=== PATIENT | female | born 1960 | race Caucasian/White ===

== ENCOUNTER → 2024-09-12 | Outpatient (CLI) | payer MEDICAID, SELFPAY | END | disposition home or self-care (01) | LOC: SWHD 13:15 | PROVIDERS: PCP Family Medicine; Referring Provider Family Medicine; Visit Provider Student in an Organized Health Care Education/Training Program | DX: E11.621 Type 2 diabetes mellitus with foot ulcer (principal); L97.514 Non-pressure chronic ulcer of other part of right foot with necrosis of bone; E11.40 Type 2 diabetes mellitus with diabetic neuropathy, unspecified; M86.68 Other chronic osteomyelitis, other site | CPT/HCPCS: 11044; A9270 ==

== ENCOUNTER → 2024-09-26 | Outpatient (CLI) | payer MEDICAID, SELFPAY | END | disposition home or self-care (01) | LOC: SWHD 13:15 | PROVIDERS: PCP Family Medicine; Referring Provider Family Medicine; Visit Provider Surgery | DX: E11.621 Type 2 diabetes mellitus with foot ulcer (principal); T81.89XA Other complications of procedures, not elsewhere classified, initial encounter; L97.512 Non-pressure chronic ulcer of other part of right foot with fat layer exposed; E11.40 Type 2 diabetes mellitus with diabetic neuropathy, unspecified; M86.68 Other chronic osteomyelitis, other site | CPT/HCPCS: 11042; A9270 ==

== ENCOUNTER → 2024-10-09 | Outpatient (CLI) | payer MEDICAID, SELFPAY | END | disposition home or self-care (01) | PROVIDERS: PCP Family Medicine; Referring Provider Family Medicine; Visit Provider Student in an Organized Health Care Education/Training Program | DX: E11.621 Type 2 diabetes mellitus with foot ulcer (principal); L97.514 Non-pressure chronic ulcer of other part of right foot with necrosis of bone; T81.89XA Other complications of procedures, not elsewhere classified, initial encounter; E11.40 Type 2 diabetes mellitus with diabetic neuropathy, unspecified; M86.68 Other chronic osteomyelitis, other site | CPT/HCPCS: 11044; A9270 ==

== ENCOUNTER → 2024-10-18 | Outpatient (CLI) | payer MEDICAID, SELFPAY | END | disposition home or self-care (01) | PROVIDERS: PCP Family Medicine; Referring Provider Family Medicine; Visit Provider Student in an Organized Health Care Education/Training Program | DX: E11.621 Type 2 diabetes mellitus with foot ulcer (principal); L97.514 Non-pressure chronic ulcer of other part of right foot with necrosis of bone; E11.40 Type 2 diabetes mellitus with diabetic neuropathy, unspecified; T81.89XA Other complications of procedures, not elsewhere classified, initial encounter; M86.68 Other chronic osteomyelitis, other site | CPT/HCPCS: 11042; A9270 ==

== ENCOUNTER → 2024-11-01 | Outpatient (CLI) | payer MEDICAID, SELFPAY | END | disposition home or self-care (01) | LOC: SWHD 13:26 | PROVIDERS: PCP Family Medicine; Referring Provider Family Medicine; Visit Provider Surgery | DX: E11.621 Type 2 diabetes mellitus with foot ulcer (principal); L97.514 Non-pressure chronic ulcer of other part of right foot with necrosis of bone; T81.89XA Other complications of procedures, not elsewhere classified, initial encounter; E11.40 Type 2 diabetes mellitus with diabetic neuropathy, unspecified; M86.68 Other chronic osteomyelitis, other site | CPT/HCPCS: 11042; A9270 ==

== ENCOUNTER → 2024-11-08 | Outpatient (CLI) | payer MEDICAID, SELFPAY | END | disposition home or self-care (01) | LOC: SWHD 13:30 | PROVIDERS: PCP Family Medicine; Referring Provider Family Medicine; Visit Provider Student in an Organized Health Care Education/Training Program | DX: T81.89XA Other complications of procedures, not elsewhere classified, initial encounter (principal); L97.514 Non-pressure chronic ulcer of other part of right foot with necrosis of bone; E11.40 Type 2 diabetes mellitus with diabetic neuropathy, unspecified; M86.68 Other chronic osteomyelitis, other site | CPT/HCPCS: 11042; A9270 ==

== ENCOUNTER → 2024-11-27 | Outpatient (CLI) | payer MEDICAID, SELFPAY | END | disposition home or self-care (01) | LOC: SWHD 13:29 | PROVIDERS: PCP Family Medicine; Referring Provider Family Medicine; Visit Provider Student in an Organized Health Care Education/Training Program | DX: E11.621 Type 2 diabetes mellitus with foot ulcer (principal); T81.89XA Other complications of procedures, not elsewhere classified, initial encounter; L97.514 Non-pressure chronic ulcer of other part of right foot with necrosis of bone; M86.68 Other chronic osteomyelitis, other site; E11.40 Type 2 diabetes mellitus with diabetic neuropathy, unspecified | CPT/HCPCS: 11044; A9270 ==

== ENCOUNTER → 2024-12-18 | Outpatient (CLI) | payer MEDICAID, SELFPAY | END | disposition home or self-care (01) | LOC: SWHD 13:13 | PROVIDERS: PCP Family Medicine; Referring Provider Family Medicine; Visit Provider Surgery | DX: E11.621 Type 2 diabetes mellitus with foot ulcer (principal); T81.89XA Other complications of procedures, not elsewhere classified, initial encounter; L97.514 Non-pressure chronic ulcer of other part of right foot with necrosis of bone; M86.68 Other chronic osteomyelitis, other site; E11.40 Type 2 diabetes mellitus with diabetic neuropathy, unspecified | CPT/HCPCS: 11042; A9270 ==

== ENCOUNTER 2025-01-04 11:08 | Inpatient (IN) | payer MEDICAID, SELFPAY ==
[2025-01-04] VITALS (9 sets, daily range): BP systolic 121–162; BP diastolic 72–99; PULSE 81–94; RESP 16–24; TEMP 36.7–37.1; O2SAT 85–97; BMI 32.9
--- NOTE | 2025-01-04 11:26 | XR_ITS ---
EXAMINATION: XR chest 2V ORDERING PROVIDER: Bari Cortes NP HISTORY: Chest Pain TECHNIQUE: PA and Lateral radiographs of the chest. COMPARISON: 04/16/2024, CT aortoiliac angiography with runoff. FINDINGS: Lungs: Extensive multi lobar airspace opacities with left lower lobe consolidation. Mildly increased interstitial markings. Pleura: Mild blunting left costophrenic angle. No pneumothorax. Cardiomediastinal Silhouette: Calcifications aortic arch. Cardiac silhouette normal in size. Soft Tissues/Bones: Mild bony degenerative changes. Calcific atherosclerotic changes bilateral axilla. Calcifications left neck, likely within the carotid artery. IMPRESSION: 1. Extensive multi lobar opacities with left lower lobe consolidation and small left pleural effusion. Differential includes severe multi lobar pneumonia, atypical infection, and developing acute respiratory distress syndrome. 2. Positive fluid balance.
--- NOTE | 2025-01-04 11:26 | EKG_ITS ---
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
--- NOTE | 2025-01-04 11:27 | PD.EDRME ---
Rapid Medical Screening Exam [facility] Arrival date/time: 01/04/25 11:08 CC: Shortness of breath HPI ongoing for the past 6 days now sleeping upright. Significant smoking history stopped smoking cigarettes 5 days ago. Denies any chest pain. 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 Chief Complaint: Shortness of Breath/Dyspnea
[2025-01-04 11:58] LABS: Basophils % (Auto) 0 % (0-2.5); Eosinophils % (Auto) 0 % (0-10); Hematocrit 42.7 % (36.0-46.0); Hemoglobin 14.7 g/dL (12.0-16.0); Immature Granulocytes % (Auto) 2 % (0-0); Immature Granulocytes Auto 0.12 Thou/mm3 (0.00-0.00); Lymphocytes % (Auto) 11 % (10-50); Mean Corpuscular HGB Conc 34.4 g/dl (31.0-37.0); Mean Corpuscular Hemoglobin 29.8 pg (25.0-35.0); Mean Corpuscular Volume 86 fL (80-100); Monocytes # (Auto) 0.3 Thou/mm3 (0.0-0.8); Monocytes % (Auto) 4 % (0-12); Neutrophils # (Auto) 6.8 Thou/mm3 (1.8-7.7); Neutrophils % (Auto) 84 % (37-80); Nucleated Red Blood Cell % 0 /100 WBC (0); Platelet Count 215 Thou/mm3 (140-440); Red Blood Count 4.94 Miln/mm3 (4.00-5.20); White Blood Count 8.1 Thou/mm3 (3.6-11.0)
--- NOTE | 2025-01-04 12:07 | EDNOTE_ITS ---
ED SOB =RME/HPI General Chief Complaint: Shortness of Breath/Dyspnea Stated Complaint: SOB, COUGH, BACK PAIN Time Seen by Provider: 01/04/25 11:28 Arrival date/time: 01/04/25 11:08 RME / HPI RME / HPI Narrative: 64-year-old female patient with significant history of hypertension, chronic smoking, for several years, quit smoking 5 days ago, came in for evaluation regarding worsening cough shortness of breath and not feeling well. Severity of symptoms moderate. Patient came in with family. In the triage patient was noted to be satting 85% on room air. Patient denies any chest pain. Denies any fever. Denies any other complaints. Cardiac history with 2 stents seen by Jerald in [place], assistant in nursing. Related Data Home Medications ?Medication ?Instructions ?Recorded ?Confirmed metformin 1,000 mg tablet 1,000 mg PO BID #0 tabs 04/0802/02/24 (Glucophage) losartan 50 mg tablet 50 mg PO QDAY 01/21/1902/01 Previous Rx's ?Medication ?Instructions ?Recorded amlodipine 5 mg tablet 10 mg (2 x 5 mg) PO QDAY #30 tabs 11/29/23 aspirin 81 mg tablet,delayed 81 mg PO QDAY #30 tabs release atorvastatin 80 mg tablet 80 mg PO QPM #30 tabs carvedilol 3.125 mg tablet 3.125 mg PO BIDWM #60 tabs 11/29/23 empagliflozin 10 mg tablet 10 mg PO QAM #30 tabs 11/29 (Jardiance) oxycodone-acetaminophen 5 mg-325 1 tab PO Q6H PRN Pain Scale 11/29/23 mg tablet 4-10(Mod-Sev #14 tabs tramadol 50 mg tablet 50 mg PO Q8H PRN pain #30 ta bs 12/29/23 doxycycline monohydrate 100 mg 100 mg PO BID #20 caps 03/23/24 capsule Allergies Allergy/AdvReac Type Severity Reaction Status Date / Time ofloxacin Allergy Severe THROAT Verified 05/19/24 14:55 CLOSING Review of Systems Review of Systems Narrative Review of Systems: Review of system reviewed and within normal limits except mentioned in HPI ED Exam Narrative Physical exam: VITAL SIGNS: Reviewed. GENERAL APPEARANCE: Alert and interactive, follows commands, in mild acute distress, HEAD AND FACE: Non-traumatic. ENT: PERRL, pink conjunctivitis, eyelid no trauma, Mucous membrane moist. NECK: Supple, nontender, no nuchal rigidity. CHEST: No tenderness, no crepitus, no paradoxical movement, no retractions. LUNGS: Symmetric, no rales, no wheezing,+ ronchi, no stridor, decreased breath sounds bilaterally. HEART: Regular rate, regular rhythm, no murmur, no gallops. ABDOMEN: Soft, positive bowel sounds, nondistended, no guarding, nontender, no rebound, no masses, RECTAL: Deferred. GENITAL: Deferred. NEUROLOGICAL: Gross motor function intact sensory function intact, Appropriate for age. MUSCULOSKELETAL: low back nontender, full range of motion. EXTREMITIES: Right foot wrapped in a with a gauze and on an Ortho shoe, nontender, full range of motion. SKIN: Color pink, dry, no rash, no lacerations, no abrasions, no contusions. LYMPHATICS: Deferred. Course Quality Measures none Orders Category Date Time Status Admit to Inpatient Status Routine Admission 01/04/25 15:44 Active Patient Condition Routine Admission 01/04/25 15:44 Ordered Bedside Influenza A&B Antigen Test NOW Care 01/04/25 11:27 Completed COVID-19 Screening Questionnaire NOW Care 01/04/25 14:29 Active Decision to Admit X1 Care 01/04/25 14:29 Active EKG (ED ONLY) *Do not use* NOW Care 01/04/25 11:26 Completed Notify provider NEEDED Care 01/04/25 15:44 Active Strict Intake and Output Routine Care 01/04/25 15:45 Ordered Diet Cardiac Diet 01/04/[address] chest wo con Stat Exams 01/04/25 12:16 Completed EKG (ED Only) Stat Exams 01/04/25 11:26 Ordered XR chest 2V Stat Exams 01/04/25 11:26 Completed B-Type Natriuretic Peptide Stat Lab 01/04/25 11:42 Completed Blood Culture (Lab) Stat Lab 01/04/25 12:56 Received CBC Stat Lab 01/04/25 11:42 Completed Comprehensive Metabolic Panel Stat Lab 01/04/25 11:42 Completed Drug Screen,Urine Stat Lab 01/04/25 11:26 Ordered LDH (Lactate Dehydrogenase) Stat Lab 01/04/25 11:42 Completed Lactate (Lactic Acid) Stat Lab 01/04/25 12:56 Completed Magnesium Stat Lab 01/04/25 11:42 Completed Partial Thromboplastin Time Stat Lab 01/04/25 11:42 Completed Procalcitonin Stat Lab 01/04/25 11:42 Completed Prothrombin Time with INR Stat Lab 01/04/25 11:42 Completed Troponin I Stat Lab 01/04/25 11:42 Completed Urinalysis Stat Lab 01/04/25 11:26 Ordered VBG [Venous Blood Gas] Stat Lab 01/04/25 12:56 Completed Acetaminophen Tab [Tylenol Tab] Med 01/04/25 15:43 Active 650 mg PO Q6H PRN Albuterol/Ipratr Rt Melania [Duoneb Rt Melania] Med 01/04/25 12:11 Discontinued 3 ml INH X1 ONE Azithromycin Inj [Zithromax Inj] 500 mg Med 01/04/25 12:06 Discontinued Sodium Chloride 0.9% 250 ml [Ns] 250 ml IV X1 Oseltamivir [Tamiflu] Med 01/04/25 13:38 Discontinued 75 mg PO X1 ONE POTASSIUM CHL 10 mEq IVPB [Kcl Ivpb] Med 01/04/25 12:36 Discontinued 10 meq in 100 ml IV X1 Potassium Chloride [K-Dur] Med 01/04/25 12:36 Discontinued 40 meq PO X1 ONE cefTRIAXone [Rocephin] 1,000 mg Med 01/04/25 12:06 Discontinued SODIUM CHLORIDE 0.9% (Popper) [Ns 0.9% (P)] 50 ml IV X1 Code Status Routine Oth 01/04/25 15:43 Ordered Oxygen Delivery PRN RT 01/04/25 15:43 Active Vital Signs Vital signs: Vital Signs Temperature 98.1 F 01/04/25 11:28 Pulse Rate 84 01/04/25 11:28 Respiratory Rate 24 H 01/04/25 11:28 Blood Pressure 121/76 01/04/25 11:28 Pulse Oximetry (%) 85 L 01/04/25 11:28 Oxygen Delivery Method Room Air 01/04/25 11:28 Shortness of Breath / Dyspnea MDM Narrative MDM Narrative:: 64-year-old female patient with significant history of hypertension, chronic smoking, for several years, quit smoking 5 days ago, came in for evaluation regarding worsening cough shortness of breath and not feeling well. Severity of symptoms moderate. Patient came in with family. In the triage patient was noted to be satting 85% on room air. Patient denies any chest pain. Denies any fever. Denies any other complaints. Cardiac history with 2 stents seen by Jerald in [place], assistant in nursing. Patient does not want me to rewrap the foot. Patient told me that she is not worried about his foot right now. Patient tested positive for influenza A. Laboratory workup no leukocytosis noted, VBG showed O2 sat of 55 percent Potassium was noted to be 2.3, sodium of 134. CT scan of the chest showed 1. Multilobar groundglass airspace opacities, consolidations, mediastinal lymphadenopathy, interstitial thickening, and small bilateral pleural effusions with nodular thickening. Findings are concerning for metastatic disease, including possible lymphangitic carcinomatosis, with superimposed multi lobar pneumonia. 2. Background pulmonary fibrosis and emphysema. 3. Severe vasculopathic changes, including heavy coronary artery calcifications. 4. Small pericardial effusion. 5. Focal outpouching left common carotid artery may represent a small aneurysm. 6. Cirrhotic liver. 7. Anasarca, including pulmonary vascular congestion. 8. Thickening bilateral breast skin and subcutaneous soft tissue may be from volume overload, though breast cancer could have a similar appearance. Recommend correlation with physical exam and any prior mammograms. 9. Severe bilateral perinephric fat stranding. Findings could be seen with urinary tract infection. 10. Subacute right anterolateral fifth rib fracture. 11. Sequela of prior granulomatous disease. Patient received Zithromax IV, ceftriaxone IV IV fluid, potassium replacement and other breathing treatment with significant progress symptoms. Currently patient is satting 97% on 4 L. Discussed case with family regarding admission for further management, but obtain agrees with the plan. Discussed the case with hospitalist admitted the patient. Patient data External records reviewed:: None Clinical information provided by:: patient and family Social determinants that could affect healthcare access:: none Patient has the following chronic illnesses:: Cigarette smoker How is presenting disease/condition affected by chronic disease/condition?: exacerbated by Evaluation data The following diagnostics were reviewed and interpreted by me:: lab results, radiology exam(s) and EKG tracing(s) Lab and/or radiology exams considered but not ordered:: None Interpretation Summary: See results in MDM plan Medications / Prescriptions Medications or Prescriptions considered but not ordered:: None Medication administrations:: Medication Administration History Acetaminophen (Acetaminophen 325 Mg Tablet) 650 mg PO Q6H PRN PRN Reason: PAIN OR FEVER > 100.4 Stop: 02/03/25 15:42 Hydrocodone Bitart/Acetaminophen (Hydrocodone/Apap 5/325 Tablet) 1 tab PO Q6HR PRN PRN Reason: PAIN SCALE 4-6 (Moderate Stop: 01/09/25 15:47 Amlodipine Besylate (Amlodipine Besylate 5 Mg Tablet) 10 mg PO QDAY [facility] Stop: 02/04/25 08:59 Aspirin (Aspirin Ec 81 Mg Tabec) 81 mg PO QDAY [facility] Stop: 02/04/25 08:59 Atorvastatin Calcium (Atorvastatin Calcium 20 Mg Tablet) 40 mg PO HS [facility] Stop: 02/03/25 20:59 Azithromycin (Azithromycin 250 Mg Tablet) 250 mg PO QDAY [facility] Stop: 01/09/25 08:59 Dextrose (Dextrose 50%-Water Inj 50 Ml Syringe) 25 ml IV Q15MIN PRN PRN Reason: BG 50-70 responsive npo pt Stop: 02/03/25 15:52 Dextrose (Dextrose 50%-Water Inj 50 Ml Syringe) 50 ml IV Q15MIN PRN PRN Reason: BG <50 OR BG <70 & pt unresponsive Stop: 02/03/25 15:52 Glucagon (Glucagon Inj 1 Mg Vial) 1 mg IM Q15MIN PRN PRN Reason: BG <70, and no IV access Heparin Sodium (Porcine) (Heparin Sod Inj 5000 Unit/Ml Vial) 5,000 unit SC Q12HR [facility] Stop: 01/18/25 20:59 Ceftriaxone Sodium 1,000 mg/ (Sodium Chloride) 50 mls @ 100 mls/hr IV QDAY [facility] Stop: 01/09/25 08:59 Insulin Human Lispro (Insulin Lispro (Admelog) 1 Unit/0.01 Ml Unit) 0 unit SC [facility]; Protocol Stop: 02/03/25 16:59 Ipratropium [place] (Ipratropium Rt 0.5 Mg/ 2.5 Ml Nebu) 0.5 mg INH Q6HRRT [facility] Stop: 02/03/25 18:59 Levalbuterol HCl (Levalbuterol Rt 1.25 Mg/0.5 Ml Nebu) 1.25 mg INH Q6HRRT [facility] Stop: 02/03/25 18:59 Losartan Potassium (Losartan Potassium 25 Mg Tablet) 100 mg PO QDAY [facility] Stop: 02/03/25 16:24 Ondansetron HCl (Ondansetron Inj 2 Mg/Ml Inj 2 Ml) 4 mg IV Q6H PRN; Protocol PRN Reason: NAUSEA OR VOMITING Stop: 02/03/25 15:47 Oseltamivir Phosphate (Oseltamivir 75 Mg Capsule) 75 mg PO BID SUNDAY Stop: 01/12/25 08:59 Oseltamivir Phosphate (Oseltamivir 75 Mg Capsule) 75 mg PO X1 ONE Stop: 01/04/25 21:01 Sodium Chloride (Sodium Chloride Rt Melania 0.9% 3 Ml Nebu) 3 ml INH PRN PRN PRN Reason: SOLN Stop: 02/03/25 16:01 Ticagrelor (Ticagrelor 90 Mg Tablet) 90 mg PO BID [facility] Stop: 02/03/25 20:59 Discontinued Medications Albuterol/Ipratropium (Albuterol/Ipratropium (Duoneb) Rt Melania 3 Ml Nebu) 3 ml INH X1 ONE Stop: 01/04/25 12:12 Last Admin: 01/04/25 12:44 Dose: 3 ml Documented By: TAURUS Ceftriaxone Sodium 1,000 mg/ (Sodium Chloride) 50 mls @ 100 mls/hr IV X1 ONE Stop: 01/04/25 12:35 Last Infusion: 01/04/25 13:20 Dose: Infused Documented By: Admin: 01/04/25 12:47 Dose: 100 mls/hr Documented By: GEOVANY Azithromycin 500 mg/ Sodium (Chloride) 250 mls @ 250 mls/hr IV X1 ONE Stop: 01/04/25 13:05 Last Infusion: 01/04/25 15:57 Dose: Infused Documented By: Admin: 01/04/25 14:55 Dose: 250 mls/hr Documented By: GEOVANY Potassium Chloride (Kcl Ivpb) 10 meq in 100 mls @ 100 mls/hr IV X1 ONE Stop: 01/04/25 13:35 Last Infusion: 01/04/25 14:43 Dose: Infused Documented By: Admin: 01/04/25 13:31 Dose: 100 mls/hr Documented By: GEOVANY Oseltamivir Phosphate (Oseltamivir 75 Mg Capsule) 75 mg PO X1 ONE Stop: 01/04/25 13:39 Last Admin: 01/04/25 14:55 Dose: 75 mg Documented By: GEOVANY Potassium Chloride (Potassium Chloride 20 Meq Tabcr) 40 meq PO X1 ONE Stop: 01/04/25 12:37 Last Admin: 01/04/25 12:46 Dose: 40 meq Documented By: GEOVANY Potassium Chloride (Potassium Chloride 20 Meq Tabcr) 40 meq PO X1 ONE Stop: 01/04/25 15:54 Ceftriaxone IV IV, Zithromax IV, IV fluid hydration, Consultations Consultation(s) initiated? (list below): No Diagnosis Shortness of Breath Differential Diagnosis: acute exacerbation of chronic obs tructive airways disease and community acquired pneumonia Most likely diagnosis given after review of the tests above:: Community acquired pneumonia, hypoxia Admission Indicated Admission indicated?: indicated Admission Request Was there a request for admission?: Yes Admission Attestation Admission request attestation: Discussed case with [Dr Vargas] from Hospitalist service regarding admission. Discussed patients ED course, exam findings, labs, and radiology results. The Hospitalist [agree] to accept the patient for admission. Disposition Plan Disposition Plan: Admit Discharge Plan Plan Patient Disposition: Admit Acute Care w/in Hospital Disposition Comment: Stable Problem List Clinical Impression: Hypoxia, Pneumonia, Influenza, Current smoker
[2025-01-04 12:16] LABS: Partial Thromboplastin Time 29.5 Seconds (22.0-36.0); Prothrombin Time 10.5 Seconds (9.0-12.2)
--- NOTE | 2025-01-04 12:16 | XR_ITS ---
EXAMINATION: CT chest wo con ORDERING PROVIDER: ELFEGO Alarcon HISTORY: Shortness of breath TECHNIQUE: Without intravenous or oral contrast, CT was used in the volumetric, helical imaging acquisition of the chest with 2-D and 3-D reformats generated on a separate workstation and submitted for interpretation. Institutional dose reducing protocols were utilized. RADIATION DOSE: DLP 592 mGy-cm COMPARISON: 01/04/2025, 10/09/2004, chest radiographs. 04/16/2024, CT abdomen pelvis angioma with runoff. FINDINGS: Multilobar groundglass opacities. Right middle lobe, lingular, left lower lobe consolidations with air bronchograms. Small bilateral pleural effusions. Interlobular septal thickening. Multiple bilateral subcentimeter calcified granulomas. Background emphysematous changes and pulmonary fibrosis most severe in the right upper lobe and superior segment right lower lobe. Nodularity to right-sided pleural effusion/pleura, most pronounced series 2 image 108. Heavy coronary artery calcifications. Small pericardial effusion. Mediastinal lymphadenopathy. Mitral annular calcifications. Calcifications aortic arch. Calcifications aortic valve. Moderate narrowing left common carotid artery. Focal outpouching of the left common carotid artery, series 2 image 37. Peripherally calcified 1.1 cm right hemithyroid nodule. Cirrhotic liver. Adenomyomatosis. Moderate fatty atrophy of the pancreas. Calcifications spleen, likely sequela of old granulomatous disease. Moderate calcifications abdominal vasculature. Severe left greater than right bilateral perinephric fat stranding. Anasarca. Thickening of bilateral breast tissue. Diffuse osteopenia. Right anterolateral healing fifth rib fracture. IMPRESSION: This is a very abnormal examination. 1. Multilobar groundglass airspace opacities, consolidations, mediastinal lymphadenopathy, interstitial thickening, and small bilateral pleural effusions with nodular thickening. Findings are concerning for metastatic disease, including possible lymphangitic carcinomatosis, with superimposed multi lobar pneumonia. 2. Background pulmonary fibrosis and emphysema. 3. Severe vasculopathic changes, including heavy coronary artery calcifications. 4. Small pericardial effusion. 5. Focal outpouching left common carotid artery may represent a small aneurysm. 6. Cirrhotic liver. 7. Anasarca, including pulmonary vascular congestion. 8. Thickening bilateral breast skin and subcutaneous soft tissue may be from volume overload, though breast cancer could have a similar appearance. Recommend correlation with physical exam and any prior mammograms. 9. Severe bilateral perinephric fat stranding. Findings could be seen with urinary tract infection. 10. Subacute right anterolateral fifth rib fracture. 11. Sequela of prior granulomatous disease.
[2025-01-04 12:19] LABS: B-Type Natriuretic Peptide 198 pg/mL (0-100)
[2025-01-04 12:24] LABS: Alanine Aminotransferase 19 U/L (10-49); Albumin, Serum 2.9 gm/dL (3.4-4.8); Albumin/Globulin Ratio 1.1 (1.2-2.2); Alkaline Phosphatase 120 U/L (46-116); Anion Gap 9 (7-16); Aspartate Amino Transferase 55 U/L (0-34); BUN/Creatinine Ratio 19 Ratio (12-20); Bilirubin,Total 0.6 mg/dL (0.3-1.2); Blood Urea Nitrogen 15 mg/dL (9-23); Calcium (Corrected) 8.9 mg/dL (8.5-10.1); Carbon Dioxide 26.7 mMol/L (20.0-31.0); Chloride 98 mMol/L (98-107); Creatinine (Component) 0.8 mg/dL (0.6-1.3); Estimated Creatinine Clearance 70.3 mL/min (>60); Globulin 2.6 gm/dL (2.3-3.5); Glucose 237 mg/dL (74-106); LDH (Lactate Dehydrogenase) 585 U/L (120-246); Lymphocytes # (Auto) 0.9 Thou/mm3 (1.0-4.8); Magnesium 1.9 mg/dL (1.6-2.6); Osmolality,Calculated 277 (275-295); Sodium 134 mMol/L (136-145); Total Protein 5.5 gm/dL (5.7-8.2); Troponin I 0.022 ng/mL (0.0-0.045); eGFR > 60 See Note
[2025-01-04 12:26] LABS: Potassium 2.3 mMol/L (3.4-5.1)
[2025-01-04] MEDS: ALBUTEROL/IPRATROPIUM (Duoneb) RT SOL 3 ML NEBU INH (12:44)
[2025-01-04] MEDS: POTASSIUM CHLORIDE 20 mEq TABCR 40 MEQ PO ×3 (12:46→21:44)
[2025-01-04] MEDS: cefTRIAXone 1,000 MG in SODIUM CHLORIDE 0.9% (Popper) 50 ML 100 MG IV (12:47)
[2025-01-04 13:01] LABS: Base Excess, Venous 5 (-3-3); O2 Saturation, Venous 55 % (96-97); PCO2, Venous 36 mmHg (36-56); PO2, Venous 29 mmHg (15-58); pH, Venous 7.49 (7.33-7.66)
[2025-01-04 13:02] LABS: Lactate (Lactic Acid) 1.4 mMol/L (0.4-2.0)
[2025-01-04] MEDS: POTASSIUM CHL 10 mEq IVPB 10 MEQ/100 ML BAG 100 MEQ IV ×3 (13:31→19:22)
[2025-01-04 13:36] LABS: Procalcitonin 0.18 ng/ml (0.0-0.49)
[2025-01-04] MEDS: AZITHROMYCIN INJ 500 MG in SODIUM CHLORIDE 0.9% 250 ML 250 ML 250 MG IV (14:55)
[2025-01-04] MEDS: OSELTAMIVIR 75 MG CAPSULE PO (14:55)
--- NOTE | 2025-01-04 16:19 | PC.CC ---
Patient is a 64 year old female who presents to the Emergency Department for shortness of breath and cough. [employer] student introduced self, role and reason for visit. Limits of confidentiality were discussed. Patient appears to be alert and oriented to self, location and situation. Patient was pleasant and engaged in initial assessment. Patient confirmed information on demographics. Patient is retired and lives with her boyfriend, Ilia, and her daughter. Patient stated her medical surrogate decision maker is her son, Wagner Omalley . Her primary care physician is Dr. Ghanshyam Gaviria and pharmacy of preference is [facility]. Patient is able to ambulate and complete ADLs independently. Upon discharge patient plans to return home. 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
--- NOTE | 2025-01-04 16:27 | ESHP_ITS ---
<Statement entered by Surendra Romero MD - 01/04/25 18:12> Patient was seen and examined at the bedside. This patient is a 64-year-old female with past medical history of CAD post stents on aspirin and Brilinta, type 2 diabetes, hypertension, hyperlipidemia and COPD not on home oxygen presented with shortness of breath and cough from last 4 to 5 days. She presented the hospital and was hypoxic on room air around 85% was placed on nasal cannula 4 L which improved her oxygen status. Patient was afebrile and denied any chest pain. Patient was found to be positive for flu and CT chest was significant for pneumonia. We started the patient on ceftriaxone and azithromycin along with Tamiflu. Patient was also started on breathing treatments with Solu-Medrol. Labs were significant for critical hypokalemia of 2.3 there for 40 mEq potassium x 1, 30 mEq KCl IV x 1 was ordered as repeat potassium was still low. repeated potassium at 8 PM. Additional potassium 40M EQ x 1 was ordered At 6 PM. 2 g of magnesium was given x 1. Kidney functions were stable. Patient had wheezing on examination. She has a history of smoking in the past and was found to have pulmonary fibrosis on the CT chest. Follow-up with blood cultures and MRSA screen. Home medications were reconciled. All labs and orders were reviewed I saw and examined the patient, and I agree with current management stated by Dr Tez MD,PGY1. Plan of care was discussed with the attending physician and resident physician. Disclaimer: Despite multiple revisions, due to the dictation software being used, the document bellow may not be free of grammatical errors including phonetic/typographic errors. However, this does not deter from our commitment to providing health care in the patient's best interest in mind. Dr. Nick MD, PGY 2 Documentation for date of: 01/04/25 HPI History of Present Illness History of present illness: Paige King is a 64-year-old female with a history of CAD status post cardiac stentson Brilinta and aspirin, type 2 diabetes mellitus, hypertension, hypelipidemia, and COPD (not on home O2) who presented that 01/04 with progressive shortness of breath and cough for 4 days. States that she woke up last night short of breath and decided to come to the ED, states that she does not commonly wake up in the middle the night short of breath but does endorse orthopnea. No associated fever, chills, sore throat, or muscle pain. No recent travel but does state that her grandchild has influenza. Otherwise, denies chest pain, bilateral lower extremity edema, dysuria, hematoma hematuria, diarrhea/constipation. In ED, noted to be influenza A positive. Vitals showed O2 at 85% on room air, RR 24, afebrile. VBG within normal limits. No leukocytosis, Pro-Hi negative, lactate 1.4, LDH 585. Potassium 2.3, AST 55, ALP 120, troponin negative, BNP 198. CT chest showed multilobar pneumonia, small effusions bilaterally, mediastinal lymphadenopathy, underlying pulmonary fibrosis/emphysema, and severe bilateral perinephric fat stranding. Given ceftriaxone and azithromycin x 1, DuoNeb x 1, 50 mEq of potassium, and oseltamavir x 1. Admitted for management of AHRF secondary to influenza pneumonia in setting of underlying COPD. PMHx: CAD, type 2 diabetes mellitus, hypertension, hyperlipidemia, COPD Medications: Jardiance 10 mg daily, metformin 500 mg twice daily, losartan 125 mg daily, amlodipine 10 mg daily, atorvastatin 40 mg at bedtime, Brilinta 90 mg twice daily, aspirin 81 mg, albuterol as needed, Singulair SHx: Smoked 1.5 packs of cigarettes per day for 40+ years (last cigarette 5 days ago), no alcohol or illicit drug use Exam Vital Signs Temp Pulse Resp BP Pulse Ox O2 Del Method O2 Flow Rate 98.2 F 88 19 162/89 H 94 L Nasal Cannula 4 01/04/25 15:10 01/04/25 15:10 01/04/25 15:10 01/04/25 15:10 01/04/25 15:10 01/04/25 15:10 01/04/25 15:10 Narrative Exam General: AOx3, on 4.5 L NC, no respiratory distress but mildly uncomfortable HEENT: NC/AT, mucous membranes moist, bilateral sclera anicteric Cardiovascular: regular rate and rhythm, S1/S2 present, no murmurs appreciated Pulmonary: coarse lung sounds bilaterally and diffuse, wheezing appreciate in upper airways Abdominal: soft, non-tender, non-distended, no rebound/guarding, normal bowel sounds present Musculoskeletal: 1+ pitting edema in RLE, right foot wrapped and in boot Skin: warm and dry, intact, no rashes Neuro: CN II-XII intact, no focal deficits Results: Labs 01/07/25 05:19 01/07/25 05:19 Labs: Short CBC 01/04/25 Range/Units 11:42 WBC 8.1 (3.6-11.0) Thou/mm3 Hgb 14.7 (12.0-16.0) g/dL Hct 42.7 (36.0-46.0) % Plt Count 215 (140-440) Thou/mm3 BMP 01/04/25 11:42 Sodium 134 L Potassium 2.3 L* Chloride 98 Carbon Dioxide 26.7 BUN 15 Creatinine 0.8 Glucose 237 H Calcium 8.0 L Cardiac Enzymes 01/04/25 Range/Units 11:42 Troponin I 0.022 (0.0-0.045) ng/mL Liver Function 01/04/25 Range/Units 11:42 Total Bilirubin 0.6 (0.3-1.2) mg/dL AST 55 H (0-34) U/L ALT 19 (10-49) U/L Alkaline Phosphatase 120 H (46-116) U/L Albumin 2.9 L (3.4-4.8) gm/dL ABG Interpretation ABG results: 01/04/25 12:56 VBG pH 7.49 VBG pCO2 36 VBG pO2 29 VBG Base Excess 5 H Quality Measures Quality Measures VTE prophylaxis Medications Home Medications and Allergies Home Medications ?Medication ?Instructions ?Recorded ?Confirmed ?Type metformin 1,000 mg tablet 1,000 mg PO BID #0 tabs 04/0 16 01/05/25 History (Glucophage) losartan 50 mg tablet 100 mg PO QDAY 01/21/1912/22 History atorvastatin 80 mg tablet 40 mg PO QPM 01/05/25 History montelukast 10 mg tablet 10 mg PO QDAY 01/05/2501/05 History (Singulair) Allergies Allergy/AdvReac Type Severity Reaction Status Date / Time ofloxacin Allergy Severe THROAT Verified 05/19/24 14:55 CLOSING Visit Medications Acetaminophen (Acetaminophen 325 Mg Tablet) 650 mg PO Q6H PRN PRN Reason: PAIN OR FEVER > 100.4 Stop: 02/03/25 15:42 Hydrocodone Bitart/Acetaminophen (Hydrocodone/Apap 5/325 Tablet) 1 tab PO Q6HR PRN PRN Reason: PAIN SCALE 4-6 (Moderate Stop: 01/09/25 15:47 Amlodipine Besylate (Amlodipine Besylate 5 Mg Tablet) 10 mg PO QDAY [facility] Stop: 02/04/25 08:59 Aspirin (Aspirin Ec 81 Mg Tabec) 81 mg PO QDAY [facility] Stop: 02/04/25 08:59 Atorvastatin Calcium (Atorvastatin Calcium 20 Mg Tablet) 40 mg PO HS [facility] Stop: 02/03/25 20:59 Azithromycin (Azithromycin 250 Mg Tablet) 250 mg PO QDAY [facility] Stop: 01/09/25 08:59 Dextrose (Dextrose 50%-Water Inj 50 Ml Syringe) 25 ml IV Q15MIN PRN PRN Reason: BG 50-70 responsive npo pt Stop: 02/03/25 15:52 Dextrose (Dextrose 50%-Water Inj 50 Ml Syringe) 50 ml IV Q15MIN PRN PRN Reason: BG <50 OR BG <70 & pt unresponsive Stop: 02/03/25 15:52 Glucagon (Glucagon Inj 1 Mg Vial) 1 mg IM Q15MIN PRN PRN Reason: BG <70, and no IV access Heparin Sodium (Porcine) (Heparin Sod Inj 5000 Unit/Ml Vial) 5,000 unit SC Q12HR [facility] Stop: 01/18/25 20:59 Ceftriaxone Sodium 1,000 mg/ (Sodium Chloride) 50 mls @ 100 mls/hr IV QDAY [facility] Stop: 01/09/25 08:59 Insulin Human Lispro (Insulin Lispro (Admelog) 1 Unit/0.01 Ml Unit) 0 unit SC [facility]; Protocol Stop: 02/03/25 16:59 Ipratropium [place] (Ipratropium Rt 0.5 Mg/ 2.5 Ml Nebu) 0.5 mg INH Q6HRRT [facility] Stop: 02/03/25 18:59 Levalbuterol HCl (Levalbuterol Rt 1.25 Mg/0.5 Ml Nebu) 1.25 mg INH Q6HRRT [facility] Stop: 02/03/25 18:59 Losartan Potassium (Losartan Potassium 25 Mg Tablet) 100 mg PO QDAY [facility] Stop: 02/03/25 16:24 Ondansetron HCl (Ondansetron Inj 2 Mg/Ml Inj 2 Ml) 4 mg IV Q6H PRN; Protocol PRN Reason: NAUSEA OR VOMITING Stop: 02/03/25 15:47 Oseltamivir Phosphate (Oseltamivir 75 Mg Capsule) 75 mg PO BID SUNDAY Stop: 01/12/25 08:59 Oseltamivir Phosphate (Oseltamivir 75 Mg Capsule) 75 mg PO X1 ONE Stop: 01/04/25 21:01 Sodium Chloride (Sodium Chloride Rt Melania 0.9% 3 Ml Nebu) 3 ml INH PRN PRN PRN Reason: SOLN Stop: 02/03/25 16:01 Ticagrelor (Ticagrelor 90 Mg Tablet) 90 mg PO BID SUNDAY Stop: 02/03/25 20:59 Discontinued Medications Albuterol/Ipratropium (Albuterol/Ipratropium (Duoneb) Rt Melania 3 Ml Nebu) 3 ml INH X1 ONE Stop: 01/04/25 12:12 Last Admin: 01/04/25 12:44 Dose: 3 ml Ceftriaxone Sodium 1,000 mg/ (Sodium Chloride) 50 mls @ 100 mls/hr IV X1 ONE Stop: 01/04/25 12:35 Last Infusion: 01/04/25 13:20 Dose: Infused Azithromycin 500 mg/ Sodium (Chloride) 250 mls @ 250 mls/hr IV X1 ONE Stop: 01/04/25 13:05 Last Infusion: 01/04/25 15:57 Dose: Infused Potassium Chloride (Kcl Ivpb) 10 meq in 100 mls @ 100 mls/hr IV X1 ONE Stop: 01/04/25 13:35 Last Infusion: 01/04/25 14:43 Dose: Infused Oseltamivir Phosphate (Oseltamivir 75 Mg Capsule) 75 mg PO X1 ONE Stop: 01/04/25 13:39 Last Admin: 01/04/25 14:55 Dose: 75 mg Potassium Chloride (Potassium Chloride 20 Meq Tabcr) 40 meq PO X1 ONE Stop: 01/04/25 12:37 Last Admin: 01/04/25 12:46 Dose: 40 meq Potassium Chloride (Potassium Chloride 20 Meq Tabcr) 40 meq PO X1 ONE Stop: 01/04/25 15:54 Assessment & Plan Plan Paige King is a 64-year-old female with a history of CAD status post cardiac stentson Brilinta and aspirin, type 2 diabetes mellitus, hypertension, hypelipidemia, and COPD (not on home O2) who presented that 01/04 with progressive shortness of breath and cough for 4 days and admitted for management of AHRF secondary to influenza pneumonia in setting of underlying COPD. #Acute hypoxic respiratory failure secondary to influenza pneumonia with underlying COPD #Influenza pneumonia #? Community-acquired pneumonia Presents with progressive shortness of breath with associated cough. Found to be flu positive and initial O2 85% on room air. Afebrile, no leukocytosis, Pro-Hi negative, lactate within normal limits, though LDH elevated at 585. CT chest showed multilobar pneumonia with small effusions. ? Oseltamavir 75 mg p.o. twice daily ? Levalbuterol/ipratropium every 6 hours scheduled ? Supplemental oxygen, wean as tolerated #COPD exacerbation Smokes 1.5 cigarettes/day for 40+ years and CT chest showed underlying pulmonary fibrosis/emphysema. No home O2. ? Azithromycin and ceftriaxone (01/04-) ? Solu-Medrol 40 mg IV every 8 hours (01/04-) ? Maintain O2 saturation between 88 and 92% ? Physical therapy to evaluate for home O2 #Hypokalemia Initial K of 2.3, given 50 mEq and only increased to 2.4. ? 40 mEq p.o. and 20 mEq IV K ? Follow-up repeat potassium at 8:00 PM #Unilateral/right lower extremity edema #S/p amputation of toe in RLE ? Follow-up Doppler of right lower extremity ? Wound care #Type 2 diabetes mellitus ? Follow-up A1c ? SSI step 1 #CAD status post cardiac stents ? Continue home Brilinta and aspirin #Hypertension ? Losartan 125 mg daily and amlodipine 10 mg daily #Hyperlipidemia ? Atorvastatin 40 mg p.o. at bedtime Hospital management: Disposition: AHRF secondary to influenza pneumonia in setting COPD Fluids: None Diet: Cardiac Lines: PIV DVT prophylaxis: heparin SC BID GI prophylaxis: not indicated Damon: none CODE STATUS: full code ----- Plan discussed with attending physician Dr. Hawkins and senior resident physician Dr. Nick Reagan MD PGY-1 Internal Medicine Attending Provider Attestation/Addendum I have examined the patient, reviewed labs and imaging findings, discussed the case with the resident(s), and reviewed entered orders. I agree with the plan of care as outlined in this note, with these additional summaries/recommendations: Patient seen at bedside. Patient will be admitted for acute hypoxic respiratory failure secondary to community-acquired pneumonia, influenza, and COPD exacerbation. Start Tamiflu and IV antibiotics. Breathing treatments as needed & IV solu-medrol. Wean O2 supplementation as tolerated. CT scan on admission did reveal multilobar groundglass opacities which is likely due to pneumonia versus carcinoma. Of note CT also revealed thickening bilateral breasts which may be volume overload or related to possible breast cancer. We will follow-up with patient in regards to her cancer screening and oncology history if any. Potassium low to 2.3 on admission and replacement given. Follow-up repeat level. Start insulin sliding scale for history of diabetes mellitus type 2. Previous A1c on file 8.6%. Continue home antihypertensives and statin medication. Repeat hematology and chemistry panel in AM. Dr. Ross MD
[2025-01-04 17:12] LABS: Potassium 2.4 mMol/L (3.4-5.1)
[2025-01-04] MEDS: INSULIN LISPRO (AdmeLOG) 1 UNIT/0.01 ML UNIT SC ×2 (18:15→21:59)
[2025-01-04] MEDS: LOSARTAN POTASSIUM 25 MG TABLET 100 MG PO (18:15)
--- NOTE | 2025-01-04 19:16 | EKG_ITS ---
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
[2025-01-04] MEDS: IPRATROPIUM RT 0.5 MG/ 2.5 ML NEBU INH (19:36)
[2025-01-04] MEDS: LEVALBUTEROL RT 1.25 MG/0.5 ML NEBU INH (19:36)
--- NOTE | 2025-01-04 20:31 | PC.NURSE ---
report called to meenu padilla
[2025-01-04 20:51] LABS: Potassium 2.7 mMol/L (3.4-5.1)
[2025-01-04] MEDS: Magnesium Sulfate 2 GM Ivpb 2 GM/50 ML BAG IV (21:23)
--- NOTE | 2025-01-04 21:30 | PC.NURSE ---
Dr. Hernandez made aware patient received Mag IV late, see medication list. Orders received, read back and carried out.
[2025-01-04] MEDS: ATORVASTATIN CALCIUM 20 MG TABLET 40 MG PO (21:45)
[2025-01-04] MEDS: TICAGRELOR 90 MG TABLET PO (21:45)
[2025-01-04] MEDS: HEPARIN SOD INJ 5000 UNIT/ML VIAL SC (22:00)
[2025-01-04] MEDS: guaiFENesin SYRUP 200 MG/10 ML UDC 100 MG PO (22:12)
[2025-01-05] VITALS (13 sets, daily range): BP systolic 144–186; BP diastolic 84–119; PULSE 78–91; RESP 18–23; TEMP 36.3–36.8; O2SAT 91–100; BMI 25.9; BMI 25.7
--- NOTE | 2025-01-05 | PC.NURSE ---
Pt c/o SOB, blood pressure 174/86 and 184/96, HR 80's, Dr. Julian made aware, RT called for a nebulizer treatment, orders received, read back, and carried out.
--- NOTE | 2025-01-05 | XR_ITS ---
Examination: Duplex scan of the lower extremity, unilateral right complete Date and time of exam: January 05, 2025 0219 hrs. Indications: Right leg and edema this week Technique: Duplex scan of the extremity veins using B-mode/grayscale imaging and Doppler spectral analysis and color flow Attention is directed to internal echogenicity, compression and augmentation involving these veins, color flow assessment, spectral analysis Findings: Major deep venous structures in the extremity demonstrate normal course and caliber. There is no evidence of deep vein thrombosis. Normal color flow and spectral analysis Impression: Negative for DVT..
[2025-01-05] MEDS: LEVALBUTEROL RT 1.25 MG/0.5 ML NEBU INH ×3 (00:12→19:46)
[2025-01-05] MEDS: IPRATROPIUM RT 0.5 MG/ 2.5 ML NEBU INH ×3 (00:12→19:46)
[2025-01-05] MEDS: ACETAMINOPHEN 325 MG TABLET 650 MG PO (01:34)
[2025-01-05] MEDS: OSELTAMIVIR 75 MG CAPSULE PO ×3 (01:36→21:42)
[2025-01-05 03:22] LABS: Albumin, Serum 2.7 gm/dL (3.4-4.8); Anion Gap 9 (7-16); BUN/Creatinine Ratio 16 Ratio (12-20); Blood Urea Nitrogen 13 mg/dL (9-23); Calcium 7.7 mg/dL (8.3-10.6); Calcium (Corrected) 8.7 mg/dL (8.5-10.1); Carbon Dioxide 24.5 mMol/L (20.0-31.0); Chloride 101 mMol/L (98-107); Creatinine (Component) 0.8 mg/dL (0.6-1.3); Estimated Creatinine Clearance 72.5 mL/min (>60); Glucose 283 mg/dL (74-106); Osmolality,Calculated 278 (275-295); Potassium 3.1 mMol/L (3.4-5.1); Sodium 134 mMol/L (136-145); eGFR > 60 See Note
--- NOTE | 2025-01-05 03:35 | PC.NURSE ---
Potassium 3.1, Dr. Hernandez was made aware. No new orders at this time.
--- NOTE | 2025-01-05 03:46 | PRELIM_ITS ---
Right lower extremity venous Doppler ultrasound. January 05, 2025 0219 hours Clinical history: Unilateral RLE edema in setting of amputation Findings: Arguello scale, color flow and spectral Doppler evaluation of the right lower extremity deep veins were performed. The common femoral, superficial femoral, popliteal, posterior tibial, peroneal veins are patent and compressible. Normal respiratory variation is noted. The great saphenous vein is patent and compressible at the level of the saphenofemoral junction. There is right lower leg subcutaneous edema. Impression: No evidence of deep venous thrombosis in the right lower extremity. Report Electronically Signed By: Mane Shaw 01/05/2025 3:45:46 AM [EST]
[2025-01-05] MEDS: amLODIPine BESYLATE 5 MG TABLET 10 MG PO (04:44)
[2025-01-05 06:07] LABS: Basophils % (Auto) 0 % (0-2.5); Eosinophils % (Auto) 0 % (0-10); Hematocrit 38.9 % (36.0-46.0); Hemoglobin 13.3 g/dL (12.0-16.0); Immature Granulocytes % (Auto) 2 % (0-0); Immature Granulocytes Auto 0.13 Thou/mm3 (0.00-0.00); Lymphocytes % (Auto) 12 % (10-50); Mean Corpuscular HGB Conc 34.2 g/dl (31.0-37.0); Mean Corpuscular Hemoglobin 29.6 pg (25.0-35.0); Mean Corpuscular Volume 86 fL (80-100); Monocytes # (Auto) 0.2 Thou/mm3 (0.0-0.8); Monocytes % (Auto) 2 % (0-12); Neutrophils % (Auto) 84 % (37-80); Nucleated Red Blood Cell % 0 /100 WBC (0); Platelet Count 191 Thou/mm3 (140-440); RDW Standard Deviation 42.9 fL (36.4-46.3); White Blood Count 8.3 Thou/mm3 (3.6-11.0)
[2025-01-05 06:25] LABS: Glucose Estimated Average 266 mg/dL (80-131); Hemoglobin A1C 10.9 % Hgb (4.8-6.0)
[2025-01-05 06:36] LABS: Alanine Aminotransferase 16 U/L (10-49); Albumin, Serum 2.6 gm/dL (3.4-4.8); Albumin/Globulin Ratio 1.1 (1.2-2.2); Alkaline Phosphatase 117 U/L (46-116); Anion Gap 9 (7-16); Aspartate Amino Transferase 40 U/L (0-34); BUN/Creatinine Ratio 16 Ratio (12-20); Bilirubin,Total 0.4 mg/dL (0.3-1.2); Blood Urea Nitrogen 13 mg/dL (9-23); Calcium 7.8 mg/dL (8.3-10.6); Calcium (Corrected) 8.9 mg/dL (8.5-10.1); Carbon Dioxide 24.5 mMol/L (20.0-31.0); Cardiac Risk Estimate 6.6 RATIO (3.7-5.6); Chloride 101 mMol/L (98-107); Cholesterol 164 mg/dL (132-200); Creatinine (Component) 0.8 mg/dL (0.6-1.3); Estimated Creatinine Clearance 72.5 mL/min (>60); Globulin 2.4 gm/dL (2.3-3.5); Glucose 315 mg/dL (74-106); HDL Cholesterol 25 mg/dL (40-60); LDL Cholesterol,Calculated 101 mg/dL (0-130); Magnesium 2.2 mg/dL (1.6-2.6); Osmolality,Calculated 280 (275-295); Phosphorous 2.4 mg/dL (2.4-5.1); Potassium 3.3 mMol/L (3.4-5.1); Sodium 134 mMol/L (136-145); Thyroid Stimulating Hormone 0.54 uIU/mL (0.55-4.78); Triglycerides 192 mg/dL (30-150); eGFR > 60 See Note
[2025-01-05] MEDS: INSULIN LISPRO (AdmeLOG) 1 UNIT/0.01 ML UNIT SC ×4 (07:19→21:41)
[2025-01-05] MEDS: cefTRIAXone 1,000 MG in SODIUM CHLORIDE 0.9% (Popper) 50 ML 100 MG IV (08:01)
[2025-01-05] MEDS: ASPIRIN EC 81 MG TABEC PO (08:02)
[2025-01-05] MEDS: AZITHROMYCIN 250 MG TABLET PO (08:02)
[2025-01-05] MEDS: TICAGRELOR 90 MG TABLET PO ×2 (08:02→21:42)
[2025-01-05] MEDS: LOSARTAN POTASSIUM 25 MG TABLET 100 MG PO (08:02)
[2025-01-05] MEDS: HEPARIN SOD INJ 5000 UNIT/ML VIAL SC ×2 (08:03→21:40)
[2025-01-05] MEDS: POT PHOS 15 mMol in NS 250 ML 15 MMOL/250 ML BAG 62.5 MMOL IV (09:28)
[2025-01-05 09:39] LABS: Collection Type, Urine Clean Catch
[2025-01-05 10:11] LABS: Free T4 (Free Thyroxine) 1.27 ng/dL (0.89-1.76)
[2025-01-05 10:23] LABS: Bilirubin,Urine Negative (Negative); Blood,Urine 1+ (Negative); Clarity,Urine Clear (Clear/Hazy); Color,Urine Yellow (Lt Yel-Yel); Glucose, Urine 4+ (Negative); Ketones,Urine Negative (Negative); Leukocyte Esterase,Urine Negative (Negative); Nitrite,Urine Negative (Negative); Protein,Urine 3+ (Neg - Trace); RBC,Urine 1 /hpf (0-3); Specific Gravity,Urine 1.024 (1.001-1.035); Squamous Epithelial Cell,Urine 1 /hpf (0-5); Urobilinogen,Urine Negative mg/dL (0.0-1.0); WBC,Urine 3 /hpf (0-5)
[2025-01-05 10:33] LABS: Amphetamine/Methamp Scrn,U Negative (Negative); Barbiturate Screen,Urine Negative (Negative); Benzodiazepines Screen,Urine Negative (Negative); Benzoylecgonine Screen, Ur Negative (Negative); Fentanyl Screen,Urine Positive (Negative); Opiate Screen,Urine Positive (Negative); THC Screen,Urine Negative (Negative)
[2025-01-05] MEDS: INSULIN LISPRO (AdmeLOG) 1 UNIT/0.01 ML UNIT 3 UNIT SC ×2 (11:36→17:05)
[2025-01-05] MEDS: HYDROcodone/APAP 5/325 TABLET 1 TAB PO (12:08)
--- NOTE | 2025-01-05 12:21 | PD.RESPRO ---
Documentation for date of: 01/05/25 Subjective Subjective Interval history: Paige King is a 64-year-old female with a history of CAD status post cardiac stents on Brilinta and aspirin, type 2 diabetes mellitus, hypertension, hypelipidemia, and COPD (not on home O2) who was admitted on 01/04 for management of AHRF secondary to influenza pneumonia in setting of underlying COPD. 01/05: Seen and examined at bedside on medical floor. No acute overnight events noted. States that her wheezing and shortness of breath have improved and was saturating 94% on 5 L nasal cannula. Patient was lowered to 1.5 L nasal cannula and continues to saturate at 94%. Otherwise, she denied any chest pain, fever, chills, nausea/vomiting. Exam Vital Signs Temp Pulse Resp BP Pulse Ox O2 Del Method O2 Flow Rate 97.8 F 78 18 149/96 H 95 Nasal Cannula 5 01/05/25 12:00 01/05/25 12:00 01/05/25 12:00 01/05/25 12:00 01/05/25 12:00 01/05/25 12:01/05/25 12:00 Narrative Exam General: AOx3, on 1.5 L NC, no respiratory distress, laying comfortably in bed HEENT: NC/AT, mucous membranes moist, bilateral sclera anicteric Cardiovascular: regular rate and rhythm, S1/S2 present, no murmurs appreciated Pulmonary: Mild expiratory wheezes heard in left lung bertrand but overall improved compared to prior Abdominal: soft, non-tender, non-distended, no rebound/guarding, normal bowel sounds present Musculoskeletal: 1+ pitting edema in RLE, right foot wrapped and in boot Skin: warm and dry, intact, no rashes Neuro: CN II-XII intact, no focal deficits Objective Labs 01/05/25 05:14 01/05/25 05:14 Labs: Laboratory Results - last 24 hr 01/04/25 01/04/25 01/04/25 11:42 12:56 16:30 WBC RBC Hgb Hct MCV MCH MCHC RDW Std Deviation Plt Count Neut % (Auto) Lymph % (Auto) [place] % (Auto) Eos % (Auto) Baso % (Auto) Neut # (Auto) Lymph # (Auto) 0.9 L [place] # (Auto) Eos # (Auto) Baso # (Auto) Immature Gran # (Auto) Absolute Nucleated RBC Immature Gran % Nucleated RBC % VBG pH 7.49 VBG pCO2 36 VBG pO2 29 VBG O2 Sat (Nic) 55 L VBG Base Excess 5 H Sodium 134 L Potassium 2.3 L* 2.4 L* Chloride 98 Carbon Dioxide 26.7 Anion Gap 9 BUN 15 Creatinine 0.8 Estim Creat Clear Calc 70.3 eGFR > 60 BUN/Creatinine Ratio [address] Glu mg/dL Hemoglobin A1c Calculated Osmolality 277 Lactic Acid 1.4 Calcium 8.0 L Corrected Calcium 8.9 Phosphorus Magnesium 1.9 Total Bilirubin 0.6 AST 55 H ALT 19 Alkaline Phosphatase 120 H Lactate Dehydrogenase 585 H Troponin I 0.022 Total Protein 5.5 L Albumin 2.9 L Globulin 2.6 Albumin/Globulin Ratio 1.1 L Triglycerides Cholesterol LDL Cholesterol, Calc HDL Cholesterol Cholesterol/HDL Ratio Procalcitonin 0.18 TSH Free T4 Ur Collection Type Urine Color Urine Clarity Urine pH Ur Specific [place] Urine Protein Urine Glucose (UA) Urine Ketones Urine Blood Urine Nitrite Urine Bilirubin Urine Urobilinogen (Auto) Ur Leukocyte Esterase Urine RBC Urine WBC Ur Squamous Epith Cells Urine Bacteria Urine Opiates Screen Urine Fentanyl Screen Ur Barbiturates Screen U Amphetamin/Meth Scrn U Benzodiazepines Scrn U Cocaine Metab Screen U Marijuana (THC) Screen 01/04/25 01/05/25 01/05/25 20:27 02:36 05:14 WBC 8.3 RBC 4.50 Hgb 13.3 Hct 38.9 MCV 86 MCH 29.6 MCHC 34.2 RDW Std Deviation 42.9 Plt Count 191 Neut % (Auto) 84 H Lymph % (Auto) 12 [place] % (Auto) 2 Eos % (Auto) 0 Baso % (Auto) 0 Neut # (Auto) 7.0 Lymph # (Auto) 1.0 [place] # (Auto) 0.2 Eos # (Auto) 0.0 Baso # (Auto) 0.0 Immature Gran # (Auto) 0.13 H Absolute Nucleated RBC 0.00 Immature Gran % 2 H Nucleated RBC % 0 VBG pH VBG pCO2 VBG pO2 VBG O2 Sat (Nic) VBG Base Excess Sodium 134 L 134 L Potassium 2.7 L* 3.1 L 3.3 L Chloride 101 101 Carbon Dioxide 24.5 24.5 Anion Gap 9 9 BUN 13 13 Creatinine 0.8 0.8 Estim Creat Clear Calc 72.5 72.5 eGFR > 60 > 60 BUN/Creatinine Ratio 16 16 Glucose [address] Glu mg/dL 266 H Hemoglobin A1c 10.9 H Calculated Osmolality 278 280 Lactic Acid Calcium 7.7 L 7.8 L Corrected Calcium 8.7 8.9 Phosphorus 2.0 L 2.4 Magnesium 2.2 Total Bilirubin 0.4 AST 40 H ALT 16 Alkaline Phosphatase 117 H Lactate Dehydrogenase Troponin I Total Protein 5.0 L Albumin 2.7 L 2.6 L Globulin 2.4 Albumin/Globulin Ratio 1.1 L Triglycerides 192 H Cholesterol 164 LDL Cholesterol, Calc 101 HDL Cholesterol 25 L Cholesterol/HDL Ratio 6.6 H Procalcitonin TSH 0.54 L Free T4 1.27 Ur Collection Type Urine Color Urine Clarity Urine pH Ur Specific [place] Urine Protein Urine Glucose (UA) Urine Ketones Urine Blood Urine Nitrite Urine Bilirubin Urine Urobilinogen (Auto) Ur Leukocyte Esterase Urine RBC Urine WBC Ur Squamous Epith Cells Urine Bacteria Urine Opiates Screen Urine Fentanyl Screen Ur Barbiturates Screen U Amphetamin/Meth Scrn U Benzodiazepines Scrn U Cocaine Metab Screen U Marijuana (THC) Screen 01/05/25 09:30 WBC RBC Hgb Hct MCV MCH MCHC RDW Std Deviation Plt Count Neut % (Auto) Lymph % (Auto) [place] % (Auto) Eos % (Auto) Baso % (Auto) Neut # (Auto) Lymph # (Auto) [place] # (Auto) Eos # (Auto) Baso # (Auto) Immature Gran # (Auto) Absolute Nucleated RBC Immature Gran % Nucleated RBC % VBG pH VBG pCO2 VBG pO2 VBG O2 Sat (Nic) VBG Base Excess Sodium Potassium Chloride Carbon Dioxide Anion Gap BUN Creatinine Estim Creat Clear Calc eGFR BUN/Creatinine Ratio Glucose Estimated Ave Glu mg/dL Hemoglobin A1c Calculated Osmolality Lactic Acid Calcium Corrected Calcium Phosphorus Magnesium Total Bilirubin AST ALT Alkaline Phosphatase Lactate Dehydrogenase Troponin I Total Protein Albumin Globulin Albumin/Globulin Ratio Triglycerides Cholesterol LDL Cholesterol, Calc HDL Cholesterol Cholesterol/HDL Ratio Procalcitonin TSH Free T4 Ur Collection Type Clean Catch Urine Color Yellow Urine Clarity Clear Urine pH 7.0 Ur Specific [place] 1.024 Urine Protein 3+ A Urine Glucose (UA) 4+ A Urine Ketones Negative Urine Blood 1+ A Urine Nitrite Negative Urine Bilirubin Negative Urine Urobilinogen (Auto) Negative Ur Leukocyte Esterase Negative Urine RBC 1 Urine WBC 3 Ur Squamous Epith Cells 1 Urine Bacteria None Urine Opiates Screen Positive A Urine Fentanyl Screen Positive A Ur Barbiturates Screen Negative U Amphetamin/Meth Scrn Negative U Benzodiazepines Scrn Negative U Cocaine Metab Screen Negative U Marijuana (THC) Screen Negative ABG Interpretation ABG results: 01/04/25 12:56 VBG pH 7.49 VBG pCO2 36 VBG pO2 29 VBG Base Excess 5 H Quality Measures Quality Measures VTE prophylaxis Assessment & Plan Assessment Current Active Medications: Generic Name Dose Route Start Last Admin Trade Name Freq PRN Reason Stop Dose Admin Acetaminophen 650 mg 01/04/25 15:43 01/05/25 01:34 Acetaminophen 325 Mg Tablet PO 02/03/25 15:42 650 mg Q6H PRN Administration PAIN OR FEVER > 100.4 Protocol Hydrocodone Bitart/Acetaminophen 1 tab 01/04/25 15:48 01/05/25 12:08 Hydrocodone/Apap 5/325 Tablet PO 01/09/25 15:47 1 tab Q6HR PRN Administration PAIN SCALE 4-6 (Moderate Amlodipine Besylate 10 mg 01/06/25 09:00 Amlodipine Besylate 5 Mg Tablet PO 02/05/25 08:59 QDAY SUNDAY Aspirin 81 mg 01/05/25 09:00 01/05/25 08:02 Aspirin Ec 81 Mg Tabec PO 02/04/25 08:59 81 mg QDAY SUNDAY Administration Atorvastatin Calcium 40 mg 01/04/25 21:00 01/04/25 21:45 Atorvastatin Calcium 20 Mg Tablet PO 02/03/25 20:59 40 mg HS SUNDAY Administration Azithromycin 250 mg 01/05/25 09:00 01/05/25 08:02 Azithromycin 250 Mg Tablet PO 01/09/25 08:59 250 mg QDAY SUNDAY Administration Dextrose 25 ml 01/04/25 15:53 Dextrose 50%-Water Inj 50 Ml Syringe IV 02/03/25 15:52 Q15MIN PRN BG 50-70 responsive npo pt Dextrose 50 ml 01/04/25 15:53 Dextrose 50%-Water Inj 50 Ml Syringe IV 02/03/25 15:52 Q15MIN PRN BG <50 OR BG <70 & pt unresponsive Glucagon 1 mg 01/04/25 15:53 Glucagon Inj 1 Mg Vial IM Q15MIN PRN BG <70, and no IV access Heparin Sodium (Porcine) 5,000 unit 01/04/25 21:00 01/05/25 08:03 Heparin Sod Inj 5000 Unit/Ml Vial SC 01/18/25 20:59 5,000 unit Q12HR SUNDAY Administration Hydralazine HCl 10 mg 01/05/25 11:21 Hydralazine Inj 20 Mg/Ml Vial IV 02/04/25 11:29 Q6H PRN SBP > 180 Ceftriaxone Sodium 1,000 mg/ 50 mls @ 100 mls/hr 01/05/25 09:00 01/05/25 08:01 Sodium Chloride IV 01/09/25 08:59 100 mls/hr QDAY SUNDAY Administration Potassium Phosphate 15 mmol in 250 mls @ 62.5 mls/hr 01/05/25 08:34 01/05/25 09:28 Pot Phos 15 Mmol In Ns 250 Ml IV 01/05/25 12:33 62.5 mls/hr X1 ONE Administration Insulin Glargine 10 unit 01/05/25 21:00 Insulin Glargine (Lantus) 5 Unit/0.05 Ml (Per 5 Units) [place] 02/04/25 20:59 HS [facility] Insulin Human Lispro 0 unit 01/05/25 08:43 01/05/25 11:35 Insulin Lispro (Admelog) 1 Unit/0.01 Ml Unit SC 02/03/25 16:59 6 unit ACHS [facility] Administration Protocol Insulin Human Lispro 3 unit 01/05/25 11:30 01/05/25 11:36 Insulin Lispro (Admelog) 1 Unit/0.01 Ml Unit SC 02/04/25 11:29 3 unit ACHS [facility] Administration Ipratropium [place] 0.5 mg 01/04/25 19:00 01/05/25 06:27 Ipratropium Rt 0.5 Mg/ 2.5 Ml Nebu INH 02/03/25 18:59 Not Given Q6HRRT [facility] Levalbuterol HCl 1.25 mg 01/04/25 19:00 01/05/25 06:27 Levalbuterol Rt 1.25 Mg/0.5 Ml Nebu INH 02/03/25 18:59 Not Given Q6HRRT [facility] Losartan Potassium 100 mg 01/04/25 16:25 01/05/25 08:02 Losartan Potassium 25 Mg Tablet PO 02/03/25 16:24 100 mg QDAY SUNDAY Administration Methylprednisolone Sodium Succinate 40 mg 01/04/25 22:00 01/05/25 05:53 Methylprednisolone Sod Succ 40 Mg Vial IV 01/11/25 21:59 40 mg Q8HR SUNDAY Administration Ondansetron HCl 4 mg 01/04/25 15:48 Ondansetron Inj 2 Mg/Ml Inj 2 Ml IV 02/03/25 15:47 Q6H PRN NAUSEA OR VOMITING Protocol Oseltamivir Phosphate 75 mg 01/05/25 09:00 01/05/25 08:02 Oseltamivir 75 Mg Capsule PO 01/12/25 08:59 75 mg BID SUNDAY Administration Sodium Chloride 3 ml 01/04/25 16:02 Sodium Chloride Rt [place] 0.9% 3 Ml Nebu INH 02/03/25 16:01 PRN PRN SOLN Ticagrelor 90 mg 01/04/25 21:00 01/05/25 08:02 Ticagrelor 90 Mg Tablet PO 02/03/25 20:59 90 mg BID SUNDAY Administration Plan Paige King is a 64-year-old female with a history of CAD status post cardiac stentson Brilinta and aspirin, type 2 diabetes mellitus, hypertension, hypelipidemia, and COPD (not on home O2) who presented that 01/04 with progressive shortness of breath and cough for 4 days and admitted for management of AHRF secondary to influenza pneumonia in setting of underlying COPD. #Acute hypoxic respiratory failure secondary to influenza pneumonia with underlying COPD #Influenza pneumonia #? Community-acquired pneumonia Presents with progressive shortness of breath with associated cough. Found to be flu positive and initial O2 85% on room air. Afebrile, no leukocytosis, Pro-Hi negative, lactate within normal limits, though LDH elevated at 585. CT chest showed multilobar pneumonia with small effusions. ? Oseltamavir 75 mg p.o. twice daily ? Levalbuterol/ipratropium every 6 hours scheduled ? Supplemental oxygen, wean as tolerated #COPD exacerbation Smokes 1.5 cigarettes/day for 40+ years and CT chest showed underlying pulmonary fibrosis/emphysema. No home O2. ? Azithromycin and ceftriaxone (01/04-) ? Solu-Medrol 40 mg IV every 8 hours (01/04-) ? Maintain O2 saturation between 88 and 92% ? Physical therapy to evaluate for home O2 #Hypokalemia, improving Initial K of 2.3, given 150 mEq and improved to 3.1. Given additional 20 mEq IV. ? Follow-up a.m. labs #Unilateral/right lower extremity edema #S/p amputation of toe in RLE Doppler negative for DVT. ? Wound care #Type 2 diabetes mellitus A1c 10.9%. ? SSI increased from step 1 to step 3 ? 10 units glargine at bedtime ? Mealtime insulin increased with 3 to 6 units ACHS given elevated blood sugars throughout the day #CAD status post cardiac stents ? Continue home Brilinta and aspirin #Hypertension ? Losartan 125 mg daily and amlodipine 10 mg daily #Hyperlipidemia ? Atorvastatin 40 mg p.o. at bedtime Hospital management: Disposition: AHRF secondary to influenza pneumonia in setting COPD Fluids: None Diet: Cardiac Lines: PIV DVT prophylaxis: heparin SC BID GI prophylaxis: not indicated Damon: none CODE STATUS: full code ----- Plan discussed with attending physician Dr. Hawkins and senior resident physician Dr. Nick Reagan MD PGY-1 Internal Medicine Attending Provider Attestation/Addendum I have examined the patient, reviewed labs and imaging findings, discussed the case with the resident(s), and reviewed entered orders. I agree with the plan of care as outlined in this note, with these additional summaries/recommendations: Patient's breathing and mentation appear to be improving today. Will continue patient on course of antibiotics and steroids and titrate O2 as able. Anticipate discharge in next 24 to 48 hours, may require home O2 at the time of discharge. Gbae Camp MD
--- NOTE | 2025-01-05 14:31 | PC.PT ---
PT arrived for evaluation and pt gave history but she refused to work or get up with PT today. Will attempt in the future
--- NOTE | 2025-01-05 15:11 | PC.SS ---
Rounding: Pending ECHO and blood cultures
[2025-01-05] MEDS: INSULIN GLARGINE (Lantus) 5 UNIT/0.05 ML (PER 5 UNITS) 10 UNIT SC (21:41)
[2025-01-05] MEDS: INSULIN LISPRO (AdmeLOG) 1 UNIT/0.01 ML UNIT 6 UNIT SC (21:42)
[2025-01-05] MEDS: ATORVASTATIN CALCIUM 20 MG TABLET 40 MG PO (21:43)
[2025-01-06] VITALS (13 sets, daily range): BP systolic 132–177; BP diastolic 67–100; PULSE 71–88; RESP 17–21; TEMP 36.1–36.6; O2SAT 92–98
[2025-01-06] MEDS: LEVALBUTEROL RT 1.25 MG/0.5 ML NEBU INH ×4 (01:18→18:45)
[2025-01-06] MEDS: IPRATROPIUM RT 0.5 MG/ 2.5 ML NEBU INH ×4 (01:18→18:45)
--- NOTE | 2025-01-06 04:49 | PC.NURSE ---
Pts BP is 160/88, MD Guerrero made aware, no new order made at this time.
[2025-01-06 05:41] LABS: Basophils % (Auto) 0 % (0-2.5); Eosinophils % (Auto) 0 % (0-10); Hematocrit 38.9 % (36.0-46.0); Hemoglobin 13.3 g/dL (12.0-16.0); Immature Granulocytes % (Auto) 2 % (0-0); Immature Granulocytes Auto 0.27 Thou/mm3 (0.00-0.00); Lymphocytes # (Auto) 1.1 Thou/mm3 (1.0-4.8); Lymphocytes % (Auto) 8 % (10-50); Mean Corpuscular HGB Conc 34.2 g/dl (31.0-37.0); Mean Corpuscular Hemoglobin 29.4 pg (25.0-35.0); Mean Corpuscular Volume 86 fL (80-100); Monocytes # (Auto) 0.5 Thou/mm3 (0.0-0.8); Monocytes % (Auto) 4 % (0-12); Neutrophils # (Auto) 11.8 Thou/mm3 (1.8-7.7); Neutrophils % (Auto) 87 % (37-80); Nucleated Red Blood Cell % 0 /100 WBC (0); Platelet Count 257 Thou/mm3 (140-440); RDW Standard Deviation 44.2 fL (36.4-46.3); Red Blood Count 4.52 Miln/mm3 (4.00-5.20); White Blood Count 13.6 Thou/mm3 (3.6-11.0)
[2025-01-06 05:55] LABS: Alanine Aminotransferase 15 U/L (10-49); Albumin, Serum 2.7 gm/dL (3.4-4.8); Alkaline Phosphatase 121 U/L (46-116); Anion Gap 8 (7-16); Aspartate Amino Transferase 33 U/L (0-34); BUN/Creatinine Ratio 23 Ratio (12-20); Bilirubin,Total 0.4 mg/dL (0.3-1.2); Blood Urea Nitrogen 16 mg/dL (9-23); Calcium 7.8 mg/dL (8.3-10.6); Calcium (Corrected) 8.8 mg/dL (8.5-10.1); Carbon Dioxide 23.6 mMol/L (20.0-31.0); Chloride 102 mMol/L (98-107); Creatinine (Component) 0.7 mg/dL (0.6-1.3); Estimated Creatinine Clearance 82.9 mL/min (>60); Globulin 2.7 gm/dL (2.3-3.5); Glucose 336 mg/dL (74-106); Magnesium 2.2 mg/dL (1.6-2.6); Osmolality,Calculated 282 (275-295); Phosphorous 2.8 mg/dL (2.4-5.1); Potassium 3.1 mMol/L (3.4-5.1); Sodium 134 mMol/L (136-145); Total Protein 5.4 gm/dL (5.7-8.2); eGFR > 60 See Note
[2025-01-06] MEDS: INSULIN LISPRO (AdmeLOG) 1 UNIT/0.01 ML UNIT SC ×4 (07:14→20:25)
[2025-01-06] MEDS: INSULIN LISPRO (AdmeLOG) 1 UNIT/0.01 ML UNIT 6 UNIT SC (07:15)
[2025-01-06] MEDS: LOSARTAN POTASSIUM 25 MG TABLET 100 MG PO (08:34)
[2025-01-06] MEDS: AZITHROMYCIN 250 MG TABLET PO (08:35)
[2025-01-06] MEDS: OSELTAMIVIR 75 MG CAPSULE PO ×2 (08:35→20:24)
[2025-01-06] MEDS: ASPIRIN EC 81 MG TABEC PO (08:35)
[2025-01-06] MEDS: cefTRIAXone 1,000 MG in SODIUM CHLORIDE 0.9% (Popper) 50 ML 100 MG IV (08:35)
[2025-01-06] MEDS: amLODIPine BESYLATE 5 MG TABLET 10 MG PO (08:35)
[2025-01-06] MEDS: TICAGRELOR 90 MG TABLET PO ×2 (08:35→20:24)
[2025-01-06] MEDS: POTASSIUM CHLORIDE 20 mEq TABCR 40 MEQ PO ×2 (08:38→10:15)
[2025-01-06] MEDS: HEPARIN SOD INJ 5000 UNIT/ML VIAL SC ×2 (08:39→20:24)
[2025-01-06] MEDS: INSULIN LISPRO (AdmeLOG) 1 UNIT/0.01 ML UNIT 9 UNIT SC (11:11)
--- NOTE | 2025-01-06 13:09 | PD.RESPRO ---
Documentation for date of: 01/06/25 Subjective Subjective Interval history: Patient was seen and examined at the bedside. No acute overnight events were reported. Patient reported that she has generalized weakness and feels short of breath while ambulating. PT recommended daily PT treatment until discharge. She was maintaining oxygen saturation at 88-90% on ambulation. Labs showed leukocytosis likely due to steroids. Chemistry panel showed hypokalemia and potassium was given x 1. Blood glucose was elevated therefore basal bolus regimen was addressed. Blood cultures, negative x 48 hours. MRSA screen negative. We switched patient's Solu-Medrol to prednisone 50 mg once daily. Continuing breathing treatments, ceftriaxone and azithromycin. Blood sugars likely uncontrolled due to steroids. Increased Lantus 15 units at night and 12 units ACHS. All labs and orders were reviewed. Exam Vital Signs Temp Pulse Resp BP Pulse Ox O2 Del Method O2 Flow Rate 97.7 F 88 21 H 177/80 H 98 Nasal Cannula 3 01/06/25 08:00 01/06/25 12:53 01/06/25 12:53 01/06/25 08:35 01/06/25 12:53 01/06/25 08:00 01/06/25 12:53 Narrative Exam General: AOx3, on 3 L NC, no respiratory distress, laying comfortably in bed HEENT: NC/AT, mucous membranes moist, bilateral sclera anicteric Cardiovascular: regular rate and rhythm, S1/S2 present, no murmurs appreciated Pulmonary: Mild expiratory wheezes heard in left lung bertrand but overall improved compared to prior Abdominal: soft, non-tender, non-distended, no rebound/guarding, normal bowel sounds present Musculoskeletal: 1+ pitting edema in RLE, right foot wrapped and in boot Skin: warm and dry, intact, no rashes Neuro: CN II-XII intact, no focal deficits Objective Labs 01/07/25 05:19 01/07/25 05:19 Labs: Laboratory Results - last 24 hr 01/06/25 05:04 WBC 13.6 H D RBC 4.52 Hgb 13.3 Hct 38.9 MCV 86 MCH 29.4 MCHC 34.2 RDW Std Deviation 44.2 Plt Count 257 D Neut % (Auto) 87 H Lymph % (Auto) 8 L [place] % (Auto) 4 Eos % (Auto) 0 Baso % (Auto) 0 Neut # (Auto) 11.8 H Lymph # (Auto) 1.1 [place] # (Auto) 0.5 Eos # (Auto) 0.0 Baso # (Auto) 0.0 Immature Gran # (Auto) 0.27 H Absolute Nucleated RBC 0.00 Immature Gran % 2 H Nucleated RBC % 0 Sodium 134 L Potassium 3.1 L Chloride 102 Carbon Dioxide 23.6 Anion Gap 8 BUN 16 Creatinine 0.7 Estim Creat Clear Calc 82.9 eGFR > 60 BUN/Creatinine Ratio 23 H Glucose 336 H Calculated Osmolality 282 Calcium 7.8 L Corrected Calcium 8.8 Phosphorus 2.8 Magnesium 2.2 Total Bilirubin 0.4 AST 33 ALT 15 Alkaline Phosphatase 121 H Total Protein 5.4 L Albumin 2.7 L Globulin 2.7 Albumin/Globulin Ratio 1.0 L ABG Interpretation ABG results: 01/04/25 12:56 VBG pH 7.49 VBG pCO2 36 VBG pO2 29 VBG Base Excess 5 H Quality Measures Quality Measures VTE prophylaxis (Heparin subcut) Assessment & Plan Assessment Current Active Medications: Generic Name Dose Route Start Last Admin Trade Name Freq PRN Reason Stop Dose Admin Acetaminophen 650 mg 01/04/25 15:43 01/05/25 01:34 Acetaminophen 325 Mg Tablet PO 02/03/25 15:42 650 mg Q6H PRN Administration PAIN OR FEVER > 100.4 Protocol Hydrocodone Bitart/Acetaminophen 1 tab 01/04/25 15:48 01/05/25 12:08 Hydrocodone/Apap 5/325 Tablet PO 01/09/25 15:47 1 tab Q6HR PRN Administration PAIN SCALE 4-6 (Moderate Aspirin 81 mg 01/05/25 09:00 01/06/25 08:35 Aspirin Ec 81 Mg Tabec PO 02/04/25 08:59 81 mg QDAY SUNDAY Administration Atorvastatin Calcium 40 mg 01/04/25 21:00 01/05/25 21:43 Atorvastatin Calcium 20 Mg Tablet PO 02/03/25 20:59 40 mg HS SUNDAY Administration Azithromycin 250 mg 01/05/25 09:00 01/06/25 08:35 Azithromycin 250 Mg Tablet PO 01/09/25 08:59 250 mg QDAY SUNDAY Administration Dextrose 25 ml 01/04/25 15:53 Dextrose 50%-Water Inj 50 Ml Syringe IV 02/03/25 15:52 Q15MIN PRN BG 50-70 responsive npo pt Dextrose 50 ml 01/04/25 15:53 Dextrose 50%-Water Inj 50 Ml Syringe IV 02/03/25 15:52 Q15MIN PRN BG <50 OR BG <70 & pt unresponsive Glucagon 1 mg 01/04/25 15:53 Glucagon Inj 1 Mg Vial IM Q15MIN PRN BG <70, and no IV access Heparin Sodium (Porcine) 5,000 unit 01/04/25 21:00 01/06/25 08:39 Heparin Sod Inj 5000 Unit/Ml Vial SC 01/18/25 20:59 5,000 unit Q12HR SUNDAY Administration Hydralazine HCl 10 mg 01/05/25 11:21 Hydralazine Inj 20 Mg/Ml Vial IV 02/04/25 11:29 Q6H PRN SBP > 180 Ceftriaxone Sodium 1,000 mg/ 50 mls @ 100 mls/hr 01/05/25 09:00 01/06/25 08:35 Sodium Chloride IV 01/09/25 08:59 100 mls/hr QDAY SUNDAY Administration Insulin Glargine 15 unit 01/06/25 21:00 Insulin Glargine (Lantus) 5 Unit/0.05 Ml (Per 5 Units) [place] 02/05/25 20:59 HS SUNDAY Insulin Human Lispro 0 unit 01/05/25 08:43 01/06/25 11:11 Insulin Lispro (Admelog) 1 Unit/0.01 Ml Unit [place] 02/03/25 16:59 5 unit ACHS [facility] Administration Protocol Insulin Human Lispro 12 unit 01/06/25 17:00 Insulin Lispro (Admelog) 1 Unit/0.01 Ml Unit [place] 02/05/25 16:59 ACHS [facility] Ipratropium [place] 0.5 mg 01/04/25 19:00 01/06/25 12:51 Ipratropium Rt 0.5 Mg/ 2.5 Ml Nebu INH 02/03/25 18:59 0.5 mg Q6HRRT SUNDAY Administration Levalbuterol HCl 1.25 mg 01/04/25 19:00 01/06/25 12:52 Levalbuterol Rt 1.25 Mg/0.5 Ml Nebu INH 02/03/25 18:59 1.25 mg Q6HRRT SUNDAY Administration Losartan Potassium 100 mg 01/04/25 16:25 01/06/25 08:34 Losartan Potassium 25 Mg Tablet PO 02/03/25 16:24 100 mg QDAY SUNDAY Administration Nifedipine 30 mg 01/06/25 14:00 Nifedipine Xl 30 Mg Tabcr PO 02/05/25 13:59 QDAY SUNDAY Ondansetron HCl 4 mg 01/04/25 15:48 Ondansetron Inj 2 Mg/Ml Inj 2 Ml IV 02/03/25 15:47 Q6H PRN NAUSEA OR VOMITING Protocol Oseltamivir Phosphate 75 mg 01/05/25 09:00 01/06/25 08:35 Oseltamivir 75 Mg Capsule PO 01/12/25 08:59 75 mg BID SUNDAY Administration Prednisone 50 mg 01/07/25 09:00 Prednisone 20 Mg Tablet PO 02/06/25 08:59 QDAY SUNDAY Sodium Chloride 3 ml 01/04/25 16:02 Sodium Chloride Rt [place] 0.9% 3 Ml Nebu INH 02/03/25 16:01 PRN PRN SOLN Ticagrelor 90 mg 01/04/25 21:00 01/06/25 08:35 Ticagrelor 90 Mg Tablet PO 02/03/25 20:59 90 mg BID SUNDAY Administration Plan Paige King is a 64-year-old female with a history of CAD status post cardiac stentson Brilinta and aspirin, type 2 diabetes mellitus, hypertension, hypelipidemia, and COPD (not on home O2) who presented that 01/04 with progressive shortness of breath and cough for 4 days and admitted for management of AHRF secondary to influenza pneumonia in setting of underlying COPD. #Acute hypoxic respiratory failure secondary to influenza pneumonia with underlying COPD #Influenza pneumonia #? Community-acquired pneumonia Presents with progressive shortness of breath with associated cough. Found to be flu positive and initial O2 85% on room air. Afebrile, no leukocytosis, Pro-Hi negative, lactate within normal limits, though LDH elevated at 585. CT chest showed multilobar pneumonia with small effusions. ? Oseltamavir 75 mg p.o. twice daily for 3 more days ? Levalbuterol/ipratropium every 6 hours scheduled ? Supplemental oxygen, wean as tolerated #COPD exacerbation Smokes 1.5 cigarettes/day for 40+ years and CT chest showed underlying pulmonary fibrosis/emphysema. No home O2. ? Blood cultures coming negative x 48 hours ? Azithromycin and ceftriaxone (01/04-) ?Switched IV Solu-Medrol to prednisone 50 mg once daily ? Maintain O2 saturation between 88 and 92% ? Physical therapy to evaluate for home O2 #Hypokalemia, improving Initial K of 2.3, given 150 mEq and improved to 3.1. Given additional 20 mEq IV. ?Repleted KCl 40M EQ x 1 #Unilateral/right lower extremity edema #S/p amputation of toe in RLE Doppler negative for DVT. ? Wound care #Type 2 diabetes mellitus A1c 10.9%. ? Increase Lantus 15 units at night and increased mealtime lispro insulin 12 units AC at bedtime ? SSI increased from step 1 to step 3 ? 10 units glargine at bedtime #CAD status post cardiac stents ? Continue home Brilinta and aspirin #Hypertension ?DC'd amlodipine and start nifedipine 30 mg once daily ? Losartan 100 mg once daily #Hyperlipidemia ? Atorvastatin 40 mg p.o. at bedtime Hospital management: Disposition: AHRF secondary to influenza pneumonia in setting COPD switched IV Solu-Medrol to p.o. steroids. Weaning off oxygen as needed. Patient will need daily physical therapy. Fluids: None Diet: Cardiac with carb consistent Lines: PIV DVT prophylaxis: heparin SC BID GI prophylaxis: not indicated Damon: none CODE STATUS: full code Patient was seen and discussed with attending physician, Dr. Conrado Romero MD, PGY 2 Attending Provider Attestation/Addendum Patient seen and examined at bedside with resident. I have reviewed all relevant parts of the case with the team and agree with the assessment and plan as dictated above. Gabe Camp MD
[2025-01-06] MEDS: NIFEdipine XL 30 MG TABCR PO (13:20)
[2025-01-06] MEDS: INSULIN LISPRO (AdmeLOG) 1 UNIT/0.01 ML UNIT 12 UNIT SC (16:10)
[2025-01-06] MEDS: HYDROcodone/APAP 5/325 TABLET 1 TAB PO (17:35)
--- NOTE | 2025-01-06 20:11 | PC.NURSE ---
MD Dickey made aware of pts BS 155, pt has a sliding scale insulin and scheduled insulin 12 units for tonight, per MD to hold the scheduled insulin 12 units tonight and give the sliding scale per protocol and administer also the Lantus tonight.
[2025-01-06] MEDS: ATORVASTATIN CALCIUM 20 MG TABLET 40 MG PO (20:24)
[2025-01-06] MEDS: INSULIN GLARGINE (Lantus) 5 UNIT/0.05 ML (PER 5 UNITS) 18 UNIT SC (20:24)
[2025-01-07] VITALS (11 sets, daily range): BP systolic 136–162; BP diastolic 68–90; PULSE 78–95; RESP 17–20; TEMP 36.3–36.5; O2SAT 92–97
[2025-01-07] MEDS: LEVALBUTEROL RT 1.25 MG/0.5 ML NEBU INH ×2 (01:48→06:48)
[2025-01-07] MEDS: IPRATROPIUM RT 0.5 MG/ 2.5 ML NEBU INH ×2 (01:48→06:49)
--- NOTE | 2025-01-07 04:53 | PC.NURSE ---
S[employer]onation Equipment Operator called me regarding pt having V tach 16 beats with HR 155, but pt is back at SR with occasional PVC's with HR 84, MD Harris made aware, no new order made at this time.
[2025-01-07 06:01] LABS: Basophils % (Auto) 0 % (0-2.5); Eosinophils % (Auto) 0 % (0-10); Hematocrit 38.6 % (36.0-46.0); Hemoglobin 13.2 g/dL (12.0-16.0); Immature Granulocytes % (Auto) 2 % (0-0); Immature Granulocytes Auto 0.33 Thou/mm3 (0.00-0.00); Lymphocytes # (Auto) 1.8 Thou/mm3 (1.0-4.8); Lymphocytes % (Auto) 13 % (10-50); Mean Corpuscular HGB Conc 34.2 g/dl (31.0-37.0); Mean Corpuscular Hemoglobin 29.9 pg (25.0-35.0); Mean Corpuscular Volume 87 fL (80-100); Monocytes % (Auto) 7 % (0-12); Neutrophils # (Auto) 11.1 Thou/mm3 (1.8-7.7); Neutrophils % (Auto) 78 % (37-80); Nucleated Red Blood Cell % 0 /100 WBC (0); Platelet Count 317 Thou/mm3 (140-440); RDW Standard Deviation 45.1 fL (36.4-46.3); Red Blood Count 4.42 Miln/mm3 (4.00-5.20); White Blood Count 14.2 Thou/mm3 (3.6-11.0)
[2025-01-07 06:46] LABS: Anion Gap 9 (7-16); BUN/Creatinine Ratio 21 Ratio (12-20); Blood Urea Nitrogen 15 mg/dL (9-23); Calcium 7.7 mg/dL (8.3-10.6); Carbon Dioxide 21.6 mMol/L (20.0-31.0); Chloride 104 mMol/L (98-107); Creatinine (Component) 0.7 mg/dL (0.6-1.3); Estimated Creatinine Clearance 82.9 mL/min (>60); Glucose 185 mg/dL (74-106); Osmolality,Calculated 275 (275-295); Phosphorous 2.4 mg/dL (2.4-5.1); Potassium 3.5 mMol/L (3.4-5.1); Sodium 135 mMol/L (136-145); eGFR > 60 See Note
[2025-01-07 06:47] LABS: Alanine Aminotransferase 14 U/L (10-49); Albumin, Serum 2.6 gm/dL (3.4-4.8); Alkaline Phosphatase 117 U/L (46-116); Aspartate Amino Transferase 35 U/L (0-34); Bilirubin,Total 0.5 mg/dL (0.3-1.2); Calcium (Corrected) 8.8 mg/dL (8.5-10.1); Globulin 2.7 gm/dL (2.3-3.5); Magnesium 1.9 mg/dL (1.6-2.6); Total Protein 5.3 gm/dL (5.7-8.2)
[2025-01-07] MEDS: INSULIN LISPRO (AdmeLOG) 1 UNIT/0.01 ML UNIT 12 UNIT SC (08:19)
[2025-01-07] MEDS: HEPARIN SOD INJ 5000 UNIT/ML VIAL SC (08:21)
[2025-01-07] MEDS: cefTRIAXone 1,000 MG in SODIUM CHLORIDE 0.9% (Popper) 50 ML 100 MG IV (08:22)
[2025-01-07] MEDS: OSELTAMIVIR 75 MG CAPSULE PO (08:25)
[2025-01-07] MEDS: predniSONE 20 MG TABLET 50 MG PO (08:25)
[2025-01-07] MEDS: LOSARTAN POTASSIUM 25 MG TABLET 100 MG PO (08:27)
[2025-01-07] MEDS: TICAGRELOR 90 MG TABLET PO (08:27)
[2025-01-07] MEDS: ASPIRIN EC 81 MG TABEC PO (08:28)
[2025-01-07] MEDS: AZITHROMYCIN 250 MG TABLET PO (08:28)
[2025-01-07] MEDS: POTASSIUM CHLORIDE 20 mEq TABCR PO (08:42)
--- NOTE | 2025-01-07 13:00 | PC.NURSE ---
Patient 94% on 0.5L NC at rest, patient saturation at 88%-90% on room air while ambulating, HR went up to 120's, placed patient back in bed and 0.5L NC HR went down to 89 and oxygentation to 94%. Dr. Benavides made aware.
--- NOTE | 2025-01-07 13:44 | ESDS_ITS ---
<Statement entered by Delio Soto MD - 01/07/25 19:24> Patient was seen and examined by me personally. I agree with the discharge plan as discussed with the promotions intern physician, and my attending, Dr. Arora. Delio Soto MD, PGY-3 Planned Discharge Date 01/07/25 DS: Providers Provider Date of admission: 01/04/25 15:44 Primary care physician: Ghanshyam Gaviria MD Admitting Provider: Anam Hawkins MD Attending Provider on Admission: Malik Arora DO Consults: 01/04/25 16:26 Referral Physical Therapy Routine Comment: Physician Instructions: 01/05/25 01:19 Referral Smoking Cessation Counseling Routine Comment: Smoking Cessation Education Needed 01/05/25 08:44 Referral Registered Dietitian Routine Comment: Attending Provider on DC: Ata Reagan MD Discharging Provider: Ata Reagan MD DS: Diagnosis Problem List Completed Was Problem List Reviewed/Reconciled?: Yes Hospital Course Hospital Course Hospital course: Paige King is a 64-year-old female with a history of CAD status post cardiac stentson Brilinta and aspirin, type 2 diabetes mellitus, hypertension, hypelipidemia, and COPD (not on home O2) who presented that 01/04 with progressive shortness of breath and cough for 4 days. States that she woke up last night short of breath and decided to come to the ED, states that she does not commonly wake up in the middle the night short of breath but does endorse orthopnea. No associated fever, chills, sore throat, or muscle pain. No recent travel but does state that her grandchild has influenza. Otherwise, denies chest pain, bilateral lower extremity edema, dysuria, hematoma hematuria, diarrhea/constipation. In ED, noted to be influenza A positive. Vitals showed O2 at 85% on room air, RR 24, afebrile. VBG within normal limits. No leukocytosis, Pro-Hi negative, lactate 1.4, LDH 585. Potassium 2.3, AST 55, ALP 120, troponin negative, BNP 198. CT chest showed multilobar pneumonia, small effusions bilaterally, mediastinal lymphadenopathy, underlying pulmonary fibrosis/emphysema, and severe bilateral perinephric fat stranding. Given ceftriaxone and azithromycin x 1, DuoNeb x 1, 50 mEq of potassium, and oseltamavir x 1. Admitted for management of AHRF secondary to influenza pneumonia in setting of underlying COPD. Throughout hospital stay, no acute events noted. She was started on ceftriaxone and azithromycin, tamiflu, and IV solumedrol 40 mg q8hr. Blood sugars noted to be elevated in 300s and insulin adjusted to glargine 18 units at bedtime and 12 units lispro TIDWM. However, IV solumedrol eventually transitioned to prednisone and glargine decreased from 18 to 12. Otherwise, oxygen requirements decreased from 5 L on admission to no longer requiring supplemental oxygen upon discharge, which was patient's baseline. She was walked by physical therapy and nursing staff and although was noted to be fatigued afterwards, O2 saturations remained above 88%. Labs significant for leukocytosis attributed to steroids as patient remained afebrile and otherwise she was stable for discharge. Plan for one more day of prednisone 40 mg, one more day of tamiflu, and DC'd antibiotics as unlikely presented with superimposed pneumonia. Additionally, blood pressure elevated and amlodipine switched to nifedipine for improved control. Given that A1c was 10.9%, patient also sent home on glargine, at least until she can follow-up with her PCP. Otherwise, instructed to return to the ED if symptoms worsen or recur. Diagnoses during admission: #Acute hypoxic respiratory failure secondary to influenza pneumonia with underlying COPD #Influenza pneumonia #COPD exacerbation #Hypokalemia, improving #Unilateral/right lower extremity edema #S/p amputation of toe in RLE #Type 2 diabetes mellitus #CAD status post cardiac stents #Hypertension #Hyperlipidemia Discharge instructions: - Stop taking atorvastatin 40 mg and start taking 80 mg daily - Amlodipine changed to nifedipine 30 mg daily for blood pressure control - Report readings to PCP to adjust regimen - Start taking insulin glargine 12 units at night every night - Check your fasting blood sugar daily, and report readings to PCP to adjust insulin regimen - Continue taking prednisone 20 mg twice daily for one more day - Continue taking oseltamivir 75 mg twice daily for one more day - Continue taking all other home medications as prescribed - Follow-up with your PCP within 1 week of discharge - Return to the ED if symptoms worsen or recur ----- Plan discussed with attending physician Dr. Arora and senior resident physician Dr. Charles Reagan MD PGY-1 Internal Medicine Time Spent with Patient Time attestation: Total time spent providing and/or coordinating discharge services: Exam Vital Signs Temp Pulse Resp BP Pulse Ox O2 Del Method O2 Flow Rate 97.3 F 95 18 146/75 H 95 Nasal Cannula 2 01/07/25 08:00 01/07/25 12:35 01/07/25 12:35 01/07/25 08:29 01/07/25 12:35 01/07/25 08:00 01/07/25 12:35 Narrative Exam General: AOx3, on room air saturating 94%, no respiratory distress, laying comfortably in bed HEENT: NC/AT, mucous membranes moist, bilateral sclera anicteric Cardiovascular: regular rate and rhythm, S1/S2 present, no murmurs appreciated Pulmonary: clear to auscultation bilaterally Abdominal: soft, non-tender, non-distended, no rebound/guarding, normal bowel sounds present Musculoskeletal: 1+ pitting edema in RLE, right foot wrapped and in boot Skin: warm and dry, intact, no rashes Neuro: CN II-XII intact, no focal deficits Discharge Plan Plan Patient Disposition: HOME (Self Care) Disposition Comment: Stable Care Plan Goals: - Stop taking atorvastatin 40 mg and start taking 80 mg daily - Amlodipine changed to nifedipine 30 mg daily for blood pressure control - Report readings to PCP to adjust regimen - Start taking insulin glargine 12 units at night every night - Check your fasting blood sugar daily, and report readings to PCP to adjust insulin regimen - Continue taking prednisone 20 mg twice daily for one more day - Continue taking oseltamivir 75 mg twice daily for one more day - Continue taking all other home medications as prescribed - Follow-up with your PCP within 1 week of discharge - Return to the ED if symptoms worsen or recur Prescriptions/Referrals Prescriptions/Med Rec: New prednisone 20 mg tablet 20 mg PO BID Qty: 2 0RF Taper: Prednisone Taper 20 mg TWICE A DAY for 1 Day and 24 Hours Brilinta 90 mg Tablet 90 mg PO BID 30 Days Qty: 60 0RF insulin glargine 100 unit/mL (3 mL) insulin pen 12 unit subcut QPM Qty: 15 0RF atorvastatin 80 mg tablet 80 mg PO QPM Qty: 30 0RF nifedipine 30 mg Tablet Extended Release 24hr 30 mg PO QDAY 30 Days Qty: 30 0RF (DME) blood-glucose meter Kit See Rx Instructions .Route Qty: 1 0RF Rx Instructions: Used to check blood sugars at least three times per day, with meals. (DME) Blood Glucose Test Strip See Rx Instructions .Route Qty: 50 0RF Rx Instructions: Used to check blood sugars at least three times daily, with meals. (DME) pen needle, diabetic 29 gauge x 1/2 needle See Rx Instructions .Route Qty: 100 0RF Rx Instructions: Used to administer insulin. (DME) lancets 30 gauge misc See Rx Instructions .Route Qty: 100 0RF Rx Instructions: Used to check blood sugars three times daily, with meals. Continued metformin [Glucophage] 1,000 MG tablet 1,000 mg PO BID Qty: 0 Jardiance 10 mg tablet 10 mg PO QAM Qty: 30 0RF aspirin 81 mg tablet,delayed release (DR/EC) 81 mg PO QDAY Qty: 30 0RF montelukast [Singulair] 10 mg tablet 10 mg PO QDAY losartan 50 mg tablet 100 mg PO QDAY 30 Days Qty: 60 0RF Discontinued amlodipine 5 mg Tablet 10 mg PO QDAY Qty: 30 0RF atorvastatin 80 mg tablet 40 mg PO QPM Referrals: Ghanshyam Gaviria MD [Primary Care Provider] - Patient/Caregiver Discharge Instructions Print Language: Tuvaluan Stand Alone Forms: [employer] Award Info., Patient Portal Info Letter Discharge Order Discharge Orders: Discharge (Routine); Ordered 01/07/25 Ordered By: Ata Reagan Quality Discharge Quality Measures VTE prophylaxis Attestestation Attestation I have discussed and was present for the essential components of the discharge history, physical examination, diagnosis, and discharge treatment plan with the resident. I agree with the patient's discharge care as documented by the resident and amended herein by me. Morteza Arora DO. The patient understood all discharge instructions, all questions were answered satisfactorily. The patient was instructed to return to the Emergency Department is symptoms worsened or persisted. Although this document has been carefully reviewed, there may still be some phonetic and other typographical errors. These errors are purely grammatical due to imperfections in the software program and should not be construed in any way to compromise the substance of the patient's medical care during this visit.
== END 2025-01-07 17:29 | disposition home or self-care (01) | DRG 113 ==
LOC: SERX 15:07 → SERHOLD 16:02 → S3SX 20:49
PROVIDERS: Nurse Practitioner Family; Registered Nurse General Practice; Admitting Provider Student in an Organized Health Care Education/Training Program; Emergency Provider Emergency Medicine; PCP Family Medicine; Visit Provider Student in an Organized Health Care Education/Training Program
DX: J10.01 Influenza due to other identified influenza virus with the same other identified influenza virus pneumonia (principal); J96.01 Acute respiratory failure with hypoxia; J44.1 Chronic obstructive pulmonary disease with (acute) exacerbation; E87.6 Hypokalemia; E78.5 Hyperlipidemia, unspecified; I10 Essential (primary) hypertension; I25.10 Atherosclerotic heart disease of native coronary artery without angina pectoris; F17.210 Nicotine dependence, cigarettes, uncomplicated; J44.0 Chronic obstructive pulmonary disease with (acute) lower respiratory infection; R60.0 Localized edema; K74.60 Unspecified cirrhosis of liver; J84.10 Pulmonary fibrosis, unspecified; I31.39 Other pericardial effusion (noninflammatory); E11.65 Type 2 diabetes mellitus with hyperglycemia; T38.0X5A Adverse effect of glucocorticoids and synthetic analogues, initial encounter; J43.9 Emphysema, unspecified; Z95.5 Presence of coronary angioplasty implant and graft; Z79.899 Other long term (current) drug therapy; Z79.4 Long term (current) use of insulin; Z89.421 Acquired absence of other right toe(s)
CPT/HCPCS: 36415; 71046; 71250; 80053; 80061; 80069; 80307; 81001; 82803; 83036; 83605; 83615; 83735; 83880; 84100; 84132; 84145; 84439; 84443; 84484; 85025; 85610; 85730; 87040; 87081; 87400; 87811; 93005; 93225; 93971; 94640; 94664; 96365; 96367; 96372; 97162; 99285; A9270; J0456; J0696; J1643; J1815; J2919; J3475; J3480; J7050; J7512; J7999

== ENCOUNTER → 2025-01-24 | Outpatient (CLI) | payer MEDICAID, SELFPAY | END | disposition home or self-care (01) | LOC: SWHD 13:50 | PROVIDERS: PCP Family Medicine; Referring Provider Family Medicine; Visit Provider Student in an Organized Health Care Education/Training Program | DX: E11.621 Type 2 diabetes mellitus with foot ulcer (principal); T81.89XA Other complications of procedures, not elsewhere classified, initial encounter; L97.514 Non-pressure chronic ulcer of other part of right foot with necrosis of bone; M86.68 Other chronic osteomyelitis, other site; E11.40 Type 2 diabetes mellitus with diabetic neuropathy, unspecified | CPT/HCPCS: 11044; A9270 ==

== ENCOUNTER → 2025-02-12 | Outpatient (CLI) | payer MEDICAID, SELFPAY | END | disposition home or self-care (01) | LOC: SWHD 14:07 | PROVIDERS: PCP Family Medicine; Referring Provider Family Medicine; Visit Provider Surgery | DX: E11.621 Type 2 diabetes mellitus with foot ulcer (principal); T81.89XA Other complications of procedures, not elsewhere classified, initial encounter; L97.512 Non-pressure chronic ulcer of other part of right foot with fat layer exposed; M86.68 Other chronic osteomyelitis, other site; E11.40 Type 2 diabetes mellitus with diabetic neuropathy, unspecified; E11.52 Type 2 diabetes mellitus with diabetic peripheral angiopathy with gangrene | CPT/HCPCS: 11042; A9270 ==

== ENCOUNTER 2025-03-11 16:14 | Inpatient (IN) | payer MEDICAID, SELFPAY ==
[2025-03-11] VITALS (7 sets, daily range): BP systolic 117–179; BP diastolic 68–96; PULSE 76–96; RESP 15–95; TEMP 37–37.2; O2SAT 95–98; BMI 28.2
--- NOTE | 2025-03-11 17:00 | XR_ITS ---
Examination: Foot, left, 3 views Technique: AP, oblique, lateral views foot, 3 views Date and time of exam: March 11, 2025 1726 hours INDICATIONS: Nonhealing ulcer left heel noticed beginning one week ago. FINDINGS: Severe osteopenia Large soft tissue defect posterior heel Early cortical erosion posterior plantar surface of the calcaneus IMPRESSION: Early osteomyelitis posterior plantar surface of the calcaneus, consider MRI foot without contrast followed
--- NOTE | 2025-03-11 17:02 | PD.EDRME ---
Rapid Medical Screening Exam E Arrival date/time: 03/11/25 16:14 64-year-old female with a history of hyperlipidemia, type 2 diabetes, presents to the emergency room with a chief complaint of diabetic foot ulcers to the left heel and the left foot near the fifth digit. Patient states these wounds are new and have turned black. I have greeted and performed a focused initial assessment of this patient. A comprehensive ED assessment and evaluation of the patient, analysis of all test results, and completion of the medical decision making process will be conducted by additional ED providers. Chief Complaint: Wound/Laceration Time Seen by Provider: 03/11/25 16:54 Vital signs: Vital Signs Temperature 99.0 F 03/11/25 16:54 Pulse Rate 86 03/11/25 16:54 Respiratory Rate 20 03/11/25 16:54 Blood Pressure 117/68 03/11/25 16:54 Pulse Oximetry (%) 96 03/11/25 16:54 Oxygen Delivery Method Room Air 03/11/25 16:54 Vital signs reviewed by provider: Yes
[2025-03-11 17:30] LABS: Lactate (Lactic Acid) 1.3 mMol/L (0.4-2.0)
[2025-03-11 17:33] LABS: Basophils % (Auto) 0 % (0-2.5); Eosinophils % (Auto) 0 % (0-10); Hematocrit 36.5 % (36.0-46.0); Hemoglobin 12.7 g/dL (12.0-16.0); Immature Granulocytes % (Auto) 1 % (0-0); Immature Granulocytes Auto 0.13 Thou/mm3 (0.00-0.00); Lymphocytes # (Auto) 1.8 Thou/mm3 (1.0-4.8); Lymphocytes % (Auto) 8 % (10-50); Mean Corpuscular HGB Conc 34.8 g/dl (31.0-37.0); Mean Corpuscular Hemoglobin 29.5 pg (25.0-35.0); Mean Corpuscular Volume 85 fL (80-100); Monocytes # (Auto) 0.7 Thou/mm3 (0.0-0.8); Monocytes % (Auto) 3 % (0-12); Neutrophils # (Auto) 18.6 Thou/mm3 (1.8-7.7); Neutrophils % (Auto) 87 % (37-80); Nucleated Red Blood Cell % 0 /100 WBC (0); Platelet Count 298 Thou/mm3 (140-440); RDW Standard Deviation 43.1 fL (36.4-46.3); White Blood Count 21.3 Thou/mm3 (3.6-11.0)
[2025-03-11 17:47] LABS: Sed Rate (ESR) 107 mm/hr (0-30)
[2025-03-11 18:20] LABS: Alanine Aminotransferase 11 U/L (10-49); Albumin, Serum 2.5 gm/dL (3.4-4.8); Albumin/Globulin Ratio 0.9 (1.2-2.2); Alkaline Phosphatase 190 U/L (46-116); Anion Gap 7 (7-16); Aspartate Amino Transferase 21 U/L (0-34); BUN/Creatinine Ratio 11 Ratio (12-20); Bilirubin,Total 0.5 mg/dL (0.3-1.2); Blood Urea Nitrogen 9 mg/dL (9-23); C-Reactive Protein > 10.0 mg/dL (0.0-0.9); Calcium 7.5 mg/dL (8.3-10.6); Calcium (Corrected) 8.7 mg/dL (8.5-10.1); Carbon Dioxide 26.8 mMol/L (20.0-31.0); Chloride 97 mMol/L (98-107); Creatinine (Component) 0.8 mg/dL (0.6-1.3); Estimated Creatinine Clearance 75.5 mL/min (>60); Globulin 2.8 gm/dL (2.3-3.5); Glucose 246 mg/dL (74-106); Osmolality,Calculated 269 (275-295); Procalcitonin 0.41 ng/ml (0.0-0.49); Sodium 131 mMol/L (136-145); Total Protein 5.3 gm/dL (5.7-8.2); eGFR > 60 See Note
[2025-03-11 18:23] LABS: Potassium 1.8 mMol/L (3.4-5.1)
--- NOTE | 2025-03-11 20:21 | PD.EDWOUND ---
ED Wound/Laceration-RME/HPI General Chief Complaint: Wound/Laceration Stated Complaint: L HEEL DIABETIC ULCER X3 DAYS Time Seen by Provider: 03/11/25 16:54 Arrival date/time: 03/11/25 16:14 RME / HPI RME / HPI narrative: 03/11/25 16:14 64-year-old female with a history of hyperlipidemia, type 2 diabetes, presents to the emergency room with a chief complaint of diabetic foot ulcers to the left heel and the left foot near the fifth digit. Patient states these wounds are new and have turned black. I have greeted and performed a focused initial assessment of this patient. A comprehensive ED assessment and evaluation of the patient, analysis of all test results, and completion of the medical decision making process will be conducted by additional ED providers. -------- Dr. Diggs?s Main ED Evaluation: 64yo female with a history of DM, HLD presents to the ED for a chief complaint of wounds to her left foot. Patient states she noticed 2 separate wounds developing to her left heel and near her left big toe 2-3 days ago, reporting she's developed significant pain to those areas since. Patient reports associated decreased appetite. She denies any fever, chills, cough, chest pain, shortness of breath, N/V/D or any other associated symptoms. Related Data Home Medications ?Medication ?Instructions ?Recorded ?Confirmed metformin 1,000 mg tablet 1,000 mg PO BID #0 tabs 01/28/16 01/05/25 (Glucophage) montelukast 10 mg tablet 10 mg PO QDAY 01/05/25 01/05/25 (Singulair) Previous Rx's ?Medication ?Instructions ?Recorded aspirin 81 mg tablet,delayed 81 mg PO QDAY #30 tabs 11/29/23 release empagliflozin 10 mg tablet 10 mg PO QAM #30 tabs 11/29/23 (Jardiance) atorvastatin 80 mg tablet 80 mg PO QPM #30 tabs 01/07/25 blood sugar diagnostic (Blood #50 ea 01/07/25 Glucose Test strips) blood-glucose meter #1 ea 01/07/25 insulin glargine 100 unit/mL (3 12 unit (0.12 mL) subcut QPM #15 mL 01/07/25 mL) subcutaneous pen lancets 30 gauge #100 ea 01/07/25 losartan 50 mg tablet 100 mg (2 x 50 mg) PO QDAY 30 days 01/07/25 #60 tabs pen needle, diabetic 29 gauge x #100 ea 01/07/25 1/2 prednisone 20 mg tablet 20 mg PO BID #2 tabs 01/07/25 Allergies Allergy/AdvReac Type Severity Reaction Status Date / Time ofloxacin Allergy Severe THROAT Verified 03/11/25 16:19 CLOSING Review of Systems Review of Systems Systems Reviewed: All systems reviewed, normal except as documented Past Medical History Past Medical History NEUROLOGIC: Negative Seizures CARDIAC: Negative Congestive Heart Failure RESPIRATORY: Positive Chronic Obstructive Pulmonary Disease (COPD) GENITOURINARY: Negative Renal Disease REPRODUCTIVE: Negative Endometriosis, Pelvic Inflammatory Disease, Previous Pregnancies or Uterine Prolapse MUSCULOSKELETAL: Positive Fractures (lumbar fx, left ankle ORIF, collar bones and both arms) ENT: Positive Ear Infection (as a child); Negative Cataracts, Glaucoma, Blind, Retinal Detachment, Macular Degeneration, Deafness or Eye Prosthesis ENDOCRINE: Positive Diabetes Mellitus Type 2 (pills and insulin); Negative Diabetes Mellitus Type 1 PSYCHO/SOCIAL: Positive Depression (no medication) OTHER HISTORY: Negative Hospitalization, Autoimmune Disease, Down Syndrome, Developmental Delay, Shingles, Falls, Blood Transfusions, Anesthesia Reactions, MRSA, VRSA or Vancomycin-Resistant Enterococci Family History FAMILY HISTORY: Positive Family Cardiac Disorders (father htn and mother pacemaker); Negative Family Psychiatric Problems, Family Respiratory Disorders, Family Gastrointestinal Problems, Family Cancer, Family Surgery or Family Anesthesia Reaction Surgical History SURGICAL: Positive Coronary Stent and Amputation Social History SMOKING STATUS: Light (< 1 pack/day) SECOND HAND EXPOSURE: Yes ED Exam Narrative Physical exam: GENERAL APPEARANCE: alert and oriented x 4, well-developed, well-nourished, no acute distress VITALS: All vitals were reviewed and the pulse ox is 98% on room air, which is normal according to my interpretation. HEENT: Normocephalic, atraumatic; pupils equal, round, reactive to light; EOMI; mucous membranes pink, moist; oropharynx clear NECK: Supple LUNGS: CTABL; no wheezes, no rales, no rhonchi HEART: Regular rate, regular rhythm; normal S1, S2; no murmurs ABDOMEN: non distended; normal BS; soft, no tenderness, no guarding, no rebound; no masses, no organomegaly, no hernia BACK: no CVA tenderness EXTREMITIES: erythema at the left mid salomon including the foot that is hot to touch, 3 cm eschar open wound to the left heel, 3 cm macerated eschar over the lateral left MTP joint, 2 cm open wound to the lateral left great toe, ecchymotic lesions to the dorsum of the left foot, right great toe is amputated NEUROLOGIC: awake; alert and oriented x4; cranial nerves II-XII grossly intact; no focal sensory or motor deficits PSYCHIATRIC: appropriate mood and affect SKIN: warm, dry, normal color; no rashes Course Quality Measures none Orders Category Date Time Status COVID-19 Screening Questionnaire NOW Care 03/11/25 19:59 Active Program Coordinator NOW Care 03/11/25 20:07 Active Continuous Pulse Oximetry NOW Care 03/11/25 20:07 Completed IV [Insert IV] STAT Care 03/11/25 20:00 Active XR foot comp LT min 3V Stat Exams 03/11/25 17:00 Completed BMP [Basic Metabolic Panel] Stat Lab 03/11/25 20:28 Completed Blood Culture (Lab) Stat Lab 03/11/25 17:09 Received CBC Stat Lab 03/11/25 17:09 Completed CMP [Comprehensive Metabolic Panel] Stat Lab 03/11/25 17:09 Completed CRP [C-Reactive Protein] Stat Lab 03/11/25 17:09 Completed ESR [Sed Rate (ESR)] Stat Lab 03/11/25 17:09 Completed Lactic Acid [Lactate (Lactic Acid)] Stat Lab 03/11/25 17:09 Completed Magnesium Stat Lab 03/11/25 20:28 Completed Procalcitonin Stat Lab 03/11/25 17:09 Completed Doxycycline Inj [Vibramycin Inj] 100 mg Med 03/11/25 20:07 Discontinued Sodium Chloride 0.9% (Pop) [NS 0.9% mini bag] 100 ml IV X1 HYDROmorphone INJ [Dilaudid Inj] Med 03/11/25 20:30 Active 0.5 mg IVP Q30MIN PRN Ondansetron Inj [Zofran Inj] Med 03/11/25 20:23 Discontinued 4 mg IV X1 ONE POTASSIUM CHL 10 mEq IVPB [Kcl Ivpb] Med 03/11/25 21:19 Discontinued 10 meq in 100 ml IV Q1H Piper/Tazo 3.375 gm Premix [Zosyn] Med 03/11/25 20:08 Discontinued 3.375 gm in 50 ml IV X1 Potassium Chloride [K-Dur] Med 03/11/25 21:19 Discontinued 40 meq PO X1 ONE Vital Signs Vital signs: Vital Signs Temperature 99.0 F 03/11/25 16:54 Pulse Rate 86 03/11/25 16:54 Respiratory Rate 20 03/11/25 16:54 Blood Pressure 117/68 03/11/25 16:54 Pulse Oximetry (%) 96 03/11/25 16:54 Oxygen Delivery Method Room Air 03/11/25 16:54 Wound / Laceration MDM Narrative MDM Narrative:: Scribe Attestation: 03/11/25 - Meredith Hester am scribing for and in the presence of Dr. Diggs. Repeat BMP ordered to confirm the potassium level. Zosyn and Doxycycline ordered due to the patient's left foot wounds. 2116: Potassium Chloride ordered due to the patient's repeat Potassium level being 1.9. 2121: Discussed case with the resident physician, attending Dr. Maldonado from Hospitalist service regarding admission. Discussed patients ED course, exam findings, labs, and radiology results. The Hospitalist agrees to accept the patient for admission. Patient data External records reviewed:: [facility] previous records (Per chart review, patient was admitted here on 01/04/25 for AHRF.) Clinical information provided by:: patient Social determinants that could affect healthcare access:: none Patient has the following chronic illnesses:: DM, COPD, HLD How is presenting disease/condition affected by chronic disease/condition?: exacerbated by Evaluation data The following diagnostics were reviewed and interpreted by me:: lab results and radiology exam(s) Lab and/or radiology exams considered but not ordered:: none Interpretation Summary: WBC count is elevated at 21.3, ESR is elevated at 107, Potassium is low at 1.8, Glucose is 246, CRP is greater than 10.0, Lactic Acid is normal, Procalcitonin is normal, according to my interpretation. Repeat BMP shows a potassium of 1.9. ----- [facility] Report Signed Patient: JONNY ANN [facility]. Record#: [id number] Birthdate: 1960 Age/Sex: 64 / F Location: [facility] Attending Dr: Ordering Physician: Eliu VelasquezP Date of Service: 03/11/25 Procedure(s): XR foot comp LT min 3V Accession Number(s): [id number] cc: Eliu Velasquez; Rico Rush MD~ Examination: Foot, left, 3 views Technique: AP, oblique, lateral views foot, 3 views Date and time of exam: March 11, 2025 1726 hours INDICATIONS: Nonhealing ulcer left heel noticed beginning one week ago. FINDINGS: Severe osteopenia Large soft tissue defect posterior heel Early cortical erosion posterior plantar surface of the calcaneus IMPRESSION: Early osteomyelitis posterior plantar surface of the calcaneus, consider MRI foot without contrast followed Dictated By: Rico Rush MD Signed By: <Electronically signed by Rico Rush MD in OV> 03/11/25 1821 Medications / Prescriptions Medications or Prescriptions considered but not ordered:: none Medication administrations:: Medication Administration History Acetaminophen (Acetaminophen 325 Mg Tablet) 650 mg PO Q6H PRN PRN Reason: Fever >100.3 or pain Stop: 04/10/25 22:40 Albuterol/Ipratropium (Albuterol/Ipratropium (Duoneb) Rt Melania 3 Ml Nebu) 3 ml INH Q4HRRT PRN PRN Reason: SHORTNESS OF BREATH Stop: 04/10/25 22:59 Atorvastatin Calcium (Atorvastatin Calcium 20 Mg Tablet) 80 mg PO QPM SUNDAY Stop: 04/11/25 20:59 Dextrose (Dextrose 50%-Water Inj 50 Ml Syringe) 25 ml IV Q15MIN PRN PRN Reason: BG 50-70 responsive npo pt Stop: 04/11/25 00:03 Dextrose (Dextrose 50%-Water Inj 50 Ml Syringe) 50 ml IV Q15MIN PRN PRN Reason: BG <50 OR BG <70 & pt unresponsive Stop: 04/11/25 00:03 Enoxaparin Sodium (Enoxaparin Sod Inj 40 Mg/0.4 Ml Syringe) 40 mg SC QDAY SUNDAY Stop: 03/26/25 08:59 Glucagon (Glucagon Inj 1 Mg Vial) 1 mg IM Q15MIN PRN PRN Reason: BG <70, and no IV access Hydromorphone HCl (Hydromorphone Inj 2 Mg/Ml Vial) 0.5 mg IVP Q30MIN PRN PRN Reason: PAIN Stop: 03/12/25 06:00 Last Admin: 03/11/25 20:45 Dose: 0.5 mg Documented By: IAN Piperacillin/Tazobactam/Dextrose (Zosyn) 3.375 gm in 50 mls @ 12.5 mls/hr IV Q6HR SUNDAY Stop: 03/19/25 00:01 Insulin Glargine (Insulin Glargine (Lantus) 5 Unit/0.05 Ml (Per 5 Units)) 20 unit SC QDAY SUNDAY Stop: 04/11/25 08:59 Insulin Human Lispro (Insulin Lispro (Admelog) 1 Unit/0.01 Ml Unit) 0 unit SC ACHS [facility]; Protocol Stop: 04/11/25 07:29 Losartan Potassium (Losartan Potassium 25 Mg Tablet) 100 mg PO QDAY SUNDAY Stop: 04/11/25 08:59 Ondansetron HCl (Ondansetron Inj 2 Mg/Ml Inj 2 Ml) 4 mg IV Q6H PRN; Protocol PRN Reason: NAUSEA OR VOMITING Stop: 04/10/25 22:40 Pharmacy Consult (Vancomycin Pharmacy To Dose 1 Each Each) 1 each IV QDAY [facility] Stop: 04/11/25 08:59 Sennosides (Senna Tablet) 1 tab PO QDAY PRN; Protocol PRN Reason: constipation Stop: 04/10/25 22:40 Discontinued Medications Piperacillin/Tazobactam/Dextrose (Zosyn) 3.375 gm in 50 mls @ 100 mls/hr IV X1 ONE Stop: 03/11/25 20:37 Last Infusion: 03/11/25 20:55 Dose: Infused Documented By: Admin: 03/11/25 20:25 Dose: 100 mls/hr Documented By: IAN Doxycycline Hyclate 100 mg/ (Sodium Chloride) 100 mls @ 100 mls/hr IV X1 ONE Stop: 03/11/25 21:06 Last Infusion: 03/11/25 22:34 Dose: Infused Documented By: Admin: 03/11/25 20:44 Dose: 100 mls/hr Documented By: IAN Potassium Chloride (Kcl Ivpb) 10 meq in 100 mls @ 100 mls/hr IV Q1H SUNDAY Stop: 03/11/25 23:18 Last Admin: 05/19/25 23:01 Dose: 100 mls/hr Documented By: Infusion: 03/11/25 22:39 Dose: Infused Documented By: Admin: 03/11/25 21:39 Dose: 100 mls/hr Documented By: IAN Ondansetron HCl (Ondansetron Inj 2 Mg/Ml Inj 2 Ml) 4 mg IV X1 ONE; Protocol Stop: 03/11/25 20:24 Last Admin: 03/11/25 20:45 Dose: 4 mg Documented By: IAN Potassium Chloride (Potassium Chloride 20 Meq Tabcr) 40 meq PO X1 ONE Stop: 03/11/25 21:20 Last Admin: 03/11/25 21:38 Dose: 40 meq Documented By: IAN see above Consultations Consultation(s) initiated? (list below): Yes Diagnosis Wound Differential Diagnosis: other (diabetic foot wound, osteomyelitis, necrotizing fasciitis) Most likely diagnosis given after review of the tests above:: diabetic foot wound, hypokalemia, early osteomyelitis Admission Indicated Admission indicated?: indicated Admission Request Was there a request for admission?: Yes Admission Attestation Admission request attestation: Discussed case with [] from Hospitalist service regarding admission. Discussed patients ED course, exam findings, labs, and radiology results. The Hospitalist [agrees,declines] to accept the patient for admission. Disposition Plan Disposition Plan: Admit Discharge Plan Plan Patient Disposition: Admit Acute Care w/in Hospital Problem List Clinical Impression: Diabetic infection of left foot, Osteomyelitis, Hypokalemia
[2025-03-11] MEDS: PIPER/TAZO 3.375 GM PREMIX 3.375 GM/50 ML BAG IV (20:25)
[2025-03-11] MEDS: DOXYCYCLINE INJ 100 MG in SODIUM CHLORIDE 0.9% (POP) 100 ML IV (20:44)
[2025-03-11] MEDS: ONDANSETRON INJ 2 MG/ML INJ 2 ML 4 MG IV (20:45)
[2025-03-11] MEDS: HYDROmorphone INJ 2 MG/ML VIAL 0.5 MG IVP (20:45)
[2025-03-11 21:14] LABS: Anion Gap 7 (7-16); BUN/Creatinine Ratio 13 Ratio (12-20); Blood Urea Nitrogen 10 mg/dL (9-23); Calcium 7.5 mg/dL (8.3-10.6); Carbon Dioxide 27.9 mMol/L (20.0-31.0); Chloride 96 mMol/L (98-107); Creatinine (Component) 0.8 mg/dL (0.6-1.3); Estimated Creatinine Clearance 75.5 mL/min (>60); Glucose 217 mg/dL (74-106); Magnesium 1.6 mg/dL (1.6-2.6); Osmolality,Calculated 268 (275-295); Sodium 131 mMol/L (136-145); eGFR > 60 See Note
[2025-03-11 21:16] LABS: Potassium 1.9 mMol/L (3.4-5.1)
[2025-03-11] MEDS: POTASSIUM CHLORIDE 20 mEq TABCR 40 MEQ PO (21:38)
[2025-03-11] MEDS: POTASSIUM CHL 10 mEq IVPB 10 MEQ/100 ML BAG 100 MEQ IV ×2 (21:39→23:01)
[2025-03-12] VITALS (12 sets, daily range): BP systolic 119–176; BP diastolic 56–93; PULSE 58–89; RESP 14–97; TEMP 35.8–36.8; O2SAT 92–97; BMI 31.8; BMI 31.6
[2025-03-12 01:45] LABS: Potassium 2.1 mMol/L (3.4-5.1)
[2025-03-12] MEDS: HYDROmorphone INJ 2 MG/ML VIAL 0.5 MG IVP ×2 (01:52→05:47)
--- NOTE | 2025-03-12 02:05 | ESHP_ITS ---
<Statement entered by Ajay Maldonado MD - 03/12/25 13:28> I have discussed and was present for the essential components of the history, physical examination, diagnosis, and treatment plan with the resident. I agree with the patient's care as documented by the resident and amended herein by me. Ajay Maldonado MD FACP. Documentation for date of: 03/12/25 HPI History of Present Illness Chief complaint: foot infection History of present illness: Paige King is 64 yr female with PMH of hypertension, CAD with stents, insulin-dependent type 2 diabetes, COPD, current smoker presenting to ED due to left foot infection. Wound appeared about 1 week ago in the heel area has a small crack. She applied daily Vaseline. However area expanded and worsened now necrotic in appearance. Proximately the size of a quarter. Dates that she was unable to bear any weight, pain 8/10, has nausea, decreased appetite. Dates that she takes 20 units Lantus twice daily, Jardiance, metformin for diabetes at home. Checks sugars 3 times a day ranging 150?250. Denies ever seeing supervisor fitting in the past. Has sensation in lower extremity with erythema. Denied fever or chills. Patient is unsure how initial lesion started. She does not recall any trauma. In ED, BP 153/96, HR 76, RR 15, afebrile. Leukocytosis 21, sodium 130, hypokalemia 1.9, creatinine 0.8, glucose 217. Lactic acid normal, CRP elevated, magnesium 1.6. X-ray foot showed Early osteomyelitis on posterior plantar surface of heel. Recommended to follow-up with MRI foot. Patient was given Zosyn, doxycycline, IV Dilaudid 0.5 mg, Zofran, potassium total of 50 mEq while in ED. General surgery Dr Napier consulted and patient to be admitted for diabetic foot infection, osteomyelitis left foot. PMH: As noted above PSH: Right big toe amputation, hysterectomy, left ankle ORIF, 4 stents FamHx: All siblings have diabetes with amputation of some extremity. Social: Lives in [place] with daughter. Used to smoke 2 packs/day for 50 years. Trying to cut back with smoking half pack per day recently. Denies drinking, denies drug use. Meds: rec pending Allergies: Ofloxacin Review of Systems Review of Systems Systems Reviewed: All systems reviewed, normal except as documented Exam Vital Signs Temp Pulse Resp BP Pulse Ox O2 Del Method 98.8 F 96 16 174/92 H 96 Room Air 03/11/25 23:14 03/11/25 23:14 03/11/25 23:14 03/11/25 23:14 03/11/25 23:14 03/11/25 23:14 Narrative Exam General: Elderly female, No acute distress, cooperative HEENT: NCAT, No JVD noted. Mucosa dry. Pupils are equal and reactive to light bilaterally Cardiovascular: Normal S1 and S2. Regular rate and rhythm. Respiratory: Lungs are clear to auscultation bilaterally. No wheezing or crackles heard. Abdomen: Soft, nontender, not distended, normal bowel sounds. Skin: Warm to touch, dry, left foot later wound, heel wound appears necrotic Musculoskeletal: Right big toe amputated, right foot in kerlix roll. Able to move all 4 extremities. +1 pitting edema, unable to palpate pedal pulses Neuro: Alert and oriented x3. No focal neuro deficits. Psych: Normal affect and mood Results: Labs 03/11/25 17:09 03/12/25 01:19 Labs: Short CBC 03/11/25 Range/Units 17:09 WBC 21.3 H (3.6-11.0) Thou/mm3 Hgb 12.7 (12.0-16.0) g/dL Hct 36.5 (36.0-46.0) % Plt Count 298 (140-440) Thou/mm3 BMP 03/11/25 03/11/25 03/12/25 17:09 20:28 01:19 Sodium 131 L 131 L Potassium 1.8 L* 1.9 L* 2.1 L* Chloride 97 L 96 L Carbon Dioxide 26.8 27.9 BUN 9 10 Creatinine 0.8 0.8 Glucose 246 H 217 H Calcium 7.5 L 7.5 L Liver Function 03/11/25 Range/Units 17:09 Total Bilirubin 0.5 (0.3-1.2) mg/dL AST 21 (0-34) U/L ALT 11 (10-49) U/L Alkaline Phosphatase 190 H (46-116) U/L Albumin 2.5 L (3.4-4.8) gm/dL Quality Measures Quality Measures none Medications Home Medications and Allergies Home Medications ?Medication ?Instructions ?Recorded ?Confirmed ?Type metformin 1,000 mg tablet 1,000 mg PO BID #0 tabs 04/0 16 01/05/25 History (Glucophage) montelukast 10 mg tablet 10 mg PO QDAY 01/05/2501/05 History (Singulair) Allergies Allergy/AdvReac Type Severity Reaction Status Date / Time ofloxacin Allergy Severe THROAT Verified 03/11/25 16:19 CLOSING Visit Medications Acetaminophen (Acetaminophen 325 Mg Tablet) 650 mg PO Q6H PRN PRN Reason: Fever >100.3 or pain Stop: 04/10/25 22:40 Albuterol/Ipratropium (Albuterol/Ipratropium (Duoneb) Rt Melania 3 Ml Nebu) 3 ml INH Q4HRRT PRN PRN Reason: SHORTNESS OF BREATH Stop: 04/10/25 22:59 Atorvastatin Calcium (Atorvastatin Calcium 20 Mg Tablet) 80 mg PO QPM SUNDAY Stop: 04/11/25 20:59 Dextrose (Dextrose 50%-Water Inj 50 Ml Syringe) 25 ml IV Q15MIN PRN PRN Reason: BG 50-70 responsive npo pt Stop: 04/11/25 00:03 Dextrose (Dextrose 50%-Water Inj 50 Ml Syringe) 50 ml IV Q15MIN PRN PRN Reason: BG <50 OR BG <70 & pt unresponsive Stop: 04/11/25 00:03 Enoxaparin Sodium (Enoxaparin Sod Inj 40 Mg/0.4 Ml Syringe) 40 mg SC QDAY SUNDAY Stop: 03/26/25 08:59 Glucagon (Glucagon Inj 1 Mg Vial) 1 mg IM Q15MIN PRN PRN Reason: BG <70, and no IV access Hydromorphone HCl (Hydromorphone Inj 2 Mg/Ml Vial) 0.5 mg IVP Q30MIN PRN PRN Reason: PAIN Stop: 03/12/25 06:00 Last Admin: 03/12/25 01:52 Dose: 0.5 mg Piperacillin/Tazobactam/Dextrose (Zosyn) 3.375 gm in 50 mls @ 12.5 mls/hr IV Q6HR SUNDAY Stop: 03/19/25 02:59 Insulin Glargine (Insulin Glargine (Lantus) 5 Unit/0.05 Ml (Per 5 Units)) 20 unit SC QDAY SUNDAY Stop: 04/11/25 08:59 Insulin Human Lispro (Insulin Lispro (Admelog) 1 Unit/0.01 Ml Unit) 0 unit SC [facility]; Protocol Stop: 04/11/25 07:29 Losartan Potassium (Losartan Potassium 25 Mg Tablet) 100 mg PO QDAY SUNDAY Stop: 04/11/25 08:59 Ondansetron HCl (Ondansetron Inj 2 Mg/Ml Inj 2 Ml) 4 mg IV Q6H PRN; Protocol PRN Reason: NAUSEA OR VOMITING Stop: 04/10/25 22:40 Pharmacy Consult (Vancomycin Pharmacy To Dose 1 Each Each) 1 each IV QDAY SUNDAY Stop: 04/11/25 08:59 Sennosides (Senna Tablet) 1 tab PO QDAY PRN; Protocol PRN Reason: constipation Stop: 04/10/25 22:40 Discontinued Medications Piperacillin/Tazobactam/Dextrose (Zosyn) 3.375 gm in 50 mls @ 100 mls/hr IV X1 ONE Stop: 03/11/25 20:37 Last Infusion: 03/11/25 20:55 Dose: Infused Doxycycline Hyclate 100 mg/ (Sodium Chloride) 100 mls @ 100 mls/hr IV X1 ONE Stop: 03/11/25 21:06 Last Infusion: 03/11/25 22:34 Dose: Infused Potassium Chloride (Kcl Ivpb) 10 meq in 100 mls @ 100 mls/hr IV Q1H [facility] Stop: 03/11/25 23:18 Last Infusion: 03/12/25 00:35 Dose: Infused Piperacillin/Tazobactam/Dextrose (Zosyn) 3.375 gm in 50 mls @ 12.5 mls/hr IV Q6HR [facility] Stop: 03/19/25 00:01 Ondansetron HCl (Ondansetron Inj 2 Mg/Ml Inj 2 Ml) 4 mg IV X1 ONE; Protocol Stop: 03/11/25 20:24 Last Admin: 03/11/25 20:45 Dose: 4 mg Potassium Chloride (Potassium Chloride 20 Meq Tabcr) 40 meq PO X1 ONE Stop: 03/11/25 21:20 Last Admin: 03/11/25 21:38 Dose: 40 meq Assessment & Plan Plan Paige King is 64 yr female with PMH of hypertension, CAD with stents, insulin-dependent type 2 diabetes, COPD, current smoker presenting to ED due to left foot infection. Wound appeared about 1 week ago in the heel area has a small crack. General surgery Dr Napier consulted and patient to be admitted for diabetic foot infection, osteomyelitis left foot. #Osteomyelitis #Diabetic foot infection Wound appeared about 1 week ago in the heel area has a small crack. She applied daily Vaseline. However area expanded and worsened now necrotic in appearance. Proximately the size of a quarter. Denies ever seeing supervisor fitting in the past. -surgery Dr. Napier was consulted, appreciate recs -NPO -blood culture pending -wound care -vancomycin -IV Zosyn 3.375 QID -MRI left foot pending #Electrolyte abnormalities #Hypokalemia Potassium 1.9 on admission. Ddx: insulin, medication, inhaler use -replete as needed -daily CMP #History of insulin dependent type 2 diabetes, poorly controlled On admission initial glucose 217. Last A1c 10.9 on 12/2024. Patient takes 20 units Lantus twice daily, Jardiance, metformin for diabetes at home. -Held home medications -Bedside blood glucose checks ACHS (q6hr while NPO) -Insulin lispro sliding scale -Carb consistent low diet -A1c pending #Hx HLD #Hx HTN -med rec pending Health maintenance: Dispo: tele, hypokalemia, OM FEN: NPO DVT prophylaxis: Subcu heparin CODE STATUS: Full code The patient's management plan was discussed with my attending physician Dr. Maldonado. Lorenza Douglas, PGY-1
[2025-03-12] MEDS: PIPER/TAZO 3.375 GM PREMIX 3.375 GM/50 ML BAG IV ×4 (02:11→21:18)
[2025-03-12] MEDS: POTASSIUM CHLORIDE 20 mEq TABCR 40 MEQ PO ×3 (02:27→21:18)
[2025-03-12] MEDS: POTASSIUM CHL 10 mEq IVPB 10 MEQ/100 ML BAG 100 MEQ IV ×4 (02:34→06:35)
[2025-03-12] MEDS: INSULIN LISPRO (AdmeLOG) 1 UNIT/0.01 ML UNIT SC (05:31)
[2025-03-12 05:37] LABS: Basophils % (Auto) 0 % (0-2.5); Eosinophils % (Auto) 0 % (0-10); Hematocrit 35.8 % (36.0-46.0); Hemoglobin 12.5 g/dL (12.0-16.0); Immature Granulocytes % (Auto) 1 % (0-0); Immature Granulocytes Auto 0.16 Thou/mm3 (0.00-0.00); Lymphocytes # (Auto) 2.3 Thou/mm3 (1.0-4.8); Lymphocytes % (Auto) 11 % (10-50); Mean Corpuscular HGB Conc 34.9 g/dl (31.0-37.0); Mean Corpuscular Hemoglobin 29.7 pg (25.0-35.0); Mean Corpuscular Volume 85 fL (80-100); Monocytes % (Auto) 5 % (0-12); Neutrophils % (Auto) 83 % (37-80); Nucleated Red Blood Cell % 0 /100 WBC (0); Platelet Count 304 Thou/mm3 (140-440); RDW Standard Deviation 43.6 fL (36.4-46.3); Red Blood Count 4.21 Miln/mm3 (4.00-5.20); White Blood Count 20.5 Thou/mm3 (3.6-11.0)
[2025-03-12 06:20] LABS: Alanine Aminotransferase 9 U/L (10-49); Albumin, Serum 2.4 gm/dL (3.4-4.8); Alkaline Phosphatase 194 U/L (46-116); Anion Gap 10 (7-16); Aspartate Amino Transferase 18 U/L (0-34); BUN/Creatinine Ratio 13 Ratio (12-20); Bilirubin,Total 0.4 mg/dL (0.3-1.2); Blood Urea Nitrogen 10 mg/dL (9-23); Calcium 7.3 mg/dL (8.3-10.6); Calcium (Corrected) 8.6 mg/dL (8.5-10.1); Carbon Dioxide 24.9 mMol/L (20.0-31.0); Chloride 98 mMol/L (98-107); Creatinine (Component) 0.8 mg/dL (0.6-1.3); Estimated Creatinine Clearance 84.2 mL/min (>60); Globulin 2.5 gm/dL (2.3-3.5); Glucose 221 mg/dL (74-106); Magnesium 1.5 mg/dL (1.6-2.6); Osmolality,Calculated 272 (275-295); Phosphorous 2.8 mg/dL (2.4-5.1); Sodium 133 mMol/L (136-145); Total Protein 4.9 gm/dL (5.7-8.2); eGFR > 60 See Note
[2025-03-12 06:25] LABS: Glucose Estimated Average 278 mg/dL (80-131); Hemoglobin A1C 11.3 % Hgb (4.8-6.0)
[2025-03-12 06:29] LABS: Potassium 2.3 mMol/L (3.4-5.1)
[2025-03-12] MEDS: ENOXAPARIN SOD INJ 40 MG/0.4 ML SYRINGE SC (08:20)
[2025-03-12] MEDS: Vancomycin Inj 2,000 MG in SODIUM CHLORIDE 0.9% 500 ML 500 ML 150 MG IV (08:20)
[2025-03-12] MEDS: INSULIN GLARGINE (Lantus) 5 UNIT/0.05 ML (PER 5 UNITS) 20 UNIT SC (08:20)
[2025-03-12] MEDS: LOSARTAN POTASSIUM 25 MG TABLET 100 MG PO (08:21)
--- NOTE | 2025-03-12 08:26 | PC.NURSE ---
BS 187, 20units agustin scheduled, pt npo, Dr. Hernandez ordered to still give.
[2025-03-12 09:44] LABS: Potassium 2.4 mMol/L (3.4-5.1)
--- NOTE | 2025-03-12 09:44 | ECHO_ITS ---
Transthoracic Echo Report Ht (in): 66 Wt (lb): 197 Exam Location: Echo Lab Status: Inpatient Industrial Renderer: Deana Barth Indications: Procedure Performed: BP: 119 / 66 HR: 83 Technical Quality: Technically difficult study MEASUREMENTS (Male / Female) Normal Values 2D ECHO LV Diastolic Diameter PLAX 4.2 cm 4.2 - 5.9 / 3.9 - 5.3 cm LV Systolic Diameter PLAX 2.6 cm IVS Diastolic Thickness 1.1 cm 0.6 - 1.0 / 0.6 - 0.9 cm LVPW Diastolic Thickness 1.1 cm 0.6 - 1.0 / 0.6 - 0.9 cm LV Relative Wall Thickness 0.5 LVOT Diameter 1.7 cm Aortic Root Diameter 3.1 cm LA Systolic Diameter LX 2.7 cm 3.0 - 4.0 / 2.7 - 3.8 cm LA Volume Index 21.6 cm?/m? 16 - 28 cm?/m? M-MODE AV Cusp Separation MM 0.9 cm DOPPLER AV Peak Velocity 260.0 cm/s AV Peak Gradient 27.0 mmHg AV Mean Gradient 15.3 mmHg AV Velocity Time Integral 63.1 cm AI Peak Velocity 378.0 cm/s AI Peak Gradient 57.2 mmHg AI Pressure Half Time 1211.0 ms LVOT Peak Velocity 131.0 cm/s LVOT Peak Gradient 6.9 mmHg LVOT Velocity Time Integral 31.4 cm LVOT Cardiac Index 2857.3 cm?/min?m? AV Area Cont Eq vti 1.1 cm? AV Area Cont Eq pk 1.1 cm? MV Area PHT 2.6 cm? Mitral E Point Velocity 82.5 cm/s Mitral A Point Velocity 91.2 cm/s Mitral E to A Ratio 0.9 LV E' Lateral Velocity 5.0 cm/s Mitral E to LV E' Lateral Ratio 16.5 LV E' Septal Velocity 6.2 cm/s Mitral E to LV E' Septal Ratio 13.3 TR Peak Velocity 256.5 cm/s TR Peak Gradient 26.3 mmHg PV Peak Velocity 247.0 cm/s PV Peak Gradient 24.4 mmHg FINDINGS Left Ventricle Normal left ventricular size, systolic function with no obvious regional wall motion abnormalities. Mild LVH. Normal left ventricular diastolic filling pattern for age. The ejection fraction is visually estimated at 55- 60%. Right Ventricle The right ventricle is normal in size and systolic function. The estimated right ventricular systolic pressure, 45 mmHg. RAP 15. Left Atrium The left atrium is normal by two-dimensional, color flow and Doppler imaging with no structural abnormalities, no thrombus formation present. Right Atrium The right atrium is normal by two-dimensional imaging, color flow and Doppler imaging with no structural abnormalities, no thrombus formation present. Atrial Septum The interatrial septum appears normal with no evidence of a shunt. Aorta The aorta is normal by two-dimensional, color flow and Doppler interrogation. Mitral Valve The mitral valve is normal by two-dimensional, color flow and Doppler interrogation. There is no significant mitral valve regurgitation, stenosis or prolapse. Aortic Valve Moderate thickening of the aortic valve leaflets. [id number] aortic valve regurgitation. Mild aortic valve stenosis. Tricuspid Valve There is mild tricuspid valve regurgitation. Pulmonic Valve The pulmonic valve is not well visualized. There is no significant pulmonic valve regurgitation. Vessels Dilated inferior vena cava. Pericardium There is a tiny, hemodynamically insignificant pericardial effusion. CONCLUSIONS Indication: Bilateral LE swelling Normal LV size and function. Mild LVH. Grade 1 diastolic dysfunction. Estimated EF 55-60%. Normal RV size and systolic function. Estimated RVSP, 45 mmHg - mild to moderately elevated. Moderate thickening and calcification of the AV. Mild Vmax 2.8 m/s, mean PG of 18 mm hg and KALPESH 1.2 sq cm. [id number] AI. Mild TR. Mild MAC and trace MR. Dilated IVC. Small pericardial effusion without any tamponade. Fibrogenous echogenic material noted on RV wall indcating possible chronic effusion. Naga Smith (Electronically Signed) Final Date: 13 Mar 2025 19:59
[2025-03-12] MEDS: FUROSEMIDE INJ 10 MG/ML 4ML VIAL 40 MG IVP (10:36)
[2025-03-12] MEDS: HYDROcodone/APAP 5/325 TABLET 1 TAB PO ×2 (10:37→21:17)
[2025-03-12] MEDS: Magnesium Sulfate 4 GM Ivpb 4 GM/50 ML BAG IV (10:37)
--- NOTE | 2025-03-12 11:01 | PC.SS ---
Patient Paige King is a 64 year old female admitted for Osteomyelitis. SS met with patient at bedside to discuss discharge plan. Patient reports she lives at home with family. Patient was able to confirm information on demographics. Patient stated her medical surrogate decision maker is her son, Wagner Omalley . Her primary care physician is Dr. Ghanshyam Gaviria and pharmacy of preference is [facility]. Patient is able to ambulate and complete ADLs independently. Patient does not utilize any source of DME to assist with ambulation. Upon discharge patient plans to return home. However Team A reported that patient will possible need IV ABX and if needed patient will need to discharge with [facility]. Patient reported she could discharge home and her daughter Teri [phone] or sister, Hali could administer medication. Discharge plan: Home with HH, No preference in HH agency Surrogate decision maker: SonWagner [phone] or [phone]
--- NOTE | 2025-03-12 11:49 | PD.RESPRO ---
Documentation for date of: 03/12/25 Subjective Subjective Interval history: Patient was seen and examined at bedside this morning. No acute overnight events. Patient's potassium was still 2.4 this morning on repeat and magnesium was 1.5. Patient had no other complaints at this time just some pain on her foot. Exam Vital Signs Temp Pulse Resp BP Pulse Ox O2 Del Method 98.2 F 78 14 133/80 H 96 Room Air 03/12/25 08:00 03/12/25 10:36 03/12/25 08:00 03/12/25 10:36 03/12/25 08:00 03/12/25 08:00 Narrative Exam General: A/O x3, no acute distress Eyes: PERRL, EOMI. Anicteric, vision grossly intact. Ears: No ear pain, no ear discharge, Hearing grossly intact. Nose: No nasal discharge. Mouth/Throat: Moist mucous membranes, no redness, no lesions. Neck: Neck supple, non-tender, no cervical lymphadenopathy. Lungs: Clear DANAY to auscultation and percussion, No accessory muscle use. Cardio: Normal S1/S2, regular rhythm, no murmurs, no JVD Abdomen: Soft, non-tender, no palpable masses, peristalsis present, no guarding or rebound. Extremities: Symmetrical, no significant deformities, 2+ peripheral edema , non-tender, peripheral pulses presents bilateral foot culture with clean dressing. Skin: No rashes, no lesions, warm to touch. Neuro: No focal neurological deficits. motor and sensory intact Psych: Cooperative, appropriate mood and effect. Objective Labs 03/12/25 04:23 03/12/25 08:52 Labs: Laboratory Results - last 24 hr 03/11/25 03/11/25 03/12/25 17:09 20:28 01:19 WBC 21.3 H RBC 4.30 Hgb 12.7 Hct 36.5 MCV 85 MCH 29.5 MCHC 34.8 RDW Std Deviation 43.1 Plt Count 298 Neut % (Auto) 87 H Lymph % (Auto) 8 L Mellette % (Auto) 3 Eos % (Auto) 0 Baso % (Auto) 0 Neut # (Auto) 18.6 H Lymph # (Auto) 1.8 Mellette # (Auto) 0.7 Eos # (Auto) 0.0 Baso # (Auto) 0.0 Immature Gran # (Auto) 0.13 H Absolute Nucleated RBC 0.00 Immature Gran % 1 H Nucleated RBC % 0 ESR 107 H Sodium 131 L 131 L Potassium 1.8 L* 1.9 L* 2.1 L* Chloride 97 L 96 L Carbon Dioxide 26.8 27.9 Anion Gap 7 7 BUN 9 10 Creatinine 0.8 0.8 Estim Creat Clear Calc 75.5 75.5 eGFR > 60 > 60 BUN/Creatinine Ratio 11 L 13 Glucose [address] Glu mg/dL Hemoglobin A1c Calculated Osmolality 269 L 268 L Lactic Acid 1.3 Calcium 7.5 L 7.5 L Corrected Calcium 8.7 Phosphorus Magnesium 1.6 Total Bilirubin 0.5 AST 21 ALT 11 Alkaline Phosphatase 190 H C-Reactive Prot, Quant > 10.0 H Total Protein 5.3 L Albumin 2.5 L Globulin 2.8 Albumin/Globulin Ratio 0.9 L Procalcitonin 0.41 03/12/25 03/12/25 04:23 08:52 WBC 20.5 H RBC 4.21 Hgb 12.5 Hct 35.8 L MCV 85 MCH 29.7 MCHC 34.9 RDW Std Deviation 43.6 Plt Count 304 Neut % (Auto) 83 H Lymph % (Auto) 11 Mellette % (Auto) 5 Eos % (Auto) 0 Baso % (Auto) 0 Neut # (Auto) 17.0 H Lymph # (Auto) 2.3 Mellette # (Auto) 1.0 H Eos # (Auto) 0.0 Baso # (Auto) 0.0 Immature Gran # (Auto) 0.16 H Absolute Nucleated RBC 0.00 Immature Gran % 1 H Nucleated RBC % 0 ESR Sodium 133 L Potassium 2.3 L* 2.4 L* Chloride 98 Carbon Dioxide 24.9 Anion Gap 10 BUN 10 Creatinine 0.8 Estim Creat Clear Calc 84.2 eGFR > 60 BUN/Creatinine Ratio [address] Glu mg/dL 278 H Hemoglobin A1c 11.3 H Calculated Osmolality 272 L Lactic Acid Calcium 7.3 L Corrected Calcium 8.6 Phosphorus 2.8 Magnesium 1.5 L Total Bilirubin 0.4 AST 18 ALT 9 L Alkaline Phosphatase 194 H C-Reactive Prot, Quant Total Protein 4.9 L Albumin 2.4 L Globulin 2.5 Albumin/Globulin Ratio 1.0 L Procalcitonin Quality Measures Quality Measures none Assessment & Plan Assessment Current Active Medications: Generic Name Dose Route Start Last Admin Trade Name Freq PRN Reason Stop Dose Admin Acetaminophen 650 mg 03/12/25 06:00 Acetaminophen 325 Mg Tablet PO 04/11/25 05:59 Q6H PRN Fever >100.3 or pain Hydrocodone Bitart/Acetaminophen 1 tab 03/12/25 09:53 03/12/25 10:37 Hydrocodone/Apap 5/325 Tablet PO 03/17/25 09:52 1 tab Q6HR PRN Administration PAIN SCALE 4-10(Mod-Sev Albuterol/Ipratropium 3 ml 03/11/25 22:41 Albuterol/Ipratropium (Duoneb) Rt Melania 3 Ml Nebu INH 04/10/25 22:59 Q4HRRT PRN SHORTNESS OF BREATH Atorvastatin Calcium 80 mg 03/12/25 21:00 Atorvastatin Calcium 20 Mg Tablet PO 04/11/25 20:59 QPM SUNDAY Dextrose 25 ml 03/12/25 00:04 Dextrose 50%-Water Inj 50 Ml Syringe IV 04/11/25 00:03 Q15MIN PRN BG 50-70 responsive npo pt Dextrose 50 ml 03/12/25 00:04 Dextrose 50%-Water Inj 50 Ml Syringe IV 04/11/25 00:03 Q15MIN PRN BG <50 OR BG <70 & pt unresponsive Enoxaparin Sodium 40 mg 03/12/25 09:00 03/12/25 08:20 Enoxaparin Sod Inj 40 Mg/0.4 Ml Syringe SC 03/26/25 08:59 40 mg QDAY SUNDAY Administration Glucagon 1 mg 03/12/25 00:04 Glucagon Inj 1 Mg Vial IM Q15MIN PRN BG <70, and no IV access Vancomycin/Sodium Chloride 750 mg in 150 mls @ 120 mls/hr 03/12/25 22:00 Vancomycin/Ns 750 Mg Ivpb IV 03/19/25 21:59 Q12H SUNDAY Protocol Magnesium Sulfate 4 gm in 50 mls @ 12.5 mls/hr 03/12/25 09:11 03/12/25 10:37 Magnesium Sulfate Ivpb IV 03/12/25 13:10 12.5 mls/hr X1 ONE Administration Piperacillin/Tazobactam/Dextrose 3.375 gm in 50 mls @ 12.5 mls/hr 03/12/25 14:00 Zosyn IV 03/19/25 13:59 Q8HR SUNDAY Protocol Insulin Glargine 20 unit 03/12/25 09:00 03/12/25 08:20 Insulin Glargine (Lantus) 5 Unit/0.05 Ml (Per 5 Units) SC 04/11/25 08:59 20 unit QDAY SUNDAY Administration Insulin Human Lispro 0 unit 03/12/25 06:00 03/12/25 05:31 Insulin Lispro (Admelog) 1 Unit/0.01 Ml Unit SC 04/11/25 05:59 2 unit Q6HR SUNDAY Administration Protocol Losartan Potassium 100 mg 03/12/25 09:00 03/12/25 08:21 Losartan Potassium 25 Mg Tablet PO 04/11/25 08:59 100 mg QDAY SUNDAY Administration Ondansetron HCl 4 mg 03/11/25 22:41 Ondansetron Inj 2 Mg/Ml Inj 2 Ml IV 04/10/25 22:40 Q6H PRN NAUSEA OR VOMITING Protocol Pharmacy Consult 1 each 03/12/25 09:00 Vancomycin Pharmacy To Dose 1 Each Each IV 04/11/25 08:59 QDAY PRN PROTOCOL Sennosides 1 tab 03/11/25 22:41 Senna Tablet PO 04/10/25 22:40 QDAY PRN constipation Protocol Plan 64-year-old female with past medical history of hypertension, CAD status post stents, DM2, COPD, and current smoker was admitted to the hospital on 03/12/2025 due to diabetic foot with possible osteomyelitis. #Diabetic foot #Osteomyelitis posterior calcaneus #Leukocytosis #Hx of DM2 Patient came in with complaints of heel wound that progressively got worse. A1c 7.3 on 02/2025 Patient had a foot x-ray that showed early osteomyelitis of posterior plantar surface of the calcaneus Patient's WBCs were elevated at 21.3 and downtrending now ESR was 107 and CRP greater than 10. Procalcitonin and lactic acid were negative. Orthopedic stated no intervention from their standpoint Plan: Will continue with vancomycin and Zosyn (03/11/2025?) ISS and hypoglycemia protocol ordered Blood cultures pending Wound care ordered General surgery consulted, appreciate recommendations ID consulted, appreciate recommendations #Electrolyte imbalance #Hypokalemia #Hypomagnesemia Patient came in with a potassium of 1.8 Patient received a total of 110 mEq of potassium since admission Potassium was 2.4 and magnesium 1.5 this morning Plan: 4 g of magnesium and 40 mEq of potassium today Will replete as necessary Repeat renal panel and magnesium levels at 2 PM #Bilateral lower extremity swelling #Concern for CHF Patient has bilateral lower extremity swelling 2+ and given history of heart disease patient could have some underlying heart failure There is no echo on file Plan: Lasix 40 IV x 1 Echo ordered Will continue to monitor #Hx of hypertension #Hx of hyperlipidemia Continue atorvastatin 80 mg at bedtime and losartan 100 mg daily Hospital Maintenance: Disposition: Pending general surgery and ID recs Diet: Carb low, cardiac DVT ppx: lovenox GI ppx: not indicated Code status: Full. Case disclosed with Attending Dr. Avis Stern PGY1 Disclaimer: This note was dictated by speech recognition and even though it was carefully revised there may still be minor errors in gang punch operator due to voice recognition software. Attending Provider Attestation/Addendum I attest that I was physically present for the evaluation, physical examination, lab and imaging review of the patient with the residents. I discussed the case with the residents and agree with the findings and plans of care as documented above. At bedside today, patient is states she is feeling well and denies any new complaints. Pain has been controlled with analgesics. Noted to have low potassium of 2.4 and magnesium 1.5 this morning, we will continue with repletion. Continues to be on IV vancomycin and Zosyn for osteomyelitis of posterior calcaneus and diabetic foot. Discussed with general surgery, recommended CT angio with iliofemoral runoff. Discussed with orthopedics, stated no intervention from orthopedics standpoint. Infectious disease consulted. Wound care have been following, cultures are pending. Patient also noted to have bilateral lower extremity swelling, ordered Lasix 40 x 1 and echocardiography. Charissa Albarran MD
--- NOTE | 2025-03-12 11:56 | PD.SURCONS ---
HPI Consult details Consult date: 03/12/25 Reason for consultation narrative: Left foot osteomyelitis History of present illness: 64-year-old female with history of diabetes, hypertension, hyperlipidemia and tobacco use was admitted with worsening left foot pain. She states that she has had a small opening in her left heel that has been getting progressively worse. She denies history of trauma. X-ray was obtained that revealed osteomyelitis of left calcaneus Review of Systems Constitutional Constitutional: Denies chills and Denies fever(s) Cardiovascular Cardiovascular: Denies chest pain Respiratory Respiratory: Denies cough Gastrointestinal Gastrointestinal: Denies nausea and Denies vomiting Hematologic/Lymphatic Hematologic/Lymphatic: Denies easy bleeding and Denies easy bruising Past Medical History Surgical History OTHER SURGICAL HX: Right first toe amputation, hysterectomy, ORIF left ankle Social History SMOKING STATUS: Current every day smoker SUBSTANCE USE: does not use ALCOHOL: Former Meds Home Medications and Allergies Home Medications ?Medication ?Instructions ?Recorded ?Confirmed ?Type metformin 1,000 mg tablet 1,000 mg PO BID #0 tabs 01/28/16 01/05/25 History (Glucophage) montelukast 10 mg tablet 10 mg PO QDAY 01/05/25 01/05/25 History (Singulair) Allergies Allergy/AdvReac Type Severity Reaction Status Date / Time ofloxacin Allergy Severe THROAT Verified 03/11/25 16:19 CLOSING Exam Vital Signs Temp Pulse Resp BP Pulse Ox O2 Del Method 98.2 F 78 14 133/80 H 96 Room Air 03/12/25 08:00 03/12/25 10:36 03/12/25 08:00 03/12/25 10:36 03/12/25 08:00 03/12/25 08:00 Constitutional Constitutional: no acute distress Routine Extremities Exam Comments: She does not have palpable PT or DP pulses on the left side. Left foot appears to be ischemic with purpleish discolorations of all toes and skin necrosis of left heel Assessment & Plan Problem List (1) Diabetic infection of left foot: Status: Acute Plan She has ischemic left foot that may require BKA. Recommend ordering CTA with bilateral lower extremity runoffs for further evaluation and possible vascular intervention
--- NOTE | 2025-03-12 12:58 | XR_ITS ---
Examination: CTA abdominal aorta iliofemoral runoff. 2-D sagittal coronal reconstructions. 3-D reconstructions, vascular March 12, 2025 1520 hours INDICATIONS: Lower leg swelling and pain with nonhealing wounds one week Technique: Multiple CTA images of the abdominal aorta iliofemoral runoff arterial vessels, 2.0 mm slice thickness, post intravenous administration 130 cc [id number] 2-D sagittal coronal reconstructions. 3-D reconstructions, vascular 3-D postprocessing, including vascular maximum intensity projection images, 3-D volume rendering Low dose protocols were performed. One or more of the following dose reduction techniques were used; automated exposure control, adjustment of the mA and/or KV according to patient size, use of iterative reconstruction technique. Findings: Mild to moderate bilateral pleural effusions Mild enlargement cardiac contour Pericardial effusion anteriorly measures up to 8 mm Liver is irregular in contour,. 18 mm enhancing lesion lateral margin of the liver axial image 85 No gallstones Mild ascites Anasarca No pancreatic mass No hydronephrosis Normal appendix No bowel obstruction No bladder mass or bladder calculi No pelvic mass Heavy abdominal aortic calcification 50% stenosis origin celiac axis 70% stenosis origin superior mesenteric axis No renal artery stenoses No abdominal aortic aneurysm dilatation Suspicious for dissection in the right common iliac artery axial image 149 50% stenosis proximal left common iliac artery 60% stenosis distal right common iliac artery Significantly attenuated external iliac arteries bilaterally 50% stenosis right common iliac artery Heavy calcification right superficial femoral artery Patent right distal superficial femoral artery stent Diffusely attenuated right popliteal artery with occlusions multiple in its proximal and midportion Right anterior tibial artery fills to the ankle Multiple short segment occlusions in the main continuation trunk and right posterior tibial artery Heavy calcification left superficial femoral artery Occlusion of the distal left superficial femoral stent axial image 386 Multiple occlusions of the distal left superficial femoral artery Severely attenuated popliteal artery Severely attenuated left anterior tibial artery which does fill to the ankle Multiple occlusions in the proximal and mid and distal left posterior tibial artery IMPRESSION: 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
[2025-03-12 14:43] LABS: Albumin, Serum 2.1 gm/dL (3.4-4.8); Anion Gap 7 (7-16); BUN/Creatinine Ratio 13 Ratio (12-20); Blood Urea Nitrogen 10 mg/dL (9-23); Calcium 7.1 mg/dL (8.3-10.6); Calcium (Corrected) 8.6 mg/dL (8.5-10.1); Carbon Dioxide 27.5 mMol/L (20.0-31.0); Chloride 101 mMol/L (98-107); Creatinine (Component) 0.8 mg/dL (0.6-1.3); Glucose 75 mg/dL (74-106); Magnesium 2.1 mg/dL (1.6-2.6); Osmolality,Calculated 268 (275-295); Phosphorous 2.1 mg/dL (2.4-5.1); Sodium 135 mMol/L (136-145); eGFR > 60 See Note
[2025-03-12 14:50] LABS: Potassium 2.4 mMol/L (3.4-5.1)
--- NOTE | 2025-03-12 17:01 | PC.DIETICIAN ---
Nutrition recommendations: 1. Cardiac, Consistent Carb Low w/ 2-3oz extra protein per meal. 2. ProStat 30ml BID with breakfast and lunch (can be mixed with water/juice). 3. Consider: Vitamin C 500 mg BID, zinc sulfate 220 mg once daily for 14 days, multivit/minerals.
[2025-03-12] MEDS: DEXTROSE 50%-WATER INJ 50 ML SYRINGE IV (17:54)
[2025-03-12 18:19] LABS: Anion Gap 7 (7-16); BUN/Creatinine Ratio 11 Ratio (12-20); Blood Urea Nitrogen 9 mg/dL (9-23); Calcium 7.8 mg/dL (8.3-10.6); Carbon Dioxide 24.3 mMol/L (20.0-31.0); Chloride 100 mMol/L (98-107); Creatinine (Component) 0.8 mg/dL (0.6-1.3); Osmolality,Calculated 258 (275-295); Sodium 131 mMol/L (136-145); eGFR > 60 See Note
[2025-03-12 18:22] LABS: Glucose 48 mg/dL (74-106); Potassium 2.5 mMol/L (3.4-5.1)
--- NOTE | 2025-03-12 19:26 | PC.NURSE ---
Bs checked from lab draw from phleb at bedside, results showing 43. Finger stick checked twice 43 value both times as well. Dr. Hernandez notified and 50 amp of dextrose given. Repeat BS 118. Dr. Hernandez ordered to keep checking BS in 30 min due to blood sugar continuing to drop. BS at handoff 98, pt ate dinner tray and snacks with orange juice, and night nurse notified to repeat BS check.
[2025-03-12] MEDS: ATORVASTATIN CALCIUM 20 MG TABLET 80 MG PO (21:17)
[2025-03-12] MEDS: VANCOMYCIN/NS 750 MG IVPB 750 MG/150 ML BAG 120 MG IV (21:30)
[2025-03-12] MEDS: KETOROLAC 10 MG TABLET PO (23:00)
[2025-03-13] VITALS (10 sets, daily range): BP systolic 119–167; BP diastolic 71–92; PULSE 72–96; RESP 13–96; TEMP 36–36.7; O2SAT 95–99; BMI 31.6
[2025-03-13] MEDS: HYDROcodone/APAP 5/325 TABLET 1 TAB PO ×5 (02:10→22:26)
[2025-03-13] MEDS: PIPER/TAZO 3.375 GM PREMIX 3.375 GM/50 ML BAG IV ×3 (05:07→22:01)
[2025-03-13] MEDS: INSULIN LISPRO (AdmeLOG) 1 UNIT/0.01 ML UNIT SC (07:31)
[2025-03-13 08:11] LABS: Basophils % (Auto) 0 % (0-2.5); Eosinophils % (Auto) 0 % (0-10); Hematocrit 32.9 % (36.0-46.0); Hemoglobin 11.2 g/dL (12.0-16.0); Immature Granulocytes % (Auto) 1 % (0-0); Immature Granulocytes Auto 0.14 Thou/mm3 (0.00-0.00); Lymphocytes # (Auto) 2.1 Thou/mm3 (1.0-4.8); Lymphocytes % (Auto) 14 % (10-50); Mean Corpuscular Hemoglobin 29.6 pg (25.0-35.0); Mean Corpuscular Volume 87 fL (80-100); Monocytes # (Auto) 0.7 Thou/mm3 (0.0-0.8); Monocytes % (Auto) 5 % (0-12); Neutrophils % (Auto) 80 % (37-80); Nucleated Red Blood Cell % 0 /100 WBC (0); Platelet Count 308 Thou/mm3 (140-440); RDW Standard Deviation 46.5 fL (36.4-46.3); Red Blood Count 3.79 Miln/mm3 (4.00-5.20)
[2025-03-13] MEDS: POTASSIUM CHLORIDE 20 mEq TABCR 40 MEQ PO ×2 (08:28→20:29)
[2025-03-13] MEDS: LOSARTAN POTASSIUM 25 MG TABLET 100 MG PO (08:28)
[2025-03-13] MEDS: INSULIN GLARGINE (Lantus) 5 UNIT/0.05 ML (PER 5 UNITS) 20 UNIT SC (08:29)
[2025-03-13] MEDS: ENOXAPARIN SOD INJ 40 MG/0.4 ML SYRINGE SC (08:29)
[2025-03-13 08:42] LABS: Alanine Aminotransferase 11 U/L (10-49); Albumin, Serum 2.3 gm/dL (3.4-4.8); Albumin/Globulin Ratio 0.9 (1.2-2.2); Alkaline Phosphatase 325 U/L (46-116); Anion Gap 8 (7-16); Aspartate Amino Transferase 24 U/L (0-34); BUN/Creatinine Ratio 14 Ratio (12-20); Bilirubin,Total 0.2 mg/dL (0.3-1.2); Blood Urea Nitrogen 11 mg/dL (9-23); Calcium (Corrected) 8.4 mg/dL (8.5-10.1); Carbon Dioxide 27.1 mMol/L (20.0-31.0); Chloride 98 mMol/L (98-107); Creatinine (Component) 0.8 mg/dL (0.6-1.3); Globulin 2.5 gm/dL (2.3-3.5); Glucose 177 mg/dL (74-106); Osmolality,Calculated 269 (275-295); Sodium 133 mMol/L (136-145); Total Protein 4.8 gm/dL (5.7-8.2); eGFR > 60 See Note
[2025-03-13 08:46] LABS: Potassium 2.7 mMol/L (3.4-5.1)
--- NOTE | 2025-03-13 09:00 | PC.SS ---
SS follow up note; Pending Dr. Napier's rec's, possible surgery of the leg. Patient will discharge home once medically cleared.
[2025-03-13 09:30] LABS: Sed Rate (ESR) 78 mm/hr (0-30)
[2025-03-13 09:39] LABS: C-Reactive Protein 18.2 mg/dL (0.0-0.9)
[2025-03-13] MEDS: VANCOMYCIN/NS 750 MG IVPB 750 MG/150 ML BAG 120 MG IV ×2 (09:39→23:33)
[2025-03-13] MEDS: POTASSIUM CHL 10 mEq IVPB 10 MEQ/100 ML BAG 100 MEQ IV ×4 (10:40→14:33)
[2025-03-13 10:53] LABS: Magnesium 1.9 mg/dL (1.6-2.6)
--- NOTE | 2025-03-13 11:40 | PD.SURPROG ---
Documentation for date of: 03/13/25 Subjective Subjective Narrative: Patient is seen and examined. She is resting comfortably, complaining of pain in left foot Exam Vital Signs Temp Pulse Resp BP Pulse Ox O2 Del Method O2 Flow Rate 97.5 F 96 16 145/73 H 96 Room Air 1 03/13/25 08:00 03/13/25 09:33 03/13/25 09:33 03/13/25 08:28 03/13/25 09:33 03/13/25 08:00 03/12/25 20:34 Constitutional Constitutional: no acute distress Routine Extremities Exam Comments: Ischemic changes of left foot Assessment & Plan Assessment Additional comments: Discussed with vascular surgeon Dr. Simpson who kindly evaluated patient CTA and recommended peripheral angiogram to further assess if intervention is indicated prior below the knee amputation. Plan Patient was discussed with Dr. Bruce Mcdaniel who will evaluate the patient for possible peripheral angiogram tomorrow
--- NOTE | 2025-03-13 13:09 | PD.RESPRO ---
Documentation for date of: 03/13/25 Subjective Subjective Interval history: Overnight, no acute events reported. Patient seen and examined at bedside. Patient denies any complaints at this time. Patient is concerned about possible amputation of her left foot. Patient is very against possible procedure as patient has had family members with similar situations, and quality life has been poor. Informed patient that most likely general surgery and vascular surgery will have to be involved in terms of treatment plan. CTA showed 50% stenosis of proximal left common neck artery, 60% stenosis of distal right common iliac artery, patent distal right superficial femoral artery stent, occlusion of the distal left superficial femoral artery at the distal femoral stem, multiple occlusions of the distal superficial, artery and severe bilateral trifurcation vessel arterial disease. General surgery spoke with Dr. Simpson, patient's vascular surgeon who is very familiar with patient, and has had right stents placed in her lower leg last year. Vascular surgeon recommended patient to have a peripheral angiogram, and will reach out to cardiology for further evaluation for angiogram tomorrow. Exam Vital Signs Temp Pulse Resp BP Pulse Ox O2 Del Method O2 Flow Rate 97.2 F 76 20 149/71 H 96 Room Air 1 03/13/25 12:00 03/13/25 12:00 03/13/25 12:00 03/13/25 12:00 03/13/25 12:00 03/13/25 12:00 03/12/25 20:34 Narrative Exam General Appearance: Patient appears older than stated age, in no apparent distress, laying in bed. HEENT: NC/AT, no scleral icterus, no conjunctival pallor, MMM Lungs: CTAB, no wheezes or crackles appreciated CVS: RRR, S1/S2 heard, no murmurs or rubs appreciated ABD: Soft, non-tender, non-distended, BS + in all 4 quadrants EXT: Radial pulses felt bilaterally 2+, dorsalis pedis not felt on the left lower extremity, left foot is currently seen with dressing with no discharge noted SKIN: Skin exam normal without any rashes. Neuro: A&O x 3. No gross neurological deficits. Motor and sensory grossly intact in B/L UL and LL. Psych: Appropriate mood and affect Objective Labs 03/13/25 07:39 03/13/25 07:39 Labs: Laboratory Results - last 24 hr 03/12/25 03/12/25 03/13/25 14:15 17:39 07:39 WBC 15.0 H D RBC 3.79 L Hgb 11.2 L Hct 32.9 L MCV 87 MCH 29.6 MCHC 34.0 RDW Std Deviation 46.5 H Plt Count 308 Neut % (Auto) 80 Lymph % (Auto) 14 Sullivan % (Auto) 5 Eos % (Auto) 0 Baso % (Auto) 0 Neut # (Auto) 12.0 H Lymph # (Auto) 2.1 Sullivan # (Auto) 0.7 Eos # (Auto) 0.0 Baso # (Auto) 0.0 Immature Gran # (Auto) 0.14 H Absolute Nucleated RBC 0.00 Immature Gran % 1 H Nucleated RBC % 0 ESR 78 H Sodium 135 L 131 L 133 L Potassium 2.4 L* 2.5 L* 2.7 L* Chloride 101 100 98 Carbon Dioxide 27.5 24.3 27.1 Anion Gap 7 7 8 BUN 10 9 11 Creatinine 0.8 0.8 0.8 Estim Creat Clear Calc 80.0 80.0 80.0 eGFR > 60 > 60 > 60 BUN/Creatinine Ratio 13 11 L 14 Glucose 75 D 48 L* 177 H D Calculated Osmolality 268 L 258 L 269 L Calcium 7.1 L 7.8 L 7.0 L Corrected Calcium 8.6 8.4 L Phosphorus 2.1 L Magnesium 2.1 1.9 Total Bilirubin 0.2 L AST 24 ALT 11 Alkaline Phosphatase 325 H D C-Reactive Prot, Quant 18.2 H Total Protein 4.8 L Albumin 2.1 L 2.3 L Globulin 2.5 Albumin/Globulin Ratio 0.9 L Quality Measures Quality Measures none Assessment & Plan Assessment Current Active Medications: Generic Name Dose Route Start Last Admin Trade Name Freq PRN Reason Stop Dose Admin Acetaminophen 650 mg 03/12/25 23:35 Acetaminophen 325 Mg Tablet PO 04/11/25 05:59 Q6H PRN Fever >100.3 or pain 1-5 Hydrocodone Bitart/Acetaminophen 1 tab 03/12/25 23:38 03/13/25 06:40 Hydrocodone/Apap 5/325 Tablet PO 03/17/25 09:52 1 tab Q4HR PRN Administration Pain Scale 6-10(Mod-Sev Albuterol/Ipratropium 3 ml 03/11/25 22:41 Albuterol/Ipratropium (Duoneb) Rt Melania 3 Ml Nebu INH 04/10/25 22:59 Q4HRRT PRN SHORTNESS OF BREATH Atorvastatin Calcium 80 mg 03/12/25 21:00 03/12/25 21:17 Atorvastatin Calcium 20 Mg Tablet PO 04/11/25 20:59 80 mg QPM SUNDAY Administration Dextrose 25 ml 03/12/25 00:04 Dextrose 50%-Water Inj 50 Ml Syringe IV 04/11/25 00:03 Q15MIN PRN BG 50-70 responsive npo pt Dextrose 50 ml 03/12/25 00:04 03/12/25 17:54 Dextrose 50%-Water Inj 50 Ml Syringe IV 04/11/25 00:03 50 ml Q15MIN PRN Administration BG <50 OR BG <70 & pt unresponsive Enoxaparin Sodium 40 mg 03/12/25 09:00 03/13/25 08:29 Enoxaparin Sod Inj 40 Mg/0.4 Ml Syringe SC 03/26/25 08:59 40 mg QDAY SUNDAY Administration Glucagon 1 mg 03/12/25 00:04 Glucagon Inj 1 Mg Vial IM Q15MIN PRN BG <70, and no IV access Vancomycin/Sodium Chloride 750 mg in 150 mls @ 120 mls/hr 03/12/25 22:00 03/13/25 09:39 Vancomycin/Ns 750 Mg Ivpb IV 03/19/25 21:59 120 mls/hr Q12H SUNDAY Administration Protocol Piperacillin/Tazobactam/Dextrose 3.375 gm in 50 mls @ 12.5 mls/hr 03/12/25 14:00 03/13/25 13:01 Zosyn IV 03/19/25 13:59 12.5 mls/hr Q8HR SUNDAY Administration Protocol Potassium Chloride 10 meq in 100 mls @ 100 mls/hr 03/13/25 10:15 03/13/25 13:01 Kcl Ivpb IV 03/13/25 14:14 100 mls/hr Q1H SUNDAY Administration Insulin Glargine 20 unit 03/12/25 09:00 03/13/25 08:29 Insulin Glargine (Lantus) 5 Unit/0.05 Ml (Per 5 Units) SC 04/11/25 08:59 20 unit QDAY SUNDAY Administration Insulin Human Lispro 0 unit 03/12/25 21:00 03/13/25 11:19 Insulin Lispro (Admelog) 1 Unit/0.01 Ml Unit SC 04/11/25 20:59 Not Given ACHS SUNDAY Protocol Losartan Potassium 100 mg 03/12/25 09:00 03/13/25 08:28 Losartan Potassium 25 Mg Tablet PO 04/11/25 08:59 100 mg QDAY SUNDAY Administration Ondansetron HCl 4 mg 03/11/25 22:41 Ondansetron Inj 2 Mg/Ml Inj 2 Ml IV 04/10/25 22:40 Q6H PRN NAUSEA OR VOMITING Protocol Pharmacy Consult 1 each 03/12/25 09:00 Vancomycin Pharmacy To Dose 1 Each Each IV 04/11/25 08:59 QDAY PRN PROTOCOL Potassium Chloride 40 meq 03/12/25 21:00 03/13/25 08:28 Potassium Chloride 20 Meq Tabcr PO 04/11/25 20:59 40 meq BID SUNADY Administration Sennosides 1 tab 03/11/25 22:41 Senna Tablet PO 04/10/25 22:40 QDAY PRN constipation Protocol Plan 64-year-old female with past medical history of hypertension, CAD status post stents, DM2, COPD, and current smoker was admitted to the hospital on 03/12/2025 due to diabetic foot with possible osteomyelitis. #Diabetic foot #Osteomyelitis posterior calcaneus #Leukocytosis #Hx of DM2 #Severe peripheral arterial disease Patient came in with complaints of heel wound that progressively got worse. A1c 7.3 on 02/2025 Patient had a foot x-ray that showed early osteomyelitis of posterior plantar surface of the calcaneus Patient's WBCs were elevated at 21.3 and downtrending now ESR was 107 and CRP greater than 10. Procalcitonin and lactic acid were negative. Orthopedic stated no intervention from their standpoint CTA showed CTA showed 50% stenosis of proximal left common neck artery, 60% stenosis of distal right common iliac artery, patent distal right superficial femoral artery stent, occlusion of the distal left superficial femoral artery at the distal femoral stem, multiple occlusions of the distal superficial, artery and severe bilateral trifurcation vessel arterial disease. Plan: Will continue with vancomycin and Zosyn (03/11/2025?) ISS and hypoglycemia protocol ordered Blood cultures pending Wound care ordered General surgery consulted, recommended peripheral angiogram after discussion with vascular surgery ID consulted, appreciate recommendations Cardiology consulted, appreciate recommendations #Electrolyte imbalance #Hypokalemia #Hypomagnesemia Patient came in with a potassium of 1.8 Patient received a total of 110 mEq of potassium since admission Plan: Will replete as necessary #Bilateral lower extremity swelling #Concern for CHF Patient has bilateral lower extremity swelling 2+ and given history of heart disease patient could have some underlying heart failure There is no echo on file Plan: Echo ordered Will continue to monitor #Hx of hypertension #Hx of hyperlipidemia Continue atorvastatin 80 mg at bedtime and losartan 100 mg daily Hospital Maintenance: Disposition: Pending general surgery, cardiology, and ID recs Diet: Carb low, cardiac DVT ppx: lovenox GI ppx: not indicated Code status: Full. Case disclosed with Attending Dr. Avis Vargas, PGY-2 Disclaimer: This note was dictated by speech recognition and even though it was carefully revised there may still be minor errors in dba developer due to voice recognition software. Attending Provider Attestation/Addendum I attest that I was physically present for the evaluation, physical examination, lab and imaging review of the patient with the residents. I discussed the case with the residents and agree with the findings and plans of care as documented above. Today, patient states he is feeling well and does not have new complaints. Her pain has been well-controlled with analgesics. Continues to be on IV vancomycin and Zosyn, cultures are pending. CT angio with iliofemoral runoff showed severe PAD. General surgery had discussion with vascular surgery who recommended peripheral angiogram to further assess if intervention is indicated prior to below-knee amputation. Cardiology have been consulted for possible peripheral angiogram. Infectious disease have also been consulted regarding antibiotic choice and duration, appreciate recommendations. Vital signs have been stable except for mild hypertension. Lab results show improving WBC. Potassium level continues to improve slowly, 2.7 this morning. Received 40 mill equivalent p.o. and 40 mill equivalent IV. Magnesium level is within normal limits. ESR and CRP remains elevated. Charissa Albarran MD
--- NOTE | 2025-03-13 14:27 | ESCONSULT_ITS ---
<Statement entered by Danny Mcdaniel MD - 03/14/25 13:04> I personally evaluated patient examined reviewed with general surgery Dr. Napier and also Dr. Simpson patient has significant peripheral artery disease previous intervention right femoral artery has a nonhealing wound left lower extremity and gangrene required given amputation question was whether patient benefit from any angioplasty I reviewed the CTA there was decent flow below the knee though there is some disease in the popliteal artery distal SFA I am expecting patient to heal if the patient has nonhealing wound will consider doing angioplasty later on but proceed with below-knee amputation as scheduled after further discussion no need for any angiogram will not probably benefit at this point. Evaluated patient with the resident physician Dr. Crocker and agree with the treatment plan recommendation as documented.[facility] Data of Consult Requesting Physician: Charissa Albarran MD Admitting Provider: Ajay Maldonado MD Attending Provider: Charissa Albarran MD Primary Care Provider: Ghanshyam Gaviria MD Consult Narrative History of present illness: 64-year-old female with past medical history of coronary artery disease with multiple stents last year, hypertension, diabetes type 2, COPD current history of cerebral, peripheral artery disease with stent placed in the left leg by Dr. Simpson was admitted to the hospital for worsening pain in the left foot as per the patient she had a small opening in the left heel that has been worsening. She was applying creams. Hospital x-ray osteomyelitis of left calcaneus. General surgery was consulted who recommended CT angio with iliofemoral runoff which showed,50% stenosis of proximal left common neck artery, 60% stenosis of distal right common iliac artery, patent distal right superficial femoral artery stent, occlusion of the distal left superficial femoral artery at the distal femoral stem, multiple occlusions of the distal superficial, artery and severe bilateral trifurcation vessel arterial disease. Cardiology was consulted for peripheral angiogram. Past medical history :as above past surgical history: multiple stents in heart last year and stent in right leg by Dr. Simpson. Right thumb amputated last year, history of hysterectomy 30 years prior. Allergy no known allergy Social history?current smoker with history of 2 pack cigarettes per day now she is trying to decrease to half pack of cigarettes every day cc:: cc: Charissa Albarran MD Review of Systems Review of Systems Systems Reviewed: All systems reviewed, normal except as documented Narrative Review of Systems: GENERAL: Comfortable adult seen resting comfortably in hospital bed, no acute distress cacexic looking , older then her age . HEENT: Normocephalic, atraumatic. Pupils are equal and reactive. Oral mucosa is moist. NECK: Supple, nontender, no JVD CHEST: Symmetrical, atraumatic and with equal expansion ,Nontender on palpation CARDIOVASCULAR: Heart regular rhythm & rate. S1/S2. no murmur or gallop rub or extra beats. LUNGS: Clear to auscultation bilaterally with symmetrical chest rise. No laboring tachypnea or wheezing. No intercostal subcostal retraction. No rales and no rhonchi. ABDOMEN: Soft, flat, nontender to palpation, no guarding or rebound tenderness. Active and normal bowel sounds. EXTREMITIES:Radial pulses bilaterally 2+, dorsalis pedis not felt on the left lower extremity, left foot dressing with no discharge noted, right thump amputed SKIN: Warm and dry, no jaundice or rashes noted. NEURO: Patient is AO x 3, Cranial nerves II through XII grossly intact. There is no focal neurologic deficits noted. PSYCHIATRIC: Patient is in normal mood, cooperative, no SI or HI or hallucinations. Exam Vital Signs Temp Pulse Resp BP Pulse Ox O2 Del Method O2 Flow Rate 97.2 F 76 20 149/71 H 96 Room Air 1 03/13/25 12:00 03/13/25 12:00 03/13/25 12:00 03/13/25 12:00 03/13/25 12:00 03/13/25 12:00 03/12/25 20:34 Results Labs 03/13/25 07:39 03/13/25 07:39 Labs: Short CBC 03/13/25 Range/Units 07:39 WBC 15.0 H D (3.6-11.0) Thou/mm3 Hgb 11.2 L (12.0-16.0) g/dL Hct 32.9 L (36.0-46.0) % Plt Count 308 (140-440) Thou/mm3 BMP 03/12/25 03/12/25 03/13/25 14:15 17:39 07:39 Sodium 135 L 131 L 133 L Potassium 2.4 L* 2.5 L* 2.7 L* Chloride 101 100 98 Carbon Dioxide 27.5 24.3 27.1 BUN 10 9 11 Creatinine 0.8 0.8 0.8 Glucose 75 D 48 L* 177 H D Calcium 7.1 L 7.8 L 7.0 L Liver Function 03/12/25 03/13/25 Range/Units 14:15 07:39 Total Bilirubin 0.2 L (0.3-1.2) mg/dL AST 24 (0-34) U/L ALT 11 (10-49) U/L Alkaline Phosphatase 325 H D (46-116) U/L Albumin 2.1 L 2.3 L (3.4-4.8) gm/dL Quality Measures Quality Measures none Medications Home Medications and Allergies Home Medications ?Medication ?Instructions ?Recorded ?Confirmed ?Type metformin 1,000 mg tablet 1,000 mg PO BID #0 tabs 04/0803/13/25 History (Glucophage) montelukast 10 mg tablet 10 mg PO QDAY 01/05/2503/13 History (Singulair) amlodipine 10 mg tablet 10 mg PO DAILY 03/13/2502/22 History atorvastatin 40 mg tablet 40 mg PO DAILY 03/13/2502/22 History losartan 50 mg-hydrochlorothiazide 1 tab PO DAILY 02/2203/13/25 History 12.5 mg tablet nifedipine 30 mg tablet,extended 30 mg PO DAILY 03/13/25 History release 24 hr ticagrelor 90 mg tablet (Brilinta) 90 mg PO BID 03/13/25 History Allergies Allergy/AdvReac Type Severity Reaction Status Date / Time ofloxacin Allergy Severe THROAT Verified 03/11/25 16:19 CLOSING Visit Medications Acetaminophen (Acetaminophen 325 Mg Tablet) 650 mg PO Q6H PRN PRN Reason: Fever >100.3 or pain 1-5 Stop: 04/11/25 05:59 Hydrocodone Bitart/Acetaminophen (Hydrocodone/Apap 5/325 Tablet) 1 tab PO Q4HR PRN PRN Reason: Pain Scale 6-10(Mod-Sev Stop: 03/17/25 09:52 Last Admin: 03/13/25 06:40 Dose: 1 tab Albuterol/Ipratropium (Albuterol/Ipratropium (Duoneb) Rt Melania 3 Ml Nebu) 3 ml INH Q4HRRT PRN PRN Reason: SHORTNESS OF BREATH Stop: 04/10/25 22:59 Atorvastatin Calcium (Atorvastatin Calcium 20 Mg Tablet) 80 mg PO QPM SUNDAY Stop: 04/11/25 20:59 Last Admin: 03/12/25 21:17 Dose: 80 mg Dextrose (Dextrose 50%-Water Inj 50 Ml Syringe) 25 ml IV Q15MIN PRN PRN Reason: BG 50-70 responsive npo pt Stop: 04/11/25 00:03 Dextrose (Dextrose 50%-Water Inj 50 Ml Syringe) 50 ml IV Q15MIN PRN PRN Reason: BG <50 OR BG <70 & pt unresponsive Stop: 04/11/25 00:03 Last Admin: 03/12/25 17:54 Dose: 50 ml Enoxaparin Sodium (Enoxaparin Sod Inj 40 Mg/0.4 Ml Syringe) 40 mg SC QDAY SUNDAY Stop: 03/26/25 08:59 Last Admin: 03/13/25 08:29 Dose: 40 mg Glucagon (Glucagon Inj 1 Mg Vial) 1 mg IM Q15MIN PRN PRN Reason: BG <70, and no IV access Vancomycin/Sodium Chloride (Vancomycin/Ns 750 Mg Ivpb) 750 mg in 150 mls @ 120 mls/hr IV Q12H SUNDAY; Protocol Stop: 03/19/25 21:59 Last Admin: 03/13/25 09:39 Dose: 120 mls/hr Piperacillin/Tazobactam/Dextrose (Zosyn) 3.375 gm in 50 mls @ 12.5 mls/hr IV Q8HR SUNDAY; Protocol Stop: 03/19/25 13:59 Last Admin: 03/13/25 13:01 Dose: 12.5 mls/hr Insulin Glargine (Insulin Glargine (Lantus) 5 Unit/0.05 Ml (Per 5 Units)) 20 unit SC QDAY SUNDAY Stop: 04/11/25 08:59 Last Admin: 03/13/25 08:29 Dose: 20 unit Insulin Human Lispro (Insulin Lispro (Admelog) 1 Unit/0.01 Ml Unit) 0 unit SC ACHS SUNDAY; Protocol Stop: 04/11/25 20:59 Last Admin: 03/13/25 11:19 Dose: Not Given Losartan Potassium (Losartan Potassium 25 Mg Tablet) 100 mg PO QDAY SUNDAY Stop: 04/11/25 08:59 Last Admin: 03/13/25 08:28 Dose: 100 mg Ondansetron HCl (Ondansetron Inj 2 Mg/Ml Inj 2 Ml) 4 mg IV Q6H PRN; Protocol PRN Reason: NAUSEA OR VOMITING Stop: 04/10/25 22:40 Pharmacy Consult (Vancomycin Pharmacy To Dose 1 Each Each) 1 each IV QDAY PRN PRN Reason: PROTOCOL Stop: 04/11/25 08:59 Potassium Chloride (Potassium Chloride 20 Meq Tabcr) 40 meq PO BID SUNDAY Stop: 04/11/25 20:59 Last Admin: 03/13/25 08:28 Dose: 40 meq Sennosides (Senna Tablet) 1 tab PO QDAY PRN; Protocol PRN Reason: constipation Stop: 04/10/25 22:40 Discontinued Medications Acetaminophen (Acetaminophen 325 Mg Tablet) 650 mg PO Q6H PRN PRN Reason: Fever >100.3 or pain Stop: 04/11/25 05:59 Hydrocodone Bitart/Acetaminophen (Hydrocodone/Apap 5/325 Tablet) 1 tab PO Q6HR PRN PRN Reason: PAIN SCALE 4-10(Mod-Sev Stop: 03/17/25 09:52 Last Admin: 03/12/25 21:17 Dose: 1 tab Hydrocodone Bitart/Acetaminophen (Hydrocodone/Apap 5/325 Tablet) 1 tab PO Q4HR PRN PRN Reason: PAIN SCALE 4-10(Mod-Sev Stop: 03/17/25 09:52 Furosemide (Furosemide Inj 10 Mg/Ml 4ml Vial) 40 mg IVP X1 ONE Stop: 03/12/25 09:45 Last Admin: 03/12/25 10:36 Dose: 40 mg Hydromorphone HCl (Hydromorphone Inj 2 Mg/Ml Vial) 0.5 mg IVP Q30MIN PRN PRN Reason: PAIN Stop: 03/12/25 06:00 Last Admin: 03/12/25 01:52 Dose: 0.5 mg Hydromorphone HCl (Hydromorphone Inj 2 Mg/Ml Vial) 0.5 mg IVP Q30MIN PRN PRN Reason: Pain 7-10 Stop: 03/12/25 06:00 Last Admin: 03/12/25 05:47 Dose: 0.5 mg Piperacillin/Tazobactam/Dextrose (Zosyn) 3.375 gm in 50 mls @ 100 mls/hr IV X1 ONE Stop: 03/11/25 20:37 Last Infusion: 03/11/25 20:55 Dose: Infused Doxycycline Hyclate 100 mg/ (Sodium Chloride) 100 mls @ 100 mls/hr IV X1 ONE Stop: 03/11/25 21:06 Last Infusion: 03/11/25 22:34 Dose: Infused Potassium Chloride (Kcl Ivpb) 10 meq in 100 mls @ 100 mls/hr IV Q1H SUNDAY Stop: 03/11/25 23:18 Last Infusion: 03/12/25 00:35 Dose: Infused Piperacillin/Tazobactam/Dextrose (Zosyn) 3.375 gm in 50 mls @ 12.5 mls/hr IV Q6HR [facility] Stop: 03/19/25 00:01 Piperacillin/Tazobactam/Dextrose (Zosyn) 3.375 gm in 50 mls @ 12.5 mls/hr IV Q6HR [facility] Stop: 03/19/25 02:59 Piperacillin/Tazobactam/Dextrose (Zosyn) 3.375 gm in 50 mls @ 12.5 mls/hr IV Q6HR [facility] Stop: 03/19/25 02:59 Last Admin: 03/12/25 08:21 Dose: 12.5 mls/hr Potassium Chloride (Kcl Ivpb) 10 meq in 100 mls @ 100 mls/hr IV Q1H [facility] Stop: 03/12/25 06:44 Last Admin: 03/12/25 06:35 Dose: 100 mls/hr Vancomycin HCl 2,000 mg/ (Sodium Chloride) 500 mls @ 150 mls/hr IV X1 ONE Stop: 03/12/25 11:19 Last Admin: 03/12/25 08:20 Dose: 10 mg/min, 150 mls/hr Magnesium Sulfate (Magnesium Sulfate Ivpb) 4 gm in 50 mls @ 12.5 mls/hr IV X1 ONE Stop: 03/12/25 13:10 Last Admin: 03/12/25 10:37 Dose: 12.5 mls/hr Potassium Chloride (Kcl Ivpb) 10 meq in 100 mls @ 100 mls/hr IV Q1H [facility] Stop: 03/13/25 14:14 Last Admin: 03/13/25 13:01 Dose: 100 mls/hr Insulin Human Lispro (Insulin Lispro (Admelog) 1 Unit/0.01 Ml Unit) 0 unit SC ACHS SUNDAY; Protocol Stop: 04/11/25 07:29 Insulin Human Lispro (Insulin Lispro (Admelog) 1 Unit/0.01 Ml Unit) 0 unit SC Q6HR SUNDAY; Protocol Stop: 04/11/25 05:59 Last Admin: 03/12/25 17:54 Dose: Not Given Ketorolac Tromethamine (Ketorolac 10 Mg Tablet) 10 mg PO X1 ONE Stop: 03/12/25 22:42 Last Admin: 03/12/25 23:00 Dose: 10 mg Ondansetron HCl (Ondansetron Inj 2 Mg/Ml Inj 2 Ml) 4 mg IV X1 ONE; Protocol Stop: 03/11/25 20:24 Last Admin: 03/11/25 20:45 Dose: 4 mg Potassium Chloride (Potassium Chloride 20 Meq Tabcr) 40 meq PO X1 ONE Stop: 03/11/25 21:20 Last Admin: 03/11/25 21:38 Dose: 40 meq Potassium Chloride (Potassium Chloride 20 Meq Tabcr) 40 meq PO X1 ONE Stop: 03/12/25 02:09 Last Admin: 03/12/25 02:27 Dose: 40 meq Potassium Chloride (Potassium Chloride 20 Meq Tabcr) 40 meq PO X1 ONE Stop: 03/12/25 09:46 Last Admin: 03/12/25 10:37 Dose: 40 meq Assessment & Plan Plan 64-year-old female with past medical history of coronary artery disease with multiple stents last year, hypertension, diabetes type 2, COPD current history of cerebral, peripheral artery disease with stent placed in the left leg by Dr. Simpson was admitted to the hospital for worsening pain in the left foot as per the patient she had a small opening in the left heel that has been worsening. She was applying creams. Hospital x-ray osteomyelitis of left calcaneus. General surgery was consulted who recommended CT angio with iliofemoral runoff which showed,50% stenosis of proximal left common neck artery, 60% stenosis of distal right common iliac artery, patent distal right superficial femoral artery stent, occlusion of the distal left superficial femoral artery at the distal femoral stem, multiple occlusions of the distal superficial, artery and severe bilateral trifurcation vessel arterial disease. Cardiology was consulted for peripheral angiogram. #Ischemic changes of left foot #Severe peripheral arterial disease #Osteomyelitis posterior calcaneus - foot x-ray that showed early osteomyelitis of posterior plantar surface of the calcaneus -x-ray osteomyelitis of left calcaneus. -General surgery was consulted who recommended CT angio with iliofemoral runoff which showed,50% stenosis of proximal left common neck artery, 60% stenosis of distal right common iliac artery, patent distal right superficial femoral artery stent, occlusion of the distal left superficial femoral artery at the distal femoral stem, multiple occlusions of the distal superficial, artery and severe bilateral trifurcation vessel arterial disease. -Procalcitonin and lactic acid were negative. -Orthopedic stated no intervention -we can proceed with Bka for now ,wound will heal , if the wound did not heal after bka angioplasty can be done outpatient. Rest Of medical management as per primary team . Case Discussed with my attending Dr Mcdaniel , Praveen Corona MD, PGY- 3
--- NOTE | 2025-03-13 14:52 | ESPR_ITS ---
Subjective Subjective Interval history: pt has dm (Uncontrolled). Exam Vital Signs Temp Pulse Resp BP Pulse Ox O2 Del Method O2 Flow Rate 97.2 F 76 20 149/71 H 96 Room Air 1 03/13/25 12:00 03/13/25 12:00 03/13/25 12:00 03/13/25 12:00 03/13/25 12:00 03/13/25 12:00 03/12/25 20:34 Narrative Exam L foot wrapped. L ankle diffusely tender. rt great toe off. smoking hx noted. Objective - Internal Medicine Labs 03/13/25 07:39 03/13/25 07:39 Labs: Laboratory Results - last 24 hr 03/12/25 03/13/25 17:39 07:39 WBC 15.0 H D RBC 3.79 L Hgb 11.2 L Hct 32.9 L MCV 87 MCH 29.6 MCHC 34.0 RDW Std Deviation 46.5 H Plt Count 308 Neut % (Auto) 80 Lymph % (Auto) 14 [place] % (Auto) 5 Eos % (Auto) 0 Baso % (Auto) 0 Neut # (Auto) 12.0 H Lymph # (Auto) 2.1 [place] # (Auto) 0.7 Eos # (Auto) 0.0 Baso # (Auto) 0.0 Immature Gran # (Auto) 0.14 H Absolute Nucleated RBC 0.00 Immature Gran % 1 H Nucleated RBC % 0 ESR 78 H Sodium 131 L 133 L Potassium 2.5 L* 2.7 L* Chloride 100 98 Carbon Dioxide 24.3 27.1 Anion Gap 7 8 BUN 9 11 Creatinine 0.8 0.8 Estim Creat Clear Calc 80.0 80.0 eGFR > 60 > 60 BUN/Creatinine Ratio 11 L 14 Glucose 48 L* 177 H D Calculated Osmolality 258 L 269 L Calcium 7.8 L 7.0 L Corrected Calcium 8.4 L Magnesium 1.9 Total Bilirubin 0.2 L AST 24 ALT 11 Alkaline Phosphatase 325 H D C-Reactive Prot, Quant 18.2 H Total Protein 4.8 L Albumin 2.3 L Globulin 2.5 Albumin/Globulin Ratio 0.9 L Assessment & Plan A&P Narrative osteo of foot dm II pvd nicotine dependence. ok for 6 weeks of rocephin 2 gm iv daily and po doxy 100 bid with weekly cbc, renal panel, esr and f/u with primary. sadly, unless pt improves dm control, rx may fail. Time Spent With Patient Time: Total time spent is greater than 50% in coordination of care (as documented) at patient's floor/unit and/or counseling patient:
[2025-03-13] MEDS: DEXTROSE 50%-WATER INJ 50 ML SYRINGE IV (17:08)
[2025-03-13] MEDS: ZINC SULFATE 220 MG CAPSULE PO (17:21)
[2025-03-13] MEDS: DEXTROSE 10%-WATER 1000 ML 1,000 ML 50 ML IV (18:33)
[2025-03-13 18:55] LABS: Glucose 63 mg/dL (74-106)
--- NOTE | 2025-03-13 19:04 | ESCONSULT_ITS ---
RE: JONNY ANN : 1960 DATE OF CONSULTATION: 03/13/2025 REFERRING PHYSICIAN: Hospitalist team REASON FOR CONSULTATION: Left heel osteomyelitis and diabetic with known pvd and ongoing tobacco use hx. HISTORY OF PRESENT ILLNESS: The patient is an unfortunate 64-year-old with a long list of other health problems. She still smokes, which is probably a major contributor to her pvd. She has no desire to quit. Her surgical history includes total hysterectomy. She is 2, para 2 and open reduction and internal fixation of the left ankle in the past and right great toe amputation.. ALLERGIES: NONE KNOWN. IMMUNIZATIONS: Last tetanus is not known. She does not take a flu shot every year. She had pneumococcal vaccine previously FAMILY HISTORY: Her 2 brothers with diabetes. Her mother may have had diabetes as well. SOCIAL HISTORY: She lives with her daughter and son. She does continue to smoke, but has stopped since admission. PHYSICAL EXAMINATION: Her exam is benign. The patient is well appearing. She does not require any oxygen and is in no acute distress. ASSESSMENT: Osteomyelitis of the left heel in a 64-year-old dm II PVD. RECOMMENDATIONS: if bc remain neg at 48 hours, we can plan on treating her with Rocephin and doxycycline for 6 weeks. It is a little early to jump on the rx for now she is culture negative so far, but she might be culture negative at this point as it is <48 hrs. Usually something gets positive by now. In the meantime, I would probably plan on smoking cessation discussions and working with her to obtain diabetic treatment. I will check on her again on next week if she remains in house at that time. DT: 15:53:44 TT: 16:51:00 Ref: [id number] - TID: [id number] BATOOL
--- NOTE | 2025-03-13 19:37 | PC.NURSE ---
When walking in room pt stated seeing spiders on wall, diaphoretic and dizzy. Finger stick 40 BS and repeat also 40. Dr. Harris notified and 50mL Dextrose given IV. Repeat BS was 123 after dextrose. Pt ate dinner and brought juice/snacks for pt to eat. After eating recheck fingerstick was 69. Notified Dr. Harris and ordered D10 and Q3 blood sugar checks. Pt not dizzy or sweaty anymore.
[2025-03-13] MEDS: ASCORBIC ACID 250 MG TABLET 500 MG PO (20:28)
[2025-03-13] MEDS: ATORVASTATIN CALCIUM 20 MG TABLET 80 MG PO (20:28)
[2025-03-13 22:57] LABS: Vancomycin,Trough 15.6 mcg/mL (5.0-10.0)
[2025-03-14] VITALS (16 sets, daily range): BP systolic 124–161; BP diastolic 58–99; PULSE 70–93; RESP 12–96; TEMP 36.1–36.9; O2SAT 91–100; BMI 32.8
[2025-03-14] MEDS: PIPER/TAZO 3.375 GM PREMIX 3.375 GM/50 ML BAG IV ×3 (05:39→22:09)
[2025-03-14 05:54] LABS: Basophils % (Auto) 0 % (0-2.5); Eosinophils # (Auto) 0.1 Thou/mm3 (0.0-0.5); Eosinophils % (Auto) 0 % (0-10); Hematocrit 32.2 % (36.0-46.0); Immature Granulocytes % (Auto) 1 % (0-0); Immature Granulocytes Auto 0.15 Thou/mm3 (0.00-0.00); Lymphocytes # (Auto) 2.4 Thou/mm3 (1.0-4.8); Lymphocytes % (Auto) 14 % (10-50); Mean Corpuscular HGB Conc 34.2 g/dl (31.0-37.0); Mean Corpuscular Hemoglobin 29.4 pg (25.0-35.0); Mean Corpuscular Volume 86 fL (80-100); Monocytes # (Auto) 1.1 Thou/mm3 (0.0-0.8); Monocytes % (Auto) 6 % (0-12); Neutrophils # (Auto) 13.4 Thou/mm3 (1.8-7.7); Neutrophils % (Auto) 78 % (37-80); Nucleated Red Blood Cell % 0 /100 WBC (0); Platelet Count 345 Thou/mm3 (140-440); RDW Standard Deviation 45.7 fL (36.4-46.3); Red Blood Count 3.74 Miln/mm3 (4.00-5.20); White Blood Count 17.1 Thou/mm3 (3.6-11.0)
[2025-03-14 06:24] LABS: Alanine Aminotransferase 12 U/L (10-49); Albumin, Serum 2.2 gm/dL (3.4-4.8); Albumin/Globulin Ratio 0.9 (1.2-2.2); Alkaline Phosphatase 520 U/L (46-116); Anion Gap 8 (7-16); Aspartate Amino Transferase 23 U/L (0-34); BUN/Creatinine Ratio 13 Ratio (12-20); Bilirubin,Total 0.3 mg/dL (0.3-1.2); Blood Urea Nitrogen 9 mg/dL (9-23); Calcium 7.2 mg/dL (8.3-10.6); Calcium (Corrected) 8.6 mg/dL (8.5-10.1); Carbon Dioxide 23.6 mMol/L (20.0-31.0); Chloride 98 mMol/L (98-107); Creatinine (Component) 0.7 mg/dL (0.6-1.3); Estimated Creatinine Clearance 93.1 mL/min (>60); Globulin 2.5 gm/dL (2.3-3.5); Glucose 149 mg/dL (74-106); Osmolality,Calculated 262 (275-295); Potassium 3.3 mMol/L (3.4-5.1); Sodium 130 mMol/L (136-145); Total Protein 4.7 gm/dL (5.7-8.2); eGFR > 60 See Note
[2025-03-14] MEDS: ZINC SULFATE 220 MG CAPSULE PO (08:07)
[2025-03-14] MEDS: POTASSIUM CHLORIDE 20 mEq TABCR 40 MEQ PO ×2 (08:08→21:04)
[2025-03-14] MEDS: ASCORBIC ACID 250 MG TABLET 500 MG PO ×2 (08:08→21:04)
[2025-03-14] MEDS: LOSARTAN POTASSIUM 25 MG TABLET 100 MG PO (08:08)
[2025-03-14] MEDS: VANCOMYCIN/NS 750 MG IVPB 750 MG/150 ML BAG 120 MG IV ×2 (09:15→21:10)
[2025-03-14 09:22] LABS: Prothrombin Time 11.2 Seconds (9.0-12.2)
[2025-03-14] MEDS: HYDROcodone/APAP 5/325 TABLET 1 TAB PO ×2 (09:30→20:02)
--- NOTE | 2025-03-14 11:24 | PD.SURPROG ---
Documentation for date of: 03/14/25 Subjective Subjective Narrative: Patient is seen and examined. She continues to have pain in her left foot Exam Vital Signs Temp Pulse Resp BP Pulse Ox O2 Del Method O2 Flow Rate 98.0 F 91 24 H 155/87 H 92 L Room Air 1 03/14/25 08:00 03/14/25 08:08 03/14/25 08:05 03/14/25 08:08 03/14/25 08:05 03/14/25 08:00 03/14/25 04:00 Assessment & Plan Diagnosis (1) Atherosclerosis of left lower extremity with gangrene: Status: Acute Plan Patient has ischemic left foot without any circulation going to the foot. Foot is nonsalvageable and will require a below the knee amputation. Risks of the procedure include but not limited to infection, bleeding, injury to surrounding neurovascular structures, stump infection and or necrosis, possible need for future amputation discussed with the patient. Benefits and alternatives explained to her, all her questions answered, she agreed and consented to proceed with the operation. (1) Atherosclerosis of left lower extremity with gangrene Qualifiers: Peripheral atherosclerosis artery type: [place] artery Qualified Code(s): I70.262 - Atherosclerosis of [place] arteries of extremities with gangrene, left leg
--- NOTE | 2025-03-14 11:26 | PD.RESPRO ---
Documentation for date of: 03/14/25 Subjective Subjective Interval history: Patient was seen and examined at bedside morning. No acute overnight events. Patient's blood sugars have been in the 140s this morning as she continues on D10. Patient will undergo BKA today by general surgery. She only complaining of pain for which she got pain medication, but no other complaints at this time. Lab valdovinos patient had some mild spike in WBCs at 17.1 and no spikes in fevers. Exam Vital Signs Temp Pulse Resp BP Pulse Ox O2 Del Method O2 Flow Rate 98.0 F 91 24 H 155/87 H 92 L Room Air 1 03/14/25 08:00 03/14/25 08:08 03/14/25 08:05 03/14/25 08:08 03/14/25 08:05 03/14/25 08:00 03/14/25 04:00 Narrative Exam General: A/O x3, no acute distress Eyes: PERRL, EOMI. Anicteric, vision grossly intact. Ears: No ear pain, no ear discharge, Hearing grossly intact. Nose: No nasal discharge. Mouth/Throat: Moist mucous membranes, no redness, no lesions. Neck: Neck supple, non-tender, no cervical lymphadenopathy. Lungs: Clear DANAY to auscultation and percussion, No accessory muscle use. Cardio: Normal S1/S2, regular rhythm, no murmurs, no JVD Abdomen: Soft, non-tender, no palpable masses, peristalsis present, no guarding or rebound. Extremities: Symmetrical, no significant deformities, 1+ peripheral edema , non-tender, peripheral pulses presents bilateral foot culture with clean dressing. Skin: No rashes, no lesions, warm to touch. Neuro: No focal neurological deficits. motor and sensory intact Psych: Cooperative, appropriate mood and effect. Objective Labs 03/14/25 05:23 03/14/25 05:23 Labs: Laboratory Results - last 24 hr 03/13/25 03/13/25 03/14/25 18:29 21:02 05:23 WBC 17.1 H RBC 3.74 L Hgb 11.0 L Hct 32.2 L MCV 86 MCH 29.4 MCHC 34.2 RDW Std Deviation 45.7 Plt Count 345 D Neut % (Auto) 78 Lymph % (Auto) 14 [place] % (Auto) 6 Eos % (Auto) 0 Baso % (Auto) 0 Neut # (Auto) 13.4 H Lymph # (Auto) 2.4 [place] # (Auto) 1.1 H Eos # (Auto) 0.1 Baso # (Auto) 0.0 Immature Gran # (Auto) 0.15 H Absolute Nucleated RBC 0.00 Immature Gran % 1 H Nucleated RBC % 0 PT 11.2 INR 1.0 Sodium 130 L Potassium 3.3 L D Chloride 98 Carbon Dioxide 23.6 Anion Gap 8 BUN 9 Creatinine 0.7 Estim Creat Clear Calc 93.1 eGFR > 60 BUN/Creatinine Ratio 13 Glucose 63 L D 149 H D Calculated Osmolality 262 L Calcium 7.2 L Corrected Calcium 8.6 Total Bilirubin 0.3 AST 23 ALT 12 Alkaline Phosphatase 520 H D Total Protein 4.7 L Albumin 2.2 L Globulin 2.5 Albumin/Globulin Ratio 0.9 L Vancomycin Trough 15.6 H Quality Measures Quality Measures none Assessment & Plan Assessment Current Active Medications: Generic Name Dose Route Start Last Admin Trade Name Freq PRN Reason Stop Dose Admin Acetaminophen 650 mg 03/12/25 23:35 Acetaminophen 325 Mg Tablet PO 04/11/25 05:59 Q6H PRN Fever >100.3 or pain 1-5 Hydrocodone Bitart/Acetaminophen 1 tab 03/12/25 23:38 03/14/25 09:30 Hydrocodone/Apap 5/325 Tablet PO 03/17/25 09:52 1 tab Q4HR PRN Administration Pain Scale 6-10(Mod-Sev Albuterol/Ipratropium 3 ml 03/11/25 22:41 Albuterol/Ipratropium (Duoneb) Rt Melania 3 Ml Nebu INH 04/10/25 22:59 Q4HRRT PRN SHORTNESS OF BREATH Ascorbic Acid 500 mg 03/13/25 21:00 03/14/25 08:08 Ascorbic Acid 250 Mg Tablet PO 04/12/25 20:59 500 mg BID SUNDAY Administration Atorvastatin Calcium 80 mg 03/12/25 21:00 03/13/25 20:28 Atorvastatin Calcium 20 Mg Tablet PO 04/11/25 20:59 80 mg QPM SUNDAY Administration Dextrose 25 ml 03/12/25 00:04 Dextrose 50%-Water Inj 50 Ml Syringe IV 04/11/25 00:03 Q15MIN PRN BG 50-70 responsive npo pt Dextrose 50 ml 03/12/25 00:04 03/13/25 17:08 Dextrose 50%-Water Inj 50 Ml Syringe IV 04/11/25 00:03 50 ml Q15MIN PRN Administration BG <50 OR BG <70 & pt unresponsive Enoxaparin Sodium 40 mg 03/12/25 09:00 03/13/25 08:29 Enoxaparin Sod Inj 40 Mg/0.4 Ml Syringe SC 03/26/25 08:59 40 mg QDAY SUNDAY Administration Glucagon 1 mg 03/12/25 00:04 Glucagon Inj 1 Mg Vial IM Q15MIN PRN BG <70, and no IV access Vancomycin/Sodium Chloride 750 mg in 150 mls @ 120 mls/hr 03/12/25 22:00 03/14/25 09:15 Vancomycin/Ns 750 Mg Ivpb IV 03/19/25 21:59 120 mls/hr Q12H SUNDAY Administration Protocol Piperacillin/Tazobactam/Dextrose 3.375 gm in 50 mls @ 12.5 mls/hr 03/12/25 14:00 03/14/25 05:39 Zosyn IV 03/19/25 13:59 12.5 mls/hr Q8HR SUNDAY Administration Protocol Dextrose 1,000 mls @ 50 mls/hr 03/13/25 18:23 03/13/25 18:33 D10w 1000 Ml IV 03/14/25 14:22 50 mls/hr .Q20H SUNDAY Administration Insulin Glargine 20 unit 03/12/25 09:00 03/13/25 08:29 Insulin Glargine (Lantus) 5 Unit/0.05 Ml (Per 5 Units) SC 04/11/25 08:59 20 unit QDAY SUNDAY Administration Insulin Human Lispro 0 unit 03/12/25 21:00 03/13/25 17:15 Insulin Lispro (Admelog) 1 Unit/0.01 Ml Unit SC 04/11/25 20:59 Not Given ACHS SUNDAY Protocol Losartan Potassium 100 mg 03/12/25 09:00 03/14/25 08:08 Losartan Potassium 25 Mg Tablet PO 04/11/25 08:59 100 mg QDAY SUNDAY Administration Ondansetron HCl 4 mg 03/11/25 22:41 Ondansetron Inj 2 Mg/Ml Inj 2 Ml IV 04/10/25 22:40 Q6H PRN NAUSEA OR VOMITING Protocol Pharmacy Consult 1 each 03/12/25 09:00 Vancomycin Pharmacy To Dose 1 Each Each IV 04/11/25 08:59 QDAY PRN PROTOCOL Potassium Chloride 40 meq 03/12/25 21:00 03/14/25 08:08 Potassium Chloride 20 Meq Tabcr PO 04/11/25 20:59 40 meq BID SUNDAY Administration Sennosides 1 tab 03/11/25 22:41 Senna Tablet PO 04/10/25 22:40 QDAY PRN constipation Protocol Zinc Sulfate 220 mg 03/13/25 17:00 03/14/25 08:07 Zinc Sulfate 220 Mg Capsule PO 04/12/25 16:59 220 mg QDAY SUNDAY Administration Plan 64-year-old female with past medical history of hypertension, CAD status post stents, DM2, COPD, and current smoker was admitted to the hospital on 03/12/2025 due to diabetic foot with possible osteomyelitis. #Diabetic foot #Osteomyelitis posterior calcaneus #Leukocytosis #Hx of DM2 #Hypoglycemia #Severe peripheral arterial disease Patient came in with complaints of heel wound that progressively got worse. A1c 7.3 on 02/2025 Patient had a foot x-ray that showed early osteomyelitis of posterior plantar surface of the calcaneus Patient's WBCs were elevated at 21.3 and downtrending now ESR was 107 and CRP greater than 10. Procalcitonin and lactic acid were negative. Orthopedic stated no intervention from their standpoint CTA showed CTA showed 50% stenosis of proximal left common neck artery, 60% stenosis of distal right common iliac artery, patent distal right superficial femoral artery stent, occlusion of the distal left superficial femoral artery at the distal femoral stem, multiple occlusions of the distal superficial, artery and severe bilateral trifurcation vessel arterial disease. Blood cultures have been negative Expect hypoglycemia to improve once source of infection is controlled Plan: Will continue with vancomycin and Zosyn (03/11/2025?) D10 IV fluids ISS currently on hold Wound care ordered General surgery consulted, will do BKA today ID consulted, appreciate recommendations Cardiology consulted, and stated to go ahead with BKA #Electrolyte imbalance #Hypokalemia #Hypomagnesemia Patient came in with a potassium of 1.8 and today 3.1 Plan: Potassium 40 meq BID #Bilateral lower extremity swelling #HFpEF (EF 55-60%) Patient has bilateral lower extremity swelling 2+ and given history of heart disease patient could have some underlying heart failure There is no echo on file Echo showed EF of 55 to 60%. No crackles and DANAY edema improving Plan: Will continue to monitor #Hx of hypertension #Hx of hyperlipidemia Continue atorvastatin 80 mg at bedtime and losartan 100 mg daily Hospital Maintenance: Disposition: Pending surgery BKA Diet: NPO DVT ppx: lovenox (held for procedure) GI ppx: not indicated Code status: Full. Case disclosed with Attending Dr. Avis Stern, PGY-1 Disclaimer: This note was dictated by speech recognition and even though it was carefully revised there may still be minor errors in health administration teacher due to voice recognition software. Attending Provider Attestation/Addendum I attest that I was physically present for the evaluation, physical examination, lab and imaging review of the patient with the residents. I discussed the case with the residents and agree with the findings and plans of care as documented above. At bedside today, patient states she does not have any complaints and is feeling well. Pain has been well-controlled with analgesics. Underwent left below-knee amputation with general surgery today. Vital signs are stable except for mild hypertension. WBC count went to 17.1 from 15 point potassium has been improving, 3.3 this morning. Continues to be on 40 mEq twice daily. Alkaline phosphatase did go up to 520 from 325. We will continue with vancomycin and Zosyn for now, awaiting blood culture results. We will also obtain physical therapy. Charissa Albarran MD
--- NOTE | 2025-03-14 11:55 | ESPR_ITS ---
<Statement entered by Danny Mcdaniel MD - 03/15/25 08:59> The patient is clinically stable has a severe peripheral artery disease scheduled for amputation recommend below the knee amputation and there is no significant issues no need for intervention otherwise may require intervention at a later date treatment plan recommendation as documented by PGY 3 is reviewed and agree with the plan Documentation for date of: 03/14/25 Subjective Subjective Interval history: patient examined bedside this morning, planned for BKA today by Dr Wall . Exam Vital Signs Temp Pulse Resp BP Pulse Ox O2 Del Method O2 Flow Rate 98.0 F 91 24 H 155/87 H 92 L Room Air 1 03/14/25 08:00 03/14/25 08:08 03/14/25 08:05 03/14/25 08:08 03/14/25 08:05 03/14/25 08:00 03/14/25 04:00 Narrative Exam GENERAL: Comfortable adult seen resting comfortably in hospital bed, no acute distress cacexic looking , older then her age . HEENT: Normocephalic, atraumatic. Pupils are equal and reactive. Oral mucosa is moist. NECK: Supple, nontender, no JVD CHEST: Symmetrical, atraumatic and with equal expansion ,Nontender on palpation CARDIOVASCULAR: Heart regular rhythm & rate. S1/S2. no murmur or gallop rub or extra beats. LUNGS: Clear to auscultation bilaterally with symmetrical chest rise. No laboring tachypnea or wheezing. No intercostal subcostal retraction. No rales and no rhonchi. ABDOMEN: Soft, flat, nontender to palpation, no guarding or rebound tenderness. Active and normal bowel sounds. EXTREMITIES:Radial pulses bilaterally 2+, dorsalis pedis not felt on the left lower extremity, left foot dressing with no discharge noted, right thump amputed SKIN: Warm and dry, no jaundice or rashes noted. NEURO: Patient is AO x 3, Cranial nerves II through XII grossly intact. There is no focal neurologic deficits noted. PSYCHIATRIC: Patient is in normal mood, cooperative, no SI or HI or hallucinations. Objective Labs 03/14/25 05:23 03/14/25 05:23 Labs: Laboratory Results - last 24 hr 03/13/25 03/13/25 03/14/25 18:29 21:02 05:23 WBC 17.1 H RBC 3.74 L Hgb 11.0 L Hct 32.2 L MCV 86 MCH 29.4 MCHC 34.2 RDW Std Deviation 45.7 Plt Count 345 D Neut % (Auto) 78 Lymph % (Auto) 14 [place] % (Auto) 6 Eos % (Auto) 0 Baso % (Auto) 0 Neut # (Auto) 13.4 H Lymph # (Auto) 2.4 [place] # (Auto) 1.1 H Eos # (Auto) 0.1 Baso # (Auto) 0.0 Immature Gran # (Auto) 0.15 H Absolute Nucleated RBC 0.00 Immature Gran % 1 H Nucleated RBC % 0 PT 11.2 INR 1.0 Sodium 130 L Potassium 3.3 L D Chloride 98 Carbon Dioxide 23.6 Anion Gap 8 BUN 9 Creatinine 0.7 Estim Creat Clear Calc 93.1 eGFR > 60 BUN/Creatinine Ratio 13 Glucose 63 L D 149 H D Calculated Osmolality 262 L Calcium 7.2 L Corrected Calcium 8.6 Total Bilirubin 0.3 AST 23 ALT 12 Alkaline Phosphatase 520 H D Total Protein 4.7 L Albumin 2.2 L Globulin 2.5 Albumin/Globulin Ratio 0.9 L Vancomycin Trough 15.6 H Quality Measures Quality Measures none Assessment & Plan Assessment Current Active Medications: Generic Name Dose Route Start Last Admin Trade Name Freq PRN Reason Stop Dose Admin Acetaminophen 650 mg 03/12/25 23:35 Acetaminophen 325 Mg Tablet PO 04/11/25 05:59 Q6H PRN Fever >100.3 or pain 1-5 Hydrocodone Bitart/Acetaminophen 1 tab 03/12/25 23:38 03/14/25 09:30 Hydrocodone/Apap 5/325 Tablet PO 03/17/25 09:52 1 tab Q4HR PRN Administration Pain Scale 6-10(Mod-Sev Albuterol/Ipratropium 3 ml 03/11/25 22:41 Albuterol/Ipratropium (Duoneb) Rt Melania 3 Ml Nebu INH 04/10/25 22:59 Q4HRRT PRN SHORTNESS OF BREATH Ascorbic Acid 500 mg 03/13/25 21:00 03/14/25 08:08 Ascorbic Acid 250 Mg Tablet PO 04/12/25 20:59 500 mg BID SUNDAY Administration Atorvastatin Calcium 80 mg 03/12/25 21:00 03/13/25 20:28 Atorvastatin Calcium 20 Mg Tablet PO 04/11/25 20:59 80 mg QPM SUNDAY Administration Dextrose 25 ml 03/12/25 00:04 Dextrose 50%-Water Inj 50 Ml Syringe IV 04/11/25 00:03 Q15MIN PRN BG 50-70 responsive npo pt Dextrose 50 ml 03/12/25 00:04 03/13/25 17:08 Dextrose 50%-Water Inj 50 Ml Syringe IV 04/11/25 00:03 50 ml Q15MIN PRN Administration BG <50 OR BG <70 & pt unresponsive Enoxaparin Sodium 40 mg 03/12/25 09:00 03/13/25 08:29 Enoxaparin Sod Inj 40 Mg/0.4 Ml Syringe SC 03/26/25 08:59 40 mg QDAY SUNDAY Administration Glucagon 1 mg 03/12/25 00:04 Glucagon Inj 1 Mg Vial IM Q15MIN PRN BG <70, and no IV access Vancomycin/Sodium Chloride 750 mg in 150 mls @ 120 mls/hr 03/12/25 22:00 03/14/25 09:15 Vancomycin/Ns 750 Mg Ivpb IV 03/19/25 21:59 120 mls/hr Q12H SUNDAY Administration Protocol Piperacillin/Tazobactam/Dextrose 3.375 gm in 50 mls @ 12.5 mls/hr 03/12/25 14:00 03/14/25 05:39 Zosyn IV 03/19/25 13:59 12.5 mls/hr Q8HR SUNDAY Administration Protocol Dextrose 1,000 mls @ 50 mls/hr 03/13/25 18:23 03/13/25 18:33 D10w 1000 Ml IV 03/14/25 14:22 50 mls/hr .Q20H SUNDAY Administration Insulin Glargine 20 unit 03/12/25 09:00 03/13/25 08:29 Insulin Glargine (Lantus) 5 Unit/0.05 Ml (Per 5 Units) SC 04/11/25 08:59 20 unit QDAY SUNDAY Administration Insulin Human Lispro 0 unit 03/12/25 21:00 03/13/25 17:15 Insulin Lispro (Admelog) 1 Unit/0.01 Ml Unit SC 04/11/25 20:59 Not Given ACHS SUNDAY Protocol Losartan Potassium 100 mg 03/12/25 09:00 03/14/25 08:08 Losartan Potassium 25 Mg Tablet PO 04/11/25 08:59 100 mg QDAY SUNDAY Administration Ondansetron HCl 4 mg 03/11/25 22:41 Ondansetron Inj 2 Mg/Ml Inj 2 Ml IV 04/10/25 22:40 Q6H PRN NAUSEA OR VOMITING Protocol Pharmacy Consult 1 each 03/12/25 09:00 Vancomycin Pharmacy To Dose 1 Each Each IV 04/11/25 08:59 QDAY PRN PROTOCOL Potassium Chloride 40 meq 03/12/25 21:00 03/14/25 08:08 Potassium Chloride 20 Meq Tabcr PO 04/11/25 20:59 40 meq BID SUNDAY Administration Sennosides 1 tab 03/11/25 22:41 Senna Tablet PO 04/10/25 22:40 QDAY PRN constipation Protocol Zinc Sulfate 220 mg 03/13/25 17:00 03/14/25 08:07 Zinc Sulfate 220 Mg Capsule PO 04/12/25 16:59 220 mg QDAY SUNDAY Administration Plan 64-year-old female with past medical history of coronary artery disease with multiple stents last year, hypertension, diabetes type 2, COPD current history of cerebral, peripheral artery disease with stent placed in the left leg by Dr. Simpson was admitted to the hospital for worsening pain in the left foot as per the patient she had a small opening in the left heel that has been worsening. She was applying creams. Hospital x-ray osteomyelitis of left calcaneus. General surgery was consulted who recommended CT angio with iliofemoral runoff which showed,50% stenosis of proximal left common neck artery, 60% stenosis of distal right common iliac artery, patent distal right superficial femoral artery stent, occlusion of the distal left superficial femoral artery at the distal femoral stem, multiple occlusions of the distal superficial, artery and severe bilateral trifurcation vessel arterial disease. Cardiology was consulted for peripheral angiogram. #Ischemic changes of left foot #Severe peripheral arterial disease #Osteomyelitis posterior calcaneus - foot x-ray that showed early osteomyelitis of posterior plantar surface of the calcaneus -x-ray osteomyelitis of left calcaneus. -General surgery was consulted who recommended CT angio with iliofemoral runoff which showed,50% stenosis of proximal left common neck artery, 60% stenosis of distal right common iliac artery, patent distal right superficial femoral artery stent, occlusion of the distal left superficial femoral artery at the distal femoral stem, multiple occlusions of the distal superficial, artery and severe bilateral trifurcation vessel arterial disease. -Procalcitonin and lactic acid were negative. -Orthopedic stated no intervention -we can proceed with Bka for now ,wound will heal , if the wound did not heal after bka angioplasty can be done outpatient. 03/14/2025: She will have left BKA today by Dr Wall . wound will heal , if the wound did not heal after bka angioplasty can be done outpatient. Rest Of medical management as per primary team . Case Discussed with my attending Dr Mcdaniel , Praveen Corona MD, PGY- 3
--- NOTE | 2025-03-14 12:39 | ESOP_ITS ---
Date of Procedure 03/14/25 Pre Op Diagnosis Atherosclerosis of left lower extremity with gangrene left foot Post Op Diagnosis Atherosclerosis of left lower extremity with gangrene left foot Procedure Left below the knee amputation Findings Ischemic left foot Procedure Description The patient was brought into the operating room in supine position after administration of spinal anesthesia the left lower extremity was prepped and draped in standard surgical manner. The anterior incision was made approximately 15 cm distal to the tibial tuberosity and the posterior incision was approximately 12 cm distal to the anterior incision. Dissection was carried through the subcutaneous tissue. The compartments of the leg entered. The fascias muscles were divided with electrocautery. Neurovascular bundles were ligated with #0 Vicryl tie. The patient was noted to have a complete occlusion and calcification of all 3 arteries. All the muscle compartments were excised. The tibia was divided approximately 5 cm proximal to the anterior incision and the fibula was divided approximately 7 cm proximal to the anterior incision. Wound was copiously and thoroughly washed and irrigated with betadine mixed with peroxide and saline. It was further washed with warm saline. The posterior skin and gastrocnemius muscle were raised anteriorly as a musculocutaneous flap. Posterior fascia was approximated to the anterior fascia with interrupted suture using #0 Vicryl. Hemostasis was adequate and satisfactory. Once the anterior fascia was reapproximated to the posterior fascia, the subcutaneous tissue was closed with interrupted suture using #0 Vicryl and the skin was closed with maci. Dry dressing as well as Kerlix was placed over the stump. The patient tolerated the procedure well, she was breathing spontaneously, and without difficulty, and was transferred to postanesthesia care in stable condition. Instrument, needle, and sponge counts were all reported to be correct x2. Anesthesia spinal Pathology / specimen Other (Left foot and distal leg) Estimated Blood Loss 50 Condition Stable Disposition PACU Surgeon Marcela Napier MD Surgical Staff Operation Date: 03/14/25 12:45 Case Staff [employer] FIELD SUPERVISOR: Mir Killian RN First Assistant: Daniela Modi
--- NOTE | 2025-03-14 12:45 | SUR.PHASEI ---
pt received from OR in recovery bay 5. pt asleep but responds to voice, breathing unlabored on oxymask 6l. v/s stable. pt dressing to left lower extremity cdi. report received from Reggie GRANADO and Fátima HOWE.
--- NOTE | 2025-03-14 13:35 | SUR.PHASEI ---
pt asleep but responds to voice, breathing unlabored on 2l nc. v/s stable. pt dressing to left lower extremity cdi. pt left lower extremity elevated on 2 pillows with knee straight. report called to Lauren Ortiz. pt will be transferred to room at this time.
[2025-03-14] MEDS: INSULIN LISPRO (AdmeLOG) 1 UNIT/0.01 ML UNIT SC (17:37)
[2025-03-14] MEDS: DiphenhydrAMINE 25 MG CAPSULE PO (21:03)
[2025-03-14] MEDS: ATORVASTATIN CALCIUM 20 MG TABLET 80 MG PO (21:04)
[2025-03-14] MEDS: DOCUSATE SOD 100 MG CAPSULE PO (21:04)
[2025-03-15] VITALS (12 sets, daily range): BP systolic 152–187; BP diastolic 81–93; PULSE 58–88; RESP 10–95; TEMP 36.1–36.6; O2SAT 93–96; BMI 32.8
--- NOTE | 2025-03-15 | XR_ITS ---
Examination: Ultrasound-guided needle placement right basilic vein. Dual-lumen central line placement (PICC line). Fluoroscopy AP chest, portable, single view Exam date and time:March 15, 2025 1013 hours INDICATIONS: Need for long-term intravenous antibiotic therapy for osteomyelitis A timeout was completed verifying correct patient, procedure, site, positioning Informed consent provided Technique: The patient's site was prepped and draped in sterile fashion. Maximum Sterile Barrier Technique used including cap, mask, sterile gown, sterile gloves, and sterile full body drape. If ultrasound technique used: sterile gel and sterile probe covers. Hand Hygiene performed using proper scrub, soap and water, or alcohol-based hand rub. Ultrasound ultrasound site right portable apparatus utilized to confirm patency of the left basilic vein Utilizing ultrasonographic guidance successful 21-gauge needle puncture into the left basilic vein Ultrasound images recorded and stored. 5 cc 1% lidocaine administered for local anesthetic. Successful micropuncture with a 21-gauge needle is performed. 0.18 wire guide is then introduced into the SVC under fluoroscopic guidance. Dual-lumen catheter dilator is then introduced, followed by the catheter in the SVC and proper position under fluoroscopic guidance. Successful aspiration of blood and flushing with heparinized saline is then performed in the 2 venous limbs. The catheter sutured in place. Findings: Under fluoroscopy, the tip of the catheter is in good position in the vena cava. Portable chest x-ray, post line placement is ordered. Estimated blood loss 3 cc The patient tolerated the procedure well and was in stable and satisfactory condition at completion of the procedure Impression: Successful ultrasound-guided needle placement left basilic vein Successful placement of dual lumen central line, percutaneous Fluoroscopy 0.1 minute radiation dose 1.68 milligray 1 spot fluoroscopic chest film. AP chest completion procedure demonstrates satisfactory position central line. May use central line.
[2025-03-15] MEDS: PIPER/TAZO 3.375 GM PREMIX 3.375 GM/50 ML BAG IV ×3 (05:45→21:40)
[2025-03-15] MEDS: HYDROcodone/APAP 5/325 TABLET 1 TAB PO ×3 (05:45→17:37)
[2025-03-15] MEDS: INSULIN LISPRO (AdmeLOG) 1 UNIT/0.01 ML UNIT SC (07:24)
[2025-03-15] MEDS: POTASSIUM CHLORIDE 20 mEq TABCR 40 MEQ PO ×2 (08:08→20:39)
[2025-03-15] MEDS: DOCUSATE SOD 100 MG CAPSULE PO ×2 (08:08→20:42)
[2025-03-15] MEDS: ZINC SULFATE 220 MG CAPSULE PO (08:08)
[2025-03-15] MEDS: ASCORBIC ACID 250 MG TABLET 500 MG PO ×3 (08:08→20:41)
[2025-03-15] MEDS: LOSARTAN POTASSIUM 25 MG TABLET 100 MG PO (08:08)
[2025-03-15] MEDS: INSULIN GLARGINE (Lantus) 5 UNIT/0.05 ML (PER 5 UNITS) 20 UNIT SC (08:09)
[2025-03-15 09:30] LABS: Basophils % (Auto) 0 % (0-2.5); Eosinophils # (Auto) 0.1 Thou/mm3 (0.0-0.5); Eosinophils % (Auto) 1 % (0-10); Hematocrit 32.4 % (36.0-46.0); Hemoglobin 11.3 g/dL (12.0-16.0); Immature Granulocytes % (Auto) 1 % (0-0); Immature Granulocytes Auto 0.07 Thou/mm3 (0.00-0.00); Lymphocytes # (Auto) 2.3 Thou/mm3 (1.0-4.8); Lymphocytes % (Auto) 21 % (10-50); Mean Corpuscular HGB Conc 34.9 g/dl (31.0-37.0); Mean Corpuscular Hemoglobin 29.6 pg (25.0-35.0); Mean Corpuscular Volume 85 fL (80-100); Monocytes # (Auto) 0.5 Thou/mm3 (0.0-0.8); Monocytes % (Auto) 5 % (0-12); Neutrophils # (Auto) 7.6 Thou/mm3 (1.8-7.7); Neutrophils % (Auto) 72 % (37-80); Nucleated Red Blood Cell % 0 /100 WBC (0); Platelet Count 402 Thou/mm3 (140-440); RDW Standard Deviation 45.9 fL (36.4-46.3); Red Blood Count 3.82 Miln/mm3 (4.00-5.20); White Blood Count 10.6 Thou/mm3 (3.6-11.0)
[2025-03-15] MEDS: HEPARIN SOD LOCK SYR 100 UNIT/ML 500 UNIT STFIELD (10:00)
[2025-03-15] MEDS: LIDOCAINE INJ PF 1% 30 ML VIAL 5 ML INFL (10:05)
--- NOTE | 2025-03-15 10:08 | ESPR_ITS ---
Documentation for date of: 03/15/25 Subjective Subjective Interval history: Patient was seen and examined at bedside this morning. No acute overnight events. No fevers or spike in WBC. 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 Patient had a PICC line inserted today for possible long-term IV antibiotics. Patient has no new complaints at this time and was started on diet and has been tolerating it well. Will continue to monitor. Exam Vital Signs Temp Pulse Resp BP Pulse Ox O2 Del Method O2 Flow Rate 97.4 F 80 16 169/81 H 95 Room Air 3 03/15/25 08:00 03/15/25 10:00 03/15/25 10:00 03/15/25 08:08 03/15/25 10:03/15/25 10:03/15/25 04:00 Narrative Exam General: A/O x3, no acute distress Eyes: PERRL, EOMI. Anicteric, vision grossly intact. Ears: No ear pain, no ear discharge, Hearing grossly intact. Nose: No nasal discharge. Mouth/Throat: Moist mucous membranes, no redness, no lesions. Neck: Neck supple, non-tender, no cervical lymphadenopathy. Lungs: Clear DANAY to auscultation and percussion, No accessory muscle use. Cardio: Normal S1/S2, regular rhythm, no murmurs, no JVD Abdomen: Soft, non-tender, no palpable masses, peristalsis present, no guarding or rebound. Extremities: Symmetrical, no significant deformities, 1+ peripheral edema , non-tender, L BKA with clean dressing, and R LE with clean dressing Skin: No rashes, no lesions, warm to touch. Neuro: No focal neurological deficits. motor and sensory intact Psych: Cooperative, appropriate mood and effect. Objective Labs 03/15/25 09:00 03/15/25 10:44 Labs: Laboratory Results - last 24 hr 03/15/25 09:00 WBC 10.6 D RBC 3.82 L Hgb 11.3 L Hct 32.4 L MCV 85 MCH 29.6 MCHC 34.9 RDW Std Deviation 45.9 Plt Count 402 D Neut % (Auto) 72 Lymph % (Auto) 21 [place] % (Auto) 5 Eos % (Auto) 1 Baso % (Auto) 0 Neut # (Auto) 7.6 Lymph # (Auto) 2.3 [place] # (Auto) 0.5 Eos # (Auto) 0.1 Baso # (Auto) 0.0 Immature Gran # (Auto) 0.07 H Absolute Nucleated RBC 0.00 Immature Gran % 1 H Nucleated RBC % 0 Quality Measures Quality Measures none Assessment & Plan Assessment Current Active Medications: Generic Name Dose Route Start Last Admin Trade Name Freq PRN Reason Stop Dose Admin Acetaminophen 650 mg 03/12/25 23:35 Acetaminophen 325 Mg Tablet PO 04/11/25 05:59 Q6H PRN Fever >100.3 or pain 1-5 Hydrocodone Bitart/Acetaminophen 1 tab 03/12/25 23:38 03/15/25 05:45 Hydrocodone/Apap 5/325 Tablet PO 03/17/25 09:52 1 tab Q4HR PRN Administration Pain Scale 6-10(Mod-Sev Albuterol/Ipratropium 3 ml 03/11/25 22:41 Albuterol/Ipratropium (Duoneb) Rt Melania 3 Ml Nebu INH 04/10/25 22:59 Q4HRRT PRN SHORTNESS OF BREATH Ascorbic Acid 500 mg 03/13/25 21:00 03/15/25 08:08 Ascorbic Acid 250 Mg Tablet PO 04/12/25 20:59 500 mg BID SUNDAY Administration Atorvastatin Calcium 80 mg 03/12/25 21:00 03/14/25 21:04 Atorvastatin Calcium 20 Mg Tablet PO 04/11/25 20:59 80 mg QPM SUNDAY Administration Dextrose 25 ml 03/12/25 00:04 Dextrose 50%-Water Inj 50 Ml Syringe IV 04/11/25 00:03 Q15MIN PRN BG 50-70 responsive npo pt Dextrose 50 ml 03/12/25 00:04 03/13/25 17:08 Dextrose 50%-Water Inj 50 Ml Syringe IV 04/11/25 00:03 50 ml Q15MIN PRN Administration BG <50 OR BG <70 & pt unresponsive Docusate Sodium 100 mg 03/14/25 21:00 03/15/25 08:08 Docusate Sod 100 Mg Capsule PO 04/13/25 20:59 100 mg BID SUNDAY Administration Protocol Glucagon 1 mg 03/12/25 00:04 Glucagon Inj 1 Mg Vial IM Q15MIN PRN BG <70, and no IV access Piperacillin/Tazobactam/Dextrose 3.375 gm in 50 mls @ 12.5 mls/hr 03/15/25 14:00 Zosyn IV 03/22/25 13:59 Q8HR SUNDAY Protocol Vancomycin/Sodium Chloride 750 mg in 150 mls @ 120 mls/hr 03/15/25 10:00 Vancomycin/Ns 750 Mg Ivpb IV 03/22/25 09:59 Q12H SUNDAY Insulin Glargine 20 unit 03/12/25 09:00 03/15/25 08:09 Insulin Glargine (Lantus) 5 Unit/0.05 Ml (Per 5 Units) SC 04/11/25 08:59 20 unit QDAY SUNDAY Administration Insulin Human Lispro 0 unit 03/12/25 21:00 03/15/25 07:24 Insulin Lispro (Admelog) 1 Unit/0.01 Ml Unit SC 04/11/25 20:59 1 unit ACHS SUNDAY Administration Protocol Losartan Potassium 100 mg 03/12/25 09:00 03/15/25 08:08 Losartan Potassium 25 Mg Tablet PO 04/11/25 08:59 100 mg QDAY SUNDAY Administration Morphine Sulfate 3 mg 03/14/25 16:57 Morphine Sulf Inj 10 Mg/Ml Vial IVP 03/19/25 16:56 Q3H PRN PAIN SCALE 7-10 (Severe Ondansetron HCl 4 mg 03/11/25 22:41 Ondansetron Inj 2 Mg/Ml Inj 2 Ml IV 04/10/25 22:40 Q6H PRN NAUSEA OR VOMITING Protocol Pharmacy Consult 1 each 03/15/25 10:00 Vancomycin Pharmacy To Dose 1 Each Each IV 04/14/25 09:59 QDAY PRN PROTOCOL Potassium Chloride 40 meq 03/12/25 21:00 03/15/25 08:08 Potassium Chloride 20 Meq Tabcr PO 04/11/25 20:59 40 meq BID SUNDAY Administration Sennosides 1 tab 03/11/25 22:41 Senna Tablet PO 04/10/25 22:40 QDAY PRN constipation Protocol Zinc Sulfate 220 mg 03/13/25 17:00 03/15/25 08:08 Zinc Sulfate 220 Mg Capsule PO 04/12/25 16:59 220 mg QDAY SUNDAY Administration Plan 64-year-old female with past medical history of hypertension, CAD status post stents, DM2, COPD, and current smoker was admitted to the hospital on 03/12/2025 due to diabetic foot with possible osteomyelitis. #Diabetic foot #Osteomyelitis posterior calcaneus #Leukocytosis #Hx of DM2 #Hypoglycemia #Severe peripheral arterial disease Patient came in with complaints of heel wound that progressively got worse. A1c 7.3 on 02/2025 Patient had a foot x-ray that showed early osteomyelitis of posterior plantar surface of the calcaneus Patient's WBCs were elevated at 21.3 and downtrending now ESR was 107 and CRP greater than 10. Procalcitonin and lactic acid were negative. Orthopedic stated no intervention from their standpoint CTA showed CTA showed 50% stenosis of proximal left common neck artery, 60% stenosis of distal right common iliac artery, patent distal right superficial femoral artery stent, occlusion of the distal left superficial femoral artery at the distal femoral stem, multiple occlusions of the distal superficial, artery and severe bilateral trifurcation vessel arterial disease. Blood cultures have been negative WBC downtrending Plan: Will continue with vancomycin and Zosyn (03/11/2025?) ISS Wound care ordered PICC line inserted General surgery consulted,appreciate recommendations ID consulted, appreciate recommendations Cardiology consulted,stated may need angiogram outpatient #Electrolyte imbalance #Hypokalemia #Hypomagnesemia Patient came in with a potassium of 1.8 and today 3.8 and mg 1.7 Plan: Will replete as necessary #Bilateral lower extremity swelling #HFpEF (EF 55-60%) Patient has bilateral lower extremity swelling 2+ and given history of heart disease patient could have some underlying heart failure There is no echo on file Echo showed EF of 55 to 60%. No crackles and DANAY edema improving Plan: Will continue to monitor #Hx of hypertension #Hx of hyperlipidemia Continue atorvastatin 80 mg at bedtime and losartan 100 mg daily Hospital Maintenance: Disposition: Pending wound care Diet: Carb consistent DVT ppx: lovenox GI ppx: not indicated Code status: Full. Case disclosed with Attending Dr. Avis Stern, PGY-1 Disclaimer: This note was dictated by speech recognition and even though it was carefully revised there may still be minor errors in internet site designer due to voice recognition software. Attending Provider Attestation/Addendum I attest that I was physically present for the evaluation, physical examination, lab and imaging review of the patient with the residents. I discussed the case with the residents and agree with the findings and plans of care as documented above. At bedside today, patient states she is feeling well and does not have any complaints. Pain is well-controlled with analgesics, appears comfortable at bedside. Dressing looks clean and dry. WBC count has been downtrending. Vitals are stable except for mild hypertension. Rest of the labs are stable as well. Patient underwent PICC line placement today with IR. Will need dressing change on postop day 3, surgery following closely, appreciate recommendations. Continues to be on broad-spectrum IV antibiotics, blood culture has been negative for more than 48 hours. Plan to discuss with infectious disease regarding duration and choice of antibiotics on discharge. Charissa Albarran MD
[2025-03-15] MEDS: VANCOMYCIN/NS 750 MG IVPB 750 MG/150 ML BAG 120 MG IV ×2 (10:37→21:40)
[2025-03-15 11:26] LABS: Alanine Aminotransferase 10 U/L (10-49); Albumin, Serum 2.1 gm/dL (3.4-4.8); Albumin/Globulin Ratio 0.8 (1.2-2.2); Alkaline Phosphatase 539 U/L (46-116); Anion Gap 5 (7-16); Aspartate Amino Transferase 31 U/L (0-34); BUN/Creatinine Ratio 13 Ratio (12-20); Bilirubin,Total 0.2 mg/dL (0.3-1.2); Blood Urea Nitrogen 9 mg/dL (9-23); Calcium (Corrected) 8.3 mg/dL (8.5-10.1); Carbon Dioxide 25.7 mMol/L (20.0-31.0); Chloride 106 mMol/L (98-107); Creatinine (Component) 0.7 mg/dL (0.6-1.3); Estimated Creatinine Clearance 93.1 mL/min (>60); Globulin 2.6 gm/dL (2.3-3.5); Glucose 165 mg/dL (74-106); Magnesium 1.7 mg/dL (1.6-2.6); Osmolality,Calculated 276 (275-295); Potassium 3.8 mMol/L (3.4-5.1); Sodium 137 mMol/L (136-145); Total Protein 4.7 gm/dL (5.7-8.2); eGFR > 60 See Note
[2025-03-15 11:56] LABS: Calcium 6.8 mg/dL (8.3-10.6)
--- NOTE | 2025-03-15 11:56 | PD.SURPROG ---
Documentation for date of: 03/15/25 Subjective Subjective Narrative: Patient is seen and examined. She is resting comfortably. Pain is well-controlled Exam Vital Signs Temp Pulse Resp BP Pulse Ox O2 Del Method O2 Flow Rate 97.4 F 81 18 169/81 H 95 Room Air 3 03/15/25 08:00 03/15/25 10:08 03/15/25 10:08 03/15/25 08:08 03/15/25 10:08 03/15/25 10:08 03/15/25 04:00 Constitutional Constitutional: no acute distress Routine Extremities Exam Comments: Left BKA stump with dressings clean, dry and intact Assessment & Plan Assessment Additional comments: Postop day #1 status post left BKA Plan Keep dressings intact for 3 days, then will remove dressings on postop day #3. Will contact [employer] to provide stump protector and sales & service associate. Patient will not require additional IV antibiotics after discharge Procedures Procedures Left below the knee amputation
--- NOTE | 2025-03-15 12:14 | ESPR_ITS ---
<Statement entered by Danny Mcdaniel MD - 03/16/25 12:14> The patient is clinically doing well. He underwent right below the knee amputation successfully with no problems and complications appears to be doing clinically well no shortness of or chest pain so far stable evaluated patient with PGY 3 resident physician agree with the treatment plan recommendation as documented by Documentation for date of: 03/15/25 Subjective Subjective Interval history: Patient was examined bedside this morning, no acute overnight event. She had surgery yesterday. Exam Vital Signs Temp Pulse Resp BP Pulse Ox O2 Del Method O2 Flow Rate 97.4 F 81 18 169/81 H 95 Room Air 3 03/15/25 08:00 03/15/25 10:08 03/15/25 10:08 03/15/25 08:08 03/15/25 10:08 03/15/25 10:08 03/15/25 04:00 Narrative Exam GENERAL: Comfortable adult seen resting comfortably in hospital bed, no acute distress cacexic looking , older then her age . HEENT: Normocephalic, atraumatic. Pupils are equal and reactive. Oral mucosa is moist. NECK: Supple, nontender, no JVD CHEST: Symmetrical, atraumatic and with equal expansion ,Nontender on palpation CARDIOVASCULAR: Heart regular rhythm & rate. S1/S2. no murmur or gallop rub or extra beats. LUNGS: Clear to auscultation bilaterally with symmetrical chest rise. No laboring tachypnea or wheezing. No intercostal subcostal retraction. No rales and no rhonchi. ABDOMEN: Soft, flat, nontender to palpation, no guarding or rebound tenderness. Active and normal bowel sounds. EXTREMITIES: left leg well dressed, no discharge noted. SKIN: Warm and dry, no jaundice or rashes noted. NEURO: Patient is AO x 3, Cranial nerves II through XII grossly intact. There is no focal neurologic deficits noted. PSYCHIATRIC: Patient is in normal mood, cooperative, no SI or HI or hallucinations. Objective Labs 03/15/25 09:00 03/15/25 10:44 Labs: Laboratory Results - last 24 hr 03/15/25 03/15/25 09:00 10:44 WBC 10.6 D RBC 3.82 L Hgb 11.3 L Hct 32.4 L MCV 85 MCH 29.6 MCHC 34.9 RDW Std Deviation 45.9 Plt Count 402 D Neut % (Auto) 72 Lymph % (Auto) 21 [place] % (Auto) 5 Eos % (Auto) 1 Baso % (Auto) 0 Neut # (Auto) 7.6 Lymph # (Auto) 2.3 [place] # (Auto) 0.5 Eos # (Auto) 0.1 Baso # (Auto) 0.0 Immature Gran # (Auto) 0.07 H Absolute Nucleated RBC 0.00 Immature Gran % 1 H Nucleated RBC % 0 Sodium 137 Potassium 3.8 D Chloride 106 Carbon Dioxide 25.7 Anion Gap 5 L BUN 9 Creatinine 0.7 Estim Creat Clear Calc 93.1 eGFR > 60 BUN/Creatinine Ratio 13 Glucose 165 H Calculated Osmolality 276 Calcium 6.8 L* Corrected Calcium 8.3 L Magnesium 1.7 Total Bilirubin 0.2 L AST 31 ALT 10 Alkaline Phosphatase 539 H Total Protein 4.7 L Albumin 2.1 L Globulin 2.6 Albumin/Globulin Ratio 0.8 L Quality Measures Quality Measures none Assessment & Plan Assessment Current Active Medications: Generic Name Dose Route Start Last Admin Trade Name Freq PRN Reason Stop Dose Admin Acetaminophen 650 mg 03/12/25 23:35 Acetaminophen 325 Mg Tablet PO 04/11/25 05:59 Q6H PRN Fever >100.3 or pain 1-5 Hydrocodone Bitart/Acetaminophen 1 tab 03/12/25 23:38 03/15/25 10:53 Hydrocodone/Apap 5/325 Tablet PO 03/17/25 09:52 1 tab Q4HR PRN Administration Pain Scale 6-10(Mod-Sev Albuterol/Ipratropium 3 ml 03/11/25 22:41 Albuterol/Ipratropium (Duoneb) Rt Melania 3 Ml Nebu INH 04/10/25 22:59 Q4HRRT PRN SHORTNESS OF BREATH Ascorbic Acid 500 mg 03/13/25 21:00 03/15/25 08:08 Ascorbic Acid 250 Mg Tablet PO 04/12/25 20:59 500 mg BID SUNDAY Administration Atorvastatin Calcium 80 mg 03/12/25 21:00 03/14/25 21:04 Atorvastatin Calcium 20 Mg Tablet PO 04/11/25 20:59 80 mg QPM SUNDAY Administration Dextrose 25 ml 03/12/25 00:04 Dextrose 50%-Water Inj 50 Ml Syringe IV 04/11/25 00:03 Q15MIN PRN BG 50-70 responsive npo pt Dextrose 50 ml 03/12/25 00:04 03/13/25 17:08 Dextrose 50%-Water Inj 50 Ml Syringe IV 04/11/25 00:03 50 ml Q15MIN PRN Administration BG <50 OR BG <70 & pt unresponsive Docusate Sodium 100 mg 03/14/25 21:00 03/15/25 08:08 Docusate Sod 100 Mg Capsule PO 04/13/25 20:59 100 mg BID SUNDAY Administration Protocol Enoxaparin Sodium 40 mg 03/16/25 09:00 Enoxaparin Sod Inj 40 Mg/0.4 Ml Syringe SC 03/30/25 08:59 QDAY SUNDAY Glucagon 1 mg 03/12/25 00:04 Glucagon Inj 1 Mg Vial IM Q15MIN PRN BG <70, and no IV access Piperacillin/Tazobactam/Dextrose 3.375 gm in 50 mls @ 12.5 mls/hr 03/15/25 14:00 Zosyn IV 03/22/25 13:59 Q8HR SUNDAY Protocol Vancomycin/Sodium Chloride 750 mg in 150 mls @ 120 mls/hr 03/15/25 10:00 03/15/25 10:37 Vancomycin/Ns 750 Mg Ivpb IV 03/22/25 09:59 120 mls/hr Q12H SUNDAY Administration Insulin Glargine 20 unit 03/12/25 09:00 03/15/25 08:09 Insulin Glargine (Lantus) 5 Unit/0.05 Ml (Per 5 Units) SC 04/11/25 08:59 20 unit QDAY SUNDAY Administration Insulin Human Lispro 0 unit 03/12/25 21:00 03/15/25 07:24 Insulin Lispro (Admelog) 1 Unit/0.01 Ml Unit SC 04/11/25 20:59 1 unit ACHS SUNDAY Administration Protocol Losartan Potassium 100 mg 03/12/25 09:00 03/15/25 08:08 Losartan Potassium 25 Mg Tablet PO 04/11/25 08:59 100 mg QDAY SUDNAY Administration Morphine Sulfate 3 mg 03/14/25 16:57 Morphine Sulf Inj 10 Mg/Ml Vial IVP 03/19/25 16:56 Q3H PRN PAIN SCALE 7-10 (Severe Ondansetron HCl 4 mg 03/11/25 22:41 Ondansetron Inj 2 Mg/Ml Inj 2 Ml IV 04/10/25 22:40 Q6H PRN NAUSEA OR VOMITING Protocol Pharmacy Consult 1 each 03/15/25 10:00 Vancomycin Pharmacy To Dose 1 Each Each IV 04/14/25 09:59 QDAY PRN PROTOCOL Potassium Chloride 40 meq 03/12/25 21:00 03/15/25 08:08 Potassium Chloride 20 Meq Tabcr PO 04/11/25 20:59 40 meq BID SUNDAY Administration Sennosides 1 tab 03/11/25 22:41 Senna Tablet PO 04/10/25 22:40 QDAY PRN constipation Protocol Zinc Sulfate 220 mg 03/13/25 17:00 03/15/25 08:08 Zinc Sulfate 220 Mg Capsule PO 04/12/25 16:59 220 mg QDAY SUNDAY Administration Plan 64-year-old female with past medical history of coronary artery disease with multiple stents last year, hypertension, diabetes type 2, COPD current history of cerebral, peripheral artery disease with stent placed in the left leg by Dr. Simpson was admitted to the hospital for worsening pain in the left foot as per the patient she had a small opening in the left heel that has been worsening. She was applying creams. Hospital x-ray osteomyelitis of left calcaneus. General surgery was consulted who recommended CT angio with iliofemoral runoff which showed,50% stenosis of proximal left common neck artery, 60% stenosis of distal right common iliac artery, patent distal right superficial femoral artery stent, occlusion of the distal left superficial femoral artery at the distal femoral stem, multiple occlusions of the distal superficial, artery and severe bilateral trifurcation vessel arterial disease. Cardiology was consulted for peripheral angiogram. #Ischemic changes of left foot s/p Amputation #Severe peripheral arterial disease #Osteomyelitis posterior calcaneus - foot x-ray that showed early osteomyelitis of posterior plantar surface of the calcaneus -x-ray osteomyelitis of left calcaneus. -General surgery was consulted who recommended CT angio with iliofemoral runoff which showed,50% stenosis of proximal left common neck artery, 60% stenosis of distal right common iliac artery, patent distal right superficial femoral artery stent, occlusion of the distal left superficial femoral artery at the distal femoral stem, multiple occlusions of the distal superficial, artery and severe bilateral trifurcation vessel arterial disease. -Procalcitonin and lactic acid were negative. -Orthopedic stated no intervention -we can proceed with Bka for now ,wound will heal , if the wound did not heal after bka angioplasty can be done outpatient. 03/14/2025: She will have left BKA today by Dr Wall . wound will heal , if the wound did not heal after bka angioplasty can be done outpatient. 03/15/2025: S/p BKA yesterday , she is doing well. wound will heal , if the wound did not heal after bka angioplasty can be done outpatient. Rest Of medical management as per primary team . Case Discussed with my attending Dr Mcdaniel , Praveen Corona MD, PGY- 3
--- NOTE | 2025-03-15 12:56 | PC.SS ---
Rounding: Pending PT eval
--- NOTE | 2025-03-15 15:06 | PC.SS ---
SS was informed by FUENTES Tucker pt will need short term rehab, pt is undecided. SNF referral submitted via [facility] pending responses. pt will require auth.
[2025-03-15] MEDS: MORPHINE SULF INJ 10 MG/ML VIAL 3 MG IVP (19:47)
[2025-03-15] MEDS: ATORVASTATIN CALCIUM 20 MG TABLET 80 MG PO (20:40)
[2025-03-16] VITALS (15 sets, daily range): BP systolic 132–191; BP diastolic 77–103; PULSE 73–100; RESP 10–96; TEMP 36.1–36.6; O2SAT 94–99; BMI 31.0
[2025-03-16] MEDS: HYDROcodone/APAP 5/325 TABLET 1 TAB PO ×2 (00:16→05:24)
[2025-03-16] MEDS: amLODIPine BESYLATE 5 MG TABLET 10 MG PO ×2 (01:14→08:05)
[2025-03-16] MEDS: SENNA TABLET 1 TAB PO (01:14)
--- NOTE | 2025-03-16 01:15 | PC.NURSE ---
REPORT RECEIVED FROM CARLEY GUILLEN. ASSUMED CARE OF PT
[2025-03-16] MEDS: MORPHINE SULF INJ 10 MG/ML VIAL 3 MG IVP ×3 (02:58→20:30)
--- NOTE | 2025-03-16 03:29 | PC.NURSE ---
MADE DR. RATLIFF AWARE OF BP OF 186/96, HR 88 ALONG WITH RUE SWELLING +3- +4. PICC LINE PLACED 03/15 TO RUE, NO ULTRASOUND RUE DONE. TO PLACE ORDERS FOR ELEVATED BP. WILL REVIEW CHART REGARDING RUE EDEMA
[2025-03-16] MEDS: LABETALOL INJ 5 MG/ML VIAL 20 ML 10 MG IVP (03:42)
--- NOTE | 2025-03-16 04:52 | XR_ITS ---
Examination: Duplex scan of the upper extremity, unilateral right complete Date and time of exam: March 16, 2025 1029 hrs. Indications: Right arm swelling and pain beginning one day ago Technique: Duplex scan of the extremity veins using B-mode/grayscale imaging and Doppler spectral analysis and color flow Attention is directed to internal echogenicity, compression and augmentation involving these veins, color flow assessment, spectral analysis Findings: Major deep venous structures in the extremity demonstrate normal course and caliber. There is no evidence of deep vein thrombosis. Normal color flow and spectral analysis Impression: Negative for DVT..
[2025-03-16] MEDS: PIPER/TAZO 3.375 GM PREMIX 3.375 GM/50 ML BAG IV (05:19)
[2025-03-16 05:58] LABS: Basophils # (Auto) 0.1 Thou/mm3 (0.0-0.2); Basophils % (Auto) 1 % (0-2.5); Eosinophils # (Auto) 0.2 Thou/mm3 (0.0-0.5); Eosinophils % (Auto) 1 % (0-10); Hematocrit 32.4 % (36.0-46.0); Hemoglobin 11.1 g/dL (12.0-16.0); Immature Granulocytes % (Auto) 1 % (0-0); Immature Granulocytes Auto 0.07 Thou/mm3 (0.00-0.00); Lymphocytes % (Auto) 29 % (10-50); Mean Corpuscular HGB Conc 34.3 g/dl (31.0-37.0); Mean Corpuscular Hemoglobin 29.3 pg (25.0-35.0); Mean Corpuscular Volume 86 fL (80-100); Monocytes # (Auto) 0.6 Thou/mm3 (0.0-0.8); Monocytes % (Auto) 6 % (0-12); Neutrophils # (Auto) 6.6 Thou/mm3 (1.8-7.7); Neutrophils % (Auto) 63 % (37-80); Nucleated Red Blood Cell % 0 /100 WBC (0); Platelet Count 408 Thou/mm3 (140-440); RDW Standard Deviation 46.9 fL (36.4-46.3); Red Blood Count 3.79 Miln/mm3 (4.00-5.20); White Blood Count 10.5 Thou/mm3 (3.6-11.0)
--- NOTE | 2025-03-16 06:03 | ESPR_ITS ---
Subjective Subjective Interval history: bka noted Exam Vital Signs Temp Pulse Resp BP Pulse Ox O2 Del Method O2 Flow Rate 97.8 F 81 15 145/87 H 94 L Room Air 3 03/16/25 04:00 03/16/25 04:00 03/16/25 04:00 03/16/25 05:26 03/16/25 04:00 03/16/25 04:00 03/15/25 04:00 Narrative Exam bka noted Objective - Internal Medicine Labs 03/15/25 09:00 03/15/25 10:44 Labs: Laboratory Results - last 24 hr 03/15/25 03/15/25 09:00 10:44 WBC 10.6 D RBC 3.82 L Hgb 11.3 L Hct 32.4 L MCV 85 MCH 29.6 MCHC 34.9 RDW Std Deviation 45.9 Plt Count 402 D Neut % (Auto) 72 Lymph % (Auto) 21 [place] % (Auto) 5 Eos % (Auto) 1 Baso % (Auto) 0 Neut # (Auto) 7.6 Lymph # (Auto) 2.3 [place] # (Auto) 0.5 Eos # (Auto) 0.1 Baso # (Auto) 0.0 Immature Gran # (Auto) 0.07 H Absolute Nucleated RBC 0.00 Immature Gran % 1 H Nucleated RBC % 0 Sodium 137 Potassium 3.8 D Chloride 106 Carbon Dioxide 25.7 Anion Gap 5 L BUN 9 Creatinine 0.7 Estim Creat Clear Calc 93.1 eGFR > 60 BUN/Creatinine Ratio 13 Glucose 165 H Calculated Osmolality 276 Calcium 6.8 L* Corrected Calcium 8.3 L Magnesium 1.7 Total Bilirubin 0.2 L AST 31 ALT 10 Alkaline Phosphatase 539 H Total Protein 4.7 L Albumin 2.1 L Globulin 2.6 Albumin/Globulin Ratio 0.8 L Assessment & Plan A&P Narrative osteo of foot dm II pvd nicotine dependence with bka. ok to move to [facility] for 5d post op. will see again prn. home ok with me Time Spent With Patient Time: Total time spent is greater than 50% in coordination of care (as documented) at patient's floor/unit and/or counseling patient:
[2025-03-16 06:56] LABS: Alanine Aminotransferase 10 U/L (10-49); Albumin, Serum 2.2 gm/dL (3.4-4.8); Albumin/Globulin Ratio 0.8 (1.2-2.2); Alkaline Phosphatase 552 U/L (46-116); Anion Gap 8 (7-16); Aspartate Amino Transferase 28 U/L (0-34); BUN/Creatinine Ratio 12 Ratio (12-20); Bilirubin,Total 0.2 mg/dL (0.3-1.2); Blood Urea Nitrogen 7 mg/dL (9-23); Calcium 7.2 mg/dL (8.3-10.6); Calcium (Corrected) 8.6 mg/dL (8.5-10.1); Carbon Dioxide 26.3 mMol/L (20.0-31.0); Chloride 106 mMol/L (98-107); Creatinine (Component) 0.6 mg/dL (0.6-1.3); Estimated Creatinine Clearance 105.6 mL/min (>60); Globulin 2.8 gm/dL (2.3-3.5); Glucose 108 mg/dL (74-106); Magnesium 1.5 mg/dL (1.6-2.6); Osmolality,Calculated 278 (275-295); Potassium 3.7 mMol/L (3.4-5.1); Sodium 140 mMol/L (136-145); eGFR > 60 See Note
[2025-03-16] MEDS: cephALEXin 250 MG CAPSULE 500 MG PO ×4 (08:04→20:23)
[2025-03-16] MEDS: Magnesium Sulfate 4 GM Ivpb 4 GM/50 ML BAG IV (08:04)
[2025-03-16] MEDS: LOSARTAN POTASSIUM 25 MG TABLET 100 MG PO (08:05)
[2025-03-16] MEDS: POTASSIUM CHLORIDE 20 mEq TABCR PO (08:06)
[2025-03-16] MEDS: ZINC SULFATE 220 MG CAPSULE PO (08:07)
[2025-03-16] MEDS: ENOXAPARIN SOD INJ 40 MG/0.4 ML SYRINGE SC (08:07)
[2025-03-16] MEDS: DOCUSATE SOD 100 MG CAPSULE PO ×2 (08:07→20:24)
[2025-03-16] MEDS: ASCORBIC ACID 250 MG TABLET 500 MG PO ×2 (08:12→20:24)
[2025-03-16] MEDS: INSULIN GLARGINE (Lantus) 5 UNIT/0.05 ML (PER 5 UNITS) 20 UNIT SC (08:20)
--- NOTE | 2025-03-16 08:34 | PD.SURPROG ---
Documentation for date of: 03/16/25 Subjective Subjective Narrative: Patient is seen and examined. She is complaining of BKA stump pain, controlled with pain medication Exam Vital Signs Temp Pulse Resp BP Pulse Ox O2 Del Method O2 Flow Rate 96.9 F 90 23 H 145/79 H 97 Room Air 3 03/16/25 08:00 03/16/25 08:05 03/16/25 08:00 03/16/25 08:05 03/16/25 08:00 03/16/25 08:00 03/15/25 04:00 Constitutional Constitutional: no acute distress Routine Extremities Exam Comments: Left BKA stump dressings removed. Incision is clean, dry and intact Assessment & Plan Assessment Additional comments: Postop day #2 status post left BKA Plan Dressings removed, stump pattern and chain maker and protector applied. Patient can be discharged from surgical standpoint Procedures Procedures Left below the knee amputation
[2025-03-16] MEDS: HYDROcodone/APAP 7.5/325 TABLET 1 TAB PO ×2 (09:58→18:20)
--- NOTE | 2025-03-16 11:38 | PC.SS ---
Addendum entered by Caitlin Chino 03/16/25 16:24: SS informed by CARLEY Aguilar patient is now requesting SNF placement. Dr. Hernandez informed. SS informed by Bea, wheelchair order will be processed 03/19/25 due to holiday, Dr. David Stern informed. Landry Clark Shireen consulted for available wheelchairs, to inform SS if any available for patient. Addendum entered by Caitlin Chino 03/16/25 13:17: SS informed by Dr. David Stern patient will need wheelchair. SS informed by Dr. Albarran patient will not discharge today due to dizziness. SS submitted DME referral for wheelchair via [facility], response pending. Original Note: Dr. David Stern requested SS confirm discharge plan with patient, SNF vs home w/HH. SS met with patient at bedside, role and purpose of today's contact explained. Patient requested to return home with home health at this time. Patient declined SNF. SS informed. Dr. David Stern of final discharge plan.
--- NOTE | 2025-03-16 12:40 | PC.SS ---
Patients diagnosis creates mobility limitations that significantly impairs ability to participate in the patients activities of daily living either in their entirety, or in a reasonable time frame in the home and the patients mobility limitations can not be sufficiently resolved with an appropriately fitted cane or walker. Also, the use of a manual wheelchair will sufficiently improve patient?s ability to participate in the activities of daily living in the home and the patient is willing to use the wheelchair that is provided in the home. The patient has some one in the home that is available, willing and able to provide assistance with the wheelchair.
--- NOTE | 2025-03-16 12:59 | ESPR_ITS ---
RE: JONNY KING : 1960 DATE OF SERVICE: 03/16/2025 SUBJECTIVE: Jonny King appears to be doing about the same, does not complain of any problems or shortness of breath. She did have some pain in the left stump, but no problems so far. She underwent below-knee amputation and peripheral artery disease. Cardiac was stable, not having any cardiovascular symptoms, chest pain or shortness of breath OBJECTIVE: Vital Signs: Blood pressure 140/80, pulse rate 70, respirations 16, temperature is normal. Lungs: Decreased breath sounds. Heart: S1 and S2 regular. Abdomen: Soft. Extremities: No edema wound healing well; Neuro exam normal_ IMPRESSION: 1. Status post below-knee amputation. Left lower extremity stable. 2. Cardiovascular is stable. RECOMMENDATIONS: Continue medical management. No changes to be made. The patient can resume aspirin but no need for Brilinta since patient did not have any recent stents placed in last 6 months. DT: 12:30:11 TT: 12:57:00 Ref: [id number] - TID: [id number] [facility]
[2025-03-16 13:22] LABS: HIV (1&2) Antibody Rapid Non-Reactive
--- NOTE | 2025-03-16 14:35 | PD.RESPRO ---
Documentation for date of: 03/16/25 Subjective Subjective Interval history: Patient was seen and examined at bedside this morning. No acute overnight events. Patient had wound dressing changed today by general surgeon and she was started on p.o. antibiotics as well as advised by infectious disease. At this time patient was okay to be discharged, but she will need home health as well as a wheelchair therefore these are being set up prior to discharge. Only complaining of pain, otherwise no other complaints. Exam Vital Signs Temp Pulse Resp BP Pulse Ox O2 Del Method O2 Flow Rate 96.9 F 79 12 132/77 H 95 Room Air 3 03/16/25 12:00 03/16/25 12:00 03/16/25 12:00 03/16/25 12:00 03/16/25 12:00 03/16/25 12:00 03/15/25 04:00 Narrative Exam General: A/O x3, no acute distress Eyes: PERRL, EOMI. Anicteric, vision grossly intact. Ears: No ear pain, no ear discharge, Hearing grossly intact. Nose: No nasal discharge. Mouth/Throat: Moist mucous membranes, no redness, no lesions. Neck: Neck supple, non-tender, no cervical lymphadenopathy. Lungs: Clear DANAY to auscultation and percussion, No accessory muscle use. Cardio: Normal S1/S2, regular rhythm, no murmurs, no JVD Abdomen: Soft, non-tender, no palpable masses, peristalsis present, no guarding or rebound. Extremities: Symmetrical, no significant deformities, trace peripheral edema , non-tender, L BKA with clean dressing, and R LE with clean dressing Skin: No rashes, no lesions, warm to touch. Neuro: No focal neurological deficits. motor and sensory intact Psych: Cooperative, appropriate mood and effect. Objective Labs 03/16/25 05:30 03/16/25 05:30 Labs: Laboratory Results - last 24 hr 03/16/25 03/16/25 05:04 05:30 WBC 10.5 RBC 3.79 L Hgb 11.1 L Hct 32.4 L MCV 86 MCH 29.3 MCHC 34.3 RDW Std Deviation 46.9 H Plt Count 408 Neut % (Auto) 63 Lymph % (Auto) 29 [place] % (Auto) 6 Eos % (Auto) 1 Baso % (Auto) 1 Neut # (Auto) 6.6 Lymph # (Auto) 3.0 [place] # (Auto) 0.6 Eos # (Auto) 0.2 Baso # (Auto) 0.1 Immature Gran # (Auto) 0.07 H Absolute Nucleated RBC 0.00 Immature Gran % 1 H Nucleated RBC % 0 Sodium 140 Potassium 3.7 Chloride 106 Carbon Dioxide 26.3 Anion Gap 8 BUN 7 L Creatinine 0.6 Estim Creat Clear Calc 105.6 eGFR > 60 BUN/Creatinine Ratio 12 Glucose 108 H D Calculated Osmolality 278 Calcium 7.2 L Corrected Calcium 8.6 Magnesium 1.5 L Total Bilirubin 0.2 L AST 28 ALT 10 Alkaline Phosphatase 552 H Total Protein 5.0 L Albumin 2.2 L Globulin 2.8 Albumin/Globulin Ratio 0.8 L HIV 1&2 Antibody Rapid Non-Reactive Quality Measures Quality Measures none Assessment & Plan Assessment Current Active Medications: Generic Name Dose Route Start Last Admin Trade Name Freq PRN Reason Stop Dose Admin Acetaminophen 650 mg 03/12/25 23:35 Acetaminophen 325 Mg Tablet PO 04/11/25 05:59 Q6H PRN Fever >100.3 or pain 1-5 Hydrocodone Bitart/Acetaminophen 1 tab 03/16/25 09:45 03/16/25 09:58 Hydrocodone/Apap 7.5/325 Tablet PO 03/21/25 09:44 1 tab Q6HR PRN Administration PAIN SCALE 4-10(Mod-Sev Albuterol/Ipratropium 3 ml 03/11/25 22:41 Albuterol/Ipratropium (Duoneb) Rt Melania 3 Ml Nebu INH 04/10/25 22:59 Q4HRRT PRN SHORTNESS OF BREATH Amlodipine Besylate 10 mg 03/16/25 00:30 03/16/25 08:05 Amlodipine Besylate 5 Mg Tablet PO 04/15/25 00:29 10 mg DAILY SUNDAY Administration Ascorbic Acid 500 mg 03/16/25 09:00 03/16/25 08:12 Ascorbic Acid 250 Mg Tablet PO 04/15/25 08:59 500 mg BID SUNDAY Administration Atorvastatin Calcium 80 mg 03/12/25 21:00 03/15/25 20:40 Atorvastatin Calcium 20 Mg Tablet PO 04/11/25 20:59 80 mg QPM SUNDAY Administration Cephalexin HCl 500 mg 03/16/25 07:30 03/16/25 11:40 Cephalexin 250 Mg Capsule PO 03/21/25 07:29 500 mg QID SUNDAY Administration Dextrose 25 ml 03/12/25 00:04 Dextrose 50%-Water Inj 50 Ml Syringe IV 04/11/25 00:03 Q15MIN PRN BG 50-70 responsive npo pt Dextrose 50 ml 03/12/25 00:04 03/13/25 17:08 Dextrose 50%-Water Inj 50 Ml Syringe IV 04/11/25 00:03 50 ml Q15MIN PRN Administration BG <50 OR BG <70 & pt unresponsive Docusate Sodium 100 mg 03/14/25 21:00 03/16/25 08:07 Docusate Sod 100 Mg Capsule PO 04/13/25 20:59 100 mg BID SUNDAY Administration Protocol Enoxaparin Sodium 40 mg 03/16/25 09:00 03/16/25 08:07 Enoxaparin Sod Inj 40 Mg/0.4 Ml Syringe SC 03/30/25 08:59 40 mg QDAY SUNDAY Administration Glucagon 1 mg 03/12/25 00:04 Glucagon Inj 1 Mg Vial IM Q15MIN PRN BG <70, and no IV access Insulin Glargine 20 unit 03/12/25 09:00 03/16/25 08:20 Insulin Glargine (Lantus) 5 Unit/0.05 Ml (Per 5 Units) SC 04/11/25 08:59 20 unit QDAY SUNDAY Administration Insulin Human Lispro 0 unit 03/12/25 21:00 03/16/25 11:31 Insulin Lispro (Admelog) 1 Unit/0.01 Ml Unit SC 04/11/25 20:59 Not Given ACHS [facility] Protocol Losartan Potassium 100 mg 03/12/25 09:00 03/16/25 08:05 Losartan Potassium 25 Mg Tablet PO 04/11/25 08:59 100 mg QDAY SUNDAY Administration Morphine Sulfate 3 mg 03/14/25 16:57 03/16/25 08:53 Morphine Sulf Inj 10 Mg/Ml Vial IVP 03/19/25 16:56 3 mg Q3H PRN Administration PAIN SCALE 7-10 (Severe Ondansetron HCl 4 mg 03/11/25 22:41 Ondansetron Inj 2 Mg/Ml Inj 2 Ml IV 04/10/25 22:40 Q6H PRN NAUSEA OR VOMITING Protocol Sennosides 1 tab 03/11/25 22:41 03/16/25 01:14 Senna Tablet PO 04/10/25 22:40 1 tab QDAY PRN Administration constipation Protocol Zinc Sulfate 220 mg 03/13/25 17:00 03/16/25 08:07 Zinc Sulfate 220 Mg Capsule PO 04/12/25 16:59 220 mg QDAY SUNDAY Administration Plan 64-year-old female with past medical history of hypertension, CAD status post stents, DM2, COPD, and current smoker was admitted to the hospital on 03/12/2025 due to diabetic foot with possible osteomyelitis. #Diabetic foot #Osteomyelitis posterior calcaneus #Leukocytosis #Hx of DM2 #Hypoglycemia #Severe peripheral arterial disease Patient came in with complaints of heel wound that progressively got worse. A1c 7.3 on 02/2025 Patient had a foot x-ray that showed early osteomyelitis of posterior plantar surface of the calcaneus Patient's WBCs were elevated at 21.3 and downtrending now ESR was 107 and CRP greater than 10. Procalcitonin and lactic acid were negative. Orthopedic stated no intervention from their standpoint CTA showed CTA showed 50% stenosis of proximal left common neck artery, 60% stenosis of distal right common iliac artery, patent distal right superficial femoral artery stent, occlusion of the distal left superficial femoral artery at the distal femoral stem, multiple occlusions of the distal superficial, artery and severe bilateral trifurcation vessel arterial disease. Blood cultures have been negative WBC downtrending Plan: Discontinue with vancomycin and Zosyn (03/11/2025?03/16/2025) Started Keflex (03/16/2025-) Glargine 20 units qday ISS Wound care ordered PICC line discontinued General surgery consulted,appreciate recommendations ID consulted, appreciate recommendations Cardiology consulted,stated may need angiogram outpatient #Electrolyte imbalance #Hypokalemia #Hypomagnesemia Potassium today 3.7 and mg 1.5 Plan: Will replete as necessary #Bilateral lower extremity swelling #HFpEF (EF 55-60%) Patient has bilateral lower extremity swelling 2+ and given history of heart disease patient could have some underlying heart failure There is no echo on file Echo showed EF of 55 to 60%. No crackles and DANAY edema improving Plan: Will continue to monitor #Hx of hypertension #Hx of hyperlipidemia Continue atorvastatin 80 mg at bedtime, amlodipine 10mg qday, and losartan 100 mg daily Hospital Maintenance: Disposition: Pending wheelchair for Home with home health Diet: Carb consistent DVT ppx: lovenox GI ppx: not indicated Code status: Full. Case disclosed with Attending Dr. Avis Stern, PGY-1 Disclaimer: This note was dictated by speech recognition and even though it was carefully revised there may still be minor errors in heat treat furnace operator due to voice recognition software. Attending Provider Attestation/Addendum I attest that I was physically present for the evaluation, physical examination, lab and imaging review of the patient with the residents. I discussed the case with the residents and agree with the findings and plans of care as documented above. At bedside today, patient was complaining of pain around her stump. Dressing was changed today with general surgery. Antibiotics changed to p.o. Keflex as recommended by ID. Vital signs have been stable. Lab results show hypomagnesemia and hypokalemia which were WBC count have been improving. Patient medically stable for discharge, awaiting placement. Charissa Albarran MD
[2025-03-16] MEDS: ATORVASTATIN CALCIUM 20 MG TABLET 80 MG PO (20:23)
--- NOTE | 2025-03-16 20:35 | PC.NURSE ---
DR. CASTANEDA MADE AWARE OF PT WITH NO BM SINCE 03/11. [facility] SCHEDULED. PRN SENNA GIVEN TODAY. +GAS. NEW ORDERS TO BE PLACED BY .
--- NOTE | 2025-03-16 21:26 | PC.NURSE ---
DR. CASTANEDA MADE AWARE MOVANTIK NOT AVAILABLE IN [facility]. PT REFUSING DULCOLAX SUPPOSITORY AT THIS TIME. NEW ORDERS MADE FOR GI REGIMEN
[2025-03-16] MEDS: Milk Of Magnesia Susp 30 ML UDC PO (21:29)
[2025-03-17] VITALS (15 sets, daily range): BP systolic 153–186; BP diastolic 60–92; PULSE 73–96; RESP 11–96; TEMP 36.1–36.4; O2SAT 95–98; BMI 31.0
[2025-03-17] MEDS: hydrALAZINE INJ 20 MG/ML VIAL 10 MG IVP ×2 (00:21→20:59)
[2025-03-17] MEDS: MORPHINE SULF INJ 10 MG/ML VIAL 3 MG IVP ×2 (04:45→20:52)
[2025-03-17] MEDS: SENNA TABLET 1 TAB PO (05:16)
[2025-03-17] MEDS: cephALEXin 250 MG CAPSULE 500 MG PO ×4 (05:16→20:52)
[2025-03-17 05:53] LABS: Basophils # (Auto) 0.1 Thou/mm3 (0.0-0.2); Basophils % (Auto) 1 % (0-2.5); Eosinophils # (Auto) 0.2 Thou/mm3 (0.0-0.5); Eosinophils % (Auto) 2 % (0-10); Hemoglobin 10.7 g/dL (12.0-16.0); Immature Granulocytes % (Auto) 1 % (0-0); Immature Granulocytes Auto 0.08 Thou/mm3 (0.00-0.00); Lymphocytes # (Auto) 2.7 Thou/mm3 (1.0-4.8); Lymphocytes % (Auto) 25 % (10-50); Mean Corpuscular HGB Conc 33.4 g/dl (31.0-37.0); Mean Corpuscular Hemoglobin 29.2 pg (25.0-35.0); Mean Corpuscular Volume 87 fL (80-100); Monocytes # (Auto) 0.7 Thou/mm3 (0.0-0.8); Monocytes % (Auto) 6 % (0-12); Neutrophils # (Auto) 7.3 Thou/mm3 (1.8-7.7); Neutrophils % (Auto) 66 % (37-80); Nucleated Red Blood Cell % 0 /100 WBC (0); Platelet Count 451 Thou/mm3 (140-440); RDW Standard Deviation 48.8 fL (36.4-46.3); Red Blood Count 3.66 Miln/mm3 (4.00-5.20)
[2025-03-17 06:40] LABS: Alanine Aminotransferase 8 U/L (10-49); Albumin, Serum 2.3 gm/dL (3.4-4.8); Albumin/Globulin Ratio 0.8 (1.2-2.2); Alkaline Phosphatase 521 U/L (46-116); Anion Gap 7 (7-16); Aspartate Amino Transferase 27 U/L (0-34); BUN/Creatinine Ratio 14 Ratio (12-20); Bilirubin,Total 0.2 mg/dL (0.3-1.2); Blood Urea Nitrogen 7 mg/dL (9-23); Calcium 7.6 mg/dL (8.3-10.6); Carbon Dioxide 26.6 mMol/L (20.0-31.0); Chloride 105 mMol/L (98-107); Creatinine (Component) 0.5 mg/dL (0.6-1.3); Estimated Creatinine Clearance 126.7 mL/min (>60); Glucose 78 mg/dL (74-106); Magnesium 1.7 mg/dL (1.6-2.6); Osmolality,Calculated 274 (275-295); Potassium 3.7 mMol/L (3.4-5.1); Sodium 139 mMol/L (136-145); Total Protein 5.3 gm/dL (5.7-8.2); eGFR > 60 See Note
--- NOTE | 2025-03-17 08:02 | ESPR_ITS ---
Documentation for date of: 03/17/25 Subjective Subjective Interval history: Patient was seen and examined at bedside this morning. No acute overnight events. This morning patient states that her pain is more well-controlled. Patient's blood pressure has been uncontrolled as of recently Ranging in the 180s. Patient today stated that she would like to go to a jail facility now as she thinks that will be of more benefit for her at this time rather than going home with follow-up. Will require authorization for jail facility placement. Exam Vital Signs Temp Pulse Resp BP Pulse Ox O2 Del Method O2 Flow Rate 97.0 F 81 18 162/81 H 98 Room Air 3 03/17/25 04:00 03/17/25 07:44 03/17/25 04:00 03/17/25 04:00 03/17/25 04:00 03/17/25 04:00 03/15/25 04:00 Narrative Exam General: A/O x3, no acute distress Eyes: PERRL, EOMI. Anicteric, vision grossly intact. Ears: No ear pain, no ear discharge, Hearing grossly intact. Nose: No nasal discharge. Mouth/Throat: Moist mucous membranes, no redness, no lesions. Neck: Neck supple, non-tender, no cervical lymphadenopathy. Lungs: Clear DANAY to auscultation and percussion, No accessory muscle use. Cardio: Normal S1/S2, regular rhythm, no murmurs, no JVD Abdomen: Soft, non-tender, no palpable masses, peristalsis present, no guarding or rebound. Extremities: Symmetrical, no significant deformities, trace peripheral edema , non-tender, L BKA with clean dressing, and R LE with clean dressing Skin: No rashes, no lesions, warm to touch. Neuro: No focal neurological deficits. motor and sensory intact Psych: Cooperative, appropriate mood and effect. Objective Labs 03/17/25 05:22 03/17/25 05:22 Labs: Laboratory Results - last 24 hr 03/16/25 03/17/25 05:04 05:22 WBC 11.0 RBC 3.66 L Hgb 10.7 L Hct 32.0 L MCV 87 MCH 29.2 MCHC 33.4 RDW Std Deviation 48.8 H Plt Count 451 H D Neut % (Auto) 66 Lymph % (Auto) 25 [place] % (Auto) 6 Eos % (Auto) 2 Baso % (Auto) 1 Neut # (Auto) 7.3 Lymph # (Auto) 2.7 [place] # (Auto) 0.7 Eos # (Auto) 0.2 Baso # (Auto) 0.1 Immature Gran # (Auto) 0.08 H Absolute Nucleated RBC 0.00 Immature Gran % 1 H Nucleated RBC % 0 Sodium 139 Potassium 3.7 Chloride 105 Carbon Dioxide 26.6 Anion Gap 7 BUN 7 L Creatinine 0.5 L Estim Creat Clear Calc 126.7 eGFR > 60 BUN/Creatinine Ratio 14 Glucose 78 Calculated Osmolality 274 L Calcium 7.6 L Corrected Calcium 9.0 Magnesium 1.7 Total Bilirubin 0.2 L AST 27 ALT 8 L Alkaline Phosphatase 521 H D Total Protein 5.3 L Albumin 2.3 L Globulin 3.0 Albumin/Globulin Ratio 0.8 L HIV 1&2 Antibody Rapid Non-Reactive Quality Measures Quality Measures none Assessment & Plan Assessment Current Active Medications: Generic Name Dose Route Start Last Admin Trade Name Freq PRN Reason Stop Dose Admin Acetaminophen 650 mg 03/12/25 23:35 Acetaminophen 325 Mg Tablet PO 04/11/25 05:59 Q6H PRN Fever >100.3 or pain 1-5 Hydrocodone Bitart/Acetaminophen 1 tab 03/16/25 09:45 03/16/25 18:20 Hydrocodone/Apap 7.5/325 Tablet PO 03/21/25 09:44 1 tab Q6HR PRN Administration PAIN SCALE 4-10(Mod-Sev Albuterol/Ipratropium 3 ml 03/11/25 22:41 Albuterol/Ipratropium (Duoneb) Rt Melania 3 Ml Nebu INH 04/10/25 22:59 Q4HRRT PRN SHORTNESS OF BREATH Ascorbic Acid 500 mg 03/16/25 09:00 03/16/25 20:24 Ascorbic Acid 250 Mg Tablet PO 04/15/25 08:59 500 mg BID SUNDAY Administration Aspirin 81 mg 03/17/25 09:00 Aspirin Ec 81 Mg Tabec PO 04/16/25 08:59 QDAY SUNDAY Atorvastatin Calcium 80 mg 03/12/25 21:00 03/16/25 20:23 Atorvastatin Calcium 20 Mg Tablet PO 04/11/25 20:59 80 mg QPM SUNDAY Administration Cephalexin HCl 500 mg 03/16/25 07:30 03/17/25 05:16 Cephalexin 250 Mg Capsule PO 03/21/25 07:29 500 mg QID SUNDAY Administration Dextrose 25 ml 03/12/25 00:04 Dextrose 50%-Water Inj 50 Ml Syringe IV 04/11/25 00:03 Q15MIN PRN BG 50-70 responsive npo pt Dextrose 50 ml 03/12/25 00:04 03/13/25 17:08 Dextrose 50%-Water Inj 50 Ml Syringe IV 04/11/25 00:03 50 ml Q15MIN PRN Administration BG <50 OR BG <70 & pt unresponsive Docusate Sodium 100 mg 03/14/25 21:00 03/16/25 20:24 Docusate Sod 100 Mg Capsule PO 04/13/25 20:59 100 mg BID SUNDAY Administration Protocol Enoxaparin Sodium 40 mg 03/16/25 09:00 03/16/25 08:07 Enoxaparin Sod Inj 40 Mg/0.4 Ml Syringe SC 03/30/25 08:59 40 mg QDAY SUNDAY Administration Glucagon 1 mg 03/12/25 00:04 Glucagon Inj 1 Mg Vial IM Q15MIN PRN BG <70, and no IV access Hydrochlorothiazide 12.5 mg 03/17/25 09:00 Hydrochlorothiazide 12.5 Mg Capsule PO 04/16/25 08:59 QDAY [facility] Insulin Glargine 20 unit 03/12/25 09:00 03/16/25 08:20 Insulin Glargine (Lantus) 5 Unit/0.05 Ml (Per 5 Units) SC 04/11/25 08:59 20 unit QDAY [facility] Administration Insulin Human Lispro 0 unit 03/12/25 21:00 03/17/25 07:56 Insulin Lispro (Admelog) 1 Unit/0.01 Ml Unit SC 04/11/25 20:59 Not Given ACHS [facility] Protocol Losartan Potassium 100 mg 03/12/25 09:00 03/16/25 08:05 Losartan Potassium 25 Mg Tablet PO 04/11/25 08:59 100 mg QDAY SUNDAY Administration Morphine Sulfate 3 mg 03/14/25 16:57 03/17/25 04:45 Morphine Sulf Inj 10 Mg/Ml Vial IVP 03/19/25 16:56 3 mg Q3H PRN Administration PAIN SCALE 7-10 (Severe Nifedipine 30 mg 03/17/25 09:00 Nifedipine Xl 30 Mg Tabcr PO 04/16/25 08:59 QDAY SUNDAY Ondansetron HCl 4 mg 03/11/25 22:41 Ondansetron Inj 2 Mg/Ml Inj 2 Ml IV 04/10/25 22:40 Q6H PRN NAUSEA OR VOMITING Protocol Sennosides 1 tab 03/11/25 22:41 03/17/25 05:16 Senna Tablet PO 04/10/25 22:40 1 tab QDAY PRN Administration constipation Protocol Zinc Sulfate 220 mg 03/13/25 17:00 03/16/25 08:07 Zinc Sulfate 220 Mg Capsule PO 04/12/25 16:59 220 mg QDAY SUNDAY Administration Plan 64-year-old female with past medical history of hypertension, CAD status post stents, DM2, COPD, and current smoker was admitted to the hospital on 03/12/2025 due to diabetic foot with possible osteomyelitis. #Diabetic foot #Osteomyelitis posterior calcaneus #Leukocytosis #Hx of DM2 #Hypoglycemia #Severe peripheral arterial disease Patient came in with complaints of heel wound that progressively got worse. A1c 7.3 on 02/2025 Patient had a foot x-ray that showed early osteomyelitis of posterior plantar surface of the calcaneus Patient's WBCs were elevated at 21.3 and downtrending now ESR was 107 and CRP greater than 10. Procalcitonin and lactic acid were negative. Orthopedic stated no intervention from their standpoint CTA showed CTA showed 50% stenosis of proximal left common neck artery, 60% stenosis of distal right common iliac artery, patent distal right superficial femoral artery stent, occlusion of the distal left superficial femoral artery at the distal femoral stem, multiple occlusions of the distal superficial, artery and severe bilateral trifurcation vessel arterial disease. Blood cultures have been negative WBC downtrending Plan: Discontinue with vancomycin and Zosyn (03/11/2025?03/16/2025) Started Keflex (03/16/2025-) Glargine 20 units qday ISS Wound care ordered PICC line will be continued to get labs and administer medications for now, but will discontinue prior to DC General surgery consulted,appreciate recommendations ID consulted, appreciate recommendations Cardiology consulted,stated may need angiogram outpatient #Electrolyte imbalance #Hypokalemia #Hypomagnesemia Potassium today 3.7 and mg 1.7 Plan: Will replete as necessary #Bilateral lower extremity swelling, improving #HFpEF (EF 55-60%) Patient has bilateral lower extremity swelling 2+ and given history of heart disease patient could have some underlying heart failure There is no echo on file Echo showed EF of 55 to 60%. No crackles and DANAY edema improving Plan: Will continue to monitor #Hx of hypertension #Hx of hyperlipidemia #Hx of CAD s/p stents BP not well controlled still in the 180s Continue atorvastatin 80 mg at bedtime and losartan 100 mg daily Added hydrochlorothiazide 12.5mg qday and nifedipine XL 30mg qday Restarted aspirin 81mg qday Discontinued amlodipine 10mg qday Hospital Maintenance: Disposition: Pending wheelchair for Home with home health Diet: Carb consistent DVT ppx: lovenox GI ppx: not indicated Code status: Full. Case disclosed with Attending Dr. Avis Stern, PGY-1 Disclaimer: This note was dictated by speech recognition and even though it was carefully revised there may still be minor errors in sales record clerk due to voice recognition software. Attending Provider Attestation/Addendum I attest that I was physically present for the evaluation, physical examination, lab and imaging review of the patient with the residents. I discussed the case with the residents and agree with the findings and plans of care as documented above. At bedside today, patient is comfortable. States that her pain has been better compared to yesterday. Denies any new complaints. Vital signs have been stable except for her blood pressure, added hydrochlorothiazide 12.5 daily. We will continue to monitor her blood pressure closely and adjust her antihypertensive regimen. Continues to be on aspirin, discussed with cardiology, recommended against Brilinta. Continues to be on cephalexin. CBC is stable. Patient is stable for discharge to SNF, awaiting placement. Charissa Albarran MD
[2025-03-17] MEDS: INSULIN GLARGINE (Lantus) 5 UNIT/0.05 ML (PER 5 UNITS) 20 UNIT SC (08:10)
[2025-03-17] MEDS: ASCORBIC ACID 250 MG TABLET 500 MG PO ×2 (08:11→20:52)
[2025-03-17] MEDS: hydroCHLOROthiazide 12.5 MG CAPSULE PO ×2 (08:11→15:53)
[2025-03-17] MEDS: DOCUSATE SOD 100 MG CAPSULE PO ×2 (08:11→20:52)
[2025-03-17] MEDS: ASPIRIN EC 81 MG TABEC PO (08:11)
[2025-03-17] MEDS: NIFEdipine XL 30 MG TABCR PO (08:12)
[2025-03-17] MEDS: ZINC SULFATE 220 MG CAPSULE PO (08:12)
[2025-03-17] MEDS: LOSARTAN POTASSIUM 25 MG TABLET 100 MG PO (08:12)
[2025-03-17] MEDS: ENOXAPARIN SOD INJ 40 MG/0.4 ML SYRINGE SC (08:13)
[2025-03-17] MEDS: HYDROcodone/APAP 7.5/325 TABLET 1 TAB PO ×2 (08:22→15:57)
[2025-03-17] MEDS: NALOXEGOL OXALATE 25 MG TABLET (NON-FORMULARY) PO (09:59)
--- NOTE | 2025-03-17 10:43 | PC.SS ---
Addendum entered by Caitlin Chino 03/17/25 11:27: Daya MOON stated insurance auth. is needed for SNF and will be submitted 03/19/25 due to holiday. Addendum entered by Caitlin Chino 03/17/25 11:14: SNF responses reviewed with patient at bedside [facility]- [facility], nursing evaluation needed. [facility]- Declined [facility]- No beds avaiable. [facility]- Accepted patient. Patient has agreed to discharge to [facility]. SS informed Alejandra and awaiting response. Addendum entered by Caitlin Chino 03/17/25 10:57: PASRR level 1 completed and closed. Original Note: SS met with patient at bedside to confirm discharge plan home w/HH vs. SNF. Patient confirmed she would like to go to SNF. SS to follow up with SNFs for referrals responses.
[2025-03-17] MEDS: TICAGRELOR 90 MG TABLET PO (11:14)
--- NOTE | 2025-03-17 12:56 | PC.CC ---
received call from SARA Tucker, pt will be going to SNF. Will leave case open on [facility] until pt discharges to SNF
[2025-03-17] MEDS: ATORVASTATIN CALCIUM 20 MG TABLET 80 MG PO (20:52)
[2025-03-18] VITALS (11 sets, daily range): BP systolic 120–171; BP diastolic 63–88; PULSE 73–100; RESP 8–96; TEMP 36.1–36.6; O2SAT 94–97; BMI 31.0
[2025-03-18] MEDS: HYDROcodone/APAP 7.5/325 TABLET 1 TAB PO ×3 (04:41→19:43)
[2025-03-18] MEDS: cephALEXin 250 MG CAPSULE 500 MG PO ×4 (06:00→20:07)
[2025-03-18 06:59] LABS: Basophils % (Auto) 0 % (0-2.5); Eosinophils # (Auto) 0.2 Thou/mm3 (0.0-0.5); Eosinophils % (Auto) 2 % (0-10); Hematocrit 24.3 % (36.0-46.0); Immature Granulocytes % (Auto) 1 % (0-0); Immature Granulocytes Auto 0.06 Thou/mm3 (0.00-0.00); Lymphocytes # (Auto) 2.6 Thou/mm3 (1.0-4.8); Lymphocytes % (Auto) 26 % (10-50); Mean Corpuscular HGB Conc 33.7 g/dl (31.0-37.0); Mean Corpuscular Hemoglobin 29.5 pg (25.0-35.0); Mean Corpuscular Volume 87 fL (80-100); Monocytes # (Auto) 0.8 Thou/mm3 (0.0-0.8); Monocytes % (Auto) 8 % (0-12); Neutrophils # (Auto) 6.6 Thou/mm3 (1.8-7.7); Neutrophils % (Auto) 64 % (37-80); Nucleated Red Blood Cell % 0 /100 WBC (0); Platelet Count 462 Thou/mm3 (140-440); RDW Standard Deviation 48.2 fL (36.4-46.3); Red Blood Count 2.78 Miln/mm3 (4.00-5.20); White Blood Count 10.3 Thou/mm3 (3.6-11.0)
[2025-03-18 07:11] LABS: Hemoglobin 8.2 g/dL (12.0-16.0)
[2025-03-18 07:13] LABS: Alanine Aminotransferase 10 U/L (10-49); Albumin, Serum 2.3 gm/dL (3.4-4.8); Albumin/Globulin Ratio 0.9 (1.2-2.2); Alkaline Phosphatase 461 U/L (46-116); Anion Gap 7 (7-16); Aspartate Amino Transferase 28 U/L (0-34); BUN/Creatinine Ratio 16 Ratio (12-20); Bilirubin,Total 0.3 mg/dL (0.3-1.2); Blood Urea Nitrogen 8 mg/dL (9-23); Calcium 7.4 mg/dL (8.3-10.6); Calcium (Corrected) 8.8 mg/dL (8.5-10.1); Carbon Dioxide 26.2 mMol/L (20.0-31.0); Chloride 103 mMol/L (98-107); Creatinine (Component) 0.5 mg/dL (0.6-1.3); Estimated Creatinine Clearance 126.7 mL/min (>60); Globulin 2.7 gm/dL (2.3-3.5); Glucose 187 mg/dL (74-106); Magnesium 1.7 mg/dL (1.6-2.6); Osmolality,Calculated 275 (275-295); Potassium 3.7 mMol/L (3.4-5.1); Sodium 136 mMol/L (136-145); eGFR > 60 See Note
[2025-03-18] MEDS: INSULIN LISPRO (AdmeLOG) 1 UNIT/0.01 ML UNIT SC (07:43)
[2025-03-18] MEDS: INSULIN GLARGINE (Lantus) 5 UNIT/0.05 ML (PER 5 UNITS) 20 UNIT SC (08:20)
[2025-03-18] MEDS: ENOXAPARIN SOD INJ 40 MG/0.4 ML SYRINGE SC (08:20)
[2025-03-18] MEDS: hydroCHLOROthiazide 12.5 MG CAPSULE 25 MG PO (08:21)
[2025-03-18] MEDS: ZINC SULFATE 220 MG CAPSULE PO (08:21)
[2025-03-18] MEDS: LOSARTAN POTASSIUM 25 MG TABLET 100 MG PO (08:22)
[2025-03-18] MEDS: NIFEdipine XL 30 MG TABCR 60 MG PO (08:22)
[2025-03-18] MEDS: DOCUSATE SOD 100 MG CAPSULE PO (08:23)
[2025-03-18] MEDS: ASCORBIC ACID 250 MG TABLET 500 MG PO ×2 (08:23→20:07)
[2025-03-18] MEDS: ASPIRIN EC 81 MG TABEC PO (08:23)
--- NOTE | 2025-03-18 10:04 | PD.RESPRO ---
Documentation for date of: 03/18/25 Subjective Subjective Interval history: Patient was seen examined at bedside this morning. No acute overnight events. Patient's blood pressure still very elevated overnight and she did get 1 dose of hydralazine 10 mg IV due to high blood pressure. This morning blood sugar was still elevated in the 160s over 80s. Patient did have a drop in hemoglobin to 8.2 from 10.7, but there is no active signs of bleeding. Patient's pain is well-controlled she has no new complaints at this time. Still pending placement. Exam Vital Signs Temp Pulse Resp BP Pulse Ox O2 Del Method O2 Flow Rate 97.0 F 96 11 L 161/88 H 96 Room Air 3 03/18/25 08:00 03/18/25 08:47 03/18/25 08:47 03/18/25 08:22 03/18/25 08:47 03/18/25 08:00 03/15/25 04:00 Narrative Exam General: A/O x3, no acute distress Eyes: PERRL, EOMI. Anicteric, vision grossly intact. Ears: No ear pain, no ear discharge, Hearing grossly intact. Nose: No nasal discharge. Mouth/Throat: Moist mucous membranes, no redness, no lesions. Neck: Neck supple, non-tender, no cervical lymphadenopathy. Lungs: Clear DANAY to auscultation and percussion, No accessory muscle use. Cardio: Normal S1/S2, regular rhythm, no murmurs, no JVD Abdomen: Soft, non-tender, no palpable masses, peristalsis present, no guarding or rebound. Extremities: Symmetrical, no significant deformities, no peripheral edema , non-tender, L BKA with clean dressing, and R LE with clean dressing Skin: No rashes, no lesions, warm to touch. Neuro: No focal neurological deficits. motor and sensory intact Psych: Cooperative, appropriate mood and effect. Objective Labs 03/18/25 06:05 03/18/25 06:05 Labs: Laboratory Results - last 24 hr 03/18/25 06:05 WBC 10.3 RBC 2.78 L Hgb 8.2 L D Hct 24.3 L MCV 87 MCH 29.5 MCHC 33.7 RDW Std Deviation 48.2 H Plt Count 462 H Neut % (Auto) 64 Lymph % (Auto) 26 [place] % (Auto) 8 Eos % (Auto) 2 Baso % (Auto) 0 Neut # (Auto) 6.6 Lymph # (Auto) 2.6 [place] # (Auto) 0.8 Eos # (Auto) 0.2 Baso # (Auto) 0.0 Immature Gran # (Auto) 0.06 H Absolute Nucleated RBC 0.00 Immature Gran % 1 H Nucleated RBC % 0 Sodium 136 Potassium 3.7 Chloride 103 Carbon Dioxide 26.2 Anion Gap 7 BUN 8 L Creatinine 0.5 L Estim Creat Clear Calc 126.7 eGFR > 60 BUN/Creatinine Ratio 16 Glucose 187 H D Calculated Osmolality 275 Calcium 7.4 L Corrected Calcium 8.8 Magnesium 1.7 Total Bilirubin 0.3 AST 28 ALT 10 Alkaline Phosphatase 461 H D Total Protein 5.0 L Albumin 2.3 L Globulin 2.7 Albumin/Globulin Ratio 0.9 L Quality Measures Quality Measures none Assessment & Plan Assessment Current Active Medications: Generic Name Dose Route Start Last Admin Trade Name Freq PRN Reason Stop Dose Admin Acetaminophen 650 mg 03/18/25 07:58 Acetaminophen 325 Mg Tablet PO 04/11/25 05:59 Q6H PRN Fever >100.3 or pain 1-3 Hydrocodone Bitart/Acetaminophen 1 tab 03/16/25 09:45 03/18/25 04:41 Hydrocodone/Apap 7.5/325 Tablet PO 03/21/25 09:44 1 tab Q6HR PRN Administration PAIN SCALE 4-10(Mod-Sev Albuterol/Ipratropium 3 ml 03/11/25 22:41 Albuterol/Ipratropium (Duoneb) Rt Melania 3 Ml Nebu INH 04/10/25 22:59 Q4HRRT PRN SHORTNESS OF BREATH Ascorbic Acid 500 mg 03/16/25 09:00 03/18/25 08:23 Ascorbic Acid 250 Mg Tablet PO 04/15/25 08:59 500 mg BID SUNDAY Administration Aspirin 81 mg 03/17/25 09:00 03/18/25 08:23 Aspirin Ec 81 Mg Tabec PO 04/16/25 08:59 81 mg QDAY SUNDAY Administration Atorvastatin Calcium 80 mg 03/12/25 21:00 03/17/25 20:52 Atorvastatin Calcium 20 Mg Tablet PO 04/11/25 20:59 80 mg QPM SUNDAY Administration Cephalexin HCl 500 mg 03/16/25 07:30 03/18/25 06:00 Cephalexin 250 Mg Capsule PO 03/21/25 07:29 500 mg QID SUNDAY Administration Dextrose 25 ml 03/12/25 00:04 Dextrose 50%-Water Inj 50 Ml Syringe IV 04/11/25 00:03 Q15MIN PRN BG 50-70 responsive npo pt Dextrose 50 ml 03/12/25 00:04 03/13/25 17:08 Dextrose 50%-Water Inj 50 Ml Syringe IV 04/11/25 00:03 50 ml Q15MIN PRN Administration BG <50 OR BG <70 & pt unresponsive Docusate Sodium 100 mg 03/14/25 21:00 03/18/25 08:23 Docusate Sod 100 Mg Capsule PO 04/13/25 20:59 100 mg BID SUNDAY Administration Protocol Enoxaparin Sodium 40 mg 03/16/25 09:00 03/18/25 08:20 Enoxaparin Sod Inj 40 Mg/0.4 Ml Syringe SC 03/30/25 08:59 40 mg QDAY SUNDAY Administration Glucagon 1 mg 03/12/25 00:04 Glucagon Inj 1 Mg Vial IM Q15MIN PRN BG <70, and no IV access Hydralazine HCl 10 mg 03/17/25 16:08 03/17/25 20:59 Hydralazine Inj 20 Mg/Ml Vial IVP 04/16/25 16:14 10 mg Q6H PRN Administration SBP>170 hold if HR >90 Hydrochlorothiazide 25 mg 03/18/25 09:00 03/18/25 08:21 Hydrochlorothiazide 12.5 Mg Capsule PO 04/17/25 08:59 25 mg QDAY SUNDAY Administration Insulin Glargine 20 unit 03/12/25 09:00 03/18/25 08:20 Insulin Glargine (Lantus) 5 Unit/0.05 Ml (Per 5 Units) SC 04/11/25 08:59 20 unit QDAY SUNDAY Administration Insulin Human Lispro 0 unit 03/12/25 21:00 03/18/25 07:43 Insulin Lispro (Admelog) 1 Unit/0.01 Ml Unit SC 04/11/25 20:59 2 unit ACHS SUNDAY Administration Protocol Losartan Potassium 100 mg 03/12/25 09:00 03/18/25 08:22 Losartan Potassium 25 Mg Tablet PO 04/11/25 08:59 100 mg QDAY SUNDAY Administration Morphine Sulfate 3 mg 03/14/25 16:57 03/17/25 20:52 Morphine Sulf Inj 10 Mg/Ml Vial IVP 03/19/25 16:56 3 mg Q3H PRN Administration PAIN SCALE 7-10 (Severe Nifedipine 60 mg 03/18/25 09:00 03/18/25 08:22 Nifedipine Xl 30 Mg Tabcr PO 04/17/25 08:59 60 mg QDAY SUNDAY Administration Ondansetron HCl 4 mg 03/11/25 22:41 Ondansetron Inj 2 Mg/Ml Inj 2 Ml IV 04/10/25 22:40 Q6H PRN NAUSEA OR VOMITING Protocol Sennosides 1 tab 03/11/25 22:41 03/17/25 05:16 Senna Tablet PO 04/10/25 22:40 1 tab QDAY PRN Administration constipation Protocol Zinc Sulfate 220 mg 03/13/25 17:00 03/18/25 08:21 Zinc Sulfate 220 Mg Capsule PO 04/12/25 16:59 220 mg QDAY SUNDAY Administration Plan 64-year-old female with past medical history of hypertension, CAD status post stents, DM2, COPD, and current smoker was admitted to the hospital on 03/12/2025 due to diabetic foot with possible osteomyelitis. #Normocytic normochromic anemia Patient's hemoglobin has been trending down since admission which was 12.5 on admission This could be related to daily blood draws, but given acute drop from 10.7 yesterday to 8.2 today and given that she was started on aspirin yesterday and was given a one-time dose of Brilinta will rule out possibility of any bleeding Patient has no active signs of bleeding Plan: Fecal occult blood ordered Will transfuse hemoglobin less than 7 Will continue to monitor #Diabetic foot #Osteomyelitis posterior calcaneus #Leukocytosis #Hx of DM2 #Hypoglycemia, resolved #Severe peripheral arterial disease Patient came in with complaints of heel wound that progressively got worse. A1c 7.3 on 02/2025 Patient had a foot x-ray that showed early osteomyelitis of posterior plantar surface of the calcaneus Patient's WBCs were elevated at 21.3 and downtrending now ESR was 107 and CRP greater than 10. Procalcitonin and lactic acid were negative. Orthopedic stated no intervention from their standpoint CTA showed CTA showed 50% stenosis of proximal left common neck artery, 60% stenosis of distal right common iliac artery, patent distal right superficial femoral artery stent, occlusion of the distal left superficial femoral artery at the distal femoral stem, multiple occlusions of the distal superficial, artery and severe bilateral trifurcation vessel arterial disease. Blood cultures have been negative WBC downtrending Discontinue with vancomycin and Zosyn (03/11/2025?03/16/2025) Plan: Continue Keflex (03/16/2025-03/21/2025) Glargine 20 units qday ISS Wound care ordered PICC line will be continued to get labs and administer medications for now, but will discontinue prior to DC General surgery consulted,appreciate recommendations ID consulted, appreciate recommendations Cardiology consulted,stated may need angiogram outpatient #Electrolyte imbalance #Hypokalemia #Hypomagnesemia Potassium today 3.7 and mg 1.7 Plan: Will replete as necessary #Bilateral lower extremity swelling, improving #HFpEF (EF 55-60%) Patient has bilateral lower extremity swelling 2+ and given history of heart disease patient could have some underlying heart failure There is no echo on file Echo showed EF of 55 to 60%. No crackles and DANAY edema improving Plan: Will continue to monitor #Hx of hypertension #Hx of hyperlipidemia #Hx of CAD s/p stents BP not well controlled Continue atorvastatin 80 mg at bedtime and losartan 100 mg daily Increase hydrochlorothiazide to 25mg qday and nifedipine XL to 60mg qday Continue aspirin 81mg qday Discontinued amlodipine 10mg qday Hospital Maintenance: Disposition: Pending SNF and occult blood Diet: Carb consistent DVT ppx: lovenox GI ppx: not indicated Code status: Full. Case disclosed with Attending Dr. Avis Stern, PGY-1 Disclaimer: This note was dictated by speech recognition and even though it was carefully revised there may still be minor errors in credit report checker due to voice recognition software. Attending Provider Attestation/Addendum I attest that I was physically present for the evaluation, physical examination, lab and imaging review of the patient with the residents. I discussed the case with the residents and agree with the findings and plans of care as documented above. At bedside today, patient is states she is feeling well and denies any new complaints. Pain has been well-controlled with analgesics. Blood pressure continues to be on the higher side, we will adjust her antihypertensive regimen. Noted to have drop in hemoglobin from 10.7 yesterday to 8.2 today. Does not have any obvious source of bleeding. We will obtain fecal occult blood and follow-up on hemoglobin level. Charissa Albarran MD
[2025-03-18 12:30] LABS: Hematocrit 32.4 % (36.0-46.0); Hemoglobin 10.9 g/dL (12.0-16.0)
--- NOTE | 2025-03-18 14:35 | PC.SS ---
Rounding: Pending auth for [facility], amy Stapleton auth will be submitted tomorrow.
[2025-03-18] MEDS: ONDANSETRON INJ 2 MG/ML INJ 2 ML 4 MG IV (18:18)
[2025-03-18] MEDS: ATORVASTATIN CALCIUM 20 MG TABLET 80 MG PO (20:07)
[2025-03-19] VITALS (10 sets, daily range): BP systolic 127–155; BP diastolic 68–81; PULSE 76–90; RESP 12–92; TEMP 36.6–36.9; O2SAT 91–99; BMI 29.0
[2025-03-19] LABS: Hepatitis C Antibody Non Reactive (Non React)
[2025-03-19] MEDS: MORPHINE SULF INJ 10 MG/ML VIAL 3 MG IVP (00:15)
[2025-03-19] MEDS: cephALEXin 250 MG CAPSULE 500 MG PO ×4 (05:03→20:06)
[2025-03-19 05:48] LABS: Basophils % (Auto) 0 % (0-2.5); Eosinophils # (Auto) 0.1 Thou/mm3 (0.0-0.5); Eosinophils % (Auto) 1 % (0-10); Hematocrit 31.1 % (36.0-46.0); Hemoglobin 10.4 g/dL (12.0-16.0); Immature Granulocytes % (Auto) 1 % (0-0); Immature Granulocytes Auto 0.05 Thou/mm3 (0.00-0.00); Lymphocytes # (Auto) 2.8 Thou/mm3 (1.0-4.8); Lymphocytes % (Auto) 28 % (10-50); Mean Corpuscular HGB Conc 33.4 g/dl (31.0-37.0); Mean Corpuscular Hemoglobin 29.6 pg (25.0-35.0); Mean Corpuscular Volume 89 fL (80-100); Monocytes # (Auto) 0.7 Thou/mm3 (0.0-0.8); Monocytes % (Auto) 8 % (0-12); Neutrophils % (Auto) 62 % (37-80); Nucleated Red Blood Cell % 0 /100 WBC (0); Platelet Count 412 Thou/mm3 (140-440); RDW Standard Deviation 47.2 fL (36.4-46.3); Red Blood Count 3.51 Miln/mm3 (4.00-5.20); White Blood Count 9.7 Thou/mm3 (3.6-11.0)
[2025-03-19 06:31] LABS: Alanine Aminotransferase 10 U/L (10-49); Albumin, Serum 2.4 gm/dL (3.4-4.8); Albumin/Globulin Ratio 0.8 (1.2-2.2); Alkaline Phosphatase 380 U/L (46-116); Anion Gap 7 (7-16); Aspartate Amino Transferase 25 U/L (0-34); BUN/Creatinine Ratio 13 Ratio (12-20); Bilirubin,Total 0.3 mg/dL (0.3-1.2); Blood Urea Nitrogen 8 mg/dL (9-23); Calcium 8.5 mg/dL (8.3-10.6); Calcium (Corrected) 9.8 mg/dL (8.5-10.1); Carbon Dioxide 25.8 mMol/L (20.0-31.0); Chloride 100 mMol/L (98-107); Creatinine (Component) 0.6 mg/dL (0.6-1.3); Estimated Creatinine Clearance 102.3 mL/min (>60); Globulin 3.1 gm/dL (2.3-3.5); Glucose 136 mg/dL (74-106); Magnesium 1.8 mg/dL (1.6-2.6); Osmolality,Calculated 266 (275-295); Potassium 3.4 mMol/L (3.4-5.1); Sodium 133 mMol/L (136-145); Total Protein 5.5 gm/dL (5.7-8.2); eGFR > 60 See Note
[2025-03-19] MEDS: Magnesium Sulfate 2 GM Ivpb 2 GM/50 ML BAG IV (08:35)
[2025-03-19] MEDS: INSULIN GLARGINE (Lantus) 5 UNIT/0.05 ML (PER 5 UNITS) 20 UNIT SC (08:36)
[2025-03-19] MEDS: HYDROcodone/APAP 7.5/325 TABLET 1 TAB PO ×2 (08:36→19:39)
[2025-03-19] MEDS: LOSARTAN POTASSIUM 25 MG TABLET 100 MG PO (08:37)
[2025-03-19] MEDS: hydroCHLOROthiazide 12.5 MG CAPSULE 25 MG PO (08:37)
[2025-03-19] MEDS: ZINC SULFATE 220 MG CAPSULE PO (08:38)
[2025-03-19] MEDS: ASCORBIC ACID 250 MG TABLET 500 MG PO ×2 (08:38→20:06)
[2025-03-19] MEDS: ASPIRIN EC 81 MG TABEC PO (08:38)
[2025-03-19] MEDS: ENOXAPARIN SOD INJ 40 MG/0.4 ML SYRINGE SC (08:38)
[2025-03-19] MEDS: POTASSIUM CHLORIDE 20 mEq TABCR 40 MEQ PO (08:38)
[2025-03-19] MEDS: NIFEdipine XL 30 MG TABCR 60 MG PO (08:39)
--- NOTE | 2025-03-19 11:26 | PC.SS ---
SS follow up note; Auth was submitted by Daya from [employer] this morning. auth pending.
[2025-03-19] MEDS: INSULIN LISPRO (AdmeLOG) 1 UNIT/0.01 ML UNIT SC ×3 (11:47→20:07)
--- NOTE | 2025-03-19 13:31 | ESPR_ITS ---
<Statement entered by Laurie Vargas MD - 03/19/25 14:36> Patient seen and examined at bedside. No acute overnight events reported. Patient's pain is well-controlled with her current pain regimen. Patient is currently pending authorization for her custodial facility. Prior to discharge, patient's PICC line will be removed. Patient will continue with antibiotics orally until 03/21/2025. I discussed with and supervised the industrial design intern physician who took care of this patient. I personally saw and examined the patient and discussed the assessment and plan with the entire medicine team, including my attending Dr. Castellano, I agree with most of the assessment and plan as documented below Laurie Vargas M.D. PGY-2 Disclaimer: Despite multiple revisions, due to the dictation software being used, the document bellow may not be free of grammatical errors including phonetic/typographic errors. However, this does not deter from our commitment to providing health care in the patient's best interest in mind. Documentation for date of: 03/19/25 Subjective Subjective Interval history: Patient was seen and examined at bedside this morning. No acute overnight events. Patient continues to have well-controlled pain and this morning her blood pressure was more stable throughout the night. Hemoglobin stable. She had no other complaints at this time. Exam Vital Signs Temp Pulse Resp BP Pulse Ox O2 Del Method O2 Flow Rate 98.2 F 88 17 139/68 H 93 L Room Air 3 03/19/25 08:00 03/19/25 08:39 03/19/25 08:00 03/19/25 08:39 03/19/25 08:00 03/19/25 08:00 03/15/25 04:00 Narrative Exam General: A/O x3, no acute distress Eyes: PERRL, EOMI. Anicteric, vision grossly intact. Ears: No ear pain, no ear discharge, Hearing grossly intact. Nose: No nasal discharge. Mouth/Throat: Moist mucous membranes, no redness, no lesions. Neck: Neck supple, non-tender, no cervical lymphadenopathy. Lungs: Clear DANAY to auscultation and percussion, No accessory muscle use. Cardio: Normal S1/S2, regular rhythm, no murmurs, no JVD Abdomen: Soft, non-tender, no palpable masses, peristalsis present, no guarding or rebound. Extremities: Symmetrical, no significant deformities, no peripheral edema , non-tender, L BKA with clean dressing, and R LE with clean dressing Skin: No rashes, no lesions, warm to touch. Neuro: No focal neurological deficits. motor and sensory intact Psych: Cooperative, appropriate mood and effect. Objective Labs 03/20/25 04:27 03/20/25 04:27 Labs: Laboratory Results - last 24 hr 03/16/25 03/19/25 05:30 05:05 WBC 9.7 RBC 3.51 L Hgb 10.4 L Hct 31.1 L MCV 89 MCH 29.6 MCHC 33.4 RDW Std Deviation 47.2 H Plt Count 412 D Neut % (Auto) 62 Lymph % (Auto) 28 [place] % (Auto) 8 Eos % (Auto) 1 Baso % (Auto) 0 Neut # (Auto) 6.0 Lymph # (Auto) 2.8 [place] # (Auto) 0.7 Eos # (Auto) 0.1 Baso # (Auto) 0.0 Immature Gran # (Auto) 0.05 H Absolute Nucleated RBC 0.00 Immature Gran % 1 H Nucleated RBC % 0 Sodium 133 L Potassium 3.4 Chloride 100 Carbon Dioxide 25.8 Anion Gap 7 BUN 8 L Creatinine 0.6 Estim Creat Clear Calc 102.3 eGFR > 60 BUN/Creatinine Ratio 13 Glucose 136 H D Calculated Osmolality 266 L Calcium 8.5 Corrected Calcium 9.8 Magnesium 1.8 Total Bilirubin 0.3 AST 25 ALT 10 Alkaline Phosphatase 380 H D Total Protein 5.5 L Albumin 2.4 L Globulin 3.1 Albumin/Globulin Ratio 0.8 L Hepatitis C Antibody Non Reactive Quality Measures Quality Measures none Assessment & Plan Assessment Current Active Medications: Generic Name Dose Route Start Last Admin Trade Name Freq PRN Reason Stop Dose Admin Acetaminophen 650 mg 03/18/25 07:58 Acetaminophen 325 Mg Tablet PO 04/11/25 05:59 Q6H PRN Fever >100.3 or pain 1-3 Hydrocodone Bitart/Acetaminophen 1 tab 03/16/25 09:45 03/19/25 08:36 Hydrocodone/Apap 7.5/325 Tablet PO 03/21/25 09:44 1 tab Q6HR PRN Administration PAIN SCALE 4-10(Mod-Sev Albuterol/Ipratropium 3 ml 03/11/25 22:41 Albuterol/Ipratropium (Duoneb) Rt Melania 3 Ml Nebu INH 04/10/25 22:59 Q4HRRT PRN SHORTNESS OF BREATH Ascorbic Acid 500 mg 03/16/25 09:00 03/19/25 08:38 Ascorbic Acid 250 Mg Tablet PO 04/15/25 08:59 500 mg BID SUNDAY Administration Aspirin 81 mg 03/17/25 09:00 03/19/25 08:38 Aspirin Ec 81 Mg Tabec PO 04/16/25 08:59 81 mg QDAY SUNDAY Administration Atorvastatin Calcium 80 mg 03/12/25 21:00 03/18/25 20:07 Atorvastatin Calcium 20 Mg Tablet PO 04/11/25 20:59 80 mg QPM SUNDAY Administration Cephalexin HCl 500 mg 03/16/25 07:30 03/19/25 11:51 Cephalexin 250 Mg Capsule PO 03/21/25 07:29 500 mg QID SUNDAY Administration Dextrose 25 ml 03/12/25 00:04 Dextrose 50%-Water Inj 50 Ml Syringe IV 04/11/25 00:03 Q15MIN PRN BG 50-70 responsive npo pt Dextrose 50 ml 03/12/25 00:04 03/13/25 17:08 Dextrose 50%-Water Inj 50 Ml Syringe IV 04/11/25 00:03 50 ml Q15MIN PRN Administration BG <50 OR BG <70 & pt unresponsive Docusate Sodium 100 mg 03/14/25 21:00 03/19/25 08:36 Docusate Sod 100 Mg Capsule PO 04/13/25 20:59 Not Given BID [facility] Protocol Enoxaparin Sodium 40 mg 03/16/25 09:00 03/19/25 08:38 Enoxaparin Sod Inj 40 Mg/0.4 Ml Syringe SC 03/30/25 08:59 40 mg QDAY SUNDAY Administration Glucagon 1 mg 03/12/25 00:04 Glucagon Inj 1 Mg Vial IM Q15MIN PRN BG <70, and no IV access Hydralazine HCl 10 mg 03/17/25 16:08 03/17/25 20:59 Hydralazine Inj 20 Mg/Ml Vial IVP 04/16/25 16:14 10 mg Q6H PRN Administration SBP>170 hold if HR >90 Hydrochlorothiazide 25 mg 03/18/25 09:00 03/19/25 08:37 Hydrochlorothiazide 12.5 Mg Capsule PO 04/17/25 08:59 25 mg QDAY SUNDAY Administration Insulin Glargine 20 unit 03/12/25 09:00 03/19/25 08:36 Insulin Glargine (Lantus) 5 Unit/0.05 Ml (Per 5 Units) SC 04/11/25 08:59 20 unit QDAY SUNDAY Administration Insulin Human Lispro 0 unit 03/12/25 21:00 03/19/25 11:47 Insulin Lispro (Admelog) 1 Unit/0.01 Ml Unit SC 04/11/25 20:59 2 unit ACHS SUNDAY Administration Protocol Losartan Potassium 100 mg 03/12/25 09:00 03/19/25 08:37 Losartan Potassium 25 Mg Tablet PO 04/11/25 08:59 100 mg QDAY SUNDAY Administration Morphine Sulfate 3 mg 03/14/25 16:57 03/19/25 00:15 Morphine Sulf Inj 10 Mg/Ml Vial IVP 03/19/25 16:56 3 mg Q3H PRN Administration PAIN SCALE 7-10 (Severe Nifedipine 60 mg 03/18/25 09:00 03/19/25 08:39 Nifedipine Xl 30 Mg Tabcr PO 04/17/25 08:59 60 mg QDAY SUNDAY Administration Ondansetron HCl 4 mg 03/11/25 22:41 03/18/25 18:18 Ondansetron Inj 2 Mg/Ml Inj 2 Ml IV 04/10/25 22:40 4 mg Q6H PRN Administration NAUSEA OR VOMITING Protocol Sennosides 1 tab 03/11/25 22:41 03/17/25 05:16 Senna Tablet PO 04/10/25 22:40 1 tab QDAY PRN Administration constipation Protocol Zinc Sulfate 220 mg 03/13/25 17:00 03/19/25 08:38 Zinc Sulfate 220 Mg Capsule PO 04/12/25 16:59 220 mg QDAY SUNDAY Administration Plan 64-year-old female with past medical history of hypertension, CAD status post stents, DM2, COPD, and current smoker was admitted to the hospital on 03/12/2025 due to diabetic foot with possible osteomyelitis. #Normocytic normochromic anemia Patient's hemoglobin has been trending down since admission which was 12.5 on admission Today hgb 10.4 Patient has no active signs of bleeding Plan: Will transfuse hemoglobin less than 7 Will continue to monitor #Left Diabetic foot left lower extremity gangrene #Osteomyelitis posterior calcaneus #Leukocytosis #Hx of DM2 #Hypoglycemia, resolved #Severe peripheral arterial disease Patient came in with complaints of heel wound that progressively got worse. A1c 7.3 on 02/2025 Patient had a foot x-ray that showed early osteomyelitis of posterior plantar surface of the calcaneus Patient's WBCs were elevated at 21.3 and downtrending now ESR was 107 and CRP greater than 10. Procalcitonin and lactic acid were negative. Orthopedic stated no intervention from their standpoint CTA showed CTA showed 50% stenosis of proximal left common neck artery, 60% stenosis of distal right common iliac artery, patent distal right superficial femoral artery stent, occlusion of the distal left superficial femoral artery at the distal femoral stem, multiple occlusions of the distal superficial, artery and severe bilateral trifurcation vessel arterial disease. Blood cultures have been negative WBC downtrending Discontinue with vancomycin and Zosyn (03/11/2025?03/16/2025) Plan: Continue Keflex (03/16/2025-03/21/2025) Glargine 20 units qday ISS Wound care ordered PICC line will be continued to get labs and administer medications for now, but will discontinue prior to DC General surgery consulted,appreciate recommendations ID consulted, appreciate recommendations Cardiology consulted,stated may need angiogram outpatient #Electrolyte imbalance #Hypokalemia #Hypomagnesemia Potassium today 3.4 and mg 1.8 Plan: Will replete as necessary #Bilateral lower extremity swelling, improving #HFpEF (EF 55-60%) Patient has bilateral lower extremity swelling 2+ and given history of heart disease patient could have some underlying heart failure There is no echo on file Echo showed EF of 55 to 60%. No crackles and DANAY edema improving Plan: Will continue to monitor #Hx of hypertension #Hx of hyperlipidemia #Hx of CAD s/p stents BP not well controlled Continue atorvastatin 80 mg at bedtime and losartan 100 mg daily Continue hydrochlorothiazide to 25mg qday and nifedipine XL to 60mg qday Continue aspirin 81mg qday Discontinued amlodipine 10mg qday, will discontinue upon DC Hospital Maintenance: Disposition: Pending SNF Diet: Carb consistent DVT ppx: lovenox GI ppx: not indicated Code status: Full. Case disclosed with Attending Dr. Castellano and my senior Dr. Sam Stern, PGY-1 Disclaimer: This note was dictated by speech recognition and even though it was carefully revised there may still be minor errors in electrotype servicer due to voice recognition software. Attending Provider Attestation/Addendum 64-year-old female with hypertension, hyperlipidemia, type 2 diabetes mellitus with subsequent CAD status post stent placement who presented to the ER on 03/12/2025 with left leg pain found to have left lower extremity gangrene and subsequently underwent left below-knee amp patient. As of now, patient continues to be on IV opiates and pending physical therapy evaluation. Anticipate discharge in the next 24-48 hours. I reviewed above note and agree with findings and plans. I have also personally examined the patient with medicine team and went over assessment and plan with medical team including industrial design intern and resident physician.
--- NOTE | 2025-03-19 14:40 | ESPR_ITS ---
<Statement entered by Danny Mcdaniel MD - 03/20/25 20:11> The patient appears to be doing fairly well I examined the patient and wound is healing well so far no shortness or chest pain no cardiac symptoms patient has known CAD previous stent placement but no anginal symptoms clinically stable we will continue to monitor the patient closely for cardiac issues agree with the treatment plan recommendation as documented with PGY 3 Dr. Terrell Documentation for date of: 03/19/25 Subjective Subjective Interval history: Patient examined bedside this morning, no acute overnight event. Pending SNF Exam Vital Signs Temp Pulse Resp BP Pulse Ox O2 Del Method O2 Flow Rate 98.3 F 84 18 145/71 H 94 L Room Air 3 03/19/25 12:00 03/19/25 12:00 03/19/25 12:00 03/19/25 12:00 03/19/25 12:00 03/19/25 12:00 03/15/25 04:00 Narrative Exam GENERAL: Comfortable adult seen resting comfortably in hospital bed, no acute distress cacexic looking , older then her age . HEENT: Normocephalic, atraumatic. Pupils are equal and reactive. Oral mucosa is moist. NECK: Supple, nontender, no JVD CHEST: Symmetrical, atraumatic and with equal expansion ,Nontender on palpation CARDIOVASCULAR: Heart regular rhythm & rate. S1/S2. no murmur or gallop rub or extra beats. LUNGS: Clear to auscultation bilaterally with symmetrical chest rise. No laboring tachypnea or wheezing. No intercostal subcostal retraction. No rales and no rhonchi. ABDOMEN: Soft, flat, nontender to palpation, no guarding or rebound tenderness. Active and normal bowel sounds. EXTREMITIES: left leg well dressed, no discharge noted. SKIN: Warm and dry, no jaundice or rashes noted. NEURO: Patient is AO x 3, Cranial nerves II through XII grossly intact. There is no focal neurologic deficits noted. PSYCHIATRIC: Patient is in normal mood, cooperative, no SI or HI or hallucinations. Objective Labs 03/19/25 05:05 03/19/25 05:05 Labs: Laboratory Results - last 24 hr 03/16/25 03/19/25 05:30 05:05 WBC 9.7 RBC 3.51 L Hgb 10.4 L Hct 31.1 L MCV 89 MCH 29.6 MCHC 33.4 RDW Std Deviation 47.2 H Plt Count 412 D Neut % (Auto) 62 Lymph % (Auto) 28 [place] % (Auto) 8 Eos % (Auto) 1 Baso % (Auto) 0 Neut # (Auto) 6.0 Lymph # (Auto) 2.8 [place] # (Auto) 0.7 Eos # (Auto) 0.1 Baso # (Auto) 0.0 Immature Gran # (Auto) 0.05 H Absolute Nucleated RBC 0.00 Immature Gran % 1 H Nucleated RBC % 0 Sodium 133 L Potassium 3.4 Chloride 100 Carbon Dioxide 25.8 Anion Gap 7 BUN 8 L Creatinine 0.6 Estim Creat Clear Calc 102.3 eGFR > 60 BUN/Creatinine Ratio 13 Glucose 136 H D Calculated Osmolality 266 L Calcium 8.5 Corrected Calcium 9.8 Magnesium 1.8 Total Bilirubin 0.3 AST 25 ALT 10 Alkaline Phosphatase 380 H D Total Protein 5.5 L Albumin 2.4 L Globulin 3.1 Albumin/Globulin Ratio 0.8 L Hepatitis C Antibody Non Reactive Quality Measures Quality Measures none Assessment & Plan Assessment Current Active Medications: Generic Name Dose Route Start Last Admin Trade Name Freq PRN Reason Stop Dose Admin Acetaminophen 650 mg 03/18/25 07:58 Acetaminophen 325 Mg Tablet PO 04/11/25 05:59 Q6H PRN Fever >100.3 or pain 1-3 Hydrocodone Bitart/Acetaminophen 1 tab 03/16/25 09:45 03/19/25 08:36 Hydrocodone/Apap 7.5/325 Tablet PO 03/21/25 09:44 1 tab Q6HR PRN Administration PAIN SCALE 4-10(Mod-Sev Albuterol/Ipratropium 3 ml 03/11/25 22:41 Albuterol/Ipratropium (Duoneb) Rt Melania 3 Ml Nebu INH 04/10/25 22:59 Q4HRRT PRN SHORTNESS OF BREATH Ascorbic Acid 500 mg 03/16/25 09:00 03/19/25 08:38 Ascorbic Acid 250 Mg Tablet PO 04/15/25 08:59 500 mg BID SUNDAY Administration Aspirin 81 mg 03/17/25 09:00 03/19/25 08:38 Aspirin Ec 81 Mg Tabec PO 04/16/25 08:59 81 mg QDAY SUNDAY Administration Atorvastatin Calcium 80 mg 03/12/25 21:00 03/18/25 20:07 Atorvastatin Calcium 20 Mg Tablet PO 04/11/25 20:59 80 mg QPM SUNDAY Administration Cephalexin HCl 500 mg 03/16/25 07:30 03/19/25 11:51 Cephalexin 250 Mg Capsule PO 03/21/25 07:29 500 mg QID SUNDAY Administration Dextrose 25 ml 03/12/25 00:04 Dextrose 50%-Water Inj 50 Ml Syringe IV 04/11/25 00:03 Q15MIN PRN BG 50-70 responsive npo pt Dextrose 50 ml 03/12/25 00:04 03/13/25 17:08 Dextrose 50%-Water Inj 50 Ml Syringe IV 04/11/25 00:03 50 ml Q15MIN PRN Administration BG <50 OR BG <70 & pt unresponsive Docusate Sodium 100 mg 03/14/25 21:00 03/19/25 08:36 Docusate Sod 100 Mg Capsule PO 04/13/25 20:59 Not Given BID [facility] Protocol Enoxaparin Sodium 40 mg 03/16/25 09:00 03/19/25 08:38 Enoxaparin Sod Inj 40 Mg/0.4 Ml Syringe SC 03/30/25 08:59 40 mg QDAY SUNDAY Administration Glucagon 1 mg 03/12/25 00:04 Glucagon Inj 1 Mg Vial IM Q15MIN PRN BG <70, and no IV access Hydralazine HCl 10 mg 03/17/25 16:08 03/17/25 20:59 Hydralazine Inj 20 Mg/Ml Vial IVP 04/16/25 16:14 10 mg Q6H PRN Administration SBP>170 hold if HR >90 Hydrochlorothiazide 25 mg 03/18/25 09:00 03/19/25 08:37 Hydrochlorothiazide 12.5 Mg Capsule PO 04/17/25 08:59 25 mg QDAY SUNDAY Administration Insulin Glargine 20 unit 03/12/25 09:00 03/19/25 08:36 Insulin Glargine (Lantus) 5 Unit/0.05 Ml (Per 5 Units) SC 04/11/25 08:59 20 unit QDAY SUNDAY Administration Insulin Human Lispro 0 unit 03/12/25 21:00 03/19/25 11:47 Insulin Lispro (Admelog) 1 Unit/0.01 Ml Unit SC 04/11/25 20:59 2 unit ACHS SUNDAY Administration Protocol Losartan Potassium 100 mg 03/12/25 09:00 03/19/25 08:37 Losartan Potassium 25 Mg Tablet PO 04/11/25 08:59 100 mg QDAY SUNDAY Administration Morphine Sulfate 3 mg 03/14/25 16:57 03/19/25 00:15 Morphine Sulf Inj 10 Mg/Ml Vial IVP 03/19/25 16:56 3 mg Q3H PRN Administration PAIN SCALE 7-10 (Severe Nifedipine 60 mg 03/18/25 09:00 03/19/25 08:39 Nifedipine Xl 30 Mg Tabcr PO 04/17/25 08:59 60 mg QDAY SUNDAY Administration Ondansetron HCl 4 mg 03/11/25 22:41 03/18/25 18:18 Ondansetron Inj 2 Mg/Ml Inj 2 Ml IV 04/10/25 22:40 4 mg Q6H PRN Administration NAUSEA OR VOMITING Protocol Sennosides 1 tab 03/11/25 22:41 03/17/25 05:16 Senna Tablet PO 04/10/25 22:40 1 tab QDAY PRN Administration constipation Protocol Zinc Sulfate 220 mg 03/13/25 17:00 03/19/25 08:38 Zinc Sulfate 220 Mg Capsule PO 04/12/25 16:59 220 mg QDAY SUNDAY Administration Plan 64-year-old female with past medical history of coronary artery disease with multiple stents last year, hypertension, diabetes type 2, COPD current history of cerebral, peripheral artery disease with stent placed in the left leg by Dr. Simpson was admitted to the hospital for worsening pain in the left foot as per the patient she had a small opening in the left heel that has been worsening. She was applying creams. Hospital x-ray osteomyelitis of left calcaneus. General surgery was consulted who recommended CT angio with iliofemoral runoff which showed,50% stenosis of proximal left common neck artery, 60% stenosis of distal right common iliac artery, patent distal right superficial femoral artery stent, occlusion of the distal left superficial femoral artery at the distal femoral stem, multiple occlusions of the distal superficial, artery and severe bilateral trifurcation vessel arterial disease. Cardiology was consulted for peripheral angiogram. #Ischemic changes of left foot s/p below knee Amputation #Severe peripheral arterial disease #Osteomyelitis posterior calcaneus - foot x-ray that showed early osteomyelitis of posterior plantar surface of the calcaneus -x-ray osteomyelitis of left calcaneus. -General surgery was consulted who recommended CT angio with iliofemoral runoff which showed,50% stenosis of proximal left common neck artery, 60% stenosis of distal right common iliac artery, patent distal right superficial femoral artery stent, occlusion of the distal left superficial femoral artery at the distal femoral stem, multiple occlusions of the distal superficial, artery and severe bilateral trifurcation vessel arterial disease. -Procalcitonin and lactic acid were negative. -Orthopedic stated no intervention -we can proceed with Bka for now ,wound will heal , if the wound did not heal after bka angioplasty can be done outpatient. 03/14/2025: She will have left BKA today by Dr Wall . wound will heal , if the wound did not heal after bka angioplasty can be done outpatient. 03/15/2025: S/p BKA yesterday , she is doing well. wound will heal , if the wound did not heal after bka angioplasty can be done outpatient. 03/19/25: Continue current medical management. Continue aspirin. She does not need brillinta as stents are more than 6 months. Can follow Outpatient for Angioplasty if Wound does not heal properly. Pending SNF . Rest Of medical management as per primary team . Case Discussed with my attending Praveen Pendleton MD, PGY- 3
[2025-03-19] MEDS: DOCUSATE SOD 100 MG CAPSULE PO (20:06)
[2025-03-19] MEDS: ATORVASTATIN CALCIUM 20 MG TABLET 80 MG PO (20:06)
[2025-03-20] VITALS (11 sets, daily range): BP systolic 139–164; BP diastolic 66–84; PULSE 72–88; RESP 12–21; TEMP 36.5–37.1; O2SAT 94–99; BMI 29.0
[2025-03-20] MEDS: HYDROcodone/APAP 7.5/325 TABLET 1 TAB PO ×2 (04:30→11:23)
[2025-03-20] MEDS: cephALEXin 250 MG CAPSULE 500 MG PO ×4 (05:09→20:36)
[2025-03-20 05:35] LABS: Basophils % (Auto) 0 % (0-2.5); Eosinophils # (Auto) 0.1 Thou/mm3 (0.0-0.5); Eosinophils % (Auto) 1 % (0-10); Hemoglobin 10.2 g/dL (12.0-16.0); Immature Granulocytes % (Auto) 0 % (0-0); Immature Granulocytes Auto 0.03 Thou/mm3 (0.00-0.00); Lymphocytes # (Auto) 2.8 Thou/mm3 (1.0-4.8); Lymphocytes % (Auto) 27 % (10-50); Mean Corpuscular Hemoglobin 29.5 pg (25.0-35.0); Mean Corpuscular Volume 87 fL (80-100); Monocytes # (Auto) 0.7 Thou/mm3 (0.0-0.8); Monocytes % (Auto) 7 % (0-12); Neutrophils # (Auto) 6.5 Thou/mm3 (1.8-7.7); Neutrophils % (Auto) 64 % (37-80); Nucleated Red Blood Cell % 0 /100 WBC (0); Platelet Count 403 Thou/mm3 (140-440); RDW Standard Deviation 46.5 fL (36.4-46.3); Red Blood Count 3.46 Miln/mm3 (4.00-5.20); White Blood Count 10.2 Thou/mm3 (3.6-11.0)
[2025-03-20 06:14] LABS: Alanine Aminotransferase 11 U/L (10-49); Albumin, Serum 2.5 gm/dL (3.4-4.8); Albumin/Globulin Ratio 0.9 (1.2-2.2); Alkaline Phosphatase 338 U/L (46-116); Anion Gap 7 (7-16); Aspartate Amino Transferase 22 U/L (0-34); BUN/Creatinine Ratio 17 Ratio (12-20); Bilirubin,Total 0.3 mg/dL (0.3-1.2); Blood Urea Nitrogen 10 mg/dL (9-23); Calcium 7.7 mg/dL (8.3-10.6); Calcium (Corrected) 8.9 mg/dL (8.5-10.1); Carbon Dioxide 27.9 mMol/L (20.0-31.0); Chloride 103 mMol/L (98-107); Creatinine (Component) 0.6 mg/dL (0.6-1.3); Estimated Creatinine Clearance 102.3 mL/min (>60); Globulin 2.7 gm/dL (2.3-3.5); Glucose 160 mg/dL (74-106); Magnesium 1.7 mg/dL (1.6-2.6); Osmolality,Calculated 277 (275-295); Potassium 3.6 mMol/L (3.4-5.1); Sodium 138 mMol/L (136-145); Total Protein 5.2 gm/dL (5.7-8.2); eGFR > 60 See Note
[2025-03-20] MEDS: INSULIN LISPRO (AdmeLOG) 1 UNIT/0.01 ML UNIT SC ×2 (07:57→20:41)
[2025-03-20] MEDS: LOSARTAN POTASSIUM 25 MG TABLET 100 MG PO (08:01)
[2025-03-20] MEDS: ZINC SULFATE 220 MG CAPSULE PO (08:01)
[2025-03-20] MEDS: INSULIN GLARGINE (Lantus) 5 UNIT/0.05 ML (PER 5 UNITS) 20 UNIT SC (08:01)
[2025-03-20] MEDS: ASCORBIC ACID 250 MG TABLET 500 MG PO ×2 (08:01→20:36)
[2025-03-20] MEDS: ASPIRIN EC 81 MG TABEC PO (08:01)
[2025-03-20] MEDS: ENOXAPARIN SOD INJ 40 MG/0.4 ML SYRINGE SC (08:02)
[2025-03-20] MEDS: DOCUSATE SOD 100 MG CAPSULE PO ×2 (08:02→20:37)
[2025-03-20] MEDS: hydroCHLOROthiazide 12.5 MG CAPSULE 25 MG PO (08:02)
[2025-03-20] MEDS: NIFEdipine XL 30 MG TABCR 60 MG PO (08:02)
[2025-03-20] MEDS: ACETAMINOPHEN 325 MG TABLET 650 MG PO (08:09)
--- NOTE | 2025-03-20 08:40 | PC.SS ---
Addendum entered by CHATO Herman 03/20/25 14:19: SS follow up: spoke with Daya with admissions at [facility], she informs she has left several voicemails for the patient's insurance and has not heard back at this time. Daya is aware the patient is ready for d/c. Addendum entered by CHATO Herman 03/20/25 11:33: SS follow up: attempted contact with patient's insurance carrier for status on insurance authorization with [employer] . Both were unavailable and a voicemail was provided with call back number. Original Note: SS follow up note: contacted Daya at [facility] to check on insurance authorization status, per Daya she will follow up with patient insurance carrier for updated status. Daya informs that authorization was started yesterday.
--- NOTE | 2025-03-20 09:00 | PC.NURSE ---
Yajaira outbound telemarketing representative at bedside and communicates to nurse Ca The pt. does not need a new stump protector, I trimmed it and adjusted it and it fits fine now. No need for new stump protector. We will [facility].
--- NOTE | 2025-03-20 14:32 | ESPR_ITS ---
<Statement entered by Danny Mcdaniel MD - 03/20/25 20:02> I examined the patient evaluated patient appears to be doing much better she recovering wound is healing well so far cardiac valdovinos stable no chest pain shortness of breath will sign off the case for now and reevaluate if necessary I recommend the patient to see Dr. Simpson following discharge for peripheral artery disease since the patient has seen him before Documentation for date of: 03/20/25 Subjective Subjective Interval history: Patient was examined bedside this morning, no acute overnight event. She is pending senior living facility. Exam Vital Signs Temp Pulse Resp BP Pulse Ox O2 Del Method O2 Flow Rate 97.7 F 74 12 143/69 H 95 Room Air 3 03/20/25 12:00 03/20/25 12:00 03/20/25 12:00 03/20/25 12:00 03/20/25 12:00 03/20/25 12:00 03/15/25 04:00 Narrative Exam GENERAL: Comfortable adult seen resting comfortably in hospital bed, no acute distress, cacexic looking , older then her age . HEENT: Normocephalic, atraumatic. Pupils are equal and reactive. Oral mucosa is moist. NECK: Supple, nontender, no JVD CHEST: Symmetrical, atraumatic and with equal expansion ,Nontender on palpation CARDIOVASCULAR: Heart regular rhythm & rate. S1/S2. no murmur or gallop rub or extra beats. LUNGS: Clear to auscultation bilaterally with symmetrical chest rise. No laboring tachypnea or wheezing. No intercostal subcostal retraction. No rales and no rhonchi. ABDOMEN: Soft, flat, nontender to palpation, no guarding or rebound tenderness. Active and normal bowel sounds. EXTREMITIES: left leg well dressed, no discharge noted. SKIN: Warm and dry, no jaundice or rashes noted. NEURO: Patient is AO x 3, Cranial nerves II through XII grossly intact. There is no focal neurologic deficits noted. PSYCHIATRIC: Patient is in normal mood, cooperative, no SI or HI or hallucinations. Objective Labs 03/20/25 04:27 03/20/25 04:27 Labs: Laboratory Results - last 24 hr 03/20/25 04:27 WBC 10.2 RBC 3.46 L Hgb 10.2 L Hct 30.0 L MCV 87 MCH 29.5 MCHC 34.0 RDW Std Deviation 46.5 H Plt Count 403 Neut % (Auto) 64 Lymph % (Auto) 27 [place] % (Auto) 7 Eos % (Auto) 1 Baso % (Auto) 0 Neut # (Auto) 6.5 Lymph # (Auto) 2.8 [place] # (Auto) 0.7 Eos # (Auto) 0.1 Baso # (Auto) 0.0 Immature Gran # (Auto) 0.03 H Absolute Nucleated RBC 0.00 Immature Gran % 0 Nucleated RBC % 0 Sodium 138 Potassium 3.6 Chloride 103 Carbon Dioxide 27.9 Anion Gap 7 BUN 10 Creatinine 0.6 Estim Creat Clear Calc 102.3 eGFR > 60 BUN/Creatinine Ratio 17 Glucose 160 H Calculated Osmolality 277 Calcium 7.7 L Corrected Calcium 8.9 Magnesium 1.7 Total Bilirubin 0.3 AST 22 ALT 11 Alkaline Phosphatase 338 H D Total Protein 5.2 L Albumin 2.5 L Globulin 2.7 Albumin/Globulin Ratio 0.9 L Quality Measures Quality Measures none Assessment & Plan Assessment Current Active Medications: Generic Name Dose Route Start Last Admin Trade Name Freq PRN Reason Stop Dose Admin Acetaminophen 650 mg 03/18/25 07:58 03/20/25 08:09 Acetaminophen 325 Mg Tablet PO 04/11/25 05:59 650 mg Q6H PRN Administration Fever >100.3 or pain 1-3 Hydrocodone Bitart/Acetaminophen 1 tab 03/16/25 09:45 03/20/25 11:23 Hydrocodone/Apap 7.5/325 Tablet PO 03/21/25 09:44 1 tab Q6HR PRN Administration PAIN SCALE 4-10(Mod-Sev Albuterol/Ipratropium 3 ml 03/11/25 22:41 Albuterol/Ipratropium (Duoneb) Rt Melania 3 Ml Nebu INH 04/10/25 22:59 Q4HRRT PRN SHORTNESS OF BREATH Ascorbic Acid 500 mg 03/16/25 09:00 03/20/25 08:01 Ascorbic Acid 250 Mg Tablet PO 04/15/25 08:59 500 mg BID SUNDAY Administration Aspirin 81 mg 03/17/25 09:00 03/20/25 08:01 Aspirin Ec 81 Mg Tabec PO 04/16/25 08:59 81 mg QDAY SUNDAY Administration Atorvastatin Calcium 80 mg 03/12/25 21:00 03/19/25 20:06 Atorvastatin Calcium 20 Mg Tablet PO 04/11/25 20:59 80 mg QPM SUNDAY Administration Cephalexin HCl 500 mg 03/16/25 07:30 03/20/25 11:23 Cephalexin 250 Mg Capsule PO 03/21/25 07:29 500 mg QID SUNDAY Administration Dextrose 25 ml 03/12/25 00:04 Dextrose 50%-Water Inj 50 Ml Syringe IV 04/11/25 00:03 Q15MIN PRN BG 50-70 responsive npo pt Dextrose 50 ml 03/12/25 00:04 03/13/25 17:08 Dextrose 50%-Water Inj 50 Ml Syringe IV 04/11/25 00:03 50 ml Q15MIN PRN Administration BG <50 OR BG <70 & pt unresponsive Docusate Sodium 100 mg 03/14/25 21:00 03/20/25 08:02 Docusate Sod 100 Mg Capsule PO 04/13/25 20:59 100 mg BID SUNDAY Administration Protocol Enoxaparin Sodium 40 mg 03/16/25 09:00 03/20/25 08:02 Enoxaparin Sod Inj 40 Mg/0.4 Ml Syringe SC 03/30/25 08:59 40 mg QDAY SUNDAY Administration Glucagon 1 mg 03/12/25 00:04 Glucagon Inj 1 Mg Vial IM Q15MIN PRN BG <70, and no IV access Hydralazine HCl 10 mg 03/17/25 16:08 03/17/25 20:59 Hydralazine Inj 20 Mg/Ml Vial IVP 04/16/25 16:14 10 mg Q6H PRN Administration SBP>170 hold if HR >90 Hydrochlorothiazide 25 mg 03/18/25 09:00 03/20/25 08:02 Hydrochlorothiazide 12.5 Mg Capsule PO 04/17/25 08:59 25 mg QDAY SUNDAY Administration Insulin Glargine 20 unit 03/12/25 09:00 03/20/25 08:01 Insulin Glargine (Lantus) 5 Unit/0.05 Ml (Per 5 Units) SC 04/11/25 08:59 20 unit QDAY SUNDAY Administration Insulin Human Lispro 0 unit 03/12/25 21:00 03/20/25 11:23 Insulin Lispro (Admelog) 1 Unit/0.01 Ml Unit SC 04/11/25 20:59 Not Given ACHS SUNDAY Protocol Losartan Potassium 100 mg 03/12/25 09:00 03/20/25 08:01 Losartan Potassium 25 Mg Tablet PO 04/11/25 08:59 100 mg QDAY SUNDAY Administration Nifedipine 60 mg 03/18/25 09:00 03/20/25 08:02 Nifedipine Xl 30 Mg Tabcr PO 04/17/25 08:59 60 mg QDAY SUNDAY Administration Ondansetron HCl 4 mg 03/11/25 22:41 03/18/25 18:18 Ondansetron Inj 2 Mg/Ml Inj 2 Ml IV 04/10/25 22:40 4 mg Q6H PRN Administration NAUSEA OR VOMITING Protocol Sennosides 1 tab 03/11/25 22:41 03/17/25 05:16 Senna Tablet PO 04/10/25 22:40 1 tab QDAY PRN Administration constipation Protocol Zinc Sulfate 220 mg 03/13/25 17:00 03/20/25 08:01 Zinc Sulfate 220 Mg Capsule PO 04/12/25 16:59 220 mg QDAY SUNDAY Administration Plan 64-year-old female with past medical history of coronary artery disease with multiple stents last year, hypertension, diabetes type 2, COPD current history of cerebral, peripheral artery disease with stent placed in the left leg by Dr. Simpson was admitted to the hospital for worsening pain in the left foot as per the patient she had a small opening in the left heel that has been worsening. She was applying creams. Hospital x-ray osteomyelitis of left calcaneus. General surgery was consulted who recommended CT angio with iliofemoral runoff which showed,50% stenosis of proximal left common neck artery, 60% stenosis of distal right common iliac artery, patent distal right superficial femoral artery stent, occlusion of the distal left superficial femoral artery at the distal femoral stem, multiple occlusions of the distal superficial, artery and severe bilateral trifurcation vessel arterial disease. Cardiology was consulted for peripheral angiogram. #Ischemic changes of left foot s/p below knee Amputation #Severe peripheral arterial disease #Osteomyelitis posterior calcaneus - foot x-ray that showed early osteomyelitis of posterior plantar surface of the calcaneus -x-ray osteomyelitis of left calcaneus. -General surgery was consulted who recommended CT angio with iliofemoral runoff which showed,50% stenosis of proximal left common neck artery, 60% stenosis of distal right common iliac artery, patent distal right superficial femoral artery stent, occlusion of the distal left superficial femoral artery at the distal femoral stem, multiple occlusions of the distal superficial, artery and severe bilateral trifurcation vessel arterial disease. -Procalcitonin and lactic acid were negative. -Orthopedic stated no intervention -we can proceed with Bka for now ,wound will heal , if the wound did not heal after bka angioplasty can be done outpatient. 03/14/2025: She will have left BKA today by Dr Wall . wound will heal , if the wound did not heal after bka angioplasty can be done outpatient. 03/15/2025: S/p BKA yesterday , she is doing well. wound will heal , if the wound did not heal after bka angioplasty can be done outpatient. 03/19/25: Continue current medical management. Continue aspirin. She does not need brillinta as stents are more than 6 months. Can follow Outpatient for Angioplasty if Wound does not heal properly. Pending SNF . 03/20/2025: Continue current medical management. Continue aspirin. She does not need brillinta as stents are more than 6 months. Can follow Outpatient for Angioplasty if Wound does not heal properly with Dr Silva . Pending SNF . Cardiology will Signoff . Rest Of medical management as per primary team . Case Discussed with my attending Dr Mcdaniel , Praveen Corona MD, PGY- 3
--- NOTE | 2025-03-20 15:35 | PC.NURSE ---
Dr. Vargas aware of pt. dizzy spells. BG 115 and vitals stable. No new orders received. aware of report from Certified Residential Medication Aide about stump protector.
--- NOTE | 2025-03-20 16:59 | ESPR_ITS ---
<Statement entered by Yusuf Castellano MD - 03/25/25 14:40> I reviewed above note and agree with findings and plans. I have also personally examined the patient with medicine team and went over assessment and plan with medical team including actuarial intern and resident physician. Documentation for date of: 03/20/25 Subjective Subjective Interval history: Overnight, no acute events reported. Patient continues to have pain but is tolerated with p.o. [place]. Patient is pending authorization to SNF placement at [place]. Insurance Auth is pending. All questions asked and answered. Patient's blood sugar is well within range, above 70 and less than 180. Did get a report from nurse at bedside that patient does complain of dizziness on and off, however her sugar has not been under 70. Patient's heart rate also has been stable above 60, will continue to monitor on telemetry and patient's symptoms. Exam Vital Signs Temp Pulse Resp BP Pulse Ox O2 Del Method O2 Flow Rate 98.8 F 78 21 H 155/71 H 96 Room Air 3 03/20/25 16:00 03/20/25 16:00 03/20/25 16:00 03/20/25 16:00 03/20/25 16:00 03/20/25 16:00 03/15/25 04:00 Narrative Exam General Appearance: Pt in no apparent distress, cachectic, looks older than stated age HEENT: NC/AT, no scleral icterus, no conjunctival pallor, MMM Lungs: CTAB, no wheezes or crackles appreciated CVS: RRR, S1/S2 heard, no murmurs or rubs appreciated ABD: Soft, non-tender, non-distended, BS + in all 4 quadrants EXT: Peripheral pulses felt bilaterally, left BKA with clean dressing, right lower extremity with clean dressing SKIN: Skin exam normal without any rashes. Neuro: A&O x 3. No gross neurological deficits. Motor and sensory grossly intact in B/L UL and LL. Psych: Appropriate mood and affect Objective Labs 03/20/25 04:27 03/20/25 04:27 Labs: Laboratory Results - last 24 hr 03/20/25 04:27 WBC 10.2 RBC 3.46 L Hgb 10.2 L Hct 30.0 L MCV 87 MCH 29.5 MCHC 34.0 RDW Std Deviation 46.5 H Plt Count 403 Neut % (Auto) 64 Lymph % (Auto) 27 [place] % (Auto) 7 Eos % (Auto) 1 Baso % (Auto) 0 Neut # (Auto) 6.5 Lymph # (Auto) 2.8 [place] # (Auto) 0.7 Eos # (Auto) 0.1 Baso # (Auto) 0.0 Immature Gran # (Auto) 0.03 H Absolute Nucleated RBC 0.00 Immature Gran % 0 Nucleated RBC % 0 Sodium 138 Potassium 3.6 Chloride 103 Carbon Dioxide 27.9 Anion Gap 7 BUN 10 Creatinine 0.6 Estim Creat Clear Calc 102.3 eGFR > 60 BUN/Creatinine Ratio 17 Glucose 160 H Calculated Osmolality 277 Calcium 7.7 L Corrected Calcium 8.9 Magnesium 1.7 Total Bilirubin 0.3 AST 22 ALT 11 Alkaline Phosphatase 338 H D Total Protein 5.2 L Albumin 2.5 L Globulin 2.7 Albumin/Globulin Ratio 0.9 L Quality Measures Quality Measures none Assessment & Plan Assessment Current Active Medications: Generic Name Dose Route Start Last Admin Trade Name Freq PRN Reason Stop Dose Admin Acetaminophen 650 mg 03/18/25 07:58 03/20/25 08:09 Acetaminophen 325 Mg Tablet PO 04/11/25 05:59 650 mg Q6H PRN Administration Fever >100.3 or pain 1-3 Hydrocodone Bitart/Acetaminophen 1 tab 03/16/25 09:45 03/20/25 11:23 Hydrocodone/Apap 7.5/325 Tablet PO 03/21/25 09:44 1 tab Q6HR PRN Administration PAIN SCALE 4-10(Mod-Sev Albuterol/Ipratropium 3 ml 03/11/25 22:41 Albuterol/Ipratropium (Duoneb) Rt Melania 3 Ml Nebu INH 04/10/25 22:59 Q4HRRT PRN SHORTNESS OF BREATH Ascorbic Acid 500 mg 03/16/25 09:00 03/20/25 08:01 Ascorbic Acid 250 Mg Tablet PO 04/15/25 08:59 500 mg BID SUNDAY Administration Aspirin 81 mg 03/17/25 09:00 03/20/25 08:01 Aspirin Ec 81 Mg Tabec PO 04/16/25 08:59 81 mg QDAY SUNDAY Administration Atorvastatin Calcium 80 mg 03/12/25 21:00 03/19/25 20:06 Atorvastatin Calcium 20 Mg Tablet PO 04/11/25 20:59 80 mg QPM SUNDAY Administration Cephalexin HCl 500 mg 03/16/25 07:30 03/20/25 11:23 Cephalexin 250 Mg Capsule PO 03/21/25 07:29 500 mg QID SUNDAY Administration Dextrose 25 ml 03/12/25 00:04 Dextrose 50%-Water Inj 50 Ml Syringe IV 04/11/25 00:03 Q15MIN PRN BG 50-70 responsive npo pt Dextrose 50 ml 03/12/25 00:04 03/13/25 17:08 Dextrose 50%-Water Inj 50 Ml Syringe IV 04/11/25 00:03 50 ml Q15MIN PRN Administration BG <50 OR BG <70 & pt unresponsive Docusate Sodium 100 mg 03/14/25 21:00 03/20/25 08:02 Docusate Sod 100 Mg Capsule PO 04/13/25 20:59 100 mg BID SUNDAY Administration Protocol Enoxaparin Sodium 40 mg 03/16/25 09:00 03/20/25 08:02 Enoxaparin Sod Inj 40 Mg/0.4 Ml Syringe SC 03/30/25 08:59 40 mg QDAY SUNDAY Administration Glucagon 1 mg 03/12/25 00:04 Glucagon Inj 1 Mg Vial IM Q15MIN PRN BG <70, and no IV access Hydralazine HCl 10 mg 03/17/25 16:08 03/17/25 20:59 Hydralazine Inj 20 Mg/Ml Vial IVP 04/16/25 16:14 10 mg Q6H PRN Administration SBP>170 hold if HR >90 Hydrochlorothiazide 25 mg 03/18/25 09:00 03/20/25 08:02 Hydrochlorothiazide 12.5 Mg Capsule PO 04/17/25 08:59 25 mg QDAY SUNDAY Administration Insulin Glargine 20 unit 03/12/25 09:00 03/20/25 08:01 Insulin Glargine (Lantus) 5 Unit/0.05 Ml (Per 5 Units) SC 04/11/25 08:59 20 unit QDAY SUNDAY Administration Insulin Human Lispro 0 unit 03/12/25 21:00 03/20/25 11:23 Insulin Lispro (Admelog) 1 Unit/0.01 Ml Unit SC 04/11/25 20:59 Not Given ACHS [facility] Protocol Losartan Potassium 100 mg 03/12/25 09:00 03/20/25 08:01 Losartan Potassium 25 Mg Tablet PO 04/11/25 08:59 100 mg QDAY SUNDAY Administration Nifedipine 60 mg 03/18/25 09:00 03/20/25 08:02 Nifedipine Xl 30 Mg Tabcr PO 04/17/25 08:59 60 mg QDAY SUNDYA Administration Ondansetron HCl 4 mg 03/11/25 22:41 03/18/25 18:18 Ondansetron Inj 2 Mg/Ml Inj 2 Ml IV 04/10/25 22:40 4 mg Q6H PRN Administration NAUSEA OR VOMITING Protocol Sennosides 1 tab 03/11/25 22:41 03/17/25 05:16 Senna Tablet PO 04/10/25 22:40 1 tab QDAY PRN Administration constipation Protocol Zinc Sulfate 220 mg 03/13/25 17:00 03/20/25 08:01 Zinc Sulfate 220 Mg Capsule PO 04/12/25 16:59 220 mg QDAY SUNDAY Administration Plan 64-year-old female with past medical history of hypertension, CAD status post stents, DM2, COPD, and current smoker was admitted to the hospital on 03/12/2025 due to diabetic foot with possible osteomyelitis. #Normocytic normochromic anemia Patient's hemoglobin has been trending down since admission which was 12.5 on admission Today hgb 10.4 Patient has no active signs of bleeding Plan: Will transfuse hemoglobin less than 7 Will continue to monitor #Left lower extremity gangrene #Osteomyelitis posterior calcaneus #Leukocytosis #Hx of uncontrolled DM2 #Hypoglycemia, resolved #Severe peripheral arterial disease Patient came in with complaints of heel wound that progressively got worse. A1c 7.3 on 02/2025 Patient had a foot x-ray that showed early osteomyelitis of posterior plantar surface of the calcaneus Patient's WBCs were elevated at 21.3 and downtrending now ESR was 107 and CRP greater than 10. Procalcitonin and lactic acid were negative. Orthopedic stated no intervention from their standpoint CTA showed CTA showed 50% stenosis of proximal left common neck artery, 60% stenosis of distal right common iliac artery, patent distal right superficial femoral artery stent, occlusion of the distal left superficial femoral artery at the distal femoral stem, multiple occlusions of the distal superficial, artery and severe bilateral trifurcation vessel arterial disease. Blood cultures have been negative WBC downtrending Discontinue with vancomycin and Zosyn (03/11/2025?03/16/2025) Plan: Continue Keflex (03/16/2025-03/21/2025) Glargine 20 units qday ISS Wound care ordered PICC line will be continued to get labs and administer medications for now, but will discontinue prior to DC General surgery consulted,appreciate recommendations ID consulted, appreciate recommendations Cardiology consulted,stated may need angiogram outpatient #Electrolyte imbalance #Hypokalemia #Hypomagnesemia Potassium today 3.4 and mg 1.8 Plan: Will replete as necessary #Bilateral lower extremity swelling, improving #HFpEF (EF 55-60%) Patient has bilateral lower extremity swelling 2+ and given history of heart disease patient could have some underlying heart failure There is no echo on file Echo showed EF of 55 to 60%. No crackles and DANAY edema improving Plan: Will continue to monitor #Hx of hypertension #Hx of hyperlipidemia #Hx of CAD s/p stents BP not well controlled Continue atorvastatin 80 mg at bedtime and losartan 100 mg daily Continue hydrochlorothiazide to 25mg qday and nifedipine XL to 60mg qday Continue aspirin 81mg qday Discontinued amlodipine 10mg qday, will discontinue upon DC Hospital Maintenance: Disposition: Pending SNF Diet: Carb consistent DVT ppx: lovenox GI ppx: not indicated Code status: Full. Patient's plan and care discussed with my attending, Dr. Nona Vargas MD PGY-2
[2025-03-20] MEDS: ATORVASTATIN CALCIUM 20 MG TABLET 80 MG PO (20:36)
[2025-03-21] VITALS (12 sets, daily range): BP systolic 147–166; BP diastolic 65–77; PULSE 72–89; RESP 16–30; TEMP 36.1–36.9; O2SAT 92–97; BMI 29.0; BMI 13.0
[2025-03-21] MEDS: cephALEXin 250 MG CAPSULE 500 MG PO (05:28)
[2025-03-21] MEDS: INSULIN LISPRO (AdmeLOG) 1 UNIT/0.01 ML UNIT SC ×4 (07:25→20:05)
--- NOTE | 2025-03-21 08:14 | PC.SS ---
Addendum entered by Marychuy Rodriguez 03/21/25 09:10: SS received a call from Grace from [facility], she reports pt is with [facility] [phone] SS updated Daya at [facility], who stated she sent everything over this morning hoping for an answer by this afternoon Original Note: SS attempted contact with patient's insurance carrier for status on insurance authorization with Greta and Grace , no answer, VM left with call back information.
[2025-03-21] MEDS: INSULIN GLARGINE (Lantus) 5 UNIT/0.05 ML (PER 5 UNITS) 20 UNIT SC (08:56)
[2025-03-21] MEDS: ASCORBIC ACID 250 MG TABLET 500 MG PO ×2 (08:57→20:07)
[2025-03-21] MEDS: POTASSIUM CHLORIDE 20 mEq TABCR PO (08:57)
[2025-03-21] MEDS: SENNA TABLET 1 TAB PO (08:57)
[2025-03-21] MEDS: LOSARTAN POTASSIUM 25 MG TABLET 100 MG PO (08:57)
[2025-03-21] MEDS: ASPIRIN EC 81 MG TABEC PO (08:57)
[2025-03-21] MEDS: ZINC SULFATE 220 MG CAPSULE PO (08:57)
[2025-03-21] MEDS: hydroCHLOROthiazide 12.5 MG CAPSULE 25 MG PO (08:58)
[2025-03-21] MEDS: ENOXAPARIN SOD INJ 40 MG/0.4 ML SYRINGE SC (08:58)
[2025-03-21] MEDS: DOCUSATE SOD 100 MG CAPSULE PO ×2 (08:58→20:07)
[2025-03-21] MEDS: NIFEdipine XL 30 MG TABCR 60 MG PO (08:58)
--- NOTE | 2025-03-21 10:51 | PC.SS ---
Addendum entered by Marychuy Rodriguez 03/21/25 14:54: SS spoke to [place] who stated [facility] is requesting DC order be signed and faxed over, SS faxed it over to Daya Original Note: SS spoke to Daya who informed SS [facility] is requesting PT notes and Progress note stating pt is requiring SNF. SS faxed over PT and updated progress note.
--- NOTE | 2025-03-21 14:01 | ESPR_ITS ---
<Statement entered by Yusuf Castellano MD - 03/27/25 15:43> I reviewed above note and agree with findings and plans. I have also personally examined the patient with medicine team and went over assessment and plan with medical team including internet sales representative and resident physician. Documentation for date of: 03/21/25 Subjective Subjective Interval history: Overnight, no acute events reported. Patient seen and examined at bedside. Patient is eagerly waiting to recover at SNF. Patient has finished her Abx. check services clerk is working with SNF to send authorization to correct insurance. All questions asked and answered. Will remove PICC line prior to discharge. Patient also hasn't had a bowel movement since 03/17, and will add Movantik. Exam Vital Signs Temp Pulse Resp BP Pulse Ox O2 Del Method O2 Flow Rate 98.5 F 86 30 H 160/77 H 94 L Room Air 3 03/21/25 12:00 03/21/25 12:00 03/21/25 12:00 03/21/25 12:00 03/21/25 12:00 03/21/25 12:00 03/15/25 04:00 Narrative Exam General Appearance: Pt in no apparent distress, cachectic, looks older than stated age HEENT: NC/AT, no scleral icterus, no conjunctival pallor, MMM Lungs: CTAB, no wheezes or crackles appreciated CVS: RRR, S1/S2 heard, no murmurs or rubs appreciated ABD: Soft, non-tender, non-distended, BS + in all 4 quadrants EXT: Peripheral pulses felt bilaterally, left BKA with clean dressing, right lower extremity with clean dressing SKIN: Skin exam normal without any rashes. Neuro: A&O x 3. No gross neurological deficits. Motor and sensory grossly intact in B/L UL and LL. Psych: Appropriate mood and affect Objective Labs 03/20/25 04:27 03/20/25 04:27 Quality Measures Quality Measures none Assessment & Plan Assessment Current Active Medications: Generic Name Dose Route Start Last Admin Trade Name Freq PRN Reason Stop Dose Admin Acetaminophen 650 mg 03/18/25 07:58 03/20/25 08:09 Acetaminophen 325 Mg Tablet PO 04/11/25 05:59 650 mg Q6H PRN Administration Fever >100.3 or pain 1-3 Albuterol/Ipratropium 3 ml 03/11/25 22:41 Albuterol/Ipratropium (Duoneb) Rt Melania 3 Ml Nebu INH 04/10/25 22:59 Q4HRRT PRN SHORTNESS OF BREATH Ascorbic Acid 500 mg 03/16/25 09:00 03/21/25 08:57 Ascorbic Acid 250 Mg Tablet PO 04/15/25 08:59 500 mg BID SUNDAY Administration Aspirin 81 mg 03/17/25 09:00 03/21/25 08:57 Aspirin Ec 81 Mg Tabec PO 04/16/25 08:59 81 mg QDAY SUNDAY Administration Atorvastatin Calcium 80 mg 03/12/25 21:00 03/20/25 20:36 Atorvastatin Calcium 20 Mg Tablet PO 04/11/25 20:59 80 mg QPM SUNDAY Administration Dextrose 25 ml 03/12/25 00:04 Dextrose 50%-Water Inj 50 Ml Syringe IV 04/11/25 00:03 Q15MIN PRN BG 50-70 responsive npo pt Dextrose 50 ml 03/12/25 00:04 03/13/25 17:08 Dextrose 50%-Water Inj 50 Ml Syringe IV 04/11/25 00:03 50 ml Q15MIN PRN Administration BG <50 OR BG <70 & pt unresponsive Docusate Sodium 100 mg 03/14/25 21:00 03/21/25 08:58 Docusate Sod 100 Mg Capsule PO 04/13/25 20:59 100 mg BID SUNDAY Administration Protocol Enoxaparin Sodium 40 mg 03/16/25 09:00 03/21/25 08:58 Enoxaparin Sod Inj 40 Mg/0.4 Ml Syringe SC 03/30/25 08:59 40 mg QDAY SUNDAY Administration Glucagon 1 mg 03/12/25 00:04 Glucagon Inj 1 Mg Vial IM Q15MIN PRN BG <70, and no IV access Hydralazine HCl 10 mg 03/17/25 16:08 03/17/25 20:59 Hydralazine Inj 20 Mg/Ml Vial IVP 04/16/25 16:14 10 mg Q6H PRN Administration SBP>170 hold if HR >90 Hydrochlorothiazide 25 mg 03/18/25 09:00 03/21/25 08:58 Hydrochlorothiazide 12.5 Mg Capsule PO 04/17/25 08:59 25 mg QDAY SUNDAY Administration Insulin Glargine 20 unit 03/12/25 09:00 03/21/25 08:56 Insulin Glargine (Lantus) 5 Unit/0.05 Ml (Per 5 Units) SC 04/11/25 08:59 20 unit QDAY SUNDAY Administration Insulin Human Lispro 0 unit 03/12/25 21:00 03/21/25 11:21 Insulin Lispro (Admelog) 1 Unit/0.01 Ml Unit SC 04/11/25 20:59 1 unit ACHS SUNDAY Administration Protocol Losartan Potassium 100 mg 03/12/25 09:00 03/21/25 08:57 Losartan Potassium 25 Mg Tablet PO 04/11/25 08:59 100 mg QDAY SUNDAY Administration Nifedipine 60 mg 03/18/25 09:00 03/21/25 08:58 Nifedipine Xl 30 Mg Tabcr PO 04/17/25 08:59 60 mg QDAY SUNDAY Administration Ondansetron HCl 4 mg 03/11/25 22:41 03/18/25 18:18 Ondansetron Inj 2 Mg/Ml Inj 2 Ml IV 04/10/25 22:40 4 mg Q6H PRN Administration NAUSEA OR VOMITING Protocol Sennosides 1 tab 03/11/25 22:41 03/21/25 08:57 Senna Tablet PO 04/10/25 22:40 1 tab QDAY PRN Administration constipation Protocol Zinc Sulfate 220 mg 03/13/25 17:00 03/21/25 08:57 Zinc Sulfate 220 Mg Capsule PO 04/12/25 16:59 220 mg QDAY SUNDAY Administration Plan 64-year-old female with past medical history of hypertension, CAD status post stents, DM2, COPD, and current smoker was admitted to the hospital on 03/12/2025 due to diabetic foot with possible osteomyelitis. #Normocytic normochromic anemia Patient's hemoglobin has been trending down since admission which was 12.5 on admission Today hgb 10.4 Patient has no active signs of bleeding Plan: Will transfuse hemoglobin less than 7 Will continue to monitor #Left lower extremity gangrene #Osteomyelitis posterior calcaneus #Leukocytosis #Hx of uncontrolled DM2 #Hypoglycemia, resolved #Severe peripheral arterial disease Patient came in with complaints of heel wound that progressively got worse. A1c 7.3 on 02/2025 Patient had a foot x-ray that showed early osteomyelitis of posterior plantar surface of the calcaneus Patient's WBCs were elevated at 21.3 and downtrending now ESR was 107 and CRP greater than 10. Procalcitonin and lactic acid were negative. Orthopedic stated no intervention from their standpoint CTA showed CTA showed 50% stenosis of proximal left common neck artery, 60% stenosis of distal right common iliac artery, patent distal right superficial femoral artery stent, occlusion of the distal left superficial femoral artery at the distal femoral stem, multiple occlusions of the distal superficial, artery and severe bilateral trifurcation vessel arterial disease. Blood cultures have been negative WBC downtrending Discontinue with vancomycin and Zosyn (03/11/2025?03/16/2025) Finished Keflex (03/16/2025-03/21/2025) Plan: Glargine 20 units qday ISS Wound care ordered PICC line will be continued to get labs and administer medications for now, but will discontinue prior to DC General surgery consulted,appreciate recommendations ID consulted, appreciate recommendations Cardiology consulted,stated may need angiogram outpatient #Electrolyte imbalance #Hypokalemia #Hypomagnesemia Potassium today 3.4 and mg 1.8 Plan: Will replete as necessary #Bilateral lower extremity swelling, improving #HFpEF (EF 55-60%) Patient has bilateral lower extremity swelling 2+ and given history of heart disease patient could have some underlying heart failure There is no echo on file Echo showed EF of 55 to 60%. No crackles and DANAY edema improving Plan: Will continue to monitor #Hx of hypertension #Hx of hyperlipidemia #Hx of CAD s/p stents BP not well controlled Continue atorvastatin 80 mg at bedtime and losartan 100 mg daily Continue hydrochlorothiazide to 25mg qday and nifedipine XL to 60mg qday Continue aspirin 81mg qday Discontinued amlodipine 10mg qday, will discontinue upon DC Hospital Maintenance: Disposition: Pending SNF Diet: Carb consistent DVT ppx: lovenox GI ppx: not indicated Code status: Full. Patient's plan and care discussed with my attending, Dr. Nona Vargas MD PGY-2
[2025-03-21] MEDS: NALOXEGOL OXALATE 25 MG TABLET (NON-FORMULARY) PO (14:53)
[2025-03-21] MEDS: HYDROcodone/APAP 7.5/325 TABLET 1 TAB PO (15:49)
--- NOTE | 2025-03-21 16:52 | PC.SS ---
Addendum entered by CHATO Herman 03/21/25 16:56: SS update: spoke with Daya with admissions at [facility], she informs she has faxed over DC order to patient's insurance carrier for their review. Patient continues pending insurance authorization for SNF. Original Note: SS update: sent DC order to [facility] via [employer].
[2025-03-21] MEDS: ATORVASTATIN CALCIUM 20 MG TABLET 80 MG PO (20:06)
[2025-03-22] VITALS (10 sets, daily range): BP systolic 130–180; BP diastolic 64–88; PULSE 68–79; RESP 12–19; TEMP 36.2–36.8; O2SAT 93–99; BMI 29.0; BMI 13.0
[2025-03-22 07:01] LABS: Basophils # (Auto) 0.1 Thou/mm3 (0.0-0.2); Basophils % (Auto) 1 % (0-2.5); Eosinophils # (Auto) 0.1 Thou/mm3 (0.0-0.5); Eosinophils % (Auto) 1 % (0-10); Hematocrit 32.4 % (36.0-46.0); Hemoglobin 11.2 g/dL (12.0-16.0); Immature Granulocytes % (Auto) 0 % (0-0); Immature Granulocytes Auto 0.02 Thou/mm3 (0.00-0.00); Lymphocytes # (Auto) 2.1 Thou/mm3 (1.0-4.8); Lymphocytes % (Auto) 22 % (10-50); Mean Corpuscular HGB Conc 34.6 g/dl (31.0-37.0); Mean Corpuscular Hemoglobin 29.3 pg (25.0-35.0); Mean Corpuscular Volume 85 fL (80-100); Monocytes # (Auto) 0.6 Thou/mm3 (0.0-0.8); Monocytes % (Auto) 6 % (0-12); Neutrophils # (Auto) 6.8 Thou/mm3 (1.8-7.7); Neutrophils % (Auto) 71 % (37-80); Nucleated Red Blood Cell % 0 /100 WBC (0); Platelet Count 395 Thou/mm3 (140-440); RDW Standard Deviation 44.7 fL (36.4-46.3); Red Blood Count 3.82 Miln/mm3 (4.00-5.20); White Blood Count 9.6 Thou/mm3 (3.6-11.0)
[2025-03-22 07:15] LABS: Anion Gap 9 (7-16); BUN/Creatinine Ratio 15 Ratio (12-20); Blood Urea Nitrogen 9 mg/dL (9-23); Calcium 8.1 mg/dL (8.3-10.6); Carbon Dioxide 25.4 mMol/L (20.0-31.0); Chloride 103 mMol/L (98-107); Creatinine (Component) 0.6 mg/dL (0.6-1.3); Estimated Creatinine Clearance 102.3 mL/min (>60); Glucose 206 mg/dL (74-106); Osmolality,Calculated 278 (275-295); Potassium 3.2 mMol/L (3.4-5.1); Sodium 137 mMol/L (136-145); eGFR > 60 See Note
[2025-03-22] MEDS: INSULIN LISPRO (AdmeLOG) 1 UNIT/0.01 ML UNIT SC ×2 (07:33→11:14)
[2025-03-22] MEDS: POTASSIUM CHLORIDE 20 mEq TABCR 40 MEQ PO (08:17)
[2025-03-22] MEDS: hydroCHLOROthiazide 12.5 MG CAPSULE 25 MG PO (08:18)
[2025-03-22] MEDS: ASCORBIC ACID 250 MG TABLET 500 MG PO (08:18)
[2025-03-22] MEDS: ZINC SULFATE 220 MG CAPSULE PO (08:18)
[2025-03-22] MEDS: DOCUSATE SOD 100 MG CAPSULE PO (08:19)
[2025-03-22] MEDS: LOSARTAN POTASSIUM 25 MG TABLET 100 MG PO (08:19)
[2025-03-22] MEDS: NIFEdipine XL 30 MG TABCR 60 MG PO (08:20)
[2025-03-22] MEDS: SENNA TABLET 1 TAB PO (08:20)
[2025-03-22] MEDS: ASPIRIN EC 81 MG TABEC PO (08:20)
[2025-03-22] MEDS: INSULIN GLARGINE (Lantus) 5 UNIT/0.05 ML (PER 5 UNITS) 20 UNIT SC (08:20)
[2025-03-22] MEDS: NALOXEGOL OXALATE 25 MG TABLET (NON-FORMULARY) PO (08:20)
[2025-03-22] MEDS: ENOXAPARIN SOD INJ 40 MG/0.4 ML SYRINGE SC (08:20)
--- NOTE | 2025-03-22 09:30 | PC.SS ---
Addendum entered by Marychuy Rodriguez 03/22/25 13:48: SS was informed pt had a BM, pt still pending RONAK. SS spoke to Daya and she stated they are working on it. Original Note: RAYMOND spoke to Daya who stated auth has been obtained, now pending RONAK which she stated are quicker and should happen today. Daya inquired on pt last BM which has been since the , Daya stated pt needs to have a BM prior to DC. SS updated Dr. Hernandez, per Dr. Hernandez they are working on it.
[2025-03-22] MEDS: ACETAMINOPHEN 325 MG TABLET 650 MG PO (11:16)
--- NOTE | 2025-03-22 11:41 | ESDS_ITS ---
<Statement entered by Yusuf Castellano MD - 03/27/25 15:44> I reviewed above note and agree with findings and plans. I have also personally examined the patient with medicine team and went over assessment and plan with medical team including internal control consultant and resident physician. Planned Discharge Date 03/22/25 DS: Providers Provider Date of admission: 03/11/25 22:41 Primary care physician: Ghanshyam Gaviria MD Admitting Provider: Ajay Maldonado MD Attending Provider on Admission: Yusuf Castellano MD Consults: 03/12/25 00:02 Referral Wound Care Routine Comment: 03/12/25 00:03 Consult to General Surgery Stat Comment: left foot osteomyelitis Consulting Provider: Marcela Napier 03/12/25 03:55 Referral Nutritional Services Routine Comment: for wounds on left great toe/heel 03/12/25 09:46 Consult to Infectious Diseases Routine Comment: Consulting Provider: Quinton Maradiaga 03/13/25 11:42 Consult to Cardiology Routine Comment: Consulting Provider: Danny Mcdaniel 03/14/25 13:51 Referral Physical Therapy Routine Comment: Physician Instructions: Attending Provider on DC: Yusuf Castellano MD Discharging Provider: Yusuf Castellano MD DS: Diagnosis Problem List Completed Was Problem List Reviewed/Reconciled?: Yes Hospital Course Hospital Course Hospital course: 64-year-old female with past medical history of hypertension, CAD status post stents, DM2, COPD, and current smoker was admitted to the hospital on 03/12/2025 due to diabetic foot with possible osteomyelitis. Came into the ED with complaints of ulcer on the left heel with started to have some discoloration when she came to the ED. Initially patient was afebrile and normotensive. Initial labs were relevant for leukocytosis, hypokalemia, and hypomagnesemia. Initially patient had a foot x-ray which did show early osteomyelitis of posterior plantar surface of the calcaneus. General surgery was consulted and discussed the case with vascular surgeon who stated that patient would benefit from a peripheral angiogram to further assess patient's peripheral vascular disease as abdomen CTA with runoff that showed moderate to severe peripheral vascular disease. Cardiology then stated that at this time it was okay to proceed with BKA. 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 Patient's blood cultures remain negative throughout the whole hospital stay patient remained stable after the procedure was done. Patient's pain was well-controlled throughout the hospital stay and she was cleared to be discharge on 03/16/2025, but patient initially stated that she want to go home with home health rather than long term facility and shortly after she stated that she would benefit better from long term facility decided to go to a long term facility which would need prior authorization. Patient subsequently remained stable other than elevated blood pressure with by the time of discharge was better controlled with medication titration. At this time patient was stable enough to be discharged to a long term facility. Discharge plan: Please follow-up with her primary care physician within 1 week upon discharge Please follow-up with general surgeon Dr. Napier within 1 to 2 weeks after discharge Please follow-up with nuclear equipment test engineer within 1 to 2 weeks after discharge You have been started on losartan 100 mg daily, Nifedipine 60mg and hydrochlorothiazide 25 mg Take Zinc Sulfate daily and Vitamin C twice daily for better wound healing We have stopped your losartan hydrochlorothiazide 50/12.5 mg daily, Amlodipine and Brilinta twice daily Please continue taking all home medications as prescribed Please come back to the ER if symptoms persist or worsen. Continue to follow up with [facility], [address] [place] [address] for care to right foot. Right great toe ampuation site: cleanse with soap and water, pat dry well. Swab with betadine daily and cover with foam dressing. Problem list: #Diabetic foot #Osteomyelitis posterior calcaneus #Leukocytosis #Hx of DM2 #Hypoglycemia, resolved #Severe peripheral arterial disease #Electrolyte imbalance #Hypokalemia #Hypomagnesemia #Normocytic normochromic anemia #Bilateral lower extremity swelling, resolved #HFpEF (EF 55-60%) #Hx of hypertension #Hx of hyperlipidemia #Hx of CAD s/p stents Case disclosed with Attending Dr. Nona Stern, PGY-1 Disclaimer: This note was dictated by speech recognition and even though it was carefully revised there may still be minor errors in solutions sales consultant due to voice recognition software. Status at Discharge Overall status at discharge: patient is progressing back to baseline Time Spent with Patient Time attestation: Total time spent providing and/or coordinating discharge services:>35 min Time spent: Greater than 30 minutes Exam Vital Signs Temp Pulse Resp BP Pulse Ox O2 Del Method O2 Flow Rate 98.0 F 77 12 176/78 H 93 L Room Air 3 03/22/25 08:00 03/22/25 08:20 03/22/25 08:00 03/22/25 08:20 03/22/25 08:00 03/22/25 08:00 03/15/25 04:00 Narrative Exam General: A/O x3, no acute distress Eyes: PERRL, EOMI. Anicteric, vision grossly intact. Ears: No ear pain, no ear discharge, Hearing grossly intact. Nose: No nasal discharge. Mouth/Throat: Moist mucous membranes, no redness, no lesions. Neck: Neck supple, non-tender, no cervical lymphadenopathy. Lungs: Clear DANAY to auscultation and percussion, No accessory muscle use. Cardio: Normal S1/S2, regular rhythm, no murmurs, no JVD Abdomen: Soft, non-tender, no palpable masses, peristalsis present, no guarding or rebound. Extremities: Symmetrical, no significant deformities, no peripheral edema , non-tender, L BKA with clean dressing, and R LE with clean dressing Skin: No rashes, no lesions, warm to touch. Neuro: No focal neurological deficits. motor and sensory intact Psych: Cooperative, appropriate mood and effect. Discharge Plan Plan Patient Disposition: Xfer Skilled [facility] (SNF) Care Plan Goals: Given recent amputation and generalized weakness, patient would benefit from being discharged to a long term facility. Please follow-up with her primary care physician within 1 week upon discharge Please follow-up with general surgeon Dr. Napier within 1 to 2 weeks after discharge Please follow-up with nuclear equipment test engineer within 1 to 2 weeks after discharge You have been started on losartan 100 mg daily, Nifedipine 60mg and hydrochlorothiazide 25 mg Take Zinc Sulfate daily and Vitamin C twice daily for better wound healing We have stopped your losartan hydrochlorothiazide 50/12.5 mg daily, Amlodipine and Brilinta twice daily Please continue taking all home medications as prescribed Please come back to the ER if symptoms persist or worsen. Continue to follow up with [facility], [address] [place] [address] for care to right foot. Right great toe ampuation site: cleanse with soap and water, pat dry well. Swab with betadine daily and cover with foam dressing. Prescriptions/Referrals Prescriptions/Med Rec: New nifedipine 60 mg tablet extended release 60 mg PO QDAY 30 Days Qty: 30 0RF zinc sulfate 50 mg zinc (220 mg) tablet 220 mg PO QDAY 14 Days Qty: 62 0RF ascorbic acid (vitamin C) 500 mg tablet 500 mg PO BID Qty: 60 0RF losartan-hydrochlorothiazide 100-25 mg tablet 1 tab PO QDAY Qty: 30 0RF Continued metformin [Glucophage] 1,000 MG tablet 1,000 mg PO BID Qty: 0 Jardiance 10 mg tablet 10 mg PO QAM Qty: 30 0RF aspirin 81 mg tablet,delayed release (DR/EC) 81 mg PO QDAY Qty: 30 0RF atorvastatin 40 mg tablet 40 mg PO DAILY Patient Comments: 1 tablet Orally Once a day insulin glargine 100 unit/mL (3 mL) insulin pen 12 unit subcut QPM Qty: 15 0RF montelukast [Singulair] 10 mg tablet 10 mg PO QDAY (DME) blood-glucose meter Kit See Rx Instructions .Route Qty: 1 0RF Rx Instructions: Used to check blood sugars at least three times per day, with meals. (DME) Blood Glucose Test Strip See Rx Instructions .Route Qty: 50 0RF Rx Instructions: Used to check blood sugars at least three times daily, with meals. (DME) pen needle, diabetic 29 gauge x 1/2 needle See Rx Instructions .Route Qty: 100 0RF Rx Instructions: Used to administer insulin. (DME) lancets 30 gauge misc See Rx Instructions .Route Qty: 100 0RF Rx Instructions: Used to check blood sugars three times daily, with meals. Discontinued ticagrelor [Brilinta] 90 mg tablet 90 mg PO BID nifedipine 30 mg tablet extended release 24hr 30 mg PO DAILY Patient Comments: take 1 tablet by mouth once daily amlodipine 10 mg tablet 10 mg PO DAILY Patient Comments: 1 tablet Orally Once a day losartan-hydrochlorothiazide 50-12.5 mg tablet 1 tab PO DAILY Patient Comments: take 1 tablet by mouth once daily Referrals: Ghanshyam Gaviria MD [Primary Care Provider] - Marcela Napier MD [Physician] - Patient/Caregiver Discharge Instructions Other Discharge Activity Instructions:: Please follow-up with her primary care physician within 1 week upon discharge Please follow-up with general surgeon Dr. Napier within 1 to 2 weeks after mary carmen pollack Please follow-up with nuclear equipment test engineer within 1 to 2 weeks after discharge You have been started on losartan 100 mg daily, Nifedipine 60mg and hydrochlorothiazide 25 mg Take Zinc Sulfate daily and Vitamin C twice daily for better wound healing We have stopped your losartan hydrochlorothiazide 50/12.5 mg daily, Amlodipine and Brilinta twice daily Please continue taking all home medications as prescribed Please come back to the ER if symptoms persist or worsen. Continue to follow up with [facility], [address] [place] [address] for care to right foot. Right great toe ampuation site: cleanse with soap and water, pat dry well. Swab with betadine daily and cover with foam dressing. Education Materials: Preventing Surgical Site Infections Print Language: Yi Activity Restrictions/Additional Instructions: May shower. Wear stump carpenter supervisor wooden ship and protector at all times. Follow-up with Dr Napier in 3 to 4 weeks, please call [phone] for an appointment. Stand Alone Forms: [employer]neem Award Info., Patient Portal Info Letter Discharge Order Discharge Orders: Discharge (Routine); Ordered 03/22/25 Ordered By: Montez Stern Quality Discharge Quality Measures VTE prophylaxis
--- NOTE | 2025-03-22 14:42 | PC.SS ---
Addendum entered by CHATO Herman 03/22/25 17:10: RONAK was obtained per Daya at [facility]. ETA 1900 with [facility]. SNF staff and bedside-RN Lauren notified. Addendum entered by CHATO Herman 03/22/25 16:58: Daya at [facility] informs no RONAK was obtained for SNF. Transport cancelled. clerk general in tele updated as unable to get ahold of bedside RN-Lauren. Addendum entered by CHATO Herman 03/22/25 16:08: SNF staff Daya was updated on tentative ETA. Addendum entered by CHATO Herman 03/22/25 16:04: Tentative transport time with [facility] ETA 1900. Transport to be cancelled with dispatch at [phone] if necessary. Original Note: SS spoke to Daya at [facility] who stated RONAK is almost complete. SS set up transport for will call. Reservation #[id number], pending release to [facility].
--- NOTE | 2025-03-23 08:05 | PC.CC ---
pt is discharged to [facility], HH referral is canceled.
== END 2025-03-22 19:35 | disposition skilled nursing facility (03) | DRG 305 ==
LOC: SERX 21:24 → SERHOLD 03-12 00:10 → S2NX 03-12 01:21
PROVIDERS: Internal Medicine Infectious Disease; Nurse Practitioner Family; Student in an Organized Health Care Education/Training Program; Surgery; Admitting Provider Internal Medicine; Emergency Provider Emergency Medicine; PCP Family Medicine; Visit Provider Internal Medicine
PROC: 0Y6J0Z1 Detachment at Left Lower Leg, High, Open Approach (ICD-10-PCS; CPT 27880; principal; 2025-03-14 12:30)
DX: E11.52 Type 2 diabetes mellitus with diabetic peripheral angiopathy with gangrene (principal); E11.69 Type 2 diabetes mellitus with other specified complication; E11.621 Type 2 diabetes mellitus with foot ulcer; E78.5 Hyperlipidemia, unspecified; L97.429 Non-pressure chronic ulcer of left heel and midfoot with unspecified severity; F17.210 Nicotine dependence, cigarettes, uncomplicated; J44.9 Chronic obstructive pulmonary disease, unspecified; I25.10 Atherosclerotic heart disease of native coronary artery without angina pectoris; L08.9 Local infection of the skin and subcutaneous tissue, unspecified; E87.6 Hypokalemia; E11.628 Type 2 diabetes mellitus with other skin complications; Z95.5 Presence of coronary angioplasty implant and graft; E11.649 Type 2 diabetes mellitus with hypoglycemia without coma; E11.65 Type 2 diabetes mellitus with hyperglycemia; E83.42 Hypomagnesemia; I11.0 Hypertensive heart disease with heart failure; M86.8X7 Other osteomyelitis, ankle and foot; D64.9 Anemia, unspecified; I50.30 Unspecified diastolic (congestive) heart failure; I70.262 Atherosclerosis of native arteries of extremities with gangrene, left leg; Z79.4 Long term (current) use of insulin; Z79.82 Long term (current) use of aspirin; Z79.899 Other long term (current) drug therapy; Z89.511 Acquired absence of right leg below knee; Z90.710 Acquired absence of both cervix and uterus; M79.89 Other specified soft tissue disorders
CPT/HCPCS: 36415; 73630; 75635; 80048; 80053; 80069; 80202; 82947; 83036; 83605; 83735; 84100; 84132; 84145; 85014; 85018; 85025; 85610; 85652; 86140; 86703; 86803; 87040; 93306; 93971; 96365; 96367; 96368; 96375; 97161; 99285; A4217; A4649; C1751; C1894; J0360; J0690; J1171; J1642; J1650; J1815; J1938; J2250; J2270; J2274; J2405; J2543; J3010; J3370; J3475; J3480; J3490; J7040; J7050; Q9967; A9270; J1920

== ENCOUNTER 2025-05-21 05:17 | Emergency (ER) | payer MEDICAID, SELFPAY ==
[2025-05-21] VITALS (34 sets, daily range): BP systolic 153–197; BP diastolic 70–97; PULSE 61–77; RESP 7–22; TEMP 36.4–37.1; O2SAT 89–98; BMI 24.3
--- NOTE | 2025-05-21 05:33 | XR_ITS ---
Examination:Right hip AP, lateral, AP pelvis 3 views Technique: Hip AP lateral, AP pelvis, 3 views Exam date and time:May 21, 2025, 0544 hours INDICATIONS: Patient fell from bed this morning with injury to the right hip, right hip pain FINDINGS: Severe osteopenia Acute appearing fracture right acetabulum and right inferior pubic ramus Hips appear grossly intact IMPRESSION: Recommend CT pelvis without contrast follow-up to confirm fracture right acetabulum and right inferior pubic ramus.
--- NOTE | 2025-05-21 05:33 | PD.EDRME ---
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 Patient underwent amputation in February. Patient states she simply forgot that her left foot was amputated and while attempting to get out of bed, she fell directly onto her right hip.
[2025-05-21] MEDS: MORPHINE SULF INJ 10 MG/ML VIAL 4 MG IVP ×2 (05:55→23:23)
--- NOTE | 2025-05-21 07:30 | PC.NURSE ---
report given from night auditor. pt presents to the ED BIBA from home for evaluation of right hip pain after ground level fall this morning. Reports she was trying to get out of bed when she lost balance and fell, landing on her right side. Hip pain described as aching in sensation that radiates down to her thigh. No other injuries or complaints reported. Denies head injury or LOC. pt does have pain with movement and was given morphine ivp and is resting on gurney at this time.
[2025-05-21 07:37] LABS: Basophils # (Auto) 0.0 Thou/mm3 (0.0-0.2); Basophils % (Auto) 1 % (0-2.5); Eosinophils # (Auto) 0.1 Thou/mm3 (0.0-0.5); Eosinophils % (Auto) 1 % (0-10); Hematocrit 32.3 % (36.0-46.0); Hemoglobin 10.8 g/dL (12.0-16.0); Immature Granulocytes Auto 0.08 Thou/mm3 (0.00-0.00); Lymphocytes # (Auto) 1.9 Thou/mm3 (1.0-4.8); Lymphocytes % (Auto) 22 % (10-50); Mean Corpuscular HGB Conc 33.4 g/dl (31.0-37.0); Mean Corpuscular Hemoglobin 29.8 pg (25.0-35.0); Mean Corpuscular Volume 89 fL (80-100); Monocytes # (Auto) 0.4 Thou/mm3 (0.0-0.8); Monocytes % (Auto) 5 % (0-12); Neutrophils # (Auto) 6.3 Thou/mm3 (1.8-7.7); Neutrophils % (Auto) 71 % (37-80); Nucleated Red Blood Cell # 0.00 Thou/mm3 (0.00-0.00); Nucleated Red Blood Cell % 0 /100 WBC (0); Platelet Count 163 Thou/mm3 (140-440); RDW Standard Deviation 46.9 fL (36.4-46.3); Red Blood Count 3.63 Miln/mm3 (4.00-5.20); White Blood Count 8.8 Thou/mm3 (3.6-11.0)
--- NOTE | 2025-05-21 07:39 | PD.EDHIP ---
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 Patient underwent amputation in February. Patient states she simply forgot that her left foot was amputated and while attempting to get out of bed, she fell directly onto her right hip. DR. OATES MAIN ED EVALUATION 64 year old female patient with history of CAD s/p PCI, hypertension, diabetes, hyperlipidemia, COPD, s/p left BKA 03/14/[address] Napier, presents to the ED GENESIS from home for evaluation of right hip pain after ground level fall this morning. Reports she was trying to get out of bed when she lost balance and fell, landing on her right side. Hip pain described as aching in sensation that radiates down to her thigh. No other injuries or complaints reported. Denies head injury or LOC. Denies chest pain, cough, shortness of breath. Denies nausea, vomiting, abdominal pain. Related Data Home Medications ?Medication ?Instructions ?Recorded ?Confirmed metformin 1,000 mg tablet 1,000 mg PO BID #0 tabs 01/28/16 03/13/25 (Glucophage) montelukast 10 mg tablet 10 mg PO QDAY 01/05/25 03/13/25 (Singulair) atorvastatin 40 mg tablet 40 mg PO DAILY 03/13/25 03/13/25 Previous Rx's ?Medication ?Instructions ?Recorded aspirin 81 mg tablet,delayed 81 mg PO QDAY #30 tabs 11/29/23 release empagliflozin 10 mg tablet 10 mg PO QAM #30 tabs 11/29/23 (Jardiance) blood sugar diagnostic (Blood #50 ea 01/07/25 Glucose Test strips) blood-glucose meter #1 ea 01/07/25 lancets 30 gauge #100 ea 01/07/25 pen needle, diabetic 29 gauge x #100 ea 01/07/25 1/2 ascorbic acid (vitamin C) 500 mg 500 mg PO BID #60 tabs 03/21/25 tablet insulin glargine 100 unit/mL (3 12 unit (0.12 mL) subcut QPM #15 mL 03/21/25 mL) subcutaneous pen losartan 100 1 tab PO QDAY #30 tabs 03/21/25 mg-hydrochlorothiazide 25 mg tablet Allergies Allergy/AdvReac Type Severity Reaction Status Date / Time ofloxacin Allergy Severe THROAT Verified 03/11/25 16:19 CLOSING Review of Systems Review of Systems Systems Reviewed: All systems reviewed, normal except as documented Past Medical History Past Medical History RESPIRATORY: Positive Chronic Obstructive Pulmonary Disease (COPD) and Asthma (COPD) MUSCULOSKELETAL: Positive Fractures ENT: Positive Ear Infection ENDOCRINE: Positive Diabetes Mellitus Type 2 PSYCHO/SOCIAL: Positive Depression Family History FAMILY HISTORY: Positive Family Cardiac Disorders Surgical History SURGICAL: Positive Coronary Stent and Amputation Social History SMOKING STATUS: Current some day smoker SECOND HAND EXPOSURE: Yes SUBSTANCE USE: does not use ED Exam Narrative Physical exam: GENERAL APPEARANCE: alert and oriented x 4, well-developed, well-nourished, no acute distress HEENT: Normocephalic, atraumatic; pupils equal, round, reactive to light; EOMI; mucous membranes pink, moist; oropharynx clear NECK: Supple LUNGS: CTABL; no wheezes, no rales, no rhonchi HEART: Regular rate, regular rhythm; normal S1, S2; no murmurs ABDOMEN: non distended; normal BS; soft, no tenderness, no guarding, no rebound; no masses, no organomegaly, no hernia BACK: no CVA tenderness EXTREMITIES: Left BKA; tenderness over the lateral right hip with limited ROM secondary to pain; no edema NEUROLOGIC: awake; alert and oriented x4; cranial nerves II-XII grossly intact; no focal sensory or motor deficits PSYCHIATRIC: appropriate mood and affect SKIN: warm, dry, normal color; no rashes Course Course Course Narrative: 1000: Attempted to call ortho Dr. Hernandez, no answer. 1002: I spoke with transfer nurse and made aware of plan to transfer for unstable right acetabulum fracture. 1140: I spoke with [facility] transfer nurse. Quality Measures none Orders Category Date Time Status Referral - Sap Analyst Stat Cons 05/21/25 10:01 Active Diet Carbohydrate Consistent Diet 05/21/[address] pelvis wo con Stat Exams 05/21/25 08:04 Completed XR hip RT w pelvis min 4V Stat Exams 05/21/25 05:33 Completed CBC Stat Lab 05/21/25 07:17 Completed CMP [Comprehensive Metabolic Panel] Stat Lab 05/21/25 07:17 Completed PT [Prothrombin Time with INR] Stat Lab 05/21/25 07:17 Completed KCL 10% Liq UDC 15 ML Med 05/21/25 08:25 Discontinued 40 meq PO X1 ONE Morphine Inj Med 05/21/25 05:37 Discontinued 4 mg IVP X1 ONE Morphine Inj Med 05/21/25 08:25 Discontinued 5 mg IVP X1 ONE Morphine Inj Med 05/21/25 14:23 Discontinued 5 mg IVP X1 ONE Ondansetron Inj [Zofran Inj] Med 05/21/25 08:25 Discontinued 4 mg IVP X1 ONE Ondansetron Inj [Zofran Inj] Med 05/21/25 14:23 Discontinued 4 mg IVP X1 ONE Vital Signs Vital signs: Vital Signs Temperature 97.9 F 05/21/25 05:24 Pulse Rate 72 05/21/25 05:24 Respiratory Rate 18 05/21/25 05:24 Blood Pressure 197/97 H 05/21/25 05:24 Pulse Oximetry (%) 96 05/21/25 05:24 Oxygen Delivery Method Room Air 05/21/25 05:24 Pulse ox is 96% on room air which is adequate. Extremity Injury, Lower MDM Narrative MDM Narrative:: Alessandra Hester am scribing for and in the presence of Dr. Oates. Patient data External records reviewed:: [facility] previous records (I reviewed admission from 03/11/2025 through 03/22/2025 for diabetic foot wound. During admission patient underwent left BKA on 03/14/[address] Napier ) and EMS form Clinical information provided by:: patient and EMS Social determinants that could affect healthcare access:: none Patient has the following chronic illnesses:: CAD s/p PCI, hypertension, diabetes, hyperlipidemia, COPD s/p left BKA 03/14/2025 How is presenting disease/condition affected by chronic disease/condition?: exacerbated by Evaluation data The following diagnostics were reviewed and interpreted by me:: lab results and radiology exam(s) Lab and/or radiology exams considered but not ordered:: None Interpretation Summary: Ordering Physician: Gregorio Huntley DO Date of Service: 05/21/25 Procedure(s): XR hip RT w pelvis min 4V Accession Number(s): [id number] cc: Rico Rush MD; NO PRIMARY/FAMILY,PHYSICIAN; Gregorio Huntley DO~ Examination:Right hip AP, lateral, AP pelvis 3 views Technique: Hip AP lateral, AP pelvis, 3 views Exam date and time:May 21, 2025, 0544 hours INDICATIONS: Patient fell from bed this morning with injury to the right hip, right hip pain FINDINGS: Severe osteopenia Acute appearing fracture right acetabulum and right inferior pubic ramus Hips appear grossly intact IMPRESSION: Recommend CT pelvis without contrast follow-up to confirm fracture right acetabulum and right inferior pubic ramus. Dictated By: Rico Rush MD Signed By: <Electronically signed by Rico Rush MD in OV> 05/21/25 0745 Ordering Physician: Deepa Oates MD Date of Service: 05/21/25 Procedure(s): CT pelvis wo con Accession Number(s): [id number] cc: Rico Rush MD; NO PRIMARY/FAMILY,PHYSICIAN; Deepa Oates MD~ Examination: CT pelvis without intravenous contrast. 2-D sagittal and coronal reconstructions. Date and time of exam:May 21, 2025, 0816 hours INDICATIONS: Patient fell out of bed this morning with injury to the pelvis, pelvis right hip pain. CTDI: vol (mGy) :8.82 DLP: (mGycm) : 300 Technique: Multiple 3 mm axial sections of the pelvis have been obtained with the 64 slice high resolution scanner. 2-D sagittal and coronal reconstructions. Low dose protocols were performed. One or more of the following dose reduction techniques were used; automated exposure control, adjustment of the mA and/or KV according to patient size, use of iterative reconstruction technique. Findings: Severe osteopenia Acute fractures right acetabulum including the medial wall, posterior wall, anterior wall and roof of the acetabulum, mild medial displacement of the femoral head into the pelvis Fractures right superior and inferior pubic rami without major displacement Hips appear intact IMPRESSION: Acute severely comminuted unstable fractures of the right acetabulum Acute fractures right superior inferior pubic rami Hips are intact Dictated By: Rico Rush MD Signed By: <Electronically signed by Rico Rush MD in OV> 05/21/25 0902 Medications / Prescriptions Medications or Prescriptions considered but not ordered:: None Medication administrations:: Medication Administration History Discontinued Medications Morphine Sulfate (Morphine Sulf Inj 10 Mg/Ml Vial) 4 mg IVP X1 ONE Stop: 05/21/25 05:38 Last Admin: 05/21/25 05:55 Dose: 4 mg Documented By: AUSTIN Morphine Sulfate (Morphine Sulf Inj 10 Mg/Ml Vial) 5 mg IVP X1 ONE Stop: 05/21/25 08:26 Last Admin: 05/21/25 08:38 Dose: 5 mg Documented By: JOSE ALFREDO Morphine Sulfate (Morphine Sulf Inj 10 Mg/Ml Vial) 5 mg IVP X1 ONE Stop: 05/21/25 14:24 Last Admin: 05/21/25 14:45 Dose: 5 mg Documented By: JOSE ALFREDO Ondansetron HCl (Ondansetron Inj 2 Mg/Ml Inj 2 Ml) 4 mg IVP X1 ONE Stop: 05/21/25 08:26 Last Admin: 05/21/25 08:38 Dose: 4 mg Documented By: JOSE ALFREDO Ondansetron HCl (Ondansetron Inj 2 Mg/Ml Inj 2 Ml) 4 mg IVP X1 ONE Stop: 05/21/25 14:24 Last Admin: 05/21/25 14:46 Dose: 4 mg Documented By: JOSE ALFREDO Potassium Chloride (Potassium Chloride 10% 20 Meq/15 Ml Udc) 40 meq PO X1 ONE Stop: 05/21/25 08:26 Last Admin: 05/21/25 08:37 Dose: 40 meq Documented By: JOSE ALFREDO See above Consultations Consultation(s) initiated? (list below): Yes Consultation #1 (Physician, Specialty, Details): I spoke with transfer nurse at [facility]. Discussed patients PMHx, HPI, ED course, exam findings, labs, and radiology results. Time: 11:40 Diagnosis Extremity Injury, Lower Differential Diagnosis: fracture of femur and fracture of hip Most likely diagnosis given after review of the tests above:: Acute severely comminuted unstable fractures of the right acetabulum Acute fractures right superior inferior pubic rami Admission Indicated Admission indicated?: not indicated Explain why admission is indicated or not indicated:: Transfer for ortho Admission Request Was there a request for admission?: No Disposition Plan Disposition Plan: other (specify) (Signed out to Dr. Lawson, pending transfer.) Discharge Plan Plan Patient Disposition: er Acute Care Fac Prescriptions/Referrals Prescriptions/Med Rec: No Action metformin [Glucophage] 1,000 MG tablet 1,000 mg PO BID Qty: 0 Jardiance 10 mg tablet 10 mg PO QAM Qty: 30 0RF aspirin 81 mg tablet,delayed release (DR/EC) 81 mg PO QDAY Qty: 30 0RF atorvastatin 40 mg tablet 40 mg PO DAILY Patient Comments: 1 tablet Orally Once a day ascorbic acid (vitamin C) 500 mg tablet 500 mg PO BID Qty: 60 0RF insulin glargine 100 unit/mL (3 mL) insulin pen 12 unit subcut QPM Qty: 15 0RF losartan-hydrochlorothiazide 100-25 mg tablet 1 tab PO QDAY Qty: 30 0RF montelukast [Singulair] 10 mg tablet 10 mg PO QDAY (DME) blood-glucose meter Kit See Rx Instructions .Route Qty: 1 0RF Rx Instructions: Used to check blood sugars at least three times per day, with meals. (DME) Blood Glucose Test Strip See Rx Instructions .Route Qty: 50 0RF Rx Instructions: Used to check blood sugars at least three times daily, with meals. (DME) pen needle, diabetic 29 gauge x 1/2 needle See Rx Instructions .Route Qty: 100 0RF Rx Instructions: Used to administer insulin. (DME) lancets 30 gauge misc See Rx Instructions .Route Qty: 100 0RF Rx Instructions: Used to check blood sugars three times daily, with meals. Referrals: No Primary/Family,Physician [Primary Care Provider] - In 1 week Problem List Clinical Impression: Acetabulum fracture, right, Fracture of right inferior pubic ramus, Fracture of right superior pubic ramus Impression comment: Acute severely comminuted unstable fractures of the right acetabulum Acute fractures right superior inferior pubic rami Patient/Caregiver Discharge Instructions Print Language: Armenian Stand Alone Forms: Tasneem Award Info., Patient Portal Info Letter
[2025-05-21 07:58] LABS: Alanine Aminotransferase 19 U/L (10-49); Albumin, Serum 2.6 gm/dL (3.4-4.8); Albumin/Globulin Ratio 1.2 (1.2-2.2); Alkaline Phosphatase 113 U/L (46-116); Anion Gap 7 (7-16); Aspartate Amino Transferase 21 U/L (0-34); BUN/Creatinine Ratio 11 Ratio (12-20); Bilirubin,Total 0.6 mg/dL (0.3-1.2); Blood Urea Nitrogen 8 mg/dL (9-23); Calcium 8.3 mg/dL (8.3-10.6); Calcium (Corrected) 9.4 mg/dL (8.5-10.1); Carbon Dioxide 28.6 mMol/L (20.0-31.0); Chloride 105 mMol/L (98-107); Creatinine (Component) 0.7 mg/dL (0.6-1.3); Estimated Creatinine Clearance 79.0 mL/min (>60); Globulin 2.2 gm/dL (2.3-3.5); Glucose 195 mg/dL (74-106); Osmolality,Calculated 284 (275-295); Sodium 141 mMol/L (136-145); Total Protein 4.8 gm/dL (5.7-8.2); eGFR > 60 See Note
[2025-05-21 08:03] LABS: Potassium 2.4 mMol/L (3.4-5.1)
--- NOTE | 2025-05-21 08:04 | XR_ITS ---
Examination: CT pelvis without intravenous contrast. 2-D sagittal and coronal reconstructions. Date and time of exam:May 21, 2025, 0816 hours INDICATIONS: Patient fell out of bed this morning with injury to the pelvis, pelvis right hip pain. CTDI: vol (mGy) :8.82 DLP: (mGycm) : 300 Technique: Multiple 3 mm axial sections of the pelvis have been obtained with the 64 slice high resolution scanner. 2-D sagittal and coronal reconstructions. Low dose protocols were performed. One or more of the following dose reduction techniques were used; automated exposure control, adjustment of the mA and/or KV according to patient size, use of iterative reconstruction technique. Findings: Severe osteopenia Acute fractures right acetabulum including the medial wall, posterior wall, anterior wall and roof of the acetabulum, mild medial displacement of the femoral head into the pelvis Fractures right superior and inferior pubic rami without major displacement Hips appear intact IMPRESSION: Acute severely comminuted unstable fractures of the right acetabulum Acute fractures right superior inferior pubic rami Hips are intact
[2025-05-21] MEDS: POTASSIUM CHLORIDE 10% 20 MEQ/15 ML UDC 40 MEQ PO (08:37)
[2025-05-21] MEDS: ONDANSETRON INJ 2 MG/ML INJ 2 ML 4 MG IVP ×2 (08:38→14:46)
[2025-05-21] MEDS: MORPHINE SULF INJ 10 MG/ML VIAL 5 MG IVP ×2 (08:38→14:45)
[2025-05-21 08:46] LABS: INR 1.0 (0.9-1.3); Prothrombin Time 10.6 Seconds (9.0-12.2)
--- NOTE | 2025-05-21 09:00 | PC.NURSE ---
pt pending transfer to another facility per doctor maikel hernandez ortho.
--- NOTE | 2025-05-21 10:27 | PC.CM ---
Addendum entered by Hannah Hutson RN 05/21/25 19:22: I handed packet with 1 CD to ED charge nurse. Otilia is reviewing. Jamila and [facility] declined patient. Addendum entered by Hannah Hutson RN 05/21/25 18:07: 1805 I received a call from [facility] and they stated their doctor reviewed patient and he feels patient needs to be transferred to a tertiary center higher level care. [facility] declined patient. Addendum entered by Hannah Hutson RN 05/21/25 17:54: 1745 I received a call back from Etna with [facility]. She asked if we were still needing to transfer patient. I let her know we are still looking to transfer patient. She states they will reach out to our doctor once they get a hold of [facility] doctor. 1720 I called and spoke to Mauricio at [facility]. I let her know I [facility] and she states [facility] is contracted with them so they should not need authorization. I provided her with the number to call and speak to Shannon. Addendum entered by Hannah Hutson RN 05/21/25 16:58: 1640 I received a call from Anh with [facility]. I put her through to Dr. Oates and I was on the call. Anh states they are going to decline patient because they are at capacity. She also let Dr. Oates know that their doctor reviewed the images that were sent over and he does not feel patient needs surgical intervention. Dr. Oates states she will reach out to Dr. Hernandez. [facility]. Addendum entered by Hannah Hutson RN 05/21/25 16:34: 1610 I received a call from Quinton with [facility]. I provided information on patient. Addendum entered by Hannah Hutson RN 05/21/25 16:32: 1450 I spoke to Nurse Maldonado at [facility] and she collected information. Addendum entered by Hannah Hutson RN 05/21/25 16:31: 1445 I sent information to [facility]. Addendum entered by Hannah Hutson RN 05/21/25 15:07: 1415 I called and left a message for [phone]. I gave a detailed information and I requested a call back. Addendum entered by Hannah Hutson RN 05/21/25 14:50: 1430 [facility] called and spoke to Dr. Oates. 1410 I faxed referral to [facility]. I pushed over images. Addendum entered by Hannah Hutson RN 05/21/25 13:42: [facility] She states since patient will be going to an inpatient bed at their facility if they accept the patient they will need authorization from patient's insurance. I will reach out to insurance. Addendum entered by Hannah Hutson RN 05/21/25 12:44: I called and spoke to Patricia with [facility] transfer center. She states handed over the information to their ortho to review. She states she will reach out to him to see if is he reviewed the information. Addendum entered by Hannah Hutson RN 05/21/25 12:04: 1145 I pushed images over to [facility]. Addendum entered by Hannah Hutson RN 05/21/25 11:58: 1140 Dr. Oates spoke to [facility] transfer nurse. Addendum entered by Hannah Hutson RN 05/21/25 10:59: 1030 I spoke to [facility] and verified they received my paperwork. [facility] states they are reviewing patient at this time. They will call Dr. Oates directly to speak to her for more information. Original Note: 1001 I received a referral to transfer patient for ortho services. I faxed information to [facility]. Packet started and CD made.
--- NOTE | 2025-05-21 16:49 | PC.NURSE ---
pt brief changed and purwick placed. pt in position of comfort.
--- NOTE | 2025-05-21 17:38 | PC.NURSE ---
ordered meal tray per md ko.
--- NOTE | 2025-05-21 18:03 | PD.EDADDENDU ---
Emergency Room Addendum Addendum Narrative: 1800: Care assumed from Dr. Oates the previous shift emergency physician. Past medical, surgical, social and family history reviewed. Vitals and home medications reviewed. Results and treatment plan discussed. I will assume the care of the patient at this time and will follow the patient, pending transfer. Please refer to the emergency department record for history and examination from initial visit. 2212: Discussed case with [facility]'s transfer center. Discussed patients ED course, exam findings, labs, and radiology results. Awaiting callback. 0600: Care signed out to Dr. Oates (emergency physician). Past medical, surgical, social and family history reviewed. Vitals and home medications reviewed. Results and treatment plan discussed. They will assume the care of the patient at this time and will follow the patient, pending transfer.
[2025-05-22] VITALS (61 sets, daily range): BP systolic 134–185; BP diastolic 58–88; PULSE 67–79; RESP 9–22; TEMP 36.4–37; O2SAT 87–97
--- NOTE | 2025-05-22 06:50 | EDNOTE_ITS ---
Emergency Room Addendum Addendum Narrative: 0600: Care assumed from Dr. Lawson, the previous shift emergency physician. Past medical, surgical, social and family history reviewed. Vitals and home medications reviewed. I will assume the care of the patient at this time, pending transfer. Please refer to the emergency department record for history and examination from initial visit.?The following addendum documentation note is intended to reflect any pending information, findings, or radiology results not included in the patient?s initial chart. 0907: I spoke with our ortho Dr. Hernandez. Discussed patients PMHx, HPI, and radiology results. States he is unable to perform surgery here and recommends transferring to higher level of care. 1138: I spoke with ortho Dr. Lo at [facility]. Discussed patients PMHx, HPI, ED course, exam findings, labs, and radiology results. Requesting a video of the CTs today. 1800: Patient signed out to Dr. Lawson pending transfer.
[2025-05-22] MEDS: LOSARTAN POTASSIUM 25 MG TABLET 100 MG PO (06:59)
[2025-05-22] MEDS: MORPHINE SULF INJ 10 MG/ML VIAL 5 MG IVP ×3 (07:00→16:56)
[2025-05-22] MEDS: ONDANSETRON INJ 2 MG/ML INJ 2 ML 4 MG IVP ×2 (07:01→12:56)
--- NOTE | 2025-05-22 08:49 | PC.CM ---
Addendum entered by Hannah Hutson RN 05/22/25 18:53: [address] Franco and I updated her on patient's transfer. I let her know patient was declined by [facility]. Transfer nurse states marta doctor reviews the images and paperwork and the feel patient does not need surgical intervention. I also let Dr. Franco know that [facility] in [place] also stated patient does not need surgical intervention. Dr. Lo with [facility] states patient should remain no-weight bearing and should have a repeat xray in 1 week. I will take paperwork to ED charge nurse. 1730 I received a call from [facility] and they stated they declined patient due to capacity. 1410 I received a call from Sharon at [facility]. She states she will send me a link to send over images. Addendum entered by Hannah Hutson RN 05/22/25 12:09: 1205 I received a call back from Victor Manuel with [facility] transfer center. He states his doctor mallory reviewed the images and he states patient does not need surgical intervention. He states patient should remain no-weight bearing and should have a repeat xray in 1 week. I will call and inform Dr. Oates. [facility] is still reviewing patient. Addendum entered by Hannah Hutson RN 05/22/25 11:44: 1140 I recieved a call from Victor Manuel with the transfer center at [facility]. He stated his ortho Dr. Lo would like us to send video of the CT that was done. He states we can send it to the transfer nurses number [phone]. I called Dr. Oates and she states she can send the video. I called Victor Manuel and I let him know that Dr. Oates will be sending the video. 1120 I faxed over information to [facility]. Original Note: 3585 I spoke to Sanam at [facility]. She states their ortho is reviewing paperwork at this time. [address] Oates and I asked if she spoke to Dr. Hernandez yesterday. She states she trying calling him but she did not have a chance to speak to him. I asked that she call and discuss case with him so he can officially decline patient. She states she knows from past experience in dealing with this type of fx, that he will want to transfer patient out to tertiary center. I let her know we still need to speak to him so we can document that he states patient needs higher level of care and needs transfer. Dr. Oates states she will call Dr. 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
--- NOTE | 2025-05-22 18:37 | EDNOTE_ITS ---
Emergency Room Addendum <Meredith Gaviria - Last Filed: 05/23/25 01:52> Addendum Narrative: 1800: Care assumed from Dr. Oates the previous shift emergency physician. Past medical, surgical, social and family history reviewed. Vitals and home medications reviewed. Results and treatment plan discussed. I will assume the care of the patient at this time and will follow the patient, pending transfer. Please refer to the emergency department record for history and examination from initial visit. On physical exam the patient is awake and sitting in the bed. Her pain seems to be in control. Lungs are clear to auscultation bilaterally. No acute respite distress at this time. 1832: Discussed case with Dr. Hernandez from orthopedic surgery regarding consultation. Discussed patients ED course, exam findings, labs, and radiology results. Recommends continuing to transfer the patient to another facility and he will attempt to send images to a colleague at [facility]. 0007: Discussed case with [facility]'s transfer center. Discussed patients ED course, exam findings, labs, and radiology results. Awaiting callback. 0052: Discussed case with Dr. Salazar from [facility] extensively. Discussed patients ED course, exam findings, labs, and radiology results. Accepts the patient for transfer. Requests repeat BMP prior to the patient being transferred. Patient states she is agreeable to transfer and she does have family that can take her for any needed follow-up appointments. <Giselle Lawson MD - Last Filed: 05/22/25 20:07> Addendum Narrative: 1800: Care assumed from Dr. Oates the previous shift emergency physician. Past medical, surgical, social and family history reviewed. Vitals and home medications reviewed. Results and treatment plan discussed. I will assume the care of the patient at this time and will follow the patient, pending transfer. Please refer to the emergency department record for history and examination from initial visit. On physical exam the patient is awake and sitting in the bed. Her pain seems to be in control. Lungs are clear to auscultation bilaterally. No acute respite distress at this time. 1832: Discussed case with Dr. Hernandez from orthopedic surgery regarding consultation. Discussed patients ED course, exam findings, labs, and radiology results. Recommends continuing to transfer the patient to another facility and he will attempt to send images to a colleague at [facility].
[2025-05-23] VITALS: PULSE 71; RESP 14; O2SAT 97
[2025-05-23 00:05] VITALS: PULSE 73; RESP 16; O2SAT 94
[2025-05-23] MEDS: MORPHINE SULF INJ 10 MG/ML VIAL 4 MG IVP (00:09)
--- NOTE | 2025-05-23 00:32 | PC.NURSE ---
CALLED [facility] AND GAVE THEM INFORMATION FOR PT NEED OF TRANSPORT. [facility] CALLED BACK , DECLINED, NO BED AVAILABLE.
--- NOTE | 2025-05-23 00:38 | PC.NURSE ---
CALLED [facility], DECLINED FOR CAPACITY.
--- NOTE | 2025-05-23 00:57 | PC.NURSE ---
CALLED [facility] #[phone] TRANSFER [facility], THEY CONNECTED US TO [facility] , DR. BARTON TALKING TO MILY ALCANTARA.
[2025-05-23 01:00] VITALS: BP 154/69; PULSE 70; RESP 12; TEMP 36.7; O2SAT 96
[2025-05-23 02:07] LABS: Anion Gap 7 (7-16); BUN/Creatinine Ratio 11 Ratio (12-20); Blood Urea Nitrogen 8 mg/dL (9-23); Calcium 7.7 mg/dL (8.3-10.6); Carbon Dioxide 27.1 mMol/L (20.0-31.0); Chloride 102 mMol/L (98-107); Creatinine (Component) 0.7 mg/dL (0.6-1.3); Estimated Creatinine Clearance 79.0 mL/min (>60); Glucose 153 mg/dL (74-106); Osmolality,Calculated 273 (275-295); Sodium 136 mMol/L (136-145); eGFR > 60 See Note
[2025-05-23 02:09] LABS: Potassium 2.6 mMol/L (3.4-5.1)
--- NOTE | 2025-05-23 02:10 | PC.NURSE ---
[facility] AT BEDSIDE TRANSFERRING PT. REPORT GIVEN TO BARON PANG RN.
--- NOTE | 2025-05-23 02:22 | PC.NURSE ---
SPOKE TO GRACIA LOVE AT [facility] AND GAVE REPORT. ALL QUESTIONS ANSWERED.
== END 2025-05-23 02:25 | disposition short-term general hospital (02) ==
PROVIDERS: Emergency Medicine; Emergency Provider Emergency Medicine
DX: S32.471A Displaced fracture of medial wall of right acetabulum, initial encounter for closed fracture (principal); S32.591A Other specified fracture of right pubis, initial encounter for closed fracture; S32.511A Fracture of superior rim of right pubis, initial encounter for closed fracture; W06.XXXA Fall from bed, initial encounter; Z75.1 Person awaiting admission to adequate facility elsewhere
CPT/HCPCS: 36415; 72192; 73503; 80048; 80053; 85025; 85610; 96374; 96375; 96376; 99283; J2270; J2405; A9270